=== PATIENT | female | born 1945 | race African-American/Black ===

== ENCOUNTER 2019-05-13 15:32 | Inpatient (IN) | payer OTHER ==
--- NOTE | 2019-05-13 15:49 | PDOC ---
Rapid Medical Evaluation Chief Complaint: Shortness of Breath Time Seen by Provider: 05/13/19 15:45 Medical Evaluation: Allergies Allergy/AdvReac Type Severity Reaction Status Date / Time No Known Allergies Allergy Verified 05/11/11 14:04 05/13/19 15:47 Pt c/o: copd exac, received by ems with 02 sat of 91 % and tachypneic Pt on brief exam: wheezing nikki with accessory muscle usage pt ordered for: iv, labs. Pt to proceed to the ED Discharge Disposition - Diagnosis Bronchitis, chronic, SOB (shortness of breath), LETTY (acute kidney injury) COPD (chronic obstructive pulmonary disease) Qualifiers: COPD type: chronic bronchitis Chronic bronchitis type: simple Qualified Code(s) : J41.0 - Simple chronic bronchitis - Discharge Dispostion Disposition: HOME Condition at time of disposition: Stable - Referrals - Patient Instructions - Post Discharge Activity
--- NOTE | 2019-05-13 17:04 | PDOC ---
Attending Attestation - Resident Resident Name: Antonio Berry - HPI HPI: 05/16/19 09:37 pt presents to the ED complaining of generalized malaise and severe wheezing and shortness of breath. Patient states that she now becomes short of breath with almost any activity. - Physicial Exam PE: 05/16/19 09:55 Agree with resident exam. PAtient is alert and in NAD, and is speaking in complete sentences, but is mildly tachypneic and has wheezing and decreased air entry. - Medical Decision Making 05/16/19 09:56 pt presents to the ED complaining of wheezing and shortness of breath consistent with prior COPD exacerbations. Patient is experiencing severe ROGEL despite treatment in the Ed, so will admit to medicine for further management.
[2019-05-13] MEDS ORDERED: methylPREDNISolone NA SUCC 125 MG/2 ML VIAL IVPUSH ONE (17:07)
--- NOTE | 2019-05-13 17:12 | PDOC ---
History of Present Illness - General Chief Complaint: Shortness of Breath Stated Complaint: COPD Time Seen by Provider: 05/13/19 15:45 History Source: Patient Exam Limitations: No Limitations - History of Present Illness Initial Comments: Rosalia Das is a 73 yo F w a pmh of COPD (Chronic bronchitis) NOT on home O2, HTN, and NIDDM who presents to the [facility] er with SOB and difficulty breathing for 3 days duration. The patient states doing physical activity is very tiring for her and she has been wheezing with even remote phsyical activity. She believes she had a cold a few days ago and after the cold subsided she started wheezing heavily and experiencing one of her typical COPD exacerbations. She feels exhausted right now. Denies current chest pain, headache, nausea, vomiting, diaphoresis, leg swelling , abdominal pain, back pain, dysuria, frequency or urgency PCP: Jean Claude Baltazar - Admits to [facility] PSH: None reported Allergies: NKA, NKDA Social Hx: Denies current smoking, drinking, or other substance usage. Lives with daughter is independent in her ADL. Past History - Past Medical History Allergies/Adverse Reactions: Allergies Allergy/AdvReac Type Severity Reaction Status Date / Time No Known Allergies Allergy Verified 05/11/11 14:04 Home Medications: Ambulatory Orders Folic Acid 1 mg PO DAILY 05/11/11 Insulin Glargine,Hum.rec.anlog [Lantus] 60 unit SQ AM 05/11/11 Insulin Lispro [Humalog] 10 unit SQ AC 05/11/11 Losartan Potassium [Cozaar] 100 mg PO AM 05/11/11 Aspirin [Ecotrin] 81 mg PO DAILY 02/23/15 Atorvastatin Ca [Lipitor -] 40 mg PO HS 02/23/15 Hydrochlorothiazide [Hctz -] 25 mg PO DAILY 02/23/15 Magnesium Citrate [Citroma -] 150 ml PO ONCE PRN #1 bottle 02/23/15 Nifedipine [Nifedical Xl] 60 mg PO DAILY 02/23/15 Clonidine HCl 0.1 mg PO BID 05/13/19 Doxazosin Mesylate 1.5 tab PO DAILY 05/13/19 Furosemide 20 mg PO BID 05/13/19 Hydralazine HCl 25 mg PO BID 05/13/19 Insulin Aspart [Novolog] 15 units IM TID 05/13/19 Insulin Degludec [Tresiba Flextouch U-200] 80 units IM DAILY 05/13/19 Labetalol HCl 100 mg PO BID 05/13/19 COPD: Yes Diabetes: Yes HTN: Yes Hypercholesterolemia: Yes Liver Disease: Yes (CKD STAGE IIIb) Other medical history: diabetic retinopathy - Immunization History Immunization Up to Date: No - Psycho Social/Smoking Cessation Hx Smoking Status: No Smoking History: Never smoked Have you smoked in the past 12 months: No Number of Cigarettes Smoked Daily: 0 Information on smoking cessation initiated: No Hx Alcohol Use: No Drug/Substance Use Hx: No Review of Systems - Review of Systems Able to Perform ROS?: Yes Comments:: CONSTITUTIONAL: Present: fatigue Absent: fever, no chills EYES: Absent: visual changes ENT: Absent: ear pain, no sore throat CARDIOVASCULAR: Absent: chest pain, no palpitations RESPIRATORY: Present: Cough, SOB GI: Absent: abdominal pain, no nausea, no vomiting, no constipation, no diarrhea GENITOURINARY: Absent: dysuria, no frequency, no hematuria MUSKULOSKELETAL: Absent: back pain, no arthralgia, no myalgia SKIN: Absent: rash NEURO: Absent: headache *Physical Exam - Vital Signs Last Vital Signs Temp Pulse Resp BP Pulse Ox 98.0 F 77 16 156/55 L 97 05/13/19 15:45 05/13/19 15:45 05/13/19 15:45 05/13/19 15:45 05/13/19 15:45 - Physical Exam GENERAL: Patient is working hard to breathe. Well-nourished. Mild apparent distress. HEENT: Normocephalic, atraumatic. PERRL, EOM intact. CARDIOVASCULAR: Normal S1, S2. Regular rate and rhythm. PULMONARY: There are diffuse expiratory wheezes on exam. No rales or rhonchi. ABDOMEN: Soft, non-distended, non-tender. EXTREMITIES: Normal ROM in all four extremities. No gross deformities. SKIN: Warm, dry. No rash NEUROLOGICAL: No focal neurological deficits. ED Treatment Course - LABORATORY CBC & Chemistry Diagram: 05/14/19 05:30 05/14/19 05:30 Medical Decision Making - Medical Decision Making Rosalia Das is a 73 yo F w a pmh of COPD (Chronic bronchitis) NOT on home O2, HTN, and NIDDM who presents to the [facility] er with SOB and difficulty breathing for 3 days duration. The patient states doing physical activity is very tiring for her and she has been wheezing with even remote phsyical activity. She believes she had a cold a few days ago and after the cold subsided she started wheezing heavily and experiencing one of her typical COPD exacerbations. She feels exhausted right now. Vital Signs Temp Pulse Resp BP Pulse Ox 98.0 F 90 25 H 165/53 L 97 05/13/19 15:45 05/13/19 19:10 05/13/19 19:10 05/13/19 19:10 05/13/19 19:10 DDx IBNLT: COPD exacerbation, respiratory distress, ACS, heart failure, electrolyte/metabolic disturbance, anemia, PNA, URI Plan: Labs, CXR, EKG, breathing treatments, Likely admission for SOB Labs: Patient has an LETTY and is anemia EKG: NS rate 88, no ST elevations or depressions, not concerning for STEMI CXR: No infiltrate or acute pathology Re-assessment: Patient feels better after receiving steroids and duonebs - She is still very short of breath with any physical activity. Disposition: Med/Surg for COPD exacerbation Discharge - Discharge Information Problems reviewed: Yes Clinical Impression/Diagnosis: SOB (shortness of breath), LETTY (acute kidney injury) COPD (chronic obstructive pulmonary disease) Qualifiers: COPD type: chronic bronchitis Chronic bronchitis type: simple Qualified Code(s) : J41.0 - Simple chronic bronchitis Bronchitis, chronic Qualifiers: Chronic bronchitis type: unspecified Qualified Code(s): J42 - Unspecified chronic bronchitis Condition: Stable - Admission Yes - Follow up/Referral - Patient Discharge Instructions - Post Discharge Activity
[2019-05-13] MEDS ORDERED: ALBUTEROL SO4 0.083% IH SOL 2.5 MG/3 ML VIAL.NEB. NEB ONE (17:23)
[2019-05-13] MEDS ORDERED: methylPREDNISolone NA SUCC 125 MG/2 ML VIAL ONE (17:23)
[2019-05-13] MEDS: ALBUTEROL SO4 2.5/IPRATROPIUM 0.5 INH SOL 3 ML VIAL.NEB. NEB SCH ×4 (17:28→18:15)
[2019-05-13 17:59] LABS: BASO % 0.8 % (0-2.0); EOS % 0.4 % (0-4.5); HEMATOCRIT 32.1 % (32.4-45.2); HEMOGLOBIN 10.4 GM/dL (10.7-15.3); LYMPH % 14.6 % (8-40); MCH 25.4 pg (25.7-33.7); MCHC 32.2 g/dl (32.0-36.0); MEAN CELL VOLUME 78.8 fl (80-96); MEAN PLT VOLUME 9.1 fl (7.5-11.1); MONO % 3.9 % (3.8-10.2); NEUT % 80.3 % (42.8-82.8); PLATELET COUNT 241 K/MM3 (134-434); RBC 4.08 M/mm3 (3.60-5.2); RDW 15.5 % (11.6-15.6); WHITE BLOOD COUNT 10.3 K/mm3 (4.0-10.0)
[2019-05-13 18:29] LABS: ALBUMIN 3.4 g/dl (3.4-5.0); BILIRUBIN,TOTAL 0.3 mg/dL (0.2-1); BLOOD UREA NITROGEN 44.4 mg/dL (7-18); CALCIUM 8.8 mg/dL (8.5-10.1); CREATININE 2.1 mg/dL (0.55-1.3); POTASSIUM 4.2 mmol/L (3.5-5.1); TOT PROT 6.7 g/dl (6.4-8.2)
--- NOTE | 2019-05-13 20:11 | HP ---
CHIEF COMPLAINT: SOB, wheezing, chest tightness, and a worsening dry cough for the past 1 month PCP: Shara Low HISTORY OF PRESENT ILLNESS: This is a 73 year old woman with PMH of COPD, HTN, DM, JEANNIE, and HLD. She presented to the ER after she was referred by her tax lawyer (Dr. Baltazar) with complaints of SOB, wheezing, chest tightness, and a worsening dry cough for the past 1 month. She has had the dry cough for the past several years, but it has gotten worse over the past year. She also endorses new onset lower extremity swelling, first noticed 3 months ago. She denies any orthopnea or paroxysmal nocturnal dyspnea. She has used 2 pillows to sleep for the past several years and does not feel like she needs more. She is able to ambulate without assistance, and walks 4 blocks at baseline. She is still able to walk 4 blocks, but states that she becomes SOB while doing so. Her last echo was at [facility] a few years ago. She also endorses occasional palpitations with the chest tightness. She denies any fevers, chills, nausea, vomiting, diarrhea, dysuria, urgency, or hematuria. Her symptoms have been gradually worsening, and she has been admitted twice at [facility] over the past few months. The first time, she was admitted Feb 11 - Feb 17 , and the second time May 03-. She states that during the course of her admission, she received nebs, steroids, and antibiotics. She was D/Richard on ZPak for 2 days after her last admission, but her symptoms have not improved. She was also started on CPAP for her JEANNIE on Apr 27 this year. She follows Dr. Fuentes for her CKD, diagnosed 2-3 years ago. She last saw him 2 weeks ago, and has an appointment with him on May 28. She states that her CKD developed as a result of her DM. She follows a metropolitan editor as well as an a p mechanic for her DM, which is well controlled on insulin. She denies any recent illnesses, sick contacts, or travel. She received her flu shot in January, and Pneumonia vaccine a few years ago. Her last colonoscopy was 2-3 years ago with no abnormalities found. ER course was notable for: (1) CXR: weak inspiration with prominent mediastinum, no signs of infiltrates or failure5 (2) WBC 10.3 (3) BUN/Cr 44.4/2.1 (4) Duonebs 4x, Solu Medrol 125mg given Recent Travel: denies PAST MEDICAL HISTORY: As listed in HPI PAST SURGICAL HISTORY: Hernia surgery 1976 Hysterectomy 1978 Social History: Smoking: denies Alcohol: denies Drugs: denies Allergies No Known Allergies Allergy (Verified 05/11/11 14:04) HOME MEDICATIONS: Home Medications Medication Instructions Recorded Folic Acid 1 mg PO DAILY 05/11/11 Insulin Glargine,Hum.rec.anlog 60 unit SQ AM 05/11/11 [Lantus] Insulin Lispro [Humalog] 10 unit SQ AC 05/11/11 Losartan Potassium [Cozaar] 100 mg PO AM 05/11/11 Aspirin [Ecotrin] 81 mg PO DAILY 02/23/15 Atorvastatin Ca [Lipitor -] 40 mg PO HS 02/23/15 Hydrochlorothiazide [Hctz -] 25 mg PO DAILY 02/23/15 Magnesium Citrate [Citroma -] 150 ml PO ONCE PRN #1 bottle 02/23/15 Nifedipine [Nifedical Xl] 60 mg PO DAILY 02/23/15 REVIEW OF SYSTEMS CONSTITUTIONAL: Absent: fever, chills, diaphoresis, generalized weakness, malaise, loss of appetite, weight change HEENT: Absent: rhinorrhea, nasal congestion, throat pain, throat swelling, difficulty swallowing, mouth swelling, ear pain, eye pain, visual changes CARDIOVASCULAR: palpitations, peripheral edema Absent: chest pain, syncope, palpitations, irregular heart rate, lightheadedness , peripheral edema RESPIRATORY: cough, shortness of breath, dyspnea with exertion, wheezing Absent: cough, shortness of breath, dyspnea with exertion, orthopnea, wheezing, stridor, hemoptysis GASTROINTESTINAL: Absent: abdominal pain, abdominal distension, nausea, vomiting, diarrhea, constipation, melena, hematochezia GENITOURINARY: Absent: dysuria, frequency, urgency, hesitancy, hematuria, flank pain, genital pain MUSCULOSKELETAL: Absent: myalgia, arthralgia, joint swelling, back pain, neck pain SKIN: Absent: rash, itching, pallor HEMATOLOGIC/IMMUNOLOGIC: Absent: easy bleeding, easy bruising, lymphadenopathy, frequent infections ENDOCRINE: Absent: unexplained weight gain, unexplained weight loss, heat intolerance, cold intolerance NEUROLOGIC: Absent: headache, focal weakness or paresthesias, dizziness, unsteady gait, seizure, mental status changes, bladder or bowel incontinence PSYCHIATRIC: Absent: anxiety, depression, suicidal or homicidal ideation, hallucinations. PHYSICAL EXAMINATION Vital Signs - 24 hr 05/13/19 05/13/19 15:45 19:10 Temperature 98.0 F Pulse Rate 77 Pulse Rate [ 90 Right Brachial] Respiratory 16 25 H Rate Blood Pressure 156/55 L Blood Pressure 165/53 L [Right Arm] O2 Sat by Pulse 97 97 Oximetry (%) GENERAL: Awake, alert, and fully oriented, in no acute distress. HEAD: Normal with no signs of trauma. EYES: Pupils equal, round and reactive to light, extraocular movements intact, sclera anicteric, conjunctiva clear. No lid lag. EARS, NOSE, THROAT: Ears normal, nares patent, oropharynx clear without exudates. Moist mucous membranes. NECK: Normal range of motion, supple without lymphadenopathy, JVD, or masses. LUNGS: Breath sounds equal, mild wheezing in apices B/L HEART: Regular rate and rhythm, systolic murmur 3/6 on RSB ABDOMEN: Soft, nontender, not distended, normoactive bowel sounds, no guarding, no rebound, no masses. No hepatomegaly or splenomegaly. Digital rectal exam performed with RN Siwe present as italian teacher: No masses or fissures on inspection , normal anal tone, vault empty, no blood noticed on finger, FOBT sent MUSCULOSKELETAL: Normal range of motion at all joints. No bony deformities or tenderness. No CVA tenderness. UPPER EXTREMITIES: 2+ pulses, warm, well-perfused. Coarse tremor upon extension of hands noticed LOWER EXTREMITIES: Mild ankle swelling B/L NEUROLOGICAL: Motor 5/5, sensations intact PSYCHIATRIC: Cooperative. Good eye contact. Appropriate mood and affect. SKIN: Warm, dry, normal turgor, no rashes or lesions noted, normal capillary refill. Laboratory Results - last 24 hr 05/13/19 05/13/19 05/13/19 17:17 17:30 17:30 WBC 10.3 H RBC 4.08 Hgb 10.4 L Hct 32.1 L MCV 78.8 L MCH 25.4 L MCHC 32.2 RDW 15.5 Plt Count 241 MPV 9.1 Absolute Neuts (auto) 8.3 H Neutrophils % 80.3 Lymphocytes % 14.6 Monocytes % 3.9 Eosinophils % 0.4 Basophils % 0.8 Nucleated RBC % 0 Sodium 140 Potassium 4.2 Chloride 106 Carbon Dioxide 24 Anion Gap 10 BUN 44.4 H Creatinine 2.1 H Est GFR (CKD-EPI)AfAm 26.03 Est GFR (CKD-EPI)NonAf 22.46 Random Glucose 207 H Calcium 8.8 Total Bilirubin 0.3 AST 17 ALT 21 Alkaline Phosphatase 75 Creatine Kinase 220 H Creatine Kinase Index 0.5 CK-MB (CK-2) 1.2 Troponin I 0.03 Total Protein 6.7 Albumin 3.4 ASSESSMENT/PLAN: 73 year old woman with PMH of COPD, HTN, DM, JEANNIE, and HLD. She presented to the ER after she was referred by her tax lawyer (Dr. Baltazar) with complaints of SOB, wheezing, chest tightness, and a worsening dry cough for the past 1 month. Admitted for management of suspected COPD exacerbation. #COPD exacerbation - Wheezing, decreased breath sounds, Hx of COPD suggests COPD exacerbation vs asthma - CXR: weak inspiration with prominent mediastinum, no signs of infiltrates or failure - Pt's PEF is approximately 90% of expected (measured LZM=931, calculated estimated NZT=150) - Duonebs 4x, Solu Medrol 125mg given in ER - Duonebs Q4H and Prednisone 40mg OD with 2L O2 started - Previously completed Azithro course last week at [facility], will not start on Abx. Avoid Qtc prolonging drugs (Qtc 484) - Pulmonary consult placed - VBG to r/o hyperpcapnia - Flu swab sent #CHF r/o - New onset lower extremity edema with SOB suggestive of possible CHF - Last Echo was several years ago, was normal according to the patient - BNP ordered - Echo ordered - Lasix 40mg given, started on 40mg BID - Consult placed with Dr. Patterson #Anemia - Microcystic, last colonoscopy 3 years ago - Fe studies, TSH, RBC smear ordered - FOBT sent #CKD vs LETTY on CKD - BUN/Cr - UA ordered - Renal US ordered - Consult placed with Dr. Lopez #Hx of HTN - Continue home meds Clonidine, Labetalol, will hold Nifedipine for now due to potential for peripheral edema and worsenig of CHF - BP went up to 173/59 here, gave home dose of Clonidine and Nifedipine #Leukocytosis - Possibly reactive to steroid use. Infection less likely due to absence of sputum, no hx of fevers or chills, and lack of radiological findings - Will continue to monitor #Hx of DM - BGM and ISS ACHS started - Home Tresiba continued #FEN - Na controlled and DM diet #DVT - Heparin SQ started Visit type - Emergency Visit Emergency Visit: Yes ED Registration Date: 05/13/19 Care time: The patient presented to the Emergency Department on the above date and was hospitalized for further evaluation of their emergent condition. - New Patient This patient is new to me today: Yes Date on this admission: 05/16/19 - Critical Care Critical Care patient: No ATTENDING PHYSICIAN STATEMENT I saw and evaluated the patient. I reviewed the resident's note and discussed the case with the resident. I agree with the resident's findings and plan as documented. SUBJECTIVE: OBJECTIVE: ASSESSMENT AND PLAN:
[2019-05-13] MEDS ORDERED: MAGNESIUM CITRATE 300 ML BOTTLE PO ONE (20:24)
--- NOTE | 2019-05-13 20:29 | PN ---
Teaching Attending Note Name of Resident: Darryl Longo ATTENDING PHYSICIAN STATEMENT I saw and evaluated the patient. I reviewed the resident's note and discussed the case with the resident. I agree with the resident's findings and plan as documented. SUBJECTIVE: 73 yo woman with COPD (Chronic bronchitis) NOT on home O2, HTN, and NIDDM Presents with shortness of breath and difficulty breathing for about 3 days. Patient reports fatigue with physical activity, reports wheezing, reports possible cold contracted over the past couple days.No overt chest pain. Positive orthopnea, dyspnea with laying flat, dyspnea with walking long distances.Denied overt chest pain. Ported to have received 125 mg Solu-Medrol in the emergency room and 4 rounds of nebulizers. OBJECTIVE: Last Vital Signs Temp Pulse Resp BP Pulse Ox 98.0 F 90 25 H 165/53 L 97 05/13/19 15:45 05/13/19 19:10 05/13/19 19:10 05/13/19 19:10 05/13/19 19:10 GENERAL: Well developed, well nourished. Awake and alert. No acute distress. HEENT: Normocephalic, atraumatic. PERRLA, EOMI. No conjunctival pallor. Sclera are non- icteric. Moist mucous membranes. Oropharynx is clear. NECK: Supple. Full ROM. No JVD. Carotid pulses 2+ and symmetric, without bruits. No thyromegaly. No lymphadenopathy. CARDIOVASCULAR: Regular rate and rhythm. No murmurs, rubs, or gallops. Distal pulses are 2+ and symmetric. PULMONARY: No evidence of respiratory distress. Very scant expiratory wheezing appreciated , bilateral breath sounds, equal ABDOMINAL: Soft. Non-tender. Non-distended. No rebound or guarding. No organomegaly. Normoactive bowel sounds. MUSCULOSKELETAL Normal range of motion at all joints. No bony deformities or tenderness. No CVA tenderness. EXTREMITIES: No cyanosis. No clubbing. No edema. No calf tenderness. SKIN: Warm and dry. Normal capillary refill. No rashes. No jaundice. PSYCHIATRIC: Cooperative. Good eye contact. Appropriate mood and affect. Abnormal Lab Results 05/13/19 05/13/19 05/13/19 17:17 17:30 17:30 WBC 10.3 H Hgb 10.4 L Hct 32.1 L MCV 78.8 L MCH 25.4 L Absolute Neuts (auto) 8.3 H BUN 44.4 H Creatinine 2.1 H Random Glucose 207 H Creatine Kinase 220 H Imaging studies reviewed ASSESSMENT AND PLAN: 63-year-old woman with COPD exacerbation Duo nebs every 4 hours Prednisone 40 mg p.o. daily Zithromax 5-day course supplement oxygen as needed Pulmonary evaluation VBG to rule out CO2 retention Send flu swab Avoid tobacco smoking #Possible CHF exacerbation Furosemide 40 mg IV twice daily I's and O's Daily weights Free water and salt restriction Cardiology consult Beta-willian, GONZALES inhibitor #Microcytic anemia Iron studies, ferritin, TSH, red blood smear Stool for fecal occult blood Would consider colonoscopy as an outpatient #CKD with possible LETTY Renal sonogram Avoid nephrotoxins Send UA Renal consult #Hypertensionuncontrolled Continue with home dose clonidine, should not abruptly DC this medication as it can cause rebound hypertension Continue with home dose hydralazine Continue labetalol Would hold nifedipine as calcium channel blockers can worsen potential CHF Salt restriction diet #Uncontrolled hyperglycemia NovoLog sliding scale Basal glargine A1c Diabetic diet #DVT prophylaxisheparin subcutaneously
[2019-05-13] MEDS ORDERED: NIFEdipine E.R 60 MG TABLET PO SCH (20:30)
[2019-05-13] MEDS ORDERED: NIFEdipine E.R. 30 MG TABLET ONE (22:31)
[2019-05-13] MEDS ORDERED: MAGNESIUM CITRATE 300 ML BOTTLE ONE (22:31)
[2019-05-13] MEDS ORDERED: AZITHROMYCIN IVPB 500 MG/250 ML BAG IVPB ONE (22:51)
[2019-05-13] MEDS ORDERED: FUROSEMIDE 40 MG/4 ML INJECTABLE VIAL IVPUSH ONE (22:55)
[2019-05-13] MEDS ORDERED: FUROSEMIDE 40 MG/4 ML INJECTABLE VIAL ONE (23:32)
[2019-05-14] MEDS ORDERED: hydrALAZINE HCL 25 MG TABLET (FP) ONE (00:43)
[2019-05-14] MEDS ORDERED: cloNIDine HCL 0.1 MG TABLET ONE (00:43)
[2019-05-14] MEDS ORDERED: LABETALOL HCL 100 MG TABLET (FP) ONE (00:43)
[2019-05-14] MEDS ORDERED: ALBUTEROL SO4 2.5/IPRATROPIUM 0.5 INH SOL 3 ML VIAL.NEB. NEB ONE ×3 (00:43→04:23)
[2019-05-14] MEDS ORDERED: ATORVASTATIN CA 40 MG TABLET (FP) ONE (00:43)
[2019-05-14] MEDS ORDERED: HEPARIN NA (PORCINE) 5,000 UNITS/ML 1ML VIAL ONE (00:44)
[2019-05-14] MEDS ORDERED: AZITHROMYCIN IVPB 500 MG/250 ML BAG IVPB ONE (00:44)
[2019-05-14 00:53] LABS: EPI CELLS 1.1 /HPF (0-5/HPF); HYALINE CASTS 6 /lpf (0-8); URINE APPEARANCE CLEAR; URINE BACTERIA 4.6 /hpf (NEGATIVE); URINE BILIRUBIN NEGATIVE (NEGATIVE); URINE COLOR YELLOW; URINE GLUCOSE (UA) NEGATIVE (NEGATIVE); URINE KETONE NEGATIVE (NEGATIVE); URINE LEUK ESTERASE NEGATIVE (NEGATIVE); URINE NITRITE NEGATIVE (NEGATIVE); URINE PROTEIN 2+ (NEGATIVE); URINE RBC 1 /hpf (0-4); URINE UROBILINOGEN 0.2 mg/dL (0.2-1.0); URINE WBC 1 /hpf (0-5)
[2019-05-14] MEDS: cloNIDine HCL 0.1 MG TABLET PO SCH ×3 (00:56→21:35)
[2019-05-14] MEDS: HEPARIN NA (PORCINE) 5,000 UNITS/ML 1ML VIAL SQ SCH ×4 (00:56→21:36)
[2019-05-14] MEDS: hydrALAZINE HCL 25 MG TABLET (FP) PO SCH ×2 (00:56→11:08)
[2019-05-14] MEDS: ATORVASTATIN CA 20 MG TABLET (FP) PO SCH ×2 (00:56→21:35)
[2019-05-14] MEDS: LABETALOL HCL 100 MG TABLET (FP) PO SCH ×3 (00:56→21:35)
[2019-05-14] MEDS: INSULIN SLIDING SCALE (NOVOLOG) 1 VIAL SQ SCH ×4 (01:24→21:33)
[2019-05-14] MEDS ORDERED: methylPREDNISolone NA SUCC 40 MG/1 ML VIAL IVPUSH SCH (02:00)
[2019-05-14] MEDS: ALBUTEROL SO4 2.5/IPRATROPIUM 0.5 INH SOL 3 ML VIAL.NEB. NEB SCH ×6 (02:06→21:34)
[2019-05-14] MEDS ORDERED: methylPREDNISolone NA SUCC 40 MG/1 ML VIAL ONE (02:47)
[2019-05-14 05:06] LABS: VENOUS PC02 41.6 mmHg (38-52); VENOUS PH 7.39 (7.31-7.41); VENOUS PO2 62.1 mmHg (28-48)
[2019-05-14] MEDS ORDERED: FUROSEMIDE 20 MG TABLET (FP) PO SCH (06:00)
[2019-05-14] MEDS ORDERED: FUROSEMIDE 40 MG/4 ML INJECTABLE VIAL IVPUSH SCH ×2 (06:00→10:00)
[2019-05-14 06:31] LABS: BASO % 0.1 % (0-2.0); HEMATOCRIT 30.2 % (32.4-45.2); LYMPH % 7.3 % (8-40); MCH 25.6 pg (25.7-33.7); MCHC 33.1 g/dl (32.0-36.0); MEAN CELL VOLUME 77.4 fl (80-96); MEAN PLT VOLUME 8.4 fl (7.5-11.1); MONO % 1.8 % (3.8-10.2); NEUT % 90.8 % (42.8-82.8); PLATELET COUNT 243 K/MM3 (134-434); RDW 15.4 % (11.6-15.6); WHITE BLOOD COUNT 9.2 K/mm3 (4.0-10.0)
[2019-05-14 06:49] LABS: N-TERMINAL BNP 1724.8 pg/ml (5-450)
[2019-05-14 06:54] LABS: ALBUMIN 3.4 g/dl (3.4-5.0); BILIRUBIN,TOTAL 0.6 mg/dL (0.2-1); BLOOD UREA NITROGEN 48.6 mg/dL (7-18); CALCIUM 9.4 mg/dL (8.5-10.1); CREATININE 2.5 mg/dL (0.55-1.3); MAGNESIUM 2.8 mg/dL (1.8-2.4); TOT PROT 6.9 g/dl (6.4-8.2)
[2019-05-14] MEDS ORDERED: FUROSEMIDE 40 MG/4 ML INJECTABLE VIAL ONE (07:39)
[2019-05-14] MEDS ORDERED: INSULIN (LEVEMIR) 100 UNITS/ML UNITS SQ ONE (08:06)
[2019-05-14] MEDS ORDERED: INSULIN DEGLUDEC IM SCH (10:00)
[2019-05-14] MEDS ORDERED: PATIENT'S OWN MEDICATION (NON-FORMULARY) (Nifedipine [Nifedical Xl] 60 MG) PO SCH (10:00)
[2019-05-14] MEDS ORDERED: DOXYCYCLINE INJECTION 100 MG in DEXTROSE 5%-WATER 100 ML IVPB SCH (10:00)
[2019-05-14] MEDS ORDERED: AZITHROMYCIN IVPB 500 MG/250 ML BAG IVPB SCH (10:00)
[2019-05-14] MEDS ORDERED: predniSONE 20 MG TABLET (UD) PO SCH ×2 (10:00)
[2019-05-14] MEDS ORDERED: INSULIN SLIDING SCALE (NOVOLOG) 1 VIAL SQ ONE (11:05)
[2019-05-14] MEDS: FOLIC ACID 1 MG TABLET (FP) PO SCH (11:07)
[2019-05-14] MEDS: LOSARTAN POTASSIUM 50 MG TABLET (FP) PO SCH (11:07)
--- NOTE | 2019-05-14 11:58 | EKG ---
Test Reason : Blood Pressure : / mmHG Vent. Rate : 088 BPM Atrial Rate : 088 BPM P-R Int : 172 ms QRS Dur : 082 ms QT Int : 400 ms P-R-T Axes : 040 -10 017 degrees QTc Int : 484 ms NORMAL SINUS RHYTHM NORMAL ECG Confirmed by MD GUILLERMO, PASTORA ([id number]) on 05/14/2019 11:58:08 AM Referred By: Confirmed By:PASTORA LI MD
--- NOTE | 2019-05-14 13:08 | PN ---
Teaching Attending Note Name of Resident: Benjamin Saldaña ATTENDING PHYSICIAN STATEMENT I saw and evaluated the patient. I reviewed the resident's note and discussed the case with the resident. I agree with the resident's findings and plan as documented. SUBJECTIVE: No fever or chills. She feels better , breathing has improved. No N/V. she feels her LE edema is better than before. she was started on lasix in March due to LE edema. she does not have a diagnosis of CHF. she feels thirsty right now. has no n productive cough. OBJECTIVE: NAD, awake, alert, cooperative. Dry MM. Erythematous throat, no exudates. no N/V CV: RRR, RUSB with radiation to carotids. L neck vein distention Lungs: no wheezing. no crackles. Ext: varicose vein on ankles. trace edema on legs. no erythema. Abd: soft, NT, ND, NL BS. ASSESSMENT AND PLAN: 73 y/o lady with h/o COPD, CKD, HTN, DM, and other medical problems who presented with SOB and cough. 1- SOB: due to acute COPD exacerbation. She does not look volume overloaded ( no crackles, no cxray findings, LE edema could be due to varicose veins.. - dc lasix - cont prednisone - cont Nebs - no evidence of PNA. long QTc . received azithro at [place]. will use doxy for 2 more days for antiinflammatory effect. - echo pending 2- DM: will confirm Tresiba dose . - start levemir - SSI 3- HTN : cont labetalol, clonidine, HZN, and Nifedipine and Cardura 4- CKD: not sure of Cr base line. not sure if LETTY. - hold lasix - renal US with no hydro - will contact [facility] base line cr 5- DVT PX : heaprin sq
[2019-05-14] MEDS: DOXAZOSIN MESYLATE 2 MG TABLET PO SCH (13:12)
--- NOTE | 2019-05-14 13:12 | PN ---
Physical Exam: SUBJECTIVE: Patient seen and examined at bedside. She was admitted overnight. She offers no complaints this AM. She states she is not having difficulty breathing. OBJECTIVE: Vital Signs Temp Pulse Resp BP Pulse Ox 98.4 F 69 18 137/56 L 99 05/14/19 14:57 05/14/19 14:57 05/14/19 14:57 05/14/19 14:57 05/14/19 10:00 GENERAL: AOx3, in no acute distress, sitting in tri-pod position HEAD: NCAT EYES: CYNTHIA, EOMI, conjunctiva clear. ENT: Ears normal, nares patent, oropharynx clear without exudates. Moist mucous membranes. NECK: Normal range of motion, supple without lymphadenopathy, JVD, or masses. LUNGS: CTAB. No wheezes, and no crackles. No accessory muscle use. HEART: RRR s1 s2, 3/6 systolid murmur at RUSB with radiation to carotids. LEFT neck vein distention. ABDOMEN: Soft, BS present in all 4 quadrants, non-distended, no JVD, MUSCULOSKELETAL: No bony deformities or tenderness. No CVA tenderness. UPPER EXTREMITIES: 2+ pulses, warm, well-perfused. No cyanosis. No clubbing. No peripheral edema. LOWER EXTREMITIES: 2+ pulses, warm, well-perfused. No calf tenderness. Trace peripheral edema. NEUROLOGICAL: No focal deficits. Cranial nerves II-XII intact. Normal speech. Gait not appreciated. PSYCHIATRIC: Cooperative. Good eye contact. Appropriate mood and affect. SKIN: Warm, dry, normal turgor, no rashes or lesions noted, normal capillary refill. Laboratory Results - last 24 hr 05/13/19 05/13/19 05/13/19 17:17 17:30 17:30 WBC 10.3 H RBC 4.08 Hgb 10.4 L Hct 32.1 L MCV 78.8 L MCH 25.4 L MCHC 32.2 RDW 15.5 Plt Count 241 MPV 9.1 Absolute Neuts (auto) 8.3 H Neutrophils % 80.3 Lymphocytes % 14.6 Monocytes % 3.9 Eosinophils % 0.4 Basophils % 0.8 Nucleated RBC % 0 PTT (Actin FS) VBG pH POC VBG pCO2 POC VBG pO2 VBG HCO3 VBG O2 Sat (Kyleigh) VBG Base Excess Sodium 140 Potassium 4.2 Chloride 106 Carbon Dioxide 24 Anion Gap 10 BUN 44.4 H Creatinine 2.1 H Est GFR (CKD-EPI)AfAm 26.03 Est GFR (CKD-EPI)NonAf 22.46 POC Glucometer Random Glucose 207 H Calcium 8.8 Magnesium Iron TIBC Iron Saturation Unsaturated IBC Total Bilirubin 0.3 AST 17 ALT 21 Alkaline Phosphatase 75 Creatine Kinase 220 H Creatine Kinase Index 0.5 CK-MB (CK-2) 1.2 Troponin I 0.03 B-Natriuretic Peptide Total Protein 6.7 Albumin 3.4 TSH Urine Color Urine Appearance Urine pH Ur Specific [place] Urine Protein Urine Glucose (UA) Urine Ketones Urine Blood Urine Nitrite Urine Bilirubin Urine Urobilinogen Ur Leukocyte Esterase Urine WBC (Auto) Urine RBC (Auto) Urine Casts (Auto) U Epithel Cells (Auto) Urine Bacteria (Auto) Stool Occult Blood Influenza A (Rapid) Influenza B (Rapid) 05/14/19 05/14/19 05/14/19 00:00 00:00 01:00 WBC RBC Hgb Hct MCV MCH MCHC RDW Plt Count MPV Absolute Neuts (auto) Neutrophils % Lymphocytes % Monocytes % Eosinophils % Basophils % Nucleated RBC % PTT (Actin FS) VBG pH POC VBG pCO2 POC VBG pO2 VBG HCO3 VBG O2 Sat (Kyleigh) VBG Base Excess Sodium Potassium Chloride Carbon Dioxide Anion Gap BUN Creatinine Est GFR (CKD-EPI)AfAm Est GFR (CKD-EPI)NonAf POC Glucometer 373 Random Glucose Calcium Magnesium Iron TIBC Iron Saturation Unsaturated IBC Total Bilirubin AST ALT Alkaline Phosphatase Creatine Kinase Creatine Kinase Index CK-MB (CK-2) Troponin I B-Natriuretic Peptide Total Protein Albumin TSH Urine Color Yellow Urine Appearance Clear Urine pH 5.0 Ur Specific [place] 1.013 Urine Protein 2+ H Urine Glucose (UA) Negative Urine Ketones Negative Urine Blood Negative Urine Nitrite Negative Urine Bilirubin Negative Urine Urobilinogen 0.2 Ur Leukocyte Esterase Negative Urine WBC (Auto) 1 Urine RBC (Auto) 1 Urine Casts (Auto) 6 U Epithel Cells (Auto) 1.1 Urine Bacteria (Auto) 4.6 Stool Occult Blood Negative Influenza A (Rapid) Influenza B (Rapid) 05/14/19 05/14/19 05/14/19 02:55 04:30 05:30 WBC 9.2 RBC 3.90 Hgb 10.0 L Hct 30.2 L MCV 77.4 L MCH 25.6 L MCHC 33.1 RDW 15.4 Plt Count 243 MPV 8.4 Absolute Neuts (auto) 8.4 H Neutrophils % 90.8 H Lymphocytes % 7.3 L D Monocytes % 1.8 L Eosinophils % 0.0 D Basophils % 0.1 Nucleated RBC % 0 PTT (Actin FS) VBG pH 7.39 POC VBG pCO2 41.6 POC VBG pO2 62.1 H VBG HCO3 24.5 VBG O2 Sat (Kyleigh) 90.4 H VBG Base Excess 0 Sodium Potassium Chloride Carbon Dioxide Anion Gap BUN Creatinine Est GFR (CKD-EPI)AfAm Est GFR (CKD-EPI)NonAf POC Glucometer Random Glucose Calcium Magnesium Iron TIBC Iron Saturation Unsaturated IBC Total Bilirubin AST ALT Alkaline Phosphatase Creatine Kinase Creatine Kinase Index CK-MB (CK-2) Troponin I B-Natriuretic Peptide Total Protein Albumin TSH Urine Color Urine Appearance Urine pH Ur Specific [place] Urine Protein Urine Glucose (UA) Urine Ketones Urine Blood Urine Nitrite Urine Bilirubin Urine Urobilinogen Ur Leukocyte Esterase Urine WBC (Auto) Urine RBC (Auto) Urine Casts (Auto) U Epithel Cells (Auto) Urine Bacteria (Auto) Stool Occult Blood Influenza A (Rapid) Negative Influenza B (Rapid) Negative 05/14/19 05/14/19 05/14/19 05:30 05:30 05:30 WBC RBC Hgb Hct MCV MCH MCHC RDW Plt Count MPV Absolute Neuts (auto) Neutrophils % Lymphocytes % Monocytes % Eosinophils % Basophils % Nucleated RBC % PTT (Actin FS) 29.1 VBG pH POC VBG pCO2 POC VBG pO2 VBG HCO3 VBG O2 Sat (Kyleigh) VBG Base Excess Sodium 140 Potassium 4.0 Chloride 105 Carbon Dioxide 23 Anion Gap 13 BUN 48.6 H Creatinine 2.5 H Est GFR (CKD-EPI)AfAm 21.08 Est GFR (CKD-EPI)NonAf 18.19 POC Glucometer Random Glucose 316 H Calcium 9.4 Magnesium 2.8 H Iron 22 L TIBC 277 Iron Saturation 7 L Unsaturated IBC 255 Total Bilirubin 0.6 AST 14 L ALT 21 Alkaline Phosphatase 73 Creatine Kinase Creatine Kinase Index CK-MB (CK-2) Troponin I B-Natriuretic Peptide 1724.8 H Total Protein 6.9 Albumin 3.4 TSH 0.76 Urine Color Urine Appearance Urine pH Ur Specific [place] Urine Protein Urine Glucose (UA) Urine Ketones Urine Blood Urine Nitrite Urine Bilirubin Urine Urobilinogen Ur Leukocyte Esterase Urine WBC (Auto) Urine RBC (Auto) Urine Casts (Auto) U Epithel Cells (Auto) Urine Bacteria (Auto) Stool Occult Blood Influenza A (Rapid) Influenza B (Rapid) 05/14/19 11:23 WBC RBC Hgb Hct MCV MCH MCHC RDW Plt Count MPV Absolute Neuts (auto) Neutrophils % Lymphocytes % Monocytes % Eosinophils % Basophils % Nucleated RBC % PTT (Actin FS) VBG pH POC VBG pCO2 POC VBG pO2 VBG HCO3 VBG O2 Sat (Kyleigh) VBG Base Excess Sodium Potassium Chloride Carbon Dioxide Anion Gap BUN Creatinine Est GFR (CKD-EPI)AfAm Est GFR (CKD-EPI)NonAf POC Glucometer 286 Random Glucose Calcium Magnesium Iron TIBC Iron Saturation Unsaturated IBC Total Bilirubin AST ALT Alkaline Phosphatase Creatine Kinase Creatine Kinase Index CK-MB (CK-2) Troponin I B-Natriuretic Peptide Total Protein Albumin TSH Urine Color Urine Appearance Urine pH Ur Specific [place] Urine Protein Urine Glucose (UA) Urine Ketones Urine Blood Urine Nitrite Urine Bilirubin Urine Urobilinogen Ur Leukocyte Esterase Urine WBC (Auto) Urine RBC (Auto) Urine Casts (Auto) U Epithel Cells (Auto) Urine Bacteria (Auto) Stool Occult Blood Influenza A (Rapid) Influenza B (Rapid) Active Medications Albuterol Sulfate (Ventolin 0.083% Nebulizer Soln -) 1 amp NEB Q4H PRN PRN Reason: SHORT OF BREATH/WHEEZING Albuterol/Ipratropium (Duoneb -) 1 amp NEB RQID [facility] Atorvastatin Calcium (Lipitor -) 40 mg PO HS [facility] Last Admin: 05/14/19 00:56 Dose: 40 mg Clonidine (Catapres -) 0.1 mg PO BID [facility] Last Admin: 05/14/19 11:07 Dose: 0.1 mg Doxazosin Mesylate (Cardura -) 6 mg PO DAILY [facility] Last Admin: 05/14/19 13:12 Dose: 6 mg Folic Acid (Folic Acid -) 1 mg PO DAILY [facility] Last Admin: 05/14/19 11:07 Dose: 1 mg Heparin Sodium (Porcine) (Heparin -) 5,000 unit SQ TID [facility] Last Admin: 05/14/19 14:12 Dose: 5,000 unit Hydralazine HCl (Apresoline -) 25 mg PO BID [facility] Last Admin: 05/14/19 11:08 Dose: 25 mg Sodium Chloride (Normal Saline -) 1,000 mls @ 75 mls/hr IV ASDIR [facility] Insulin Aspart (Novolog Vial Sliding Scale -) 1 vial SQ [facility]; Protocol Last Admin: 05/14/19 17:01 Dose: Not Given Insulin Detemir (Levemir Vial) 20 units SQ AM [facility] Labetalol HCl (Normodyne -) 100 mg PO BID [facility] Last Admin: 05/14/19 11:07 Dose: 100 mg Losartan Potassium (Cozaar -) 50 mg PO DAILY [facility] Last Admin: 05/14/19 11:07 Dose: 50 mg Methylprednisolone Sodium Succinate (Solu-Medrol -) 40 mg IVPUSH Q8H-IV [facility] Nifedipine (Procardia Xl -) 60 mg PO DAILY [facility] ASSESSMENT/PLAN: 73 y/o female PMH HTN, insulin treated DM, CKD III, COPD, c/o with SOB and cough and admitted for acute respiratory failure 2/2 acute COPD exacerbation. # Acute respiratory failure 2/2 acute COPD exacerbation - Symptoms improved s/p duonebs and prednisone - Pt denies h/o CHF - No clinical evidence of fluid overload - Echo pending - Solumedrol 40 mg IV q8h, duonebs sched, albuterol PRN for sob - CPAP at night 11cm H20 # CKD III - Pt reports being seen by Dr. Mary Kate Fuentes - Most recent Cr 1.83 (04/19/19) and 1.91 (04/05/19) - Hold lasix - If cr is higher hold losartan (given nephro note of range 1.6 to 2.4) - Renal US: no hydronephrosis # DM - Hold home regimen: Tresiba 22 units HS - Levemir 20 u in the AM - ISS ACHS # HTN - Cont. curent home regimen: labetalol 100 mg po BID, clonidine 0.1 mg PO BID, and nifedipine 60 mg po qd and doxazosin 6 mg po qd - Cardio consulted: STOP hydralazine 25 mg po BID # F/E/N - NS at 75 cc/hour. DC if pt clinically overloaded. - Cont. to monitor - Low sodium diet # DVT prophylaxis - Heparin SQ # Disposition - Telemetry Kyle Manuel MD Visit type - Emergency Visit Emergency Visit: No - New Patient This patient is new to me today: Yes Date on this admission: 05/14/19 - Critical Care Critical Care patient: No ATTENDING PHYSICIAN STATEMENT I saw and evaluated the patient. I reviewed the resident's note and discussed the case with the resident. I agree with the resident's findings and plan as documented. SUBJECTIVE: OBJECTIVE: ASSESSMENT AND PLAN:
--- NOTE | 2019-05-14 14:59 | CON.PULM ---
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 Reports a nonproductive cough and wheezing. No fevers, chills or sweats. She has been hospitalized twice recently for similar symptoms. Also reports some leg swelling without orthopnea or PND. She reports compliance with her inhalers. She is a never smoker. - History Source History Provided By: Patient, Medical Record Limitations to Obtaining History: No Limitations - Past Medical History Cardio/Vascular: Yes: HTN, Hyperlipdemia Pulmonary: Yes: COPD, Sleep Apnea ...: No Endocrine: Yes: Diabetes Mellitus - Alcohol/Substance Use Hx Alcohol Use: No - Smoking History Smoking history: Never smoked Have you smoked in the past 12 months: No Aproximately how many cigarettes per day: 0 Home Medications - Allergies Allergies/Adverse Reactions: Allergies Allergy/AdvReac Type Severity Reaction Status Date / Time No Known Allergies Allergy Verified 05/11/11 14:04 - Home Medications Home Medications: Ambulatory Orders Folic Acid 1 mg PO DAILY 05/11/11 Insulin Glargine,Hum.rec.anlog [Lantus] 60 unit SQ AM 05/11/11 Insulin Lispro [Humalog] 10 unit SQ AC 05/11/11 Losartan Potassium [Cozaar] 100 mg PO AM 05/11/11 Aspirin [Ecotrin] 81 mg PO DAILY 02/23/15 Atorvastatin Ca [Lipitor -] 40 mg PO HS 02/23/15 Hydrochlorothiazide [Hctz -] 25 mg PO DAILY 02/23/15 Magnesium Citrate [Citroma -] 150 ml PO ONCE PRN #1 bottle 02/23/15 Nifedipine [Nifedical Xl] 60 mg PO DAILY 02/23/15 Clonidine HCl 0.1 mg PO BID 05/13/19 Doxazosin Mesylate 1.5 tab PO DAILY 05/13/19 Furosemide 20 mg PO BID 05/13/19 Hydralazine HCl 25 mg PO BID 05/13/19 Insulin Aspart [Novolog] 15 units IM TID 05/13/19 Insulin Degludec [Tresiba Flextouch U-200] 80 units IM DAILY 05/13/19 Labetalol HCl 100 mg PO BID 05/13/19 Review of Systems - Review of Systems Constitutional: reports: Weakness. denies: Chills, Fever Eyes: denies: Recent Change in Vision HENT: reports: Nasal Congestion, Throat Pain Neck: reports: Stiffness, Tenderness Cardiovascular: reports: Shortness of Breath. denies: Chest Pain Respiratory: reports: Cough, Wheezing Gastrointestinal: reports: Abdominal Pain. denies: Nausea, Vomiting Genitourinary: denies: Dysuria, Hematuria Neurological: denies: Dizziness, Headache Endocrine: denies: Unexplained Weight Loss Physical Exam Vital Sings: Vital Signs Temperature 98.4 F 05/14/19 14:57 Pulse Rate 69 05/14/19 14:57 Respiratory Rate 18 05/14/19 14:57 Blood Pressure 137/56 L 05/14/19 14:57 O2 Sat by Pulse Oximetry (%) 99 05/14/19 10:00 Constitutional: Yes: Calm Eyes: Yes: Conjunctiva Clear, EOM Intact HENT: Yes: Atraumatic, Normocephalic Neck: Yes: Supple, Trachea Midline Cardiovascular: Yes: Regular Rate and Rhythm Respiratory: Yes: Wheezes ...Clubbing: No Gastrointestinal: Yes: Normal Bowel Sounds, Soft, Tenderness Edema: Yes Neurological: Yes: Alert, Oriented Labs: CBC, BMP 05/14/19 05:30 05/14/19 05:30 Imaging - Results Chest X-ray: Report Reviewed, Image Reviewed (no infiltrates) Problem List - Problems (1) COPD with acute exacerbation Code(s): J44.1 - CHRONIC OBSTRUCTIVE PULMONARY DISEASE W (ACUTE) EXACERBATION Assessment/Plan Acute COPD Exacerbation Acute on Chronic Renal Failure LV Diastolic Dysfunction Pulmonary HTN HTN DM Hyperlipidemia JEANNIE Anemia - IV medrol - inhaled bronchodilators standing and PRN - BP control - monitor urine output, creatinine - CPAP at night 11cm H20 - O2 to keep SpO2 >90% - DVT prophylaxis Thank you for this consult Del Cruz MD
--- NOTE | 2019-05-14 15:07 | ECHO ---
Name: CHEN QUINTERO Exam:Adult Echocardiogram Study Date: 05/14/2019 01:11 PM Age: 73 yrs Reason For Study: r/o CHF Height: 66 in Weight: 160 lb BSA: 1.8 m2 MMode/2D Measurements & Calculations IVSd: 1.3 cm Ao root diam: 2.5 cm LVIDd: 3.9 cm LA dimension: 3.1 cm LVIDs: 2.5 cm LVPWd: 1.1 cm EDV(Teich): 64.6 ml LVOT diam: 2.0 cm ESV(Teich): 21.8 ml LAV (MOD-bp): 87.0 ml TAPSE: 2.7 cm RV S Lele: 15.0 cm/sec Doppler Measurements & Calculations MV E max lele: 79.5 cm/sec Ao V2 max: 194.1 cm/sec MV A max lele: 96.5 cm/sec Ao max P.1 mmHg MV E/A: 0.82 Ao V2 mean: 131.0 cm/sec MV dec time: 0.33 sec Ao mean P.8 mmHg Ao V2 VTI: 43.4 cm LUCY(I,D): 2.3 cm2 LUCY(V,D): 2.1 cm2 LV V1 max P.1 mmHg SV(LVOT): 99.2 ml LV V1 mean P.8 mmHg LV V1 max: 132.9 cm/sec LV V1 mean: 88.2 cm/sec LV V1 VTI: 31.7 cm TR max lele: 319.4 cm/sec PA V2 max: 148.0 cm/sec TR max P.9 mmHg PA max P.8 mmHg Med Peak E' Lele: 4.0 cm/sec Pulm Sys Lele: 69.0 cm/sec Med E/e': 19.8 Pulm Arthur Lele: 48.1 cm/sec Lat Peak E' Lele: 8.4 cm/sec Pulm S/D: 1.4 Lat E/e': 9.5 PI Vmax: 153.4 cm/sec Procedure A complete two-dimensional transthoracic echocardiogram was performed (2D, M-mode, Doppler and color flow Doppler). The patient was in normal sinus rhythm during the exam. Left Ventricle The left ventricle is normal in size. There is mild concentric left ventricular hypertrophy. Left anaid tricular systolic function is normal. Ejection Fraction = 65%. Grade I diastolic dysfunction, (abnormal relaxa tion pattern). Right Ventricle The right ventricle is normal in size and function. Atria Normal left and right atrial size and function. Mitral Valve The mitral valve is grossly normal. There is trace mitral regurgitation. Tricuspid Valve The tricuspid valve is not well visualized, but is grossly normal. There is mild tricuspid regurgitat ion. There is moderate pulmonary hypertension. Aortic Valve The aortic valve is trileaflet. There is mild aortic sclerosis.;. No hemodynamically significant valv ular aortic stenosis. Pulmonic Valve The pulmonic valve is not well seen, but is grossly normal. Trace pulmonic valvular regurgitation. Great Vessels The aortic root is normal size. Pericardium/Pleura There is no pericardial effusion. Interpretation Summary There is mild concentric left ventricular hypertrophy. Left ventricular systolic function is normal. Grade I diastolic dysfunction, (abnormal relaxation pattern). The right ventricle is normal in size and function. There is trace mitral regurgitation. There is mild tricuspid regurgitation. There is moderate pulmonary hypertension. No hemodynamically significant valvular aortic stenosis. MD Joshua Wiggins 05/14/2019 03:07 PM
--- NOTE | 2019-05-14 16:23 | PN ---
Progress Note (short form) - Note Progress Note: Chief Complaint: Events noted, notes reviewed, shortness of breath/dyspnea with cough nonproductive of sputum, intermittent wheeze, denies any chest pain History of Present Illness: Seen and examined on telemetry. Full consult dictated Medications: Current Medications Albuterol/Ipratropium (Duoneb -) 1 amp NEB RQ4H [facility] Last Admin: 05/14/19 15:28 Dose: 1 amp Atorvastatin Calcium (Lipitor -) 40 mg PO HS [facility] Last Admin: 05/14/19 00:56 Dose: 40 mg Clonidine (Catapres -) 0.1 mg PO BID [facility] Last Admin: 05/14/19 11:07 Dose: 0.1 mg Doxazosin Mesylate (Cardura -) 6 mg PO DAILY [facility] Last Admin: 05/14/19 13:12 Dose: 6 mg Folic Acid (Folic Acid -) 1 mg PO DAILY [facility] Last Admin: 05/14/19 11:07 Dose: 1 mg Heparin Sodium (Porcine) (Heparin -) 5,000 unit SQ TID [facility] Last Admin: 05/14/19 14:12 Dose: 5,000 unit Hydralazine HCl (Apresoline -) 25 mg PO BID [facility] Last Admin: 05/14/19 11:08 Dose: 25 mg Insulin Aspart (Novolog Vial Sliding Scale -) 1 vial SQ ACHS [facility]; Protocol Last Admin: 05/14/19 11:25 Dose: 6 units Insulin Detemir (Levemir Vial) 20 units SQ AM [facility] Labetalol HCl (Normodyne -) 100 mg PO BID [facility] Last Admin: 05/14/19 11:07 Dose: 100 mg Losartan Potassium (Cozaar -) 50 mg PO DAILY [facility] Last Admin: 05/14/19 11:07 Dose: 50 mg Nifedipine (Procardia Xl -) 60 mg PO DAILY [facility] Prednisone (Deltasone -) 40 mg PO DAILY [facility] Last Admin: 05/14/19 11:07 Dose: 40 mg Review of Systems - Review of Systems Constitutional: denies: Chills, Fever Cardiovascular: As noted above Respiratory: reports: Cough nonproductive of Sputum Gastrointestinal: denies: Nausea, Vomiting, Diarrhea, Constipation or Abdominal Pain Neurological: denies: Headaches Vital Signs: Last Vital Signs Temp Pulse Resp BP Pulse Ox 98.4 F 69 18 137/56 L 99 05/14/19 14:57 01/28/20 14:57 05/14/19 14:57 05/14/19 14:57 05/14/19 10:00 Intake & Output 05/11/19 05/12/19 05/13/19 05/14/19 23:59 23:59 23:59 23:59 Intake Total 300 Balance 300 Weight 160 lb 162 lb 9.6 oz Neck: Supple Negative JVD No Bruit Respiratory: Scattered rhonchi bilaterally Cardiovascular: S1 S2 Regular Rate Rhythm Gastrointestinal: Soft Benign Normal Bowel Sounds Ext: Trace Edema Labs: Troponin, BNP 05/13/19 05/14/19 17:17 05:30 Troponin I 0.03 B-Natriuretic Peptide 1724.8 H CBC, BMP 05/14/19 05:30 05/14/19 05:30 Hepatic Panel Total Bilirubin 0.6 mg/dL (0.2-1) 05/14/19 05:30 AST 14 U/L (15-37) L 05/14/19 05:30 ALT 21 U/L (13-61) 05/14/19 05:30 Alkaline Phosphatase 73 U/L (45-117) 05/14/19 05:30 Albumin 3.4 g/dl (3.4-5.0) 05/14/19 05:30 Assessment/Plan ASSESSMENT: 1. Persistent dyspnea, associated wheeze/cough nonproductive of sputum highly suggestive of reactive airway disease exacerbation/chronic bronchitis 2. Diastolic left ventricular dysfunction with clinical class 0 [place] [employer] classification left ventricular failure (elevated BNP most likely related to chronic diastolic left ventricular dysfunction and underlying chronic kidney disease) 3. 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 HTN 5. DM 6. Hypercholesterolemia 7. Chronic kidney disease 8. Anemia PLAN: 1. Continue Labetalol and titrate dosage 2. Continue Cozaar and titrate dosage 3. Continue Procardia XL 4. Continue Clonidine, dose might need to be down titrated 5. Continue Cardura 6. Discontinue Hydralazine 7. Continue Lipitor Samia Young M.D.
--- NOTE | 2019-05-14 17:24 | CONSULT ---
Consult Consult Specialty:: Nephrology Reason for Consultation:: CKD - History of Present Illness Chief Complaint: shortness of breath History of Present Illness: Pt is a 73 year old female with pmhx of copd, htn, dm, andrew, ckd, and hld who presents to the ER with shortness of breath. 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 She has CKD and follows with Dr Gomez. She denies lower ext edema. She does complain of wheezing at times. She denies nsaid use. She denies dysuria or hematuria. She says she was recently admitted to [place] for CHF. - History Source History Provided By: Patient - Past Medical History Cardio/Vascular: Yes: CHF, HTN Pulmonary: Yes: COPD Renal/: Yes: Renal Inusuff ...: No - Alcohol/Substance Use Hx Alcohol Use: No - Smoking History Smoking history: Never smoked Have you smoked in the past 12 months: No Aproximately how many cigarettes per day: 0 Home Medications - Allergies Allergies/Adverse Reactions: Allergies Allergy/AdvReac Type Severity Reaction Status Date / Time No Known Allergies Allergy Verified 05/11/11 14:04 - Home Medications Home Medications: Ambulatory Orders Folic Acid 1 mg PO DAILY 05/11/11 Insulin Glargine,Hum.rec.anlog [Lantus] 60 unit SQ AM 05/11/11 Insulin Lispro [Humalog] 10 unit SQ AC 05/11/11 Losartan Potassium [Cozaar] 100 mg PO AM 05/11/11 Aspirin [Ecotrin] 81 mg PO DAILY 02/23/15 Atorvastatin Ca [Lipitor -] 40 mg PO HS 02/23/15 Hydrochlorothiazide [Hctz -] 25 mg PO DAILY 02/23/15 Magnesium Citrate [Citroma -] 150 ml PO ONCE PRN #1 bottle 02/23/15 Nifedipine [Nifedical Xl] 60 mg PO DAILY 02/23/15 Clonidine HCl 0.1 mg PO BID 05/13/19 Doxazosin Mesylate 1.5 tab PO DAILY 05/13/19 Furosemide 20 mg PO BID 05/13/19 Hydralazine HCl 25 mg PO BID 05/13/19 Insulin Aspart [Novolog] 15 units IM TID 05/13/19 Insulin Degludec [Tresiba Flextouch U-200] 80 units IM DAILY 05/13/19 Labetalol HCl 100 mg PO BID 05/13/19 Family Medical History Family History: Denies Review of Systems - Review of Systems Constitutional: reports: No Symptoms Eyes: reports: No Symptoms HENT: reports: No Symptoms Neck: reports: No Symptoms Cardiovascular: reports: No Symptoms. denies: Chest Pain, Edema Respiratory: reports: Cough, SOB, SOB on Exertion Genitourinary: reports: No Symptoms Musculoskeletal: reports: No Symptoms Integumentary: reports: No Symptoms Neurological: reports: No Symptoms Endocrine: reports: No Symptoms Hematology/Lymphatic: reports: No Symptoms Psychiatric: reports: No Symptoms Physical Exam Vital Signs: Vital Signs Temperature 98.4 F 05/14/19 14:57 Pulse Rate 69 05/14/19 14:57 Respiratory Rate 18 05/14/19 14:57 Blood Pressure 137/56 L 05/14/19 14:57 O2 Sat by Pulse Oximetry (%) 99 05/14/19 10:00 Constitutional: Yes: Calm Eyes: Yes: Conjunctiva Clear HENT: Yes: Atraumatic Cardiovascular: Yes: S1, S2 Respiratory: Yes: On Nasal O2, Wheezes Gastrointestinal: Yes: Soft Renal/: Yes: WNL Musculoskeletal: Yes: WNL Edema: No Neurological: Yes: Oriented Psychiatric: Yes: Oriented Labs: CBC, BMP 05/14/19 05:30 05/14/19 05:30 Laboratory Tests 02/23/15 05/11/15 06/08/15 13:30 12:10 13:55 WBC Hgb Creatinine 1.6 H 1.6 H 1.7 H Urine Protein 05/13/19 05/13/19 05/14/19 17:30 17:30 00:00 WBC 10.3 H Hgb 10.4 L Creatinine 2.1 H Urine Protein 2+ H 05/14/19 05/14/19 05:30 05:30 WBC 9.2 Hgb 10.0 L Creatinine 2.5 H Urine Protein Imaging - Results Chest X-ray: Report Reviewed Assessment/Plan Current Medications Generic Name Dose Route Start Last Admin Trade Name Freq PRN Reason Stop Dose Admin Albuterol/Ipratropium 1 amp 05/14/19 00:00 05/14/19 15:28 Duoneb - NEB 1 amp RQ4H GARO Administration Atorvastatin Calcium 40 mg 05/13/19 22:00 05/14/19 00:56 Lipitor - PO 40 mg HS GARO Administration Clonidine 0.1 mg 05/13/19 22:00 05/14/19 11:07 Catapres - PO 0.1 mg BID G[facility]O Administration Doxazosin Mesylate 6 mg 05/14/19 10:00 05/14/19 13:12 Cardura - PO 6 mg DAILY G[facility]O Administration Folic Acid 1 mg 05/14/19 10:00 05/14/19 11:07 Folic Acid - PO 1 mg DAILY G[facility]O Administration Heparin Sodium (Porcine) 5,000 unit 05/13/19 22:00 05/14/19 14:12 Heparin - SQ 5,000 unit TID G[facility] Administration Hydralazine HCl 25 mg 05/13/19 22:00 05/14/19 11:08 Apresoline - PO 25 mg BID G[facility]O Administration Sodium Chloride 1,000 mls @ 75 mls/hr 05/14/19 17:15 Normal Saline - IV ASDIR [facility] Insulin Aspart 1 vial 05/13/19 22:00 05/14/19 17:01 Novolog Vial Sliding Scale - SQ Not Given ACHS [facility] Protocol Insulin Detemir 20 units 05/15/19 07:00 Levemir Vial SQ AM G[facility]O Labetalol HCl 100 mg 05/13/19 22:00 05/14/19 11:07 Normodyne - PO 100 mg BID G[facility]O Administration Losartan Potassium 50 mg 05/14/19 10:00 05/14/19 11:07 Cozaar - PO 50 mg DAILY [facility] Administration Nifedipine 60 mg 05/15/19 10:00 Procardia Xl - PO DAILY [facility] Prednisone 40 mg 05/14/19 10:00 05/14/19 11:07 Deltasone - PO 40 mg DAILY G[facility]O Administration Impression 1. CKD 2. HTN 3. copd 4. chf 5. 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
--- NOTE | 2019-05-14 18:03 | CONS ---
DATE OF CONSULTATION: 05/14/2019 CONSULTED REQUESTED BY: Hospitalist service. CHIEF COMPLAINT: Dyspnea, cardiovascular evaluation. HISTORY: A 73-year-old female of [place] descent of ancestry with known history of probable coronary artery disease, angina pectoris, diastolic left ventricular dysfunction with clinical class 0 Rich Heart Association classification left ventricular failure, hypertensive cardiovascular disease, diabetes mellitus, hypercholesterolemia, chronic lung disease, questionable reactive airway disease, chronic kidney disease, and anemia. 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 Patient has been reporting progressive dyspnea over the last 3-4 weeks initially noted with [id number] physical exertion and subsequently occasionally noted at rest. Patient reported cough nonproductive of sputum and occasional wheeze. Patient denied any orthopnea or paroxysmal or nocturnal dyspnea. Patient reported occasional, intermittent, bilateral lower extremity edema that worsens in the latter part of the day. Patient denied any chest discomfort. Patient denied any palpitations, dizziness, lightheadedness, or syncope. Patient reported progressive fatigue and tiredness. PAST MEDICAL HISTORY: Probable coronary artery disease, angina pectoris, diastolic left ventricular dysfunction, hypertensive cardiovascular disease, diabetes mellitus, hypercholesterolemia, chronic lung disease/reactive airway disease, chronic kidney disease, and chronic anemia. SOCIAL HISTORY: Denied tobacco abuse. FAMILY HISTORY: Positive coronary artery disease. ALLERGIES: None reported. MEDICAL THERAPY: Currently includes albuterol nebulizer every 4 hours, Lipitor 40 mg once a day, clonidine 0.1 mg twice a day, Cardura 6 mg once a day, folic acid 1 mg once a day, subcutaneous heparin 5000 units 3 times a day, hydralazine 25 mg twice a day, insulin as prescribed, labetalol 100 mg twice a day, Cozaar 50 mg once a day, Procardia XL 60 mg once a day, prednisone 40 mg once a day. REVIEW OF SYSTEMS: Head and Neck: Denies headache, photophobia, blurring of vision. Respiratory: Reports cough not productive of sputum. Gastrointestinal: Denied nausea, vomiting, diarrhea, abdominal discomfort. Musculoskeletal: History of degenerative joint disease. PHYSICAL EXAMINATION: Vital Signs: Blood pressure os 137/56 mmHg, pulse rate is 69 beats per minute. Head and Neck: Pupils equal, reactive to light and accommodation. Extraocular muscles are intact. Anicteric sclerae. Negative JVD. No bruits appreciated. Chest: Clear to auscultation and percussion. Cardiovascular: S1, S2. Regular. Grade 1/6 systolic ejection murmur. No clicks or gallops. Abdomen: Soft, benign. Normoactive bowel sounds. Extremities: Trace edema, 1+ distal pulses. No calf tenderness. Troponin I levels were noted, 0.03. BNP 1724.8. CBC revealed white cell count 9.2, hemoglobin 10, platelet count 243. Basic metabolic profile reveals sodium 140, potassium 4.0, BUN 48.6, creatinine 2.5, glucose 316. ASSESSMENT: 1. Persistent/progressive dyspnea, associated wheeze, cough not productive of sputum highly suggestive of reactive airway disease exacerbation, chronic bronchitis. 2. Diastolic left ventricular dysfunction with clinical class 0 Rich Heart Association classification left ventricular failure/elevated brain natriuretic peptide most likely related to chronic diastolic left ventricular dysfunction and underlying chronic kidney disease. 3. Probable coronary artery disease, angina pectoris. 4. Hypertension. 5. Diabetes mellitus. 6. Hypercholesterolemia. 7. Chronic kidney disease. 8. Anemia. RECOMMENDATION: 1. Continuation of labetalol therapy and titration of dosage. 2. Continuation of Cozaar therapy and titration of dosage. 3. Continuation of Procardia XL therapy. 4. Continuation of clonidine therapy. Dose might need to be down titrated. 5. Continuation of Cardura therapy. 6. Discontinuation of hydralazine therapy. 7. Continuation of Lipitor therapy. Thank you for kind referral. ZOILA STANTON M.D. [id number]
[2019-05-14] MEDS ORDERED: ALBUTEROL SO4 0.083% IH SOL 2.5 MG/3 ML VIAL.NEB. NEB PRN (18:25)
[2019-05-14] MEDS: methylPREDNISolone NA SUCC 40 MG/1 ML VIAL IVPUSH SCH (18:53)
[2019-05-14] MEDS: SODIUM CHLORIDE 1,000 ML IV SCH (19:53)
[2019-05-14] MEDS: DOCUSATE SODIUM 100 MG CAPSULE (FP) PO SCH (23:28)
[2019-05-15] MEDS: methylPREDNISolone NA SUCC 40 MG/1 ML VIAL IVPUSH SCH ×3 (02:58→17:12)
[2019-05-15 07:02] LABS: HEMATOCRIT 28.2 % (32.4-45.2); HEMOGLOBIN 9.1 GM/dL (10.7-15.3); MCH 25.2 pg (25.7-33.7); MCHC 32.2 g/dl (32.0-36.0); MEAN CELL VOLUME 78.1 fl (80-96); MEAN PLT VOLUME 8.4 fl (7.5-11.1); PLATELET COUNT 206 K/MM3 (134-434); RBC 3.61 M/mm3 (3.60-5.2); RDW 15.7 % (11.6-15.6); WHITE BLOOD COUNT 17.4 K/mm3 (4.0-10.0)
[2019-05-15] MEDS: INSULIN SLIDING SCALE (NOVOLOG) 1 VIAL SQ SCH ×5 (07:04→22:40)
[2019-05-15] MEDS: HEPARIN NA (PORCINE) 5,000 UNITS/ML 1ML VIAL SQ SCH ×3 (07:04→22:44)
[2019-05-15] MEDS: INSULIN (LEVEMIR) 100 UNITS/ML UNITS SQ SCH (07:05)
[2019-05-15 07:32] LABS: ALBUMIN 3.1 g/dl (3.4-5.0); BILIRUBIN,TOTAL 0.2 mg/dL (0.2-1); BLOOD UREA NITROGEN 63.4 mg/dL (7-18); CREATININE 2.2 mg/dL (0.55-1.3); POTASSIUM 5.2 mmol/L (3.5-5.1); TOT PROT 6.1 g/dl (6.4-8.2)
[2019-05-15] MEDS: ALBUTEROL SO4 2.5/IPRATROPIUM 0.5 INH SOL 3 ML VIAL.NEB. NEB SCH ×4 (07:43→20:15)
[2019-05-15] MEDS ORDERED: guaiFENesin/D-M SUGAR-FREE/ACLHOL-FREE 118 ML BOTTLE PO PRN (09:22)
--- NOTE | 2019-05-15 09:22 | PN ---
Teaching Attending Note Name of Resident: Kyle Manuel ATTENDING PHYSICIAN STATEMENT I saw and evaluated the patient. I reviewed the resident's note and discussed the case with the resident. I agree with the resident's findings and plan as documented. SUBJECTIVE: Patient has no new complain. no shortness of breath. OBJECTIVE: Vital Signs Temperature 97.9 F 05/15/19 05:59 Pulse Rate 66 05/15/19 05:59 Respiratory Rate 20 05/15/19 05:59 Blood Pressure 155/66 05/15/19 05:59 O2 Sat by Pulse Oximetry (%) 98 05/14/19 20:09 GENERAL: The patient is awake, alert, and fully oriented, in no acute distress. HEAD: Normal with no signs of trauma. EYES: PERRL, extraocular movements intact, sclera anicteric, conjunctiva clear. ENT: Ears normal, oropharynx clear without exudates, moist mucous membranes. NECK: Trachea midline, full range of motion, supple. LUNGS: Breath sounds equal, clear to auscultation bilaterally, no wheezes, no crackles, no accessory muscle use. HEART: Regular rate and rhythm, S1, S2 without murmur, rub or gallop. ABDOMEN: Soft, nontender, nondistended, normoactive bowel sounds, no guarding, no rebound, no hepatosplenomegaly, no masses. EXTREMITIES: 2+ pulses, warm, well-perfused, no edema. NEUROLOGICAL: Cranial nerves II through XII grossly intact. Normal speech, gait not observed. PSYCH: Normal mood, normal affect. SKIN: Warm, dry, normal turgor, no rashes or lesions noted CBCD WBC 17.4 K/mm3 (4.0-10.0) H 05/15/19 06:25 RBC 3.61 M/mm3 (3.60-5.2) 05/15/19 06:25 Hgb 9.1 GM/dL (10.7-15.3) L 05/15/19 06:25 Hct 28.2 % (32.4-45.2) L 05/15/19 06:25 MCV 78.1 fl (80-96) L 05/15/19 06:25 MCHC 32.2 g/dl (32.0-36.0) 05/15/19 06:25 RDW 15.7 % (11.6-15.6) H 05/15/19 06:25 Plt Count 206 K/MM3 (134-434) 05/15/19 06:25 MPV 8.4 fl (7.5-11.1) 05/15/19 06:25 CMP Sodium 140 mmol/L (136-145) 05/15/19 06:25 Potassium 5.2 mmol/L (3.5-5.1) H 05/15/19 06:25 Chloride 110 mmol/L (98-107) H 05/15/19 06:25 Carbon Dioxide 27 mmol/L (21-32) 05/15/19 06:25 Anion Gap 4 MMOL/L (8-16) L 05/15/19 06:25 BUN 63.4 mg/dL (7-18) H 05/15/19 06:25 Creatinine 2.2 mg/dL (0.55-1.3) H 05/15/19 06:25 Random Glucose 244 mg/dL (74-106) H 05/15/19 06:25 Calcium 9.0 mg/dL (8.5-10.1) 05/15/19 06:25 Total Bilirubin 0.2 mg/dL (0.2-1) 05/15/19 06:25 AST 17 U/L (15-37) 05/15/19 06:25 ALT 22 U/L (13-61) 05/15/19 06:25 Alkaline Phosphatase 67 U/L (45-117) 05/15/19 06:25 Total Protein 6.1 g/dl (6.4-8.2) L 05/15/19 06:25 Albumin 3.1 g/dl (3.4-5.0) L 05/15/19 06:25 CARDIAC ENZYMES Creatine Kinase 220 U/L (26-192) H 05/13/19 17:17 Troponin I 0.03 ng/ml (0.00-0.05) 05/13/19 17:17 Current Medications Generic Name Dose Route Start Last Admin Trade Name Freq PRN Reason Stop Dose Admin Albuterol Sulfate 1 amp 05/14/19 18:25 Ventolin 0.083% Nebulizer Soln - NEB Q4H PRN SHORT OF BREATH/WHEEZING Albuterol/Ipratropium 1 amp 05/14/19 20:00 05/15/19 07:43 Duoneb - NEB 1 amp RQID GARO Administration Atorvastatin Calcium 40 mg 05/13/19 22:00 05/14/19 21:35 Lipitor - PO 40 mg HS GARO Administration Clonidine 0.1 mg 05/13/19 22:00 05/14/19 21:35 Catapres - PO 0.1 mg BID GARO Administration Docusate Sodium 100 mg 05/14/19 23:00 05/14/19 23:28 Colace - PO 100 mg BID GARO Administration Doxazosin Mesylate 6 mg 05/14/19 10:00 05/14/19 13:12 Cardura - PO 6 mg DAILY GARO Administration Folic Acid 1 mg 05/14/19 10:00 05/14/19 11:07 Folic Acid - PO 1 mg DAILY GARO Administration Heparin Sodium (Porcine) 5,000 unit 05/13/19 22:00 05/15/19 07:04 Heparin - SQ 5,000 unit TID GARO Administration Sodium Chloride 1,000 mls @ 75 mls/hr 05/14/19 17:15 05/14/19 19:53 Normal Saline - IV 75 mls/hr ASDIR [facility] Administration Insulin Aspart 1 vial 05/13/19 22:00 05/15/19 07:04 Novolog Vial Sliding Scale - SQ 4 units ACHS [facility] Administration Protocol Insulin Detemir 20 units 05/15/19 07:00 05/15/19 07:05 Levemir Vial SQ 20 unit AM G[facility]O Administration Labetalol HCl 100 mg 05/13/19 22:00 05/14/19 21:35 Normodyne - PO 100 mg BID GARO Administration Losartan Potassium 50 mg 05/14/19 10:00 05/14/19 11:07 Cozaar - PO 50 mg DAILY [facility] Administration Methylprednisolone Sodium Succinate 40 mg 05/14/19 18:30 05/15/19 02:58 Solu-Medrol - IVPUSH 40 mg Q8H-IV [facility] Administration Nifedipine 60 mg 05/15/19 10:00 Procardia Xl - PO DAILY [facility] Home Medications Medication Instructions Recorded Folic Acid 1 mg PO DAILY 05/11/11 Insulin Glargine,Hum.rec.anlog 60 unit SQ AM 05/11/11 [Lantus] Insulin Lispro [Humalog] 10 unit SQ AC 05/11/11 Losartan Potassium [Cozaar] 100 mg PO AM 05/11/11 Aspirin [Ecotrin] 81 mg PO DAILY 02/23/15 Atorvastatin Ca [Lipitor -] 40 mg PO HS 02/23/15 Hydrochlorothiazide [Hctz -] 25 mg PO DAILY 02/23/15 Magnesium Citrate [Citroma -] 150 ml PO ONCE PRN #1 bottle 02/23/15 Nifedipine [Nifedical Xl] 60 mg PO DAILY 02/23/15 Clonidine HCl 0.1 mg PO BID 05/13/19 Doxazosin Mesylate 1.5 tab PO DAILY 05/13/19 Furosemide 20 mg PO BID 05/13/19 Hydralazine HCl 25 mg PO BID 05/13/19 Insulin Aspart [Novolog] 15 units IM TID 05/13/19 Insulin Degludec [Tresiba 80 units IM DAILY 05/13/19 Flextouch U-200] Labetalol HCl 100 mg PO BID 05/13/19 ASSESSMENT AND PLAN: Patient is a 73yof with PMHx of COPD, CKD, HTN, DM, who presented with SOB and cough and was admitted for an exacerbation of COPD. # acute SOB: due to acute COPD exacerbation. # Acute COPD exacerbation on solu medrol IV q8, pulm on the case, continue nebs. on Doxycyline # DM: started levemir and SSI , patient is on Tresiba at home. #HTN : cont labetalol, clonidine, HZN, and Nifedipine and Cardura #CKD: not sure of Cr base line. not sure if LETTY, continue to hold lasix , losartan dose is reduced to 50mg now from 100mg renal US with no hydro; Moderate atrophic kidneys with no evidence of hydronephrosis or acute pathology, will check with Primary with the baseline cr DVT PX : heaprin sq
[2019-05-15] MEDS: LABETALOL HCL 100 MG TABLET (FP) PO SCH ×2 (09:41→22:44)
[2019-05-15] MEDS: cloNIDine HCL 0.1 MG TABLET PO SCH (09:41)
[2019-05-15] MEDS: DOCUSATE SODIUM 100 MG CAPSULE (FP) PO SCH ×2 (09:41→22:44)
[2019-05-15] MEDS: NIFEdipine E.R 60 MG TABLET PO SCH (09:42)
[2019-05-15] MEDS: FOLIC ACID 1 MG TABLET (FP) PO SCH (09:42)
[2019-05-15] MEDS: LOSARTAN POTASSIUM 50 MG TABLET (FP) PO SCH (09:43)
[2019-05-15] MEDS: SODIUM CHLORIDE 1,000 ML IV SCH ×2 (09:44→22:40)
[2019-05-15] MEDS: BENZOCAINE/MENTH/CETYLPYRD CL 1 EACH LOZENGE MM PRN (09:47)
--- NOTE | 2019-05-15 10:02 | PN ---
Progress Note, Physician History of Present Illness: Shortness of breath/dyspnea with cough nonproductive of sputum, intermittent wheeze slowly improving, denies any chest pain - Current Medication List Current Medications: Active Medications Albuterol Sulfate (Ventolin 0.083% Nebulizer Soln -) 1 amp NEB Q4H PRN PRN Reason: SHORT OF BREATH/WHEEZING Albuterol/Ipratropium (Duoneb -) 1 amp NEB RQID [facility] Last Admin: 05/15/19 07:43 Dose: 1 amp Atorvastatin Calcium (Lipitor -) 40 mg PO HS [facility] Last Admin: 05/14/19 21:35 Dose: 40 mg Benzocaine/Menthol (Cepacol Lozenge -) 1 each MM PRN PRN PRN Reason: SORE THROAT Last Admin: 05/15/19 09:47 Dose: 1 each Clonidine (Catapres -) 0.1 mg PO BID [facility] Last Admin: 05/15/19 09:41 Dose: 0.1 mg Docusate Sodium (Colace -) 100 mg PO BID [facility] Last Admin: 05/15/19 09:41 Dose: 100 mg Doxazosin Mesylate (Cardura -) 6 mg PO DAILY [facility] Last Admin: 05/14/19 13:12 Dose: 6 mg Folic Acid (Folic Acid -) 1 mg PO DAILY [facility] Last Admin: 05/15/19 09:42 Dose: 1 mg Guaifenesin (Diabetic Tussin Dm -) 5 ml PO Q6H PRN PRN Reason: COUGH Heparin Sodium (Porcine) (Heparin -) 5,000 unit SQ TID [facility] Last Admin: 05/15/19 07:04 Dose: 5,000 unit Sodium Chloride (Normal Saline -) 1,000 mls @ 75 mls/hr IV ASDIR [facility] Last Admin: 05/15/19 09:44 Dose: 75 mls/hr Insulin Aspart (Novolog Vial Sliding Scale -) 1 vial SQ ACHS [facility]; Protocol Last Admin: 05/15/19 07:04 Dose: 4 units Insulin Detemir (Levemir Vial) 20 units SQ AM [facility] Last Admin: 05/15/19 07:05 Dose: 20 unit Labetalol HCl (Normodyne -) 100 mg PO BID [facility] Last Admin: 05/15/19 09:41 Dose: 100 mg Losartan Potassium (Cozaar -) 50 mg PO DAILY [facility] Last Admin: 05/15/19 09:43 Dose: 50 mg Methylprednisolone Sodium Succinate (Solu-Medrol -) 40 mg IVPUSH Q8H-IV [facility] Last Admin: 05/15/19 09:52 Dose: 40 mg Nifedipine (Procardia Xl -) 60 mg PO DAILY [facility] Last Admin: 05/15/19 09:42 Dose: 60 mg - Objective Vital Signs: Vital Signs Temperature 98.1 F 05/15/19 09:52 Pulse Rate 72 05/15/19 09:52 Respiratory Rate 05/15/19 09:52 Blood Pressure 126/62 05/15/19 09:52 O2 Sat by Pulse Oximetry (%) 98 05/14/19 20:09 Constitutional: Yes: No Distress, Calm Neck: Yes: Supple Cardiovascular: Yes: Regular Rate and Rhythm Respiratory: Yes: Regular, Cough, Diminished, On Nasal O2, SOB, Wheezes Gastrointestinal: Yes: Normal Bowel Sounds, Soft Edema: No Labs: CBC, BMP 05/15/19 06:25 05/15/19 06:25 - ....Imaging EKG: Report Reviewed (Tele: NSR) Problem List - Problems (1) Hypertensive heart disease Code(s): I11.9 - HYPERTENSIVE HEART DISEASE WITHOUT HEART FAILURE Qualifiers: Heart failure presence: without heart failure Qualified Code(s): I11.9 - Hypertensive heart disease without heart failure (2) COPD with acute exacerbation Code(s): J44.1 - CHRONIC OBSTRUCTIVE PULMONARY DISEASE W (ACUTE) EXACERBATION (3) Hyperlipidemia Code(s): E78.5 - HYPERLIPIDEMIA, UNSPECIFIED Qualifiers: Hyperlipidemia type: pure hypercholesterolemia Qualified Code(s): E78.00 - Pure hypercholesterolemia, unspecified; E78.0 - Pure hypercholesterolemia (4) Hyperkalemia Code(s): E87.5 - HYPERKALEMIA (5) JEANNIE (obstructive sleep apnea) Code(s): G47.33 - OBSTRUCTIVE SLEEP APNEA (ADULT) (PEDIATRIC) Assessment/Plan 1. Persistent dyspnea, associated wheeze/cough nonproductive of sputum referable to Acute COPD Exacerbation 2. LV Diastolic Dysfunction, Pulmonary HTN 3. 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 HTN 5. DM 6. Hypercholesterolemia 7. Acute on Chronic kidney disease improving 8. Anemia 9. OSAS on cpap 10. Hyperkalemia PLAN: 1. IV steroids, BD, cpap nightly @@ 11 cm H20, O2 as needed 2. Continue Labetalol 100 bid titrate dosage 3. Continue Cozaar 50 qd and titrate dosage with monitor K and Cr 4. Continue Procardia XL 60 qd 5. Wean Clonidine 0.1 qd to eventual off 6. Continue Cardura 6 qd 7. Discontinued Hydralazine 8. Continue Lipitor 40 qd
[2019-05-15] MEDS ORDERED: FUROSEMIDE 40 MG TABLET (FP) PO ONE (12:06)
[2019-05-15] MEDS ORDERED: SODIUM ZIRCONIUM CYCLOSILICATE (LOKELMA) 5 GM PACKET PO ONE (12:06)
--- NOTE | 2019-05-15 12:06 | PN ---
Progress Note, Physician History of Present Illness: Pt seen and examined at bedside. She is awake and alert. She complains of wheezing. - Current Medication List Current Medications: Active Medications Albuterol Sulfate (Ventolin 0.083% Nebulizer Soln -) 1 amp NEB Q4H PRN PRN Reason: SHORT OF BREATH/WHEEZING Albuterol/Ipratropium (Duoneb -) 1 amp NEB RQID [facility] Last Admin: 05/15/19 12:00 Dose: 1 amp Atorvastatin Calcium (Lipitor -) 40 mg PO HS [facility] Last Admin: 05/14/19 21:35 Dose: 40 mg Benzocaine/Menthol (Cepacol Lozenge -) 1 each MM PRN PRN PRN Reason: SORE THROAT Last Admin: 05/15/19 09:47 Dose: 1 each Clonidine (Catapres -) 0.1 mg PO DAILY [facility] Docusate Sodium (Colace -) 100 mg PO BID [facility] Last Admin: 05/15/19 09:41 Dose: 100 mg Doxazosin Mesylate (Cardura -) 6 mg PO DAILY [facility] Last Admin: 05/14/19 13:12 Dose: 6 mg Folic Acid (Folic Acid -) 1 mg PO DAILY [facility] Last Admin: 05/15/19 09:42 Dose: 1 mg Guaifenesin (Diabetic Tussin Dm -) 5 ml PO Q6H PRN PRN Reason: COUGH Heparin Sodium (Porcine) (Heparin -) 5,000 unit SQ TID [facility] Last Admin: 05/15/19 07:04 Dose: 5,000 unit Sodium Chloride (Normal Saline -) 1,000 mls @ 75 mls/hr IV ASDIR [facility] Last Admin: 05/15/19 09:44 Dose: 75 mls/hr Insulin Aspart (Novolog Vial Sliding Scale -) 1 vial SQ ACHS [facility]; Protocol Last Admin: 05/15/19 07:04 Dose: 4 units Insulin Detemir (Levemir Vial) 20 units SQ AM [facility] Last Admin: 05/15/19 07:05 Dose: 20 unit Labetalol HCl (Normodyne -) 100 mg PO BID [facility] Last Admin: 05/15/19 09:41 Dose: 100 mg Losartan Potassium (Cozaar -) 50 mg PO DAILY [facility] Last Admin: 05/15/19 09:43 Dose: 50 mg Methylprednisolone Sodium Succinate (Solu-Medrol -) 40 mg IVPUSH Q8H-IV [facility] Last Admin: 05/15/19 09:52 Dose: 40 mg Nifedipine (Procardia Xl -) 60 mg PO DAILY [facility] Last Admin: 05/15/19 09:42 Dose: 60 mg - Objective Vital Signs: Vital Signs Temperature 98.1 F 05/15/19 09:52 Pulse Rate 72 05/15/19 09:52 Respiratory Rate 20 05/15/19 09:52 Blood Pressure 126/62 05/15/19 09:52 O2 Sat by Pulse Oximetry (%) 98 05/14/19 20:09 Constitutional: Yes: Calm Eyes: Yes: Conjunctiva Clear HENT: Yes: Atraumatic Neck: Yes: Supple Cardiovascular: Yes: S1, S2 Respiratory: Yes: Wheezes Gastrointestinal: Yes: Soft Genitourinary: Yes: WNL Musculoskeletal: Yes: WNL Edema: Yes Edema: LLE: 1+, RLE: 1+ Neurological: Yes: Oriented Psychiatric: Yes: Oriented Labs: CBC, BMP 05/15/19 06:25 05/15/19 06:25 Assessment/Plan Current Medications Generic Name Dose Route Start Last Admin Trade Name Freq PRN Reason Stop Dose Admin Albuterol Sulfate 1 amp 05/14/19 18:25 Ventolin 0.083% Nebulizer Soln - NEB Q4H PRN SHORT OF BREATH/WHEEZING Albuterol/Ipratropium 1 amp 05/14/19 20:00 05/15/19 12:00 Duoneb - NEB 1 amp RQID [facility] Administration Atorvastatin Calcium 40 mg 05/13/19 22:00 05/14/19 21:35 Lipitor - PO 40 mg HS [facility] Administration Benzocaine/Menthol 1 each 05/15/19 09:22 05/15/19 09:47 Cepacol Lozenge - MM 1 each PRN PRN Administration SORE THROAT Clonidine 0.1 mg 05/16/19 10:00 Catapres - PO DAILY [facility] Docusate Sodium 100 mg 05/14/19 23:00 05/15/19 09:41 Colace - PO 100 mg BID [facility] Administration Doxazosin Mesylate 6 mg 05/14/19 10:00 05/14/19 13:12 Cardura - PO 6 mg DAILY [facility] Administration Folic Acid 1 mg 05/14/19 10:00 05/15/19 09:42 Folic Acid - PO 1 mg DAILY [facility] Administration Guaifenesin 5 ml 05/15/19 09:22 Diabetic Tussin Dm - PO Q6H PRN COUGH Heparin Sodium (Porcine) 5,000 unit 05/13/19 22:00 05/15/19 07:04 Heparin - SQ 5,000 unit TID [facility] Administration Sodium Chloride 1,000 mls @ 75 mls/hr 05/14/19 17:15 05/15/19 09:44 Normal Saline - IV 75 mls/hr ASDIR [facility] Administration Insulin Aspart 1 vial 05/13/19 22:00 05/15/19 07:04 Novolog Vial Sliding Scale - SQ 4 units ACHS [facility] Administration Protocol Insulin Detemir 20 units 05/15/19 07:00 05/15/19 07:05 Levemir Vial SQ 20 unit AM [facility] Administration Labetalol HCl 100 mg 05/13/19 22:00 05/15/19 09:41 Normodyne - PO 100 mg BID [facility] Administration Losartan Potassium 50 mg 05/14/19 10:00 05/15/19 09:43 Cozaar - PO 50 mg DAILY [facility] Administration Methylprednisolone Sodium Succinate 40 mg 05/14/19 18:30 05/15/19 09:52 Solu-Medrol - IVPUSH 40 mg Q8H-IV [facility] Administration Nifedipine 60 mg 05/15/19 10:00 05/15/19 09:42 Procardia Xl - PO 60 mg DAILY [facility] Administration Impression 1. CKD 2. HTN 3. copd 4. chf 5. DM 6. hyperkalemia Plan - renal function stabilizing - will give a dose of lokelma - will give po lasix - repeat labs in am - monitor renal function - hold losartan tomorrow until potassium is reviewed - low potassium diet
[2019-05-15] MEDS: DOXAZOSIN MESYLATE 2 MG TABLET PO SCH (12:22)
--- NOTE | 2019-05-15 14:34 | PN ---
Progress Note (short form) - Note Progress Note: PULMONARY States breathing slightly improved. Still with chest tightness and congestion. Vital Signs Period Temp Pulse Resp BP Sys/Arthur Pulse Ox Last 24 Hr 97.9 F-98.4 F 66-72 18-20 123-155/48-66 98-100 Gen: NAD at rest Heart: RRR Lung: decreased air movement Abd: soft, nontender Ext: no edema CBC, BMP 05/15/19 06:25 05/15/19 06:25 Active Medications Albuterol Sulfate (Ventolin 0.083% Nebulizer Soln -) 1 amp NEB Q4H PRN PRN Reason: SHORT OF BREATH/WHEEZING Albuterol/Ipratropium (Duoneb -) 1 amp NEB RQID [facility] Last Admin: 05/15/19 12:00 Dose: 1 amp Atorvastatin Calcium (Lipitor -) 40 mg PO HS [facility] Last Admin: 05/14/19 21:35 Dose: 40 mg Benzocaine/Menthol (Cepacol Lozenge -) 1 each MM PRN PRN PRN Reason: SORE THROAT Last Admin: 05/15/19 09:47 Dose: 1 each Clonidine (Catapres -) 0.1 mg PO DAILY [facility] Docusate Sodium (Colace -) 100 mg PO BID [facility] Last Admin: 05/15/19 09:41 Dose: 100 mg Doxazosin Mesylate (Cardura -) 6 mg PO DAILY [facility] Last Admin: 05/15/19 12:22 Dose: 6 mg Folic Acid (Folic Acid -) 1 mg PO DAILY [facility] Last Admin: 05/15/19 09:42 Dose: 1 mg Guaifenesin (Diabetic Tussin Dm -) 5 ml PO Q6H PRN PRN Reason: COUGH Heparin Sodium (Porcine) (Heparin -) 5,000 unit SQ TID [facility] Last Admin: 05/15/19 13:33 Dose: 5,000 unit Sodium Chloride (Normal Saline -) 1,000 mls @ 75 mls/hr IV ASDIR [facility] Last Admin: 05/15/19 09:44 Dose: 75 mls/hr Insulin Aspart (Novolog Vial Sliding Scale -) 1 vial SQ ACHS [facility]; Protocol Last Admin: 05/15/19 12:27 Dose: 8 units Insulin Detemir (Levemir Vial) 20 units SQ AM [facility] Last Admin: 05/15/19 07:05 Dose: 20 unit Labetalol HCl (Normodyne -) 100 mg PO BID [facility] Last Admin: 05/15/19 09:41 Dose: 100 mg Losartan Potassium (Cozaar -) 50 mg PO DAILY [facility] Last Admin: 05/15/19 09:43 Dose: 50 mg Methylprednisolone Sodium Succinate (Solu-Medrol -) 40 mg IVPUSH Q8H-IV [facility] Last Admin: 05/15/19 09:52 Dose: 40 mg Nifedipine (Procardia Xl -) 60 mg PO DAILY [facility] Last Admin: 05/15/19 09:42 Dose: 60 mg A/P Acute COPD Exacerbation Acute on Chronic Renal Failure LV Diastolic Dysfunction Pulmonary HTN HTN DM Hyperlipidemia JEANNIE Anemia - continue medrol at current dose - inhaled bronchodilators standing and PRN - BP control - monitor urine output, creatinine - CPAP at night 11cm H20 - O2 to keep SpO2 >90% - DVT prophylaxis Problem List - Problems (1) COPD with acute exacerbation Code(s): J44.1 - CHRONIC OBSTRUCTIVE PULMONARY DISEASE W (ACUTE) EXACERBATION
--- NOTE | 2019-05-15 15:39 | PN ---
Physical Exam: SUBJECTIVE: Patient seen and examined at bedside. No acute events overnight. This AM her cough persists. She improved on duonebs. OBJECTIVE: Vital Signs Temp Pulse Resp BP Pulse Ox 98.1 F 68 20 153/56 L 100 05/15/19 14:30 05/15/19 14:30 05/15/19 14:30 05/15/19 14:30 05/15/19 09:00 GENERAL: AOx3, in no acute distress HEAD: NCAT EYES: CYNTHIA, EOMI, conjunctiva clear. ENT: Ears normal, nares patent, oropharynx clear without exudates. Moist mucous membranes. NECK: Normal range of motion, supple without lymphadenopathy, JVD, or masses. LUNGS: CTAB. End expiratory wheezes. No accessory muscle use. HEART: RRR s1 s2, 3/6 systolic murmur at RUSB with radiation to carotids. LEFT neck vein distention. ABDOMEN: Soft, BS present in all 4 quadrants, non-distended, no JVD, MUSCULOSKELETAL: No bony deformities or tenderness. No CVA tenderness. UPPER EXTREMITIES: 2+ pulses, warm, well-perfused. No cyanosis. No clubbing. No peripheral edema. LOWER EXTREMITIES: 2+ pulses, warm, well-perfused. No calf tenderness. Trace peripheral edema. NEUROLOGICAL: No focal deficits. Cranial nerves II-XII intact. Normal speech. Gait not appreciated. PSYCHIATRIC: Cooperative. Good eye contact. Appropriate mood and affect. SKIN: Warm, dry, normal turgor, no rashes or lesions noted, normal capillary refill. Laboratory Results - last 24 hr 05/14/19 05/14/19 05/15/19 16:58 21:19 06:25 WBC 17.4 H RBC 3.61 Hgb 9.1 L Hct 28.2 L MCV 78.1 L MCH 25.2 L MCHC 32.2 RDW 15.7 H Plt Count 206 MPV 8.4 Sodium Potassium Chloride Carbon Dioxide Anion Gap BUN Creatinine Est GFR (CKD-EPI)AfAm Est GFR (CKD-EPI)NonAf POC Glucometer 141 372 Random Glucose Calcium Total Bilirubin AST ALT Alkaline Phosphatase Total Protein Albumin 05/15/19 05/15/19 05/15/19 06:25 06:41 12:25 WBC RBC Hgb Hct MCV MCH MCHC RDW Plt Count MPV Sodium 140 Potassium 5.2 H Chloride 110 H Carbon Dioxide 27 Anion Gap 4 L BUN 63.4 H Creatinine 2.2 H Est GFR (CKD-EPI)AfAm 24.60 Est GFR (CKD-EPI)NonAf 21.23 POC Glucometer 241 324 Random Glucose 244 H Calcium 9.0 Total Bilirubin 0.2 AST 17 ALT 22 Alkaline Phosphatase 67 Total Protein 6.1 L Albumin 3.1 L Active Medications Albuterol Sulfate (Ventolin 0.083% Nebulizer Soln -) 1 amp NEB Q4H PRN PRN Reason: SHORT OF BREATH/WHEEZING Albuterol/Ipratropium (Duoneb -) 1 amp NEB RQID [facility] Last Admin: 05/15/19 12:00 Dose: 1 amp Atorvastatin Calcium (Lipitor -) 40 mg PO HS [facility] Last Admin: 05/14/19 21:35 Dose: 40 mg Benzocaine/Menthol (Cepacol Lozenge -) 1 each MM PRN PRN PRN Reason: SORE THROAT Last Admin: 05/15/19 09:47 Dose: 1 each Clonidine (Catapres -) 0.1 mg PO DAILY [facility] Docusate Sodium (Colace -) 100 mg PO BID [facility] Last Admin: 05/15/19 09:41 Dose: 100 mg Doxazosin Mesylate (Cardura -) 6 mg PO DAILY [facility] Last Admin: 05/15/19 12:22 Dose: 6 mg Folic Acid (Folic Acid -) 1 mg PO DAILY [facility] Last Admin: 05/15/19 09:42 Dose: 1 mg Guaifenesin (Diabetic Tussin Dm -) 5 ml PO Q6H PRN PRN Reason: COUGH Heparin Sodium (Porcine) (Heparin -) 5,000 unit SQ TID [facility] Last Admin: 05/15/19 13:33 Dose: 5,000 unit Sodium Chloride (Normal Saline -) 1,000 mls @ 75 mls/hr IV ASDIR [facility] Last Admin: 05/15/19 09:44 Dose: 75 mls/hr Insulin Aspart (Novolog Vial Sliding Scale -) 1 vial SQ ACHS [facility]; Protocol Last Admin: 05/15/19 12:27 Dose: 8 units Insulin Detemir (Levemir Vial) 20 units SQ AM [facility] Last Admin: 05/15/19 07:05 Dose: 20 unit Labetalol HCl (Normodyne -) 100 mg PO BID [facility] Last Admin: 05/15/19 09:41 Dose: 100 mg Losartan Potassium (Cozaar -) 50 mg PO DAILY [facility] Last Admin: 05/15/19 09:43 Dose: 50 mg Methylprednisolone Sodium Succinate (Solu-Medrol -) 40 mg IVPUSH Q8H-IV [facility] Last Admin: 05/15/19 09:52 Dose: 40 mg Nifedipine (Procardia Xl -) 60 mg PO DAILY [facility] Last Admin: 05/15/19 09:42 Dose: 60 mg ASSESSMENT/PLAN: 73 y/o female PMH HTN, insulin treated DM, CKD III, COPD, c/o with SOB and cough and admitted for acute respiratory failure 2/2 acute COPD exacerbation. # Acute respiratory failure 2/2 acute COPD exacerbation - Continue current management of solumedrol 40 iv q8h, duonebs sched, albuterol prn - Echo: EF 65%, mild aortic sclerosis, mild TR - CPAP at night 11cm H20 # CKD III - s/p lokelma 10 gm po once (for hyperkalemia) and lasix 40 once per nephro - HOLD losartan - Low K diet - Renal US: no hydronephrosis # DM - Hold home regimen: Tresiba 22 units HS - Levemir 20 u in the AM - ISS ACHS # HTN - Home regimen: labetalol 100 mg po BID, clonidine 0.1 mg PO BID, and nifedipine 60 mg po qd and doxazosin 6 mg po qd - Clonidine 0.1 mg PO qd, Doxazosin 6 mg PO qd, labetalol 100 mg PO BID, Losartan 50 mg PO qd, nifedipine 60 mg PO qd - Cardio consulted: STOP hydralazine 25 mg po BID - Nephro consulted: HOLD losartan 2/2 k # F/E/N - NS at 75 cc/hour. DC if pt clinically overloaded. - Cont. to monitor - Low sodium diet # DVT prophylaxis - Heparin SQ # Disposition - Telemetry Kyle Manuel MD Visit type - Emergency Visit Emergency Visit: No - New Patient This patient is new to me today: No - Critical Care Critical Care patient: No ATTENDING PHYSICIAN STATEMENT I saw and evaluated the patient. I reviewed the resident's note and discussed the case with the resident. I agree with the resident's findings and plan as documented. SUBJECTIVE: OBJECTIVE: ASSESSMENT AND PLAN:
[2019-05-15] MEDS ORDERED: POLYETHYLENE GLYCOL 3350 119 GM BTL PO ONE (19:50)
[2019-05-15] MEDS: ATORVASTATIN CA 20 MG TABLET (FP) PO SCH (22:44)
[2019-05-15] MEDS: SENNOSIDES 8.6MG TABLET (FP) PO SCH (22:44)
[2019-05-16] MEDS: methylPREDNISolone NA SUCC 40 MG/1 ML VIAL IVPUSH SCH ×3 (02:58→17:24)
[2019-05-16] MEDS: HEPARIN NA (PORCINE) 5,000 UNITS/ML 1ML VIAL SQ SCH ×3 (06:51→21:52)
[2019-05-16] MEDS: INSULIN (LEVEMIR) 100 UNITS/ML UNITS SQ SCH (06:52)
[2019-05-16] MEDS: INSULIN SLIDING SCALE (NOVOLOG) 1 VIAL SQ SCH ×5 (06:52→21:52)
[2019-05-16 07:15] LABS: HEMATOCRIT 29.6 % (32.4-45.2); HEMOGLOBIN 9.6 GM/dL (10.7-15.3); MCH 25.4 pg (25.7-33.7); MCHC 32.5 g/dl (32.0-36.0); MEAN CELL VOLUME 77.9 fl (80-96); MEAN PLT VOLUME 8.7 fl (7.5-11.1); PLATELET COUNT 225 K/MM3 (134-434); RDW 15.7 % (11.6-15.6); WHITE BLOOD COUNT 16.6 K/mm3 (4.0-10.0)
[2019-05-16 07:47] LABS: ALBUMIN 3.3 g/dl (3.4-5.0); BILIRUBIN,TOTAL 0.2 mg/dL (0.2-1); BLOOD UREA NITROGEN 66.4 mg/dL (7-18); CALCIUM 8.8 mg/dL (8.5-10.1); CREATININE 2.3 mg/dL (0.55-1.3); POTASSIUM 4.4 mmol/L (3.5-5.1); TOT PROT 6.4 g/dl (6.4-8.2)
--- NOTE | 2019-05-16 08:39 | PN ---
Teaching Attending Note Name of Resident: Kyle Manuel ATTENDING PHYSICIAN STATEMENT I saw and evaluated the patient. I reviewed the resident's note and discussed the case with the resident. I agree with the resident's findings and plan as documented. SUBJECTIVE: Patient is lying in bed on the phone, still not feeling well. still continues to have short of breath , shortness of breath on exertion Vital Signs Temperature 98.0 F 05/16/19 06:00 Pulse Rate 76 05/16/19 06:00 Respiratory Rate 18 05/16/19 06:00 Blood Pressure 152/63 05/16/19 06:00 O2 Sat by Pulse Oximetry (%) 97 05/15/19 21:00 GENERAL: The patient is awake, alert, and fully oriented, in no acute distress. HEAD: Normal with no signs of trauma. EYES: PERRL, extraocular movements intact, sclera anicteric, conjunctiva clear. ENT: Ears normal, oropharynx clear without exudates, moist mucous membranes. NECK: Trachea midline, full range of motion, supple. LUNGS: decreased BS BL , Decreased air entery bl, + wheezes, no crackles, with mild accessory muscle use. HEART: Regular rate and rhythm, S1, S2 without murmur, rub or gallop. ABDOMEN: Soft, NT,ND, normoactive bowel sounds, no guarding, no rebound, no hepatosplenomegaly, no masses. EXTREMITIES: 2+ pulses, warm, well-perfused, no edema. NEUROLOGICAL: Cranial nerves II through XII grossly intact. Normal speech, gait not observed. PSYCH: Normal mood, normal affect. SKIN: Warm, dry, normal turgor, no rashes or lesions noted CBCD WBC 16.6 K/mm3 (4.0-10.0) H 05/16/19 06:18 RBC 3.80 M/mm3 (3.60-5.2) 05/16/19 06:18 Hgb 9.6 GM/dL (10.7-15.3) L 05/16/19 06:18 Hct 29.6 % (32.4-45.2) L 05/16/19 06:18 MCV 77.9 fl (80-96) L 05/16/19 06:18 MCHC 32.5 g/dl (32.0-36.0) 05/16/19 06:18 RDW 15.7 % (11.6-15.6) H 05/16/19 06:18 Plt Count 225 K/MM3 (134-434) 05/16/19 06:18 MPV 8.7 fl (7.5-11.1) 05/16/19 06:18 CMP Sodium 142 mmol/L (136-145) 05/16/19 06:18 Potassium 4.4 mmol/L (3.5-5.1) 05/16/19 06:18 Chloride 110 mmol/L (98-107) H 05/16/19 06:18 Carbon Dioxide 25 mmol/L (21-32) 05/16/19 06:18 Anion Gap 7 MMOL/L (8-16) L 05/16/19 06:18 BUN 66.4 mg/dL (7-18) H 05/16/19 06:18 Creatinine 2.3 mg/dL (0.55-1.3) H 05/16/19 06:18 Random Glucose 168 mg/dL (74-106) H 05/16/19 06:18 Calcium 8.8 mg/dL (8.5-10.1) 05/16/19 06:18 Total Bilirubin 0.2 mg/dL (0.2-1) 05/16/19 06:18 AST 19 U/L (15-37) 05/16/19 06:18 ALT 26 U/L (13-61) 05/16/19 06:18 Alkaline Phosphatase 69 U/L (45-117) 05/16/19 06:18 Total Protein 6.4 g/dl (6.4-8.2) 05/16/19 06:18 Albumin 3.3 g/dl (3.4-5.0) L 05/16/19 06:18 CARDIAC ENZYMES Creatine Kinase 220 U/L (26-192) H 05/13/19 17:17 Troponin I 0.03 ng/ml (0.00-0.05) 05/13/19 17:17 Current Medications Generic Name Dose Route Start Last Admin Trade Name Freq PRN Reason Stop Dose Admin Albuterol Sulfate 1 amp 05/14/19 18:25 Ventolin 0.083% Nebulizer Soln - NEB Q4H PRN SHORT OF BREATH/WHEEZING Albuterol/Ipratropium 1 amp 05/14/19 20:00 05/15/19 20:15 Duoneb - NEB Not Given RQID [facility] Atorvastatin Calcium 40 mg 05/13/19 22:00 05/15/19 22:44 Lipitor - PO 40 mg HS [facility] Administration Benzocaine/Menthol 1 each 05/15/19 09:22 05/15/19 09:47 Cepacol Lozenge - MM 1 each PRN PRN Administration SORE THROAT Clonidine 0.1 mg 05/16/19 10:00 Catapres - PO DAILY [facility] Docusate Sodium 100 mg 05/14/19 23:00 05/15/19 22:44 Colace - PO 100 mg BID [facility] Administration Doxazosin Mesylate 6 mg 05/14/19 10:00 05/15/19 12:22 Cardura - PO 6 mg DAILY [facility] Administration Folic Acid 1 mg 05/14/19 10:00 05/15/19 09:42 Folic Acid - PO 1 mg DAILY [facility] Administration Guaifenesin 5 ml 05/15/19 09:22 Diabetic Tussin Dm - PO Q6H PRN COUGH Heparin Sodium (Porcine) 5,000 unit 05/13/19 22:00 05/16/19 06:51 Heparin - SQ 5,000 unit TID [facility] Administration Sodium Chloride 1,000 mls @ 75 mls/hr 05/14/19 17:15 05/15/19 22:40 Normal Saline - IV 75 mls/hr ASDIR [facility] Administration Insulin Aspart 1 vial 05/13/19 22:00 05/16/19 06:54 Novolog Vial Sliding Scale - SQ 2 units ACHS [facility] Administration Protocol Insulin Detemir 20 units 05/15/19 07:00 05/16/19 06:52 Levemir Vial SQ 20 unit AM [facility] Administration Labetalol HCl 100 mg 05/13/19 22:00 05/15/19 22:44 Normodyne - PO 100 mg BID [facility] Administration Losartan Potassium 50 mg 05/14/19 10:00 05/15/19 09:43 Cozaar - PO 50 mg DAILY [facility] Administration Methylprednisolone Sodium Succinate 40 mg 05/14/19 18:30 05/16/19 02:58 Solu-Medrol - IVPUSH 40 mg Q8H-IV [facility] Administration Nifedipine 60 mg 05/15/19 10:00 05/15/19 09:42 Procardia Xl - PO 60 mg DAILY [facility] Administration Senna 1 tab 05/15/19 22:00 05/15/19 22:44 Senna - PO 1 tab HS [facility] Administration Home Medications Medication Instructions Recorded Folic Acid 1 mg PO DAILY 05/11/11 Insulin Glargine,Hum.rec.anlog 60 unit SQ AM 05/11/11 [Lantus] Insulin Lispro [Humalog] 10 unit SQ AC 05/11/11 Losartan Potassium [Cozaar] 100 mg PO AM 05/11/11 Aspirin [Ecotrin] 81 mg PO DAILY 02/23/15 Atorvastatin Ca [Lipitor -] 40 mg PO HS 02/23/15 Hydrochlorothiazide [Hctz -] 25 mg PO DAILY 02/23/15 Magnesium Citrate [Citroma -] 150 ml PO ONCE PRN #1 bottle 02/23/15 Nifedipine [Nifedical Xl] 60 mg PO DAILY 02/23/15 Clonidine HCl 0.1 mg PO BID 05/13/19 Doxazosin Mesylate 1.5 tab PO DAILY 05/13/19 Furosemide 20 mg PO BID 05/13/19 Hydralazine HCl 25 mg PO BID 05/13/19 Insulin Aspart [Novolog] 15 units IM TID 05/13/19 Insulin Degludec [Tresiba 80 units IM DAILY 05/13/19 Flextouch U-200] Labetalol HCl 100 mg PO BID 05/13/19 ASSESSMENT AND PLAN: Patient is a 73yof with PMHx of COPD, CKD, HTN, DM, who presented with SOB and cough and was admitted for an exacerbation of COPD. # acute SOB: due to acute COPD exacerbation on steroid IV, will increase the dose if no improvement. # Acute COPD exacerbation on solu medrol IV q8, pulm on the case, continue nebs. s/p Doxycyline # T2DM: started levemir and SSI , patient is on Tresiba at home. #HTN Uncontrolled : cont labetalol, clonidine, HZN, and Nifedipine and Cardura #CKD: unsure of the baseline . not sure if LETTY, continue to hold lasix , losartan dose is reduced to 50mg now from 100mg , will continue to monitor renal US with no hydro; Moderate atrophic kidneys with no evidence of hydronephrosis or acute pathology, will check with Primary care ,her baseline cr DVT PX : heaprin sq
[2019-05-16] MEDS: ALBUTEROL SO4 2.5/IPRATROPIUM 0.5 INH SOL 3 ML VIAL.NEB. NEB SCH ×4 (08:45→21:45)
[2019-05-16] MEDS ORDERED: PT OWN MED DRAWER 7, Y5N ONE (09:07)
[2019-05-16] MEDS: LABETALOL HCL 100 MG TABLET (FP) PO SCH (09:16)
[2019-05-16] MEDS: DOXAZOSIN MESYLATE 2 MG TABLET PO SCH (09:16)
[2019-05-16] MEDS: DOCUSATE SODIUM 100 MG CAPSULE (FP) PO SCH ×2 (09:16→21:52)
[2019-05-16] MEDS: FOLIC ACID 1 MG TABLET (FP) PO SCH (09:16)
[2019-05-16] MEDS: NIFEdipine E.R 60 MG TABLET PO SCH (09:17)
[2019-05-16] MEDS ORDERED: cloNIDine HCL 0.1 MG TABLET PO SCH (10:00)
--- NOTE | 2019-05-16 10:04 | PN ---
Progress Note, Physician History of Present Illness: Shortness of breath/dyspnea with cough nonproductive of sputum, intermittent wheeze slowly improving, denies any chest pain - Current Medication List Current Medications: Active Medications Albuterol Sulfate (Ventolin 0.083% Nebulizer Soln -) 1 amp NEB Q4H PRN PRN Reason: SHORT OF BREATH/WHEEZING Albuterol/Ipratropium (Duoneb -) 1 amp NEB RQID [facility] Last Admin: 05/15/19 20:15 Dose: Not Given Atorvastatin Calcium (Lipitor -) 40 mg PO HS [facility] Last Admin: 05/15/19 22:44 Dose: 40 mg Benzocaine/Menthol (Cepacol Lozenge -) 1 each MM PRN PRN PRN Reason: SORE THROAT Last Admin: 05/15/19 09:47 Dose: 1 each Clonidine (Catapres -) 0.1 mg PO DAILY [facility] Last Admin: 05/16/19 09:17 Dose: 0.1 mg Docusate Sodium (Colace -) 100 mg PO BID [facility] Last Admin: 05/16/19 09:16 Dose: 100 mg Doxazosin Mesylate (Cardura -) 6 mg PO DAILY [facility] Last Admin: 05/16/19 09:16 Dose: 6 mg Folic Acid (Folic Acid -) 1 mg PO DAILY [facility] Last Admin: 05/16/19 09:16 Dose: 1 mg Guaifenesin (Diabetic Tussin Dm -) 5 ml PO Q6H PRN PRN Reason: COUGH Heparin Sodium (Porcine) (Heparin -) 5,000 unit SQ TID [facility] Last Admin: 05/16/19 06:51 Dose: 5,000 unit Sodium Chloride (Normal Saline -) 1,000 mls @ 75 mls/hr IV ASDIR [facility] Last Admin: 05/15/19 22:40 Dose: 75 mls/hr Insulin Aspart (Novolog Vial Sliding Scale -) 1 vial SQ ACHS [facility]; Protocol Last Admin: 05/16/19 06:54 Dose: 2 units Insulin Detemir (Levemir Vial) 20 units SQ AM [facility] Last Admin: 05/16/19 06:52 Dose: 20 unit Labetalol HCl (Normodyne -) 100 mg PO BID [facility] Last Admin: 05/16/19 09:16 Dose: 100 mg Losartan Potassium (Cozaar -) 50 mg PO DAILY [facility] Last Admin: 05/15/19 09:43 Dose: 50 mg Methylprednisolone Sodium Succinate (Solu-Medrol -) 40 mg IVPUSH Q8H-IV [facility] Last Admin: 05/16/19 09:18 Dose: 40 mg Nifedipine (Procardia Xl -) 60 mg PO DAILY [facility] Last Admin: 05/16/19 09:17 Dose: 60 mg Senna (Senna -) 1 tab PO HS [facility] Last Admin: 05/15/19 22:44 Dose: 1 tab - Objective Vital Signs: Vital Signs Temperature 98.2 F 05/16/19 09:15 Pulse Rate 67 05/16/19 09:15 Respiratory Rate 18 05/16/19 09:15 Blood Pressure 166/64 05/16/19 09:15 O2 Sat by Pulse Oximetry (%) 97 05/15/19 21:00 Constitutional: Yes: No Distress, Calm Neck: Yes: Supple Cardiovascular: Yes: Regular Rate and Rhythm Respiratory: Yes: Regular, Diminished, On Nasal O2 Gastrointestinal: Yes: Normal Bowel Sounds, Soft Edema: Yes Edema: LLE: Trace, RLE: Trace Labs: CBC, BMP 05/16/19 06:18 05/16/19 06:18 - ....Imaging EKG: Report Reviewed (Tele: NSR) Problem List - Problems (1) Hypertensive heart disease Code(s): I11.9 - HYPERTENSIVE HEART DISEASE WITHOUT HEART FAILURE Qualifiers: Heart failure presence: without heart failure Qualified Code(s): I11.9 - Hypertensive heart disease without heart failure (2) COPD with acute exacerbation Code(s): J44.1 - CHRONIC OBSTRUCTIVE PULMONARY DISEASE W (ACUTE) EXACERBATION (3) Hyperlipidemia Code(s): E78.5 - HYPERLIPIDEMIA, UNSPECIFIED Qualifiers: Hyperlipidemia type: pure hypercholesterolemia Qualified Code(s): E78.00 - Pure hypercholesterolemia, unspecified; E78.0 - Pure hypercholesterolemia (4) Hyperkalemia Code(s): E87.5 - HYPERKALEMIA (5) JEANNIE (obstructive sleep apnea) Code(s): G47.33 - OBSTRUCTIVE SLEEP APNEA (ADULT) (PEDIATRIC) Assessment/Plan 1. Persistent dyspnea, associated wheeze/cough nonproductive of sputum referable to Acute COPD Exacerbation 2. LV Diastolic Dysfunction, Pulmonary HTN 3. 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 HTN 5. DM 6. Hypercholesterolemia 7. Acute on Chronic kidney disease improving 8. Anemia 9. OSAS on cpap 10. Hyperkalemia improving with lokelma and Lasix PLAN: 1. IV steroids, BD, cpap nightly @@ 11 cm H20, O2 as needed 2. Increase Labetalol 200 bid titrate dosage 3. Resumed Cozaar 50 qd and titrate dosage as hyperkalemia resolves 4. Continue Procardia XL 60 qd 5. Wean Clonidine 0.1 qd to off 6. Continue Cardura 6 qd 7. Discontinued Hydralazine 8. Continue Lipitor 40 qd l
--- NOTE | 2019-05-16 13:58 | PN ---
Progress Note, Physician History of Present Illness: Pt seen and examined at bedside. She feels that her wheezing is improving. - Current Medication List Current Medications: Active Medications Albuterol Sulfate (Ventolin 0.083% Nebulizer Soln -) 1 amp NEB Q4H PRN PRN Reason: SHORT OF BREATH/WHEEZING Albuterol/Ipratropium (Duoneb -) 1 amp NEB RQID [facility] Last Admin: 05/16/19 12:00 Dose: Not Given Atorvastatin Calcium (Lipitor -) 40 mg PO HS [facility] Last Admin: 05/15/19 22:44 Dose: 40 mg Benzocaine/Menthol (Cepacol Lozenge -) 1 each MM PRN PRN PRN Reason: SORE THROAT Last Admin: 05/15/19 09:47 Dose: 1 each Docusate Sodium (Colace -) 100 mg PO BID [facility] Last Admin: 05/16/19 09:16 Dose: 100 mg Doxazosin Mesylate (Cardura -) 6 mg PO DAILY [facility] Last Admin: 05/16/19 09:16 Dose: 6 mg Folic Acid (Folic Acid -) 1 mg PO DAILY [facility] Last Admin: 05/16/19 09:16 Dose: 1 mg Guaifenesin (Diabetic Tussin Dm -) 5 ml PO Q6H PRN PRN Reason: COUGH Heparin Sodium (Porcine) (Heparin -) 5,000 unit SQ TID [facility] Last Admin: 05/16/19 13:16 Dose: 5,000 unit Sodium Chloride (Normal Saline -) 1,000 mls @ 75 mls/hr IV ASDIR [facility] Last Admin: 05/15/19 22:40 Dose: 75 mls/hr Insulin Aspart (Novolog Vial Sliding Scale -) 1 vial SQ ACHS [facility]; Protocol Last Admin: 05/16/19 12:31 Dose: 4 units Insulin Detemir (Levemir Vial) 20 units SQ AM [facility] Last Admin: 05/16/19 06:52 Dose: 20 unit Labetalol HCl (Normodyne -) 200 mg PO BID [facility] Losartan Potassium (Cozaar -) 50 mg PO DAILY [facility] Last Admin: 05/15/19 09:43 Dose: 50 mg Methylprednisolone Sodium Succinate (Solu-Medrol -) 40 mg IVPUSH Q8H-IV [facility] Last Admin: 05/16/19 09:18 Dose: 40 mg Nifedipine (Procardia Xl -) 60 mg PO DAILY [facility] Last Admin: 05/16/19 09:17 Dose: 60 mg Senna (Senna -) 1 tab PO HS [facility] Last Admin: 05/15/19 22:44 Dose: 1 tab - Objective Vital Signs: Vital Signs Temperature 98.2 F 05/16/19 09:15 Pulse Rate 67 05/16/19 09:15 Respiratory Rate 18 05/16/19 09:15 Blood Pressure 166/64 05/16/19 09:15 O2 Sat by Pulse Oximetry (%) 97 05/15/19 21:00 Constitutional: Yes: Calm Eyes: Yes: Conjunctiva Clear HENT: Yes: Atraumatic Neck: Yes: Supple Cardiovascular: Yes: S1, S2 Respiratory: Yes: On Nasal O2, Wheezes Gastrointestinal: Yes: Normal Bowel Sounds, Soft Genitourinary: Yes: WNL Musculoskeletal: Yes: WNL Edema: Yes Edema: LLE: Trace, RLE: Trace Neurological: Yes: Oriented Psychiatric: Yes: Oriented Labs: CBC, BMP 05/16/19 06:18 05/16/19 06:18 Assessment/Plan Current Medications Generic Name Dose Route Start Last Admin Trade Name Freq PRN Reason Stop Dose Admin Albuterol Sulfate 1 amp 05/14/19 18:25 Ventolin 0.083% Nebulizer Soln - NEB Q4H PRN SHORT OF BREATH/WHEEZING Albuterol/Ipratropium 1 amp 05/14/19 20:00 05/16/19 12:00 Duoneb - NEB Not Given RQID [facility] Atorvastatin Calcium 40 mg 05/13/19 22:00 05/15/19 22:44 Lipitor - PO 40 mg HS [facility] Administration Benzocaine/Menthol 1 each 05/15/19 09:22 05/15/19 09:47 Cepacol Lozenge - MM 1 each PRN PRN Administration SORE THROAT Docusate Sodium 100 mg 05/14/19 23:00 05/16/19 09:16 Colace - PO 100 mg BID [facility] Administration Doxazosin Mesylate 6 mg 05/14/19 10:00 05/16/19 09:16 Cardura - PO 6 mg DAILY [facility] Administration Folic Acid 1 mg 05/14/19 10:00 05/16/19 09:16 Folic Acid - PO 1 mg DAILY [facility] Administration Guaifenesin 5 ml 05/15/19 09:22 Diabetic Tussin Dm - PO Q6H PRN COUGH Heparin Sodium (Porcine) 5,000 unit 05/13/19 22:00 05/16/19 13:16 Heparin - SQ 5,000 unit TID [facility] Administration Sodium Chloride 1,000 mls @ 75 mls/hr 05/14/19 17:15 05/15/19 22:40 Normal Saline - IV 75 mls/hr ASDIR [facility] Administration Insulin Aspart 1 vial 05/13/19 22:00 05/16/19 12:31 Novolog Vial Sliding Scale - SQ 4 units ACHS [facility] Administration Protocol Insulin Detemir 20 units 05/15/19 07:00 05/16/19 06:52 Levemir Vial SQ 20 unit AM [facility] Administration Labetalol HCl 200 mg 05/16/19 11:22 Normodyne - PO BID [facility] Losartan Potassium 50 mg 05/14/19 10:00 05/15/19 09:43 Cozaar - PO 50 mg DAILY [facility] Administration Methylprednisolone Sodium Succinate 40 mg 05/14/19 18:30 05/16/19 09:18 Solu-Medrol - IVPUSH 40 mg Q8H-IV [facility] Administration Nifedipine 60 mg 05/15/19 10:00 05/16/19 09:17 Procardia Xl - PO 60 mg DAILY [facility] Administration Senna 1 tab 05/15/19 22:00 05/15/19 22:44 Senna - PO 1 tab HS [facility] Administration Impression 1. CKD 2. HTN 3. copd 4. chf 5. DM 6. 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
--- NOTE | 2019-05-16 17:22 | PN ---
Physical Exam: SUBJECTIVE: Patient seen and examined at beside. There were no acute events overnight. She offers no complaints this AM. OBJECTIVE: Vital Signs Temp Pulse Resp BP Pulse Ox 98.4 F 70 20 142/57 L 98 05/16/19 18:00 05/16/19 18:00 05/16/19 18:00 05/16/19 18:05/16/19 21:00 GENERAL: AOx3, in no acute distress HEAD: NCAT EYES: CYNTHIA, EOMI, conjunctiva clear. ENT: Ears normal, nares patent, oropharynx clear without exudates. Moist mucous membranes. NECK: Normal range of motion, supple without lymphadenopathy, JVD, or masses. LUNGS: CTAB. End expiratory wheezes. No accessory muscle use. HEART: RRR s1 s2, 3/6 systolic murmur at RUSB with radiation to carotids. LEFT neck vein distention. ABDOMEN: Soft, BS present in all 4 quadrants, non-distended, no JVD, MUSCULOSKELETAL: No bony deformities or tenderness. No CVA tenderness. UPPER EXTREMITIES: 2+ pulses, warm, well-perfused. No cyanosis. No clubbing. No peripheral edema. LOWER EXTREMITIES: 2+ pulses, warm, well-perfused. No calf tenderness. Trace peripheral edema. NEUROLOGICAL: No focal deficits. Cranial nerves II-XII intact. Normal speech. Gait not appreciated. PSYCHIATRIC: Cooperative. Good eye contact. Appropriate mood and affect. SKIN: Warm, dry, normal turgor, no rashes or lesions noted, normal capillary refill. Laboratory Results - last 24 hr 05/15/19 05/15/19 05/16/19 17:10 22:33 06:18 WBC RBC Hgb Hct MCV MCH MCHC RDW Plt Count MPV Sodium 142 Potassium 4.4 Chloride 110 H Carbon Dioxide 25 Anion Gap 7 L BUN 66.4 H Creatinine 2.3 H Est GFR (CKD-EPI)AfAm 23.31 Est GFR (CKD-EPI)NonAf 20.12 POC Glucometer 333 199 Random Glucose 168 H Calcium 8.8 Total Bilirubin 0.2 AST 19 ALT 26 Alkaline Phosphatase 69 Total Protein 6.4 Albumin 3.3 L 05/16/19 05/16/19 05/16/19 06:18 06:47 12:29 WBC 16.6 H RBC 3.80 Hgb 9.6 L Hct 29.6 L MCV 77.9 L MCH 25.4 L MCHC 32.5 RDW 15.7 H Plt Count 225 MPV 8.7 Sodium Potassium Chloride Carbon Dioxide Anion Gap BUN Creatinine Est GFR (CKD-EPI)AfAm Est GFR (CKD-EPI)NonAf POC Glucometer 164 213 Random Glucose Calcium Total Bilirubin AST ALT Alkaline Phosphatase Total Protein Albumin Active Medications Albuterol Sulfate (Ventolin 0.083% Nebulizer Soln -) 1 amp NEB Q4H PRN PRN Reason: SHORT OF BREATH/WHEEZING Albuterol/Ipratropium (Duoneb -) 1 amp NEB RQID [facility] Last Admin: 05/16/19 21:45 Dose: 1 amp Atorvastatin Calcium (Lipitor -) 40 mg PO HS [facility] Last Admin: 05/16/19 21:51 Dose: 40 mg Benzocaine/Menthol (Cepacol Lozenge -) 1 each MM PRN PRN PRN Reason: SORE THROAT Last Admin: 05/15/19 09:47 Dose: 1 each Docusate Sodium (Colace -) 100 mg PO BID [facility] Last Admin: 05/16/19 21:52 Dose: 100 mg Doxazosin Mesylate (Cardura -) 6 mg PO DAILY [facility] Last Admin: 05/16/19 09:16 Dose: 6 mg Folic Acid (Folic Acid -) 1 mg PO DAILY [facility] Last Admin: 05/16/19 09:16 Dose: 1 mg Guaifenesin (Diabetic Tussin Dm -) 5 ml PO Q6H PRN PRN Reason: COUGH Heparin Sodium (Porcine) (Heparin -) 5,000 unit SQ TID [facility] Last Admin: 05/16/19 21:52 Dose: 5,000 unit Insulin Aspart (Novolog Vial Sliding Scale -) 1 vial SQ ACHS [facility]; Protocol Last Admin: 05/16/19 21:52 Dose: 2 units Insulin Detemir (Levemir Vial) 20 units SQ AM [facility] Last Admin: 05/16/19 06:52 Dose: 20 unit Labetalol HCl (Normodyne -) 200 mg PO BID [facility] Last Admin: 05/16/19 21:52 Dose: 200 mg Losartan Potassium (Cozaar -) 50 mg PO DAILY [facility] Last Admin: 05/15/19 09:43 Dose: 50 mg Methylprednisolone Sodium Succinate (Solu-Medrol -) 40 mg IVPUSH Q8H-IV [facility] Last Admin: 05/16/19 17:24 Dose: 40 mg Nifedipine (Procardia Xl -) 60 mg PO DAILY [facility] Last Admin: 05/16/19 09:17 Dose: 60 mg Senna (Senna -) 1 tab PO HS [facility] Last Admin: 05/16/19 21:52 Dose: 1 tab ASSESSMENT/PLAN: 73 y/o female PMH HTN, insulin treated DM, CKD III, COPD, c/o with SOB and cough and admitted for acute respiratory failure 2/2 acute COPD exacerbation. # Acute respiratory failure 2/2 acute COPD exacerbation - Continue current management of solumedrol 40 iv q8h, duonebs sched, albuterol prn - Echo: EF 65%, mild aortic sclerosis, mild TR - CPAP at night 11cm H20 # CKD III - s/p lokelma 10 gm po once (for hyperkalemia) and lasix 40 once per nephro - HOLD losartan - Low K diet - Renal US: no hydronephrosis - Baseline Cr 1.8 from primary nephro # DM - Hold home regimen: Tresiba 22 units HS - Levemir 20 u in the AM - ISS ACHS # HTN - Home regimen: labetalol 100 mg po BID, clonidine 0.1 mg PO BID, and nifedipine 60 mg po qd and doxazosin 6 mg po qd - Clonidine 0.1 mg PO qd, Doxazosin 6 mg PO qd, labetalol NOW 200 mg PO BID, Losartan 50 mg PO qd, nifedipine 60 mg PO qd - Cardio consulted: labetalol increased - Nephro consulted: dc ivf # F/E/N - NS at 75 cc/hour. DC if pt clinically overloaded. - Cont. to monitor - Low sodium diet # DVT prophylaxis - Heparin SQ # Disposition - Telemetry Kyle Manuel MD Visit type - Emergency Visit Emergency Visit: No - New Patient This patient is new to me today: No - Critical Care Critical Care patient: No ATTENDING PHYSICIAN STATEMENT I saw and evaluated the patient. I reviewed the resident's note and discussed the case with the resident. I agree with the resident's findings and plan as documented. SUBJECTIVE: OBJECTIVE: ASSESSMENT AND PLAN:
[2019-05-16] MEDS: ATORVASTATIN CA 20 MG TABLET (FP) PO SCH (21:51)
[2019-05-16] MEDS: LABETALOL HCL 200 MG TABLET (FP) PO SCH (21:52)
[2019-05-16] MEDS: SENNOSIDES 8.6MG TABLET (FP) PO SCH (21:52)
[2019-05-17] MEDS: methylPREDNISolone NA SUCC 40 MG/1 ML VIAL IVPUSH SCH ×3 (01:14→17:18)
[2019-05-17] MEDS ORDERED: NIFEdipine E.R 60 MG TABLET PO ONE (02:23)
[2019-05-17] MEDS ORDERED: ALBUTEROL SO4 0.083% IH SOL 2.5 MG/3 ML VIAL.NEB. NEB PRN (02:33)
[2019-05-17] MEDS: HEPARIN NA (PORCINE) 5,000 UNITS/ML 1ML VIAL SQ SCH ×3 (06:31→22:41)
[2019-05-17] MEDS: INSULIN (LEVEMIR) 100 UNITS/ML UNITS SQ SCH (06:31)
[2019-05-17] MEDS: INSULIN SLIDING SCALE (NOVOLOG) 1 VIAL SQ SCH ×4 (06:31→22:41)
[2019-05-17 07:01] LABS: HEMATOCRIT 31.1 % (32.4-45.2); HEMOGLOBIN 10.1 GM/dL (10.7-15.3); MCH 25.4 pg (25.7-33.7); MCHC 32.5 g/dl (32.0-36.0); MEAN CELL VOLUME 78.1 fl (80-96); MEAN PLT VOLUME 9.4 fl (7.5-11.1); PLATELET COUNT 224 K/MM3 (134-434); RBC 3.99 M/mm3 (3.60-5.2); RDW 15.7 % (11.6-15.6)
[2019-05-17 07:54] LABS: ALBUMIN 3.5 g/dl (3.4-5.0); BILIRUBIN,TOTAL 0.3 mg/dL (0.2-1); BLOOD UREA NITROGEN 69.8 mg/dL (7-18); CALCIUM 9.7 mg/dL (8.5-10.1); CREATININE 2.2 mg/dL (0.55-1.3); POTASSIUM 4.6 mmol/L (3.5-5.1)
[2019-05-17] MEDS: ALBUTEROL SO4 2.5/IPRATROPIUM 0.5 INH SOL 3 ML VIAL.NEB. NEB SCH ×4 (08:00→20:05)
[2019-05-17] MEDS: DOXAZOSIN MESYLATE 2 MG TABLET PO SCH (09:25)
[2019-05-17] MEDS: LABETALOL HCL 200 MG TABLET (FP) PO SCH ×2 (09:25→22:41)
[2019-05-17] MEDS: FOLIC ACID 1 MG TABLET (FP) PO SCH (09:25)
[2019-05-17] MEDS: NIFEdipine E.R 60 MG TABLET PO SCH (09:25)
[2019-05-17] MEDS: DOCUSATE SODIUM 100 MG CAPSULE (FP) PO SCH ×2 (09:25→22:41)
--- NOTE | 2019-05-17 09:36 | PN ---
Teaching Attending Note Name of Resident: Kyle Manuel ATTENDING PHYSICIAN STATEMENT I saw and evaluated the patient. I reviewed the resident's note and discussed the case with the resident. I agree with the resident's findings and plan as documented. SUBJECTIVE: patient continues to feel shortness of breath. dyspnea on exertion. no fever or chills. Vital Signs Temperature 98.0 F 05/17/19 08:45 Pulse Rate 62 05/17/19 08:45 Respiratory Rate 16 05/17/19 08:45 Blood Pressure 189/73 H 05/17/19 08:45 O2 Sat by Pulse Oximetry (%) 98 05/16/19 21:00 GENERAL: The patient is awake, in no acute distress. HEAD: Normal with no signs of trauma. EYES: PERRL, extraocular movements intact, sclera anicteric, conjunctiva clear. ENT: Ears normal, oropharynx clear without exudates, moist mucous membranes. NECK: Trachea midline, full range of motion, supple. LUNGS: decreased BS bl ,positive for wheeze, no crackles, no accessory muscle use. HEART: Regular rate and rhythm, S1, S2 without murmur, rub or gallop. ABDOMEN: Soft, Nt, ND, normoactive bowel sounds, no guarding, no rebound, no hepatosplenomegaly, no masses. EXTREMITIES: 2+ pulses, warm, well-perfused, no edema. NEUROLOGICAL: Cranial nerves II through XII grossly intact. Normal speech, gait not observed. PSYCH: Normal mood, normal affect. SKIN: Warm, dry, normal turgor, no rashes or lesions noted CBCD WBC 13.0 K/mm3 (4.0-10.0) H 05/17/19 05:30 RBC 3.99 M/mm3 (3.60-5.2) 05/17/19 05:30 Hgb 10.1 GM/dL (10.7-15.3) L 05/17/19 05:30 Hct 31.1 % (32.4-45.2) L 05/17/19 05:30 MCV 78.1 fl (80-96) L 05/17/19 05:30 MCHC 32.5 g/dl (32.0-36.0) 05/17/19 05:30 RDW 15.7 % (11.6-15.6) H 05/17/19 05:30 Plt Count 224 K/MM3 (134-434) 05/17/19 05:30 MPV 9.4 fl (7.5-11.1) 05/17/19 05:30 CMP Sodium 142 mmol/L (136-145) 05/17/19 05:30 Potassium 4.6 mmol/L (3.5-5.1) 05/17/19 05:30 Chloride 110 mmol/L (98-107) H 05/17/19 05:30 Carbon Dioxide 23 mmol/L (21-32) 05/17/19 05:30 Anion Gap 9 MMOL/L (8-16) 05/17/19 05:30 BUN 69.8 mg/dL (7-18) H 05/17/19 05:30 Creatinine 2.2 mg/dL (0.55-1.3) H 05/17/19 05:30 Random Glucose 229 mg/dL (74-106) H 05/17/19 05:30 Calcium 9.7 mg/dL (8.5-10.1) 05/17/19 05:30 Total Bilirubin 0.3 mg/dL (0.2-1) 05/17/19 05:30 AST 13 U/L (15-37) L 05/17/19 05:30 ALT 29 U/L (13-61) 05/17/19 05:30 Alkaline Phosphatase 76 U/L (45-117) 05/17/19 05:30 Total Protein 7.0 g/dl (6.4-8.2) 05/17/19 05:30 Albumin 3.5 g/dl (3.4-5.0) 05/17/19 05:30 CARDIAC ENZYMES Creatine Kinase 220 U/L (26-192) H 05/13/19 17:17 Troponin I 0.03 ng/ml (0.00-0.05) 05/13/19 17:17 Current Medications Generic Name Dose Route Start Last Admin Trade Name Freq PRN Reason Stop Dose Admin Albuterol Sulfate 1 amp 05/17/19 02:33 Ventolin 0.083% Nebulizer Soln - NEB RQ4H PRN SHORT OF BREATH/WHEEZING Albuterol/Ipratropium 1 amp 05/14/19 20:00 05/17/19 08:00 Duoneb - NEB 1 amp RQID [facility] Administration Atorvastatin Calcium 40 mg 05/13/19 22:00 05/16/19 21:51 Lipitor - PO 40 mg HS [facility] Administration Benzocaine/Menthol 1 each 05/15/19 09:22 05/15/19 09:47 Cepacol Lozenge - MM 1 each PRN PRN Administration SORE THROAT Docusate Sodium 100 mg 05/14/19 23:00 05/17/19 09:25 Colace - PO 100 mg BID [facility] Administration Doxazosin Mesylate 6 mg 05/14/19 10:00 05/17/19 09:25 Cardura - PO 6 mg DAILY [facility] Administration Folic Acid 1 mg 05/14/19 10:00 05/17/19 09:25 Folic Acid - PO 1 mg DAILY [facility] Administration Guaifenesin 5 ml 05/15/19 09:22 Diabetic Tussin Dm - PO Q6H PRN COUGH Heparin Sodium (Porcine) 5,000 unit 05/13/19 22:00 05/17/19 06:31 Heparin - SQ 5,000 unit TID [facility] Administration Insulin Aspart 1 vial 05/13/19 22:00 05/17/19 06:31 Novolog Vial Sliding Scale - SQ 4 units ACHS [facility] Administration Protocol Insulin Detemir 20 units 05/15/19 07:00 05/17/19 06:31 Levemir Vial SQ 20 unit AM [facility] Administration Labetalol HCl 200 mg 05/16/19 11:22 05/17/19 09:25 Normodyne - PO 200 mg BID [facility] Administration Losartan Potassium 50 mg 05/14/19 10:00 05/15/19 09:43 Cozaar - PO 50 mg DAILY [facility] Administration Methylprednisolone Sodium Succinate 40 mg 05/14/19 18:30 05/17/19 09:25 Solu-Medrol - IVPUSH 40 mg Q8H-IV [facility] Administration Nifedipine 60 mg 05/15/19 10:00 05/17/19 09:25 Procardia Xl - PO 60 mg DAILY [facility] Administration Senna 1 tab 05/15/19 22:00 05/16/19 21:52 Senna - PO 1 tab HS [facility] Administration Home Medications Medication Instructions Recorded Baclofen 10 mg PO BID 07/06/17 Lactulose [Cephulac -] 22 ml PO BID 07/06/17 Levothyroxine Sodium [Levo-T] 88 mcg PO AM 07/06/17 Magnesium Hydroxide [Milk of 30 ml PO HS 07/06/17 Magnesia] Sennosides [Senna] 8.6 mg PO BID 07/06/17 Divalproex [Depakote -] 750 mg PO BID 10/19/17 Lamotrigine [Lamictal -] 25 mg PO BID 10/19/17 Levocarnitine 330 mg PO BID 10/19/17 Loratadine 10 mg PO Q2D 10/19/17 [place]-3 Fatty Acids/Fish Oil [Fish 1 each PO DAILY 10/19/17 Oil 1,000 mg Capsule] levETIRAcetam [Keppra -] 500 mg PO BID 10/20/17 Amlodipine Besylate [Norvasc -] 5 mg PO DAILY #30 tablet 10/24/17 Multivitamin/Iron/Folic Acid 1 each PO HS 11/30/17 [Centrum Adults Tablet] Calcium Carbonate/Vitamin D3 1 each PO BID 05/13/19 [Oyster Shell 500-Vit D3 200 Tb] Lamotrigine [LaMICtal -] 100 mg PO BID 05/13/19 Levetiracetam 1,000 mg PO BID 05/13/19 Metformin HCl [Glucophage] 500 mg PO BID 05/13/19 l-Norgest/E.estradiol-E.estrad 1 each PO 2000 05/13/19 [Camrese Lo Tablet] Microbiology 05/13/19 20:04 Urine - Urine - Catheterized Urine Culture - Final Contaminated: Please Repeat 05/13/19 18:30 Blood - Peripheral Venous Blood Culture - Preliminary NO GROWTH OBTAINED AFTER 24 HOURS, INCUBATION TO CONTINUE FOR 4 DAYS. 05/13/19 18:30 Blood - Peripheral Venous Blood Culture - Preliminary NO GROWTH OBTAINED AFTER 24 HOURS, INCUBATION TO CONTINUE FOR 4 DAYS. ASSESSMENT AND PLAN: Patient is a 73yof with PMHx of COPD, CKD, HTN, DM, who presented with SOB and cough and was admitted for an exacerbation of COPD. # acute SOB: due to acute COPD exacerbation on steroid IV, will increase the dose if no improvement. # Acute COPD exacerbation on solu medrol IV q8, pulm on the case, continue nebs. s/p Doxycyline # T2DM: started levemir and SSI , patient is on Tresiba at home. #HTN Uncontrolled : will increase labetalol, clonidine, and Nifedipine increased and Cardura increased as well , will keep monitoring. #CKD: unsure of the baseline . not sure if LETYT, continue to hold lasix , losartan dose is reduced to 50mg now from 100mg , will continue to monitor # Moderate atrophic kidneys: on renal US with no hydro; Moderate atrophic kidneys with no evidence of hydronephrosis or acute pathology. DVT PX : heaprin sq
--- NOTE | 2019-05-17 09:59 | PN ---
Progress Note, Physician History of Present Illness: Shortness of breath/dyspnea with cough nonproductive of sputum, intermittent wheeze slowly improving, denies any chest pain - Current Medication List Current Medications: Active Medications Albuterol Sulfate (Ventolin 0.083% Nebulizer Soln -) 1 amp NEB RQ4H PRN PRN Reason: SHORT OF BREATH/WHEEZING Albuterol/Ipratropium (Duoneb -) 1 amp NEB RQID [facility] Last Admin: 05/17/19 08:00 Dose: 1 amp Atorvastatin Calcium (Lipitor -) 40 mg PO HS [facility] Last Admin: 05/16/19 21:51 Dose: 40 mg Benzocaine/Menthol (Cepacol Lozenge -) 1 each MM PRN PRN PRN Reason: SORE THROAT Last Admin: 05/15/19 09:47 Dose: 1 each Docusate Sodium (Colace -) 100 mg PO BID [facility] Last Admin: 05/17/19 09:25 Dose: 100 mg Doxazosin Mesylate (Cardura -) 6 mg PO DAILY [facility] Last Admin: 05/17/19 09:25 Dose: 6 mg Folic Acid (Folic Acid -) 1 mg PO DAILY [facility] Last Admin: 05/17/19 09:25 Dose: 1 mg Guaifenesin (Diabetic Tussin Dm -) 5 ml PO Q6H PRN PRN Reason: COUGH Heparin Sodium (Porcine) (Heparin -) 5,000 unit SQ TID [facility] Last Admin: 05/17/19 06:31 Dose: 5,000 unit Insulin Aspart (Novolog Vial Sliding Scale -) 1 vial SQ ACHS [facility]; Protocol Last Admin: 05/17/19 06:31 Dose: 4 units Insulin Detemir (Levemir Vial) 20 units SQ AM [facility] Last Admin: 05/17/19 06:31 Dose: 20 unit Labetalol HCl (Normodyne -) 200 mg PO BID [facility] Last Admin: 05/17/19 09:25 Dose: 200 mg Losartan Potassium (Cozaar -) 50 mg PO DAILY [facility] Last Admin: 05/15/19 09:43 Dose: 50 mg Methylprednisolone Sodium Succinate (Solu-Medrol -) 40 mg IVPUSH Q8H-IV [facility] Last Admin: 05/17/19 09:25 Dose: 40 mg Nifedipine (Procardia Xl -) 60 mg PO DAILY [facility] Last Admin: 05/17/19 09:25 Dose: 60 mg Senna (Senna -) 1 tab PO HS [facility] Last Admin: 05/16/19 21:52 Dose: 1 tab - Objective Vital Signs: Vital Signs Temperature 98.0 F 05/17/19 08:45 Pulse Rate 62 05/17/19 08:45 Respiratory Rate 16 05/17/19 08:45 Blood Pressure 189/73 H 05/17/19 08:45 O2 Sat by Pulse Oximetry (%) 98 05/16/19 21:00 Constitutional: Yes: No Distress, Calm Neck: Yes: Supple Cardiovascular: Yes: Regular Rate and Rhythm Respiratory: Yes: Regular, Diminished, On Nasal O2 Gastrointestinal: Yes: Normal Bowel Sounds, Soft, Abdomen, Obese Edema: No Labs: CBC, BMP 05/17/19 05:30 05/17/19 05:30 - ....Imaging EKG: Report Reviewed (Tele: NSR) Problem List - Problems (1) Hypertensive heart disease Code(s): I11.9 - HYPERTENSIVE HEART DISEASE WITHOUT HEART FAILURE Qualifiers: Heart failure presence: without heart failure Qualified Code(s): I11.9 - Hypertensive heart disease without heart failure (2) COPD with acute exacerbation Code(s): J44.1 - CHRONIC OBSTRUCTIVE PULMONARY DISEASE W (ACUTE) EXACERBATION (3) Hyperlipidemia Code(s): E78.5 - HYPERLIPIDEMIA, UNSPECIFIED Qualifiers: Hyperlipidemia type: pure hypercholesterolemia Qualified Code(s): E78.00 - Pure hypercholesterolemia, unspecified; E78.0 - Pure hypercholesterolemia (4) Hyperkalemia Code(s): E87.5 - HYPERKALEMIA (5) JEANNIE (obstructive sleep apnea) Code(s): G47.33 - OBSTRUCTIVE SLEEP APNEA (ADULT) (PEDIATRIC) Assessment/Plan 1. Persistent dyspnea, associated wheeze/cough nonproductive of sputum referable to Acute COPD Exacerbation 2. LV Diastolic Dysfunction, Pulmonary HTN 3. 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 HTN 5. DM 6. Hypercholesterolemia 7. Acute on Chronic kidney disease improving 8. Anemia 9. OSAS on cpap 10. Hyperkalemia improving with lokelma and Lasix PLAN: 1. Oral steroid taper, BD, cpap nightly @@ 11 cm H20, O2 as needed 2. Increase Labetalol 200 bid titrate dosage 3. Resumed Cozaar 50 qd and titrate dosage as hyperkalemia resolves 4. Continue Procardia XL 60 qd 5. Wean Clonidine 0.1 qd to off 6. Continue Cardura 6 qd 7. Discontinued Hydralazine 8. Continue Lipitor 40 qd
[2019-05-17] MEDS ORDERED: methylPREDNISolone NA SUCC 40 MG/1 ML VIAL IVPUSH SCH (10:04)
--- NOTE | 2019-05-17 12:41 | PN ---
Progress Note (short form) - Note Progress Note: Feels a little better, but still with SOB and ROGEL. Cough is better. Says that is she is discharged today she will at home. Intake & Output 05/14/19 05/15/19 05/16/19 05/17/19 23:59 23:59 23:59 23:59 Intake Total 1410 1875 Balance 1410 1875 Weight 162 lb 9.6 oz Last Vital Signs Temp Pulse Resp BP Pulse Ox 98.0 F 62 16 189/73 H 98 05/17/19 08:45 05/17/19 08:45 05/17/19 08:45 05/17/19 08:45 05/17/19 10:00 Active Medications Albuterol Sulfate (Ventolin 0.083% Nebulizer Soln -) 1 amp NEB RQ4H PRN PRN Reason: SHORT OF BREATH/WHEEZING Albuterol/Ipratropium (Duoneb -) 1 amp NEB RQID [facility] Last Admin: 05/17/19 11:28 Dose: 1 amp Atorvastatin Calcium (Lipitor -) 40 mg PO HS [facility] Last Admin: 05/16/19 21:51 Dose: 40 mg Benzocaine/Menthol (Cepacol Lozenge -) 1 each MM PRN PRN PRN Reason: SORE THROAT Last Admin: 05/15/19 09:47 Dose: 1 each Docusate Sodium (Colace -) 100 mg PO BID [facility] Last Admin: 05/17/19 09:25 Dose: 100 mg Doxazosin Mesylate (Cardura -) 6 mg PO DAILY [facility] Last Admin: 05/17/19 09:25 Dose: 6 mg Folic Acid (Folic Acid -) 1 mg PO DAILY [facility] Last Admin: 05/17/19 09:25 Dose: 1 mg Heparin Sodium (Porcine) (Heparin -) 5,000 unit SQ TID [facility] Last Admin: 05/17/19 06:31 Dose: 5,000 unit Insulin Aspart (Novolog Vial Sliding Scale -) 1 vial SQ ACHS [facility]; Protocol Last Admin: 05/17/19 12:35 Dose: 6 units Insulin Detemir (Levemir Vial) 20 units SQ AM [facility] Last Admin: 05/17/19 06:31 Dose: 20 unit Labetalol HCl (Normodyne -) 200 mg PO BID [facility] Last Admin: 05/17/19 09:25 Dose: 200 mg Losartan Potassium (Cozaar -) 50 mg PO DAILY [facility] Last Admin: 05/15/19 09:43 Dose: 50 mg Methylprednisolone Sodium Succinate (Solu-Medrol -) 40 mg IVPUSH Q8H-IV [facility] Nifedipine (Procardia Xl -) 60 mg PO DAILY [facility] Last Admin: 05/17/19 09:25 Dose: 60 mg Senna (Senna -) 1 tab PO HS [facility] Last Admin: 05/16/19 21:52 Dose: 1 tab Gen: NAD at rest Heart: RRR Lung: few scattered rhonchi, diminished at the bases Abd: soft, nontender Ext: no edema Laboratory Results - last 24 hr 05/16/19 05/16/19 05/17/19 17:23 21:47 05:30 WBC 13.0 H RBC 3.99 Hgb 10.1 L Hct 31.1 L MCV 78.1 L MCH 25.4 L MCHC 32.5 RDW 15.7 H Plt Count 224 MPV 9.4 Sodium Potassium Chloride Carbon Dioxide Anion Gap BUN Creatinine Est GFR (CKD-EPI)AfAm Est GFR (CKD-EPI)NonAf POC Glucometer 248 200 Random Glucose Calcium Total Bilirubin AST ALT Alkaline Phosphatase Total Protein Albumin 05/17/19 05/17/19 05/17/19 05:30 05:53 12:29 WBC RBC Hgb Hct MCV MCH MCHC RDW Plt Count MPV Sodium 142 Potassium 4.6 Chloride 110 H Carbon Dioxide 23 Anion Gap 9 BUN 69.8 H Creatinine 2.2 H Est GFR (CKD-EPI)AfAm 24.60 Est GFR (CKD-EPI)NonAf 21.23 POC Glucometer 213 252 Random Glucose 229 H Calcium 9.7 Total Bilirubin 0.3 AST 13 L ALT 29 Alkaline Phosphatase 76 Total Protein 7.0 Albumin 3.5 Problem List - Problems (1) COPD with acute exacerbation Code(s): J44.1 - CHRONIC OBSTRUCTIVE PULMONARY DISEASE W (ACUTE) EXACERBATION A/P Acute COPD Exacerbation Acute on Chronic Renal Failure LV Diastolic Dysfunction Pulmonary HTN HTN DM Hyperlipidemia JEANNIE Anemia - Medrol: Can likely change to Prednisone in the next 24 hours - inhaled bronchodilators standing and PRN - BP control - monitor urine output, creatinine - CPAP at night 11cm H20 - O2 to keep SpO2 >90% - DVT prophylaxis Dr Bess
--- NOTE | 2019-05-17 13:49 | PN ---
Physical Exam: SUBJECTIVE: Patient seen and examined at bedside. Overnight her cough persisted , which prevented her from sleeping soundly. This AM she says her breathing is generally improved but she is not ready to go home yet. OBJECTIVE: Vital Signs Temp Pulse Resp BP Pulse Ox 98.3 F 67 18 138/54 L 98 05/17/19 13:50 05/17/19 13:50 05/17/19 13:50 05/17/19 13:50 05/17/19 10:00 GENERAL: AOx3, in no acute distress HEAD: NCAT EYES: CYNTHIA, EOMI, conjunctiva clear. ENT: Ears normal, nares patent, oropharynx clear without exudates. Moist mucous membranes. NECK: Normal range of motion, supple without lymphadenopathy, JVD, or masses. LUNGS: CTAB. Mild end expiratory wheezes. No accessory muscle use. HEART: RRR s1 s2, 3/6 systolic murmur at RUSB with radiation to carotids. LEFT neck vein distention. ABDOMEN: Soft, BS present in all 4 quadrants, non-distended, no JVD, MUSCULOSKELETAL: No bony deformities or tenderness. No CVA tenderness. UPPER EXTREMITIES: 2+ pulses, warm, well-perfused. No cyanosis. No clubbing. No peripheral edema. LOWER EXTREMITIES: 2+ pulses, warm, well-perfused. No calf tenderness. 1+ non- pitting peripheral edema BL. NEUROLOGICAL: No focal deficits. Cranial nerves II-XII intact. Normal speech. Gait not appreciated. PSYCHIATRIC: Cooperative. Good eye contact. Appropriate mood and affect. SKIN: Warm, dry, normal turgor, no rashes or lesions noted, normal capillary refill. Laboratory Results - last 24 hr 05/16/19 05/16/19 05/17/19 17:23 21:47 05:30 WBC 13.0 H RBC 3.99 Hgb 10.1 L Hct 31.1 L MCV 78.1 L MCH 25.4 L MCHC 32.5 RDW 15.7 H Plt Count 224 MPV 9.4 Sodium Potassium Chloride Carbon Dioxide Anion Gap BUN Creatinine Est GFR (CKD-EPI)AfAm Est GFR (CKD-EPI)NonAf POC Glucometer 248 200 Random Glucose Calcium Total Bilirubin AST ALT Alkaline Phosphatase Total Protein Albumin 05/17/19 05/17/19 05/17/19 05:30 05:53 12:29 WBC RBC Hgb Hct MCV MCH MCHC RDW Plt Count MPV Sodium 142 Potassium 4.6 Chloride 110 H Carbon Dioxide 23 Anion Gap 9 BUN 69.8 H Creatinine 2.2 H Est GFR (CKD-EPI)AfAm 24.60 Est GFR (CKD-EPI)NonAf 21.23 POC Glucometer 213 252 Random Glucose 229 H Calcium 9.7 Total Bilirubin 0.3 AST 13 L ALT 29 Alkaline Phosphatase 76 Total Protein 7.0 Albumin 3.5 Active Medications Albuterol Sulfate (Ventolin 0.083% Nebulizer Soln -) 1 amp NEB RQ4H PRN PRN Reason: SHORT OF BREATH/WHEEZING Albuterol/Ipratropium (Duoneb -) 1 amp NEB RQID [facility] Last Admin: 05/17/19 15:50 Dose: 1 amp Atorvastatin Calcium (Lipitor -) 40 mg PO HS [facility] Last Admin: 05/16/19 21:51 Dose: 40 mg Benzocaine/Menthol (Cepacol Lozenge -) 1 each MM PRN PRN PRN Reason: SORE THROAT Last Admin: 05/15/19 09:47 Dose: 1 each Docusate Sodium (Colace -) 100 mg PO BID [facility] Last Admin: 05/17/19 09:25 Dose: 100 mg Doxazosin Mesylate (Cardura -) 6 mg PO DAILY [facility] Last Admin: 05/17/19 09:25 Dose: 6 mg Folic Acid (Folic Acid -) 1 mg PO DAILY [facility] Last Admin: 05/17/19 09:25 Dose: 1 mg Furosemide (Lasix -) 40 mg PO DAILY [facility] Heparin Sodium (Porcine) (Heparin -) 5,000 unit SQ TID [facility] Last Admin: 05/17/19 14:56 Dose: 5,000 unit Insulin Aspart (Novolog Vial Sliding Scale -) 1 vial SQ ACHS [facility]; Protocol Last Admin: 05/17/19 12:35 Dose: 6 units Insulin Detemir (Levemir Vial) 20 units SQ AM [facility] Last Admin: 05/17/19 06:31 Dose: 20 unit Labetalol HCl (Normodyne -) 200 mg PO BID [facility] Last Admin: 05/17/19 09:25 Dose: 200 mg Losartan Potassium (Cozaar -) 50 mg PO DAILY [facility] Last Admin: 05/15/19 09:43 Dose: 50 mg Methylprednisolone Sodium Succinate (Solu-Medrol -) 40 mg IVPUSH Q8H-IV [facility] Nifedipine (Procardia Xl -) 60 mg PO DAILY [facility] Last Admin: 05/17/19 09:25 Dose: 60 mg Senna (Senna -) 1 tab PO HS [facility] Last Admin: 05/16/19 21:52 Dose: 1 tab ASSESSMENT/PLAN: 73 y/o female PMH HTN, insulin treated DM, CKD III, COPD, c/o with SOB and cough and admitted for acute respiratory failure 2/2 acute COPD exacerbation. # Acute respiratory failure 2/2 acute COPD exacerbation - Continue current management of solumedrol 40 iv q8h, duonebs sched, albuterol prn - Switch steroids to prednisone tomorrow - CPAP HS 11cm H20 # CKD III - s/p lokelma 10 gm po once (for hyperkalemia) and lasix 40 once per nephro - Restart lasix po 40 mg qd - HOLD losartan # DM - Hold home regimen: Tresiba 22 units HS - Levemir 20 u in the AM - ISS ACHS # HTN - New regimen: Clonidine 0.1 mg PO qd (and plan to dc), Doxazosin 6 mg PO qd, labetalol NOW 200 mg PO BID, Losartan 50 mg PO qd, nifedipine 60 mg PO qd - Cardio consulted: labetalol increased - Nephro consulted: dc ivf # F/E/N - PO - Cont. to monitor - Low sodium diet # DVT prophylaxis - Heparin SQ # Disposition - Telemetry Kyle Manuel MD Visit type - Emergency Visit Emergency Visit: No - New Patient This patient is new to me today: No - Critical Care Critical Care patient: No ATTENDING PHYSICIAN STATEMENT I saw and evaluated the patient. I reviewed the resident's note and discussed the case with the resident. I agree with the resident's findings and plan as documented. SUBJECTIVE: OBJECTIVE: ASSESSMENT AND PLAN:
--- NOTE | 2019-05-17 14:59 | EKG ---
Test Reason : Blood Pressure : / mmHG Vent. Rate : 066 BPM Atrial Rate : 066 BPM P-R Int : 144 ms QRS Dur : 084 ms QT Int : 408 ms P-R-T Axes : 043 005 003 degrees QTc Int : 427 ms NORMAL SINUS RHYTHM NORMAL ECG WHEN COMPARED WITH ECG OF 13-MAY-2019 23:30, QT HAS SHORTENED Confirmed by NANCY MONET MD ([id number]) on 05/17/2019 2:59:05 PM Referred By: JOSE MARTIN BAKER DR Confirmed By:NANCY MONET MD
--- NOTE | 2019-05-17 15:47 | PN ---
Progress Note, Physician History of Present Illness: Pt seen and examined at bedside. She is awake and alert. She feels that her breathing is starting to improve. - Current Medication List Current Medications: Active Medications Albuterol Sulfate (Ventolin 0.083% Nebulizer Soln -) 1 amp NEB RQ4H PRN PRN Reason: SHORT OF BREATH/WHEEZING Albuterol/Ipratropium (Duoneb -) 1 amp NEB RQID [facility] Last Admin: 05/17/19 11:28 Dose: 1 amp Atorvastatin Calcium (Lipitor -) 40 mg PO HS [facility] Last Admin: 05/16/19 21:51 Dose: 40 mg Benzocaine/Menthol (Cepacol Lozenge -) 1 each MM PRN PRN PRN Reason: SORE THROAT Last Admin: 05/15/19 09:47 Dose: 1 each Docusate Sodium (Colace -) 100 mg PO BID [facility] Last Admin: 05/17/19 09:25 Dose: 100 mg Doxazosin Mesylate (Cardura -) 6 mg PO DAILY [facility] Last Admin: 05/17/19 09:25 Dose: 6 mg Folic Acid (Folic Acid -) 1 mg PO DAILY [facility] Last Admin: 05/17/19 09:25 Dose: 1 mg Heparin Sodium (Porcine) (Heparin -) 5,000 unit SQ TID [facility] Last Admin: 05/17/19 14:56 Dose: 5,000 unit Insulin Aspart (Novolog Vial Sliding Scale -) 1 vial SQ ACHS [facility]; Protocol Last Admin: 05/17/19 12:35 Dose: 6 units Insulin Detemir (Levemir Vial) 20 units SQ AM [facility] Last Admin: 05/17/19 06:31 Dose: 20 unit Labetalol HCl (Normodyne -) 200 mg PO BID [facility] Last Admin: 05/17/19 09:25 Dose: 200 mg Losartan Potassium (Cozaar -) 50 mg PO DAILY [facility] Last Admin: 05/15/19 09:43 Dose: 50 mg Methylprednisolone Sodium Succinate (Solu-Medrol -) 40 mg IVPUSH Q8H-IV [facility] Nifedipine (Procardia Xl -) 60 mg PO DAILY [facility] Last Admin: 05/17/19 09:25 Dose: 60 mg Senna (Senna -) 1 tab PO HS [facility] Last Admin: 05/16/19 21:52 Dose: 1 tab - Objective Vital Signs: Vital Signs Temperature 98.3 F 05/17/19 13:50 Pulse Rate 67 05/17/19 13:50 Respiratory Rate 18 05/17/19 13:50 Blood Pressure 138/54 L 05/17/19 13:50 O2 Sat by Pulse Oximetry (%) 98 05/17/19 10:00 Constitutional: Yes: Calm Eyes: Yes: Conjunctiva Clear HENT: Yes: Atraumatic Neck: Yes: Supple Cardiovascular: Yes: S1, S2 Respiratory: Yes: Wheezes Gastrointestinal: Yes: Soft Genitourinary: Yes: WNL Musculoskeletal: Yes: WNL Edema: Yes Edema: LLE: Trace, RLE: Trace Neurological: Yes: Oriented Psychiatric: Yes: Oriented Labs: CBC, BMP 05/17/19 05:30 05/17/19 05:30 Assessment/Plan Current Medications Generic Name Dose Route Start Last Admin Trade Name Freq PRN Reason Stop Dose Admin Albuterol Sulfate 1 amp 05/17/19 02:33 Ventolin 0.083% Nebulizer Soln - [facility] RQ4H PRN SHORT OF BREATH/WHEEZING Albuterol/Ipratropium 1 amp 05/14/19 20:00 05/17/19 11:28 Duoneb - NEB 1 amp RQID [facility] Administration Atorvastatin Calcium 40 mg 05/13/19 22:00 05/16/19 21:51 Lipitor - PO 40 mg HS [facility] Administration Benzocaine/Menthol 1 each 05/15/19 09:22 05/15/19 09:47 Cepacol Lozenge - MM 1 each PRN PRN Administration SORE THROAT Docusate Sodium 100 mg 05/14/19 23:00 05/17/19 09:25 Colace - PO 100 mg BID [facility] Administration Doxazosin Mesylate 6 mg 05/14/19 10:00 05/17/19 09:25 Cardura - PO 6 mg DAILY [facility] Administration Folic Acid 1 mg 05/14/19 10:00 05/17/19 09:25 Folic Acid - PO 1 mg DAILY [facility] Administration Heparin Sodium (Porcine) 5,000 unit 05/13/19 22:00 05/17/19 14:56 Heparin - SQ 5,000 unit TID [facility] Administration Insulin Aspart 1 vial 05/13/19 22:00 05/17/19 12:35 Novolog Vial Sliding Scale - SQ 6 units ACHS [facility] Administration Protocol Insulin Detemir 20 units 05/15/19 07:00 05/17/19 06:31 Levemir Vial SQ 20 unit AM [facility] Administration Labetalol HCl 200 mg 05/16/19 11:22 05/17/19 09:25 Normodyne - PO 200 mg BID [facility] Administration Losartan Potassium 50 mg 05/14/19 10:00 05/15/19 09:43 Cozaar - PO 50 mg DAILY [facility] Administration Methylprednisolone Sodium Succinate 40 mg 05/17/19 18:00 Solu-Medrol - IVPUSH Q8H-IV [facility] Nifedipine 60 mg 05/15/19 10:00 05/17/19 09:25 Procardia Xl - PO 60 mg DAILY [facility] Administration Senna 1 tab 05/15/19 22:00 05/16/19 21:52 Senna - PO 1 tab HS [facility] Administration Impression 1. CKD 2. HTN 3. copd 4. chf 5. DM 6. 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
[2019-05-17] MEDS: ATORVASTATIN CA 20 MG TABLET (FP) PO SCH (22:41)
[2019-05-17] MEDS: SENNOSIDES 8.6MG TABLET (FP) PO SCH (22:41)
[2019-05-18] MEDS: methylPREDNISolone NA SUCC 40 MG/1 ML VIAL IVPUSH SCH ×4 (01:00→21:47)
[2019-05-18] MEDS ORDERED: NIFEdipine E.R. 30 MG TABLET PO ONE ×2 (02:05→10:00)
[2019-05-18] MEDS: HEPARIN NA (PORCINE) 5,000 UNITS/ML 1ML VIAL SQ SCH ×3 (06:18→21:50)
[2019-05-18] MEDS: INSULIN (LEVEMIR) 100 UNITS/ML UNITS SQ SCH (06:18)
[2019-05-18] MEDS: INSULIN SLIDING SCALE (NOVOLOG) 1 VIAL SQ SCH ×4 (06:18→21:51)
[2019-05-18] MEDS: ALBUTEROL SO4 2.5/IPRATROPIUM 0.5 INH SOL 3 ML VIAL.NEB. NEB SCH ×4 (07:40→20:57)
[2019-05-18 07:51] LABS: HEMOGLOBIN 9.6 GM/dL (10.7-15.3); MCH 25.2 pg (25.7-33.7); MEAN CELL VOLUME 78.6 fl (80-96); MEAN PLT VOLUME 9.3 fl (7.5-11.1); PLATELET COUNT 199 K/MM3 (134-434); RBC 3.81 M/mm3 (3.60-5.2); RDW 15.9 % (11.6-15.6); WHITE BLOOD COUNT 11.7 K/mm3 (4.0-10.0)
[2019-05-18 08:11] LABS: ALBUMIN 2.9 g/dl (3.4-5.0); BILIRUBIN,TOTAL 0.3 mg/dL (0.2-1); BLOOD UREA NITROGEN 57.3 mg/dL (7-18); CALCIUM 9.2 mg/dL (8.5-10.1); POTASSIUM 4.8 mmol/L (3.5-5.1)
[2019-05-18] MEDS ORDERED: PT OWN MED DRAWER 7, Y5N ONE (09:28)
[2019-05-18] MEDS: LABETALOL HCL 200 MG TABLET (FP) PO SCH ×2 (09:34→21:49)
[2019-05-18] MEDS: LOSARTAN POTASSIUM 50 MG TABLET (FP) PO SCH (09:34)
[2019-05-18] MEDS: DOXAZOSIN MESYLATE 2 MG TABLET PO SCH (09:35)
[2019-05-18] MEDS: DOCUSATE SODIUM 100 MG CAPSULE (FP) PO SCH ×2 (09:35→21:49)
[2019-05-18] MEDS: FOLIC ACID 1 MG TABLET (FP) PO SCH (09:35)
[2019-05-18] MEDS: FUROSEMIDE 20 MG TABLET (FP) PO SCH (09:35)
[2019-05-18] MEDS: NIFEdipine E.R 60 MG TABLET PO SCH (09:35)
--- NOTE | 2019-05-18 09:35 | PN ---
Progress Note, Physician - Current Medication List Current Medications: Active Medications Albuterol Sulfate (Ventolin 0.083% Nebulizer Soln -) 1 amp NEB RQ4H PRN PRN Reason: SHORT OF BREATH/WHEEZING Albuterol/Ipratropium (Duoneb -) [address] [facility] Last Admin: 05/18/19 07:40 Dose: 1 amp Atorvastatin Calcium (Lipitor -) [address] [facility] Last Admin: 05/17/19 22:41 Dose: 40 mg Benzocaine/Menthol (Cepacol Lozenge -) 1 each MM PRN PRN PRN Reason: SORE THROAT Last Admin: 05/15/19 09:47 Dose: 1 each Docusate Sodium (Colace -) [address] [facility] Last Admin: 05/17/19 22:41 Dose: 100 mg Doxazosin Mesylate (Cardura -) [address] [facility] Last Admin: 05/17/19 09:25 Dose: 6 mg Folic Acid (Folic Acid -) [address] [facility] Last Admin: 05/17/19 09:25 Dose: 1 mg Furosemide (Lasix -) [address] [facility] Heparin Sodium (Porcine) (Heparin -) 5,[address] [facility] Last Admin: 05/18/19 06:18 Dose: 5,000 unit Insulin Aspart (Novolog Vial Sliding Scale -) [address] [facility]; Protocol Last Admin: 05/18/19 06:18 Dose: 4 units Insulin Detemir (Levemir Vial) [address] [facility] Last Admin: 05/18/19 06:18 Dose: 20 unit Labetalol HCl (Normodyne -) [address] [facility] Last Admin: 05/17/19 22:41 Dose: 200 mg Losartan Potassium (Cozaar -) [address] [facility] Last Admin: 05/15/19 09:43 Dose: 50 mg Methylprednisolone Sodium Succinate (Solu-Medrol -) 40 mg IVPUSH Q8H-IV [facility] Last Admin: 05/18/19 01:00 Dose: 40 mg Nifedipine (Procardia Xl -) [address] [facility] Last Admin: 05/17/19 09:25 Dose: 60 mg Senna (Senna -) [address] [facility] Last Admin: 05/17/19 22:41 Dose: 1 tab - Objective Vital Signs: Vital Signs Temperature 98.1 F 02/01/20 06:00 Pulse Rate 68 05/18/19 06:00 Respiratory Rate 18 05/18/19 06:00 Blood Pressure 160/72 05/18/19 06:00 O2 Sat by Pulse Oximetry (%) 100 05/18/19 08:17 Eyes: Yes: WNL, Conjunctiva Clear, EOM Intact HENT: Yes: WNL, Atraumatic, Normocephalic Neck: Yes: WNL, Supple, Trachea Midline Cardiovascular: Yes: WNL, Regular Rate and Rhythm Respiratory: Yes: WNL, Regular, CTA Bilaterally Gastrointestinal: Yes: WNL, Normal Bowel Sounds Genitourinary: Yes: WNL Musculoskeletal: Yes: WNL Extremities: Yes: WNL Edema: No Integumentary: Yes: WNL Neurological: Yes: WNL, Alert, Oriented ...Motor Strength: WNL Psychiatric: Yes: WNL Labs: CBC, BMP 05/18/19 06:25 05/18/19 06:25 Assessment/Plan - Problems (1) Hypertensive heart disease Code(s): I11.9 - HYPERTENSIVE HEART DISEASE WITHOUT HEART FAILURE Qualifiers: Heart failure presence: without heart failure Qualified Code(s): I11.9 - Hypertensive heart disease without heart failure (2) COPD with acute exacerbation Code(s): J44.1 - CHRONIC OBSTRUCTIVE PULMONARY DISEASE W (ACUTE) EXACERBATION (3) Hyperlipidemia Code(s): E78.5 - HYPERLIPIDEMIA, UNSPECIFIED Qualifiers: Hyperlipidemia type: pure hypercholesterolemia Qualified Code(s): E78.00 - Pure hypercholesterolemia, unspecified; E78.0 - Pure hypercholesterolemia (4) Hyperkalemia Code(s): E87.5 - HYPERKALEMIA (5) JEANNIE (obstructive sleep apnea) Code(s): G47.33 - OBSTRUCTIVE SLEEP APNEA (ADULT) (PEDIATRIC) Assessment/Plan 1. Persistent dyspnea, associated wheeze/cough nonproductive of sputum referable to Acute COPD Exacerbation 2. LV Diastolic Dysfunction, Pulmonary HTN 3. 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 HTN poorly controlled 5. DM 6. Hypercholesterolemia 7. Acute on Chronic kidney disease improving 8. Anemia 9. OSAS on cpap 10. Hyperkalemia improving with lokelma and Lasix PLAN: 1. Oral steroid taper, BD, cpap nightly @@ 11 cm H20, O2 as needed 2. Increase Labetalol 200 bid titrate dosage 3. Resumed Cozaar 50 qd and titrate dosage as hyperkalemia resolves 4. Increase Procardia XL to 90 qd 5. Wean Clonidine 0.1 qd to off 6. Continue Cardura 6 qd 7. Discontinued Hydralazine 8. Continue Lipitor [address] Patterson
[2019-05-18] MEDS: BENZOCAINE/MENTH/CETYLPYRD CL 1 EACH LOZENGE MM PRN ×2 (09:36→21:54)
[2019-05-18] MEDS: NIFEdipine E.R. 90 MG TABLET PO SCH (09:57)
[2019-05-18] MEDS ORDERED: FUROSEMIDE 20 MG TABLET (FP) PO SCH (10:00)
--- NOTE | 2019-05-18 15:03 | PN ---
Progress Note (short form) - Note Progress Note: PULMONARY Still with shortness of breath, chest tightness and congestion. Vital Signs Period Temp Pulse Resp BP Sys/Arthur Pulse Ox Last 24 Hr 97.6 F-98.6 F 60-75 17-18 151-191/59-94 97-100 Gen: NAD at rest Heart: RRR Lung: decreased air movement Abd: soft, nontender Ext: no edema CBC, BMP 05/18/19 06:25 05/18/19 06:25 Active Medications Albuterol Sulfate (Ventolin 0.083% Nebulizer Soln -) 1 amp NEB RQ4H PRN PRN Reason: SHORT OF BREATH/WHEEZING Albuterol/Ipratropium (Duoneb -) 1 amp NEB RQID [facility] Last Admin: 05/18/19 11:40 Dose: 1 amp Atorvastatin Calcium (Lipitor -) 40 mg PO HS [facility] Last Admin: 05/17/19 22:41 Dose: 40 mg Benzocaine/Menthol (Cepacol Lozenge -) 1 each MM PRN PRN PRN Reason: SORE THROAT Last Admin: 05/18/19 09:36 Dose: 1 each Docusate Sodium (Colace -) 100 mg PO BID [facility] Last Admin: 05/18/19 09:35 Dose: 100 mg Doxazosin Mesylate (Cardura -) 6 mg PO DAILY [facility] Last Admin: 05/18/19 09:35 Dose: 6 mg Folic Acid (Folic Acid -) 1 mg PO DAILY [facility] Last Admin: 05/18/19 09:35 Dose: 1 mg Furosemide (Lasix -) 40 mg PO DAILY [facility] Last Admin: 05/18/19 09:35 Dose: 40 mg Heparin Sodium (Porcine) (Heparin -) 5,000 unit SQ TID [facility] Last Admin: 05/18/19 06:18 Dose: 5,000 unit Insulin Aspart (Novolog Vial Sliding Scale -) 1 vial SQ ACHS [facility]; Protocol Last Admin: 05/18/19 11:54 Dose: 6 units Insulin Detemir (Levemir Vial) 20 units SQ AM [facility] Last Admin: 05/18/19 06:18 Dose: 20 unit Labetalol HCl (Normodyne -) 200 mg PO BID [facility] Last Admin: 05/18/19 09:34 Dose: 200 mg Losartan Potassium (Cozaar -) 50 mg PO DAILY [facility] Last Admin: 05/18/19 09:34 Dose: 50 mg Methylprednisolone Sodium Succinate (Solu-Medrol -) 40 mg IVPUSH Q8H-IV [facility] Last Admin: 05/18/19 09:36 Dose: 40 mg Nifedipine (Procardia Xl -) 90 mg PO DAILY [facility] Last Admin: 05/18/19 09:57 Dose: Not Given Senna (Senna -) 1 tab PO HS [facility] Last Admin: 05/17/19 22:41 Dose: 1 tab A/P Acute COPD Exacerbation Acute on Chronic Renal Failure LV Diastolic Dysfunction Pulmonary HTN HTN DM Hyperlipidemia JEANNIE Anemia - increase medrol to q6h and reassess in AM - inhaled bronchodilators standing and PRN - BP control - monitor urine output, creatinine - CPAP at night 11cm H20 - O2 to keep SpO2 >90% - DVT prophylaxis Problem List - Problems (1) COPD with acute exacerbation Code(s): J44.1 - CHRONIC OBSTRUCTIVE PULMONARY DISEASE W (ACUTE) EXACERBATION
[2019-05-18] MEDS: SENNOSIDES 8.6MG TABLET (FP) PO SCH (21:49)
[2019-05-18] MEDS: ATORVASTATIN CA 20 MG TABLET (FP) PO SCH (21:50)
--- NOTE | 2019-05-18 21:55 | PN ---
Progress Note (short form) - Note Progress Note: Patient continues to have shortness of breath davide on exertion. Vital Signs Temperature 98.2 F 05/18/19 18:32 Pulse Rate 66 05/18/19 18:32 Respiratory Rate 18 05/18/19 18:32 Blood Pressure 177/68 H 05/18/19 18:32 O2 Sat by Pulse Oximetry (%) 100 05/18/19 16:49 GENERAL: The patient is awake, in no acute distress. HEAD: Normal with no signs of trauma. EYES: PERRL, extraocular movements intact, sclera anicteric, conjunctiva clear. ENT: Ears normal, oropharynx clear without exudates, moist mucous membranes. NECK: Trachea midline, full range of motion, supple. LUNGS: decreased BS BL, wheezing bilaterally, no wheezes, no crackles, no accessory muscle use. HEART: Regular rate and rhythm, S1, S2 without murmur, rub or gallop. ABDOMEN: Soft, Nt,ND, normoactive bowel sounds, no guarding, no rebound, no hepatosplenomegaly, no masses. EXTREMITIES: 2+ pulses, warm, well-perfused, no edema. NEUROLOGICAL: Cranial nerves II through XII grossly intact. Normal speech, gait not observed. PSYCH: Normal mood, normal affect. SKIN: Warm, dry, normal turgor, no rashes or lesions noted CBCD WBC 11.7 K/mm3 (4.0-10.0) H 05/18/19 06:25 RBC 3.81 M/mm3 (3.60-5.2) 05/18/19 06:25 Hgb 9.6 GM/dL (10.7-15.3) L 05/18/19 06:25 Hct 30.0 % (32.4-45.2) L 05/18/19 06:25 MCV 78.6 fl (80-96) L 05/18/19 06:25 MCHC 32.0 g/dl (32.0-36.0) 05/18/19 06:25 RDW 15.9 % (11.6-15.6) H 05/18/19 06:25 Plt Count 199 K/MM3 (134-434) 05/18/19 06:25 MPV 9.3 fl (7.5-11.1) 05/18/19 06:25 CMP Sodium 144 mmol/L (136-145) 05/18/19 06:25 Potassium 4.8 mmol/L (3.5-5.1) 05/18/19 06:25 Chloride 113 mmol/L (98-107) H 05/18/19 06:25 Carbon Dioxide 26 mmol/L (21-32) 05/18/19 06:25 Anion Gap 6 MMOL/L (8-16) L 05/18/19 06:25 BUN 57.3 mg/dL (7-18) H 05/18/19 06:25 Creatinine 2.0 mg/dL (0.55-1.3) H 05/18/19 06:25 Random Glucose 200 mg/dL (74-106) H 05/18/19 06:25 Calcium 9.2 mg/dL (8.5-10.1) 05/18/19 06:25 Total Bilirubin 0.3 mg/dL (0.2-1) 05/18/19 06:25 AST 10 U/L (15-37) L 05/18/19 06:25 ALT 26 U/L (13-61) 05/18/19 06:25 Alkaline Phosphatase 67 U/L (45-117) 05/18/19 06:25 Total Protein 6.0 g/dl (6.4-8.2) L 05/18/19 06:25 Albumin 2.9 g/dl (3.4-5.0) L 05/18/19 06:25 CARDIAC ENZYMES Creatine Kinase 220 U/L (26-192) H 05/13/19 17:17 Troponin I 0.03 ng/ml (0.00-0.05) 05/13/19 17:17 Current Medications Generic Name Dose Route Start Last Admin Trade Name Freq PRN Reason Stop Dose Admin Albuterol Sulfate 1 amp 05/17/19 02:33 Ventolin 0.083% Nebulizer Soln - NEB RQ4H PRN SHORT OF BREATH/WHEEZING Albuterol/Ipratropium 1 amp 05/14/19 20:00 05/18/19 20:57 Duoneb - NEB 1 amp RQID [facility] Administration Atorvastatin Calcium 40 mg 05/13/19 22:00 05/18/19 21:50 Lipitor - PO 40 mg HS G[facility] Administration Benzocaine/Menthol 1 each 05/15/19 09:22 05/18/19 21:54 Cepacol Lozenge - MM 1 each PRN PRN Administration SORE THROAT Docusate Sodium 100 mg 05/14/19 23:00 05/18/19 21:49 Colace - PO 100 mg BID G[facility] Administration Doxazosin Mesylate 6 mg 05/14/19 10:00 05/18/19 09:35 Cardura - PO 6 mg DAILY [facility] Administration Folic Acid 1 mg 05/14/19 10:00 05/18/19 09:35 Folic Acid - PO 1 mg DAILY [facility] Administration Furosemide 40 mg 05/18/19 10:00 05/18/19 09:35 Lasix - PO 40 mg DAILY [facility] Administration Heparin Sodium (Porcine) 5,000 unit 05/13/19 22:00 05/18/19 21:50 Heparin - SQ 5,000 unit TID [facility] Administration Insulin Aspart 1 vial 05/13/19 22:00 05/18/19 21:51 Novolog Vial Sliding Scale - SQ 8 units ACHS G[facility] Administration Protocol Insulin Detemir 20 units 05/15/19 07:00 05/18/19 06:18 Levemir Vial SQ 20 unit AM [facility] Administration Labetalol HCl 200 mg 05/16/19 11:22 05/18/19 21:49 Normodyne - PO 200 mg BID G[facility] Administration Losartan Potassium 50 mg 05/14/19 10:00 05/18/19 09:34 Cozaar - PO 50 mg DAILY [facility] Administration Methylprednisolone Sodium Succinate 60 mg 05/18/19 16:00 05/18/19 21:47 Solu-Medrol - IVPUSH 60 mg Q6H-IV [facility] Administration Nifedipine 90 mg 05/18/19 10:00 05/18/19 09:57 Procardia Xl - PO Not Given DAILY G[facility] Senna 1 tab 05/15/19 22:00 05/18/19 21:49 Senna - PO 1 tab HS [facility] Administration Home Medications Medication Instructions Recorded Baclofen 10 mg PO BID 07/06/17 Lactulose [Cephulac -] 22 ml PO BID 07/06/17 Levothyroxine Sodium [Levo-T] 88 mcg PO AM 07/06/17 Magnesium Hydroxide [Milk of 30 ml PO HS 07/06/17 Magnesia] Sennosides [Senna] 8.6 mg PO BID 07/06/17 Divalproex [Depakote -] 750 mg PO BID 10/19/17 Lamotrigine [Lamictal -] 25 mg PO BID 10/19/17 Levocarnitine 330 mg PO BID 10/19/17 Loratadine 10 mg PO Q2D 10/19/17 [place]-3 Fatty Acids/Fish Oil [Fish 1 each PO DAILY 10/19/17 Oil 1,000 mg Capsule] levETIRAcetam [Keppra -] 500 mg PO BID 10/20/17 Amlodipine Besylate [Norvasc -] 5 mg PO DAILY #30 tablet 10/24/17 Multivitamin/Iron/Folic Acid 1 each PO HS 11/30/17 [Centrum Adults Tablet] Calcium Carbonate/Vitamin D3 1 each PO BID 05/13/19 [Oyster Shell 500-Vit D3 200 Tb] Lamotrigine [LaMICtal -] 100 mg PO BID 05/13/19 Levetiracetam 1,000 mg PO BID 05/13/19 Metformin HCl [Glucophage] 500 mg PO BID 05/13/19 l-Norgest/E.estradiol-E.estrad 1 each PO 2000 05/13/19 [Camrese Lo Tablet] Microbiology 05/13/19 20:04 Urine - Urine - Catheterized Urine Culture - Final Contaminated: Please Repeat 05/13/19 18:30 Blood - Peripheral Venous Blood Culture - Preliminary NO GROWTH OBTAINED AFTER 24 HOURS, INCUBATION TO CONTINUE FOR 4 DAYS. 05/13/19 18:30 Blood - Peripheral Venous Blood Culture - Preliminary NO GROWTH OBTAINED AFTER 24 HOURS, INCUBATION TO CONTINUE FOR 4 DAYS. ASSESSMENT AND PLAN: Patient is a 73yof with PMHx of COPD, CKD, HTN, DM, who presented with SOB and cough and was admitted for an exacerbation of COPD. # acute SOB improving slowly: due to acute COPD exacerbation on steroid IV continue, increased the dose , discussed with Pulm.Dr Cruz. # Acute COPD exacerbation on solu medrol 60mg IV q8, pulm on the case, continue nebs. s/p Doxycyline # T2DM: started levemir and SSI , patient is on Tresiba at home. #HTN Uncontrolled : will increased labetalol dose 600mg BID , continue clonidine , and Nifedipine increased and Cardura increased as well , will keep monitoring. #CKD: unsure of the baseline , LETTY, continue to hold lasix , losartan dose is reduced to 50mg now from 100mg , will continue to monitor # Moderate atrophic kidneys: on renal US with no hydro; Moderate atrophic kidneys with no evidence of hydronephrosis or acute pathology. DVT PX : heaprin sq Visit type - Emergency Visit Emergency Visit: Yes ED Registration Date: 05/13/19 Care time: The patient presented to the Emergency Department on the above date and was hospitalized for further evaluation of their emergent condition. - New Patient This patient is new to me today: No - Critical Care Critical Care patient: No - Discharge Referral Referred to [facility] Med [facility].C[facility] No
[2019-05-19] MEDS: methylPREDNISolone NA SUCC 40 MG/1 ML VIAL IVPUSH SCH ×4 (02:17→21:36)
[2019-05-19] MEDS: HEPARIN NA (PORCINE) 5,000 UNITS/ML 1ML VIAL SQ SCH ×3 (06:32→21:36)
[2019-05-19] MEDS: INSULIN (LEVEMIR) 100 UNITS/ML UNITS SQ SCH (06:32)
[2019-05-19] MEDS: INSULIN SLIDING SCALE (NOVOLOG) 1 VIAL SQ SCH ×4 (06:35→21:35)
[2019-05-19] MEDS: FUROSEMIDE 20 MG TABLET (FP) PO SCH ×2 (06:37→10:51)
[2019-05-19] MEDS: LOSARTAN POTASSIUM 50 MG TABLET (FP) PO SCH ×2 (06:37→10:51)
[2019-05-19] MEDS: LABETALOL HCL 200 MG TABLET (FP) PO SCH ×4 (06:38→21:35)
[2019-05-19] MEDS: NIFEdipine E.R. 90 MG TABLET PO SCH ×2 (06:38→10:53)
[2019-05-19] MEDS: ALBUTEROL SO4 2.5/IPRATROPIUM 0.5 INH SOL 3 ML VIAL.NEB. NEB SCH ×4 (07:09→20:58)
--- NOTE | 2019-05-19 09:42 | PN ---
Progress Note, Physician - Current Medication List Current Medications: Active Medications Albuterol Sulfate (Ventolin 0.083% Nebulizer Soln -) 1 amp NEB RQ4H PRN PRN Reason: SHORT OF BREATH/WHEEZING Albuterol/Ipratropium (Duoneb -) 1 amp NEB RQID [facility] Last Admin: 05/19/19 07:09 Dose: 1 amp Atorvastatin Calcium (Lipitor -) 40 mg PO HS [facility] Last Admin: 05/18/19 21:50 Dose: 40 mg Benzocaine/Menthol (Cepacol Lozenge -) 1 each MM PRN PRN PRN Reason: SORE THROAT Last Admin: 05/18/19 21:54 Dose: 1 each Docusate Sodium (Colace -) 100 mg PO BID [facility] Last Admin: 05/18/19 21:49 Dose: 100 mg Doxazosin Mesylate (Cardura -) 6 mg PO DAILY [facility] Last Admin: 05/18/19 09:35 Dose: 6 mg Folic Acid (Folic Acid -) 1 mg PO DAILY [facility] Last Admin: 05/18/19 09:35 Dose: 1 mg Furosemide (Lasix -) 40 mg PO DAILY [facility] Last Admin: 05/19/19 06:37 Dose: 40 mg Heparin Sodium (Porcine) (Heparin -) 5,000 unit SQ TID [facility] Last Admin: 05/19/19 06:32 Dose: 5,000 unit Insulin Aspart (Novolog Vial Sliding Scale -) 1 vial SQ [facility]; Protocol Last Admin: 05/19/19 06:35 Dose: 6 units Insulin Detemir (Levemir Vial) 20 units SQ AM [facility] Last Admin: 05/19/19 06:32 Dose: 20 unit Labetalol HCl (Normodyne -) 200 mg PO BID [facility] Last Admin: 05/19/19 06:38 Dose: 200 mg Losartan Potassium (Cozaar -) 50 mg PO DAILY [facility] Last Admin: 05/19/19 06:37 Dose: 50 mg Methylprednisolone Sodium Succinate (Solu-Medrol -) 60 mg IVPUSH Q6H-IV [facility] Last Admin: 05/19/19 02:17 Dose: 60 mg Nifedipine (Procardia Xl -) 90 mg PO DAILY [facility] Last Admin: 05/19/19 06:38 Dose: 90 mg Senna (Senna -) 1 tab PO [facility] Last Admin: 05/18/19 21:49 Dose: 1 tab - Objective Vital Signs: Vital Signs Temperature 98.4 F 05/19/19 06:11 Pulse Rate 73 05/19/19 06:11 Respiratory Rate 20 05/19/19 06:11 Blood Pressure 201/78 H 05/19/19 06:11 O2 Sat by Pulse Oximetry (%) 99 05/19/19 08:40 Eyes: Yes: WNL, Conjunctiva Clear, EOM Intact HENT: Yes: WNL, Atraumatic, Normocephalic Neck: Yes: WNL, Supple, Trachea Midline Cardiovascular: Yes: WNL, Regular Rate and Rhythm Respiratory: Yes: WNL, Regular, CTA Bilaterally Gastrointestinal: Yes: WNL, Normal Bowel Sounds Genitourinary: Yes: WNL Musculoskeletal: Yes: WNL Extremities: Yes: WNL Edema: No Integumentary: Yes: WNL Neurological: Yes: WNL, Alert, Oriented ...Motor Strength: WNL Psychiatric: Yes: WNL Labs: CBC, BMP 05/18/19 06:25 05/18/19 06:25 Assessment/Plan - Problems (1) Hypertensive heart disease Code(s): I11.9 - HYPERTENSIVE HEART DISEASE WITHOUT HEART FAILURE Qualifiers: Heart failure presence: without heart failure Qualified Code(s): I11.9 - Hypertensive heart disease without heart failure (2) COPD with acute exacerbation Code(s): J44.1 - CHRONIC OBSTRUCTIVE PULMONARY DISEASE W (ACUTE) EXACERBATION (3) Hyperlipidemia Code(s): E78.5 - HYPERLIPIDEMIA, UNSPECIFIED Qualifiers: Hyperlipidemia type: pure hypercholesterolemia Qualified Code(s): E78.00 - Pure hypercholesterolemia, unspecified; E78.0 - Pure hypercholesterolemia (4) Hyperkalemia Code(s): E87.5 - HYPERKALEMIA (5) JEANNIE (obstructive sleep apnea) Code(s): G47.33 - OBSTRUCTIVE SLEEP APNEA (ADULT) (PEDIATRIC) Assessment/Plan 1. Persistent dyspnea, associated wheeze/cough nonproductive of sputum referable to Acute COPD Exacerbation 2. LV Diastolic Dysfunction, Pulmonary HTN 3. 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 HTN poorly controlled 5. DM 6. Hypercholesterolemia 7. Acute on Chronic kidney disease improving 8. Anemia 9. OSAS on cpap 10. Hyperkalemia improving with lokelma and Lasix PLAN: 1. Oral steroid taper, BD, cpap nightly @@ 11 cm H20, O2 as needed 2. Increase Labetalol 200 bid titrate dosage 3. Resumed Cozaar 50 qd and titrate dosage as hyperkalemia resolves 4. Increase Procardia XL to 90 qd 5. Wean Clonidine 0.1 qd to off 6. Continue Cardura 6 qd 7. Discontinued Hydralazine 8. Continue Lipitor [address] Patterson
[2019-05-19] MEDS: FOLIC ACID 1 MG TABLET (FP) PO SCH (10:42)
[2019-05-19] MEDS: DOCUSATE SODIUM 100 MG CAPSULE (FP) PO SCH ×2 (10:42→21:35)
[2019-05-19] MEDS: DOXAZOSIN MESYLATE 2 MG TABLET PO SCH (10:42)
[2019-05-19] MEDS ORDERED: guaiFENesin/CODEINE 10 ML UNIT-DOSE CUPS PO PRN (12:34)
--- NOTE | 2019-05-19 13:37 | PN ---
Progress Note (short form) - Note Progress Note: PULMONARY Still with shortness of breath, chest tightness and congestion. Vital Signs Period Temp Pulse Resp BP Sys/Arthur Pulse Ox Last 24 Hr 97.6 F-98.7 F 64-79 18-20 151-201/59-90 98-100 Gen: NAD at rest Heart: RRR Lung: decreased air movement Abd: soft, nontender Ext: no edema CBC, BMP 05/18/19 06:25 05/18/19 06:25 Active Medications Albuterol Sulfate (Ventolin 0.083% Nebulizer Soln -) 1 amp NEB RQ4H PRN PRN Reason: SHORT OF BREATH/WHEEZING Albuterol/Ipratropium (Duoneb -) 1 amp NEB RQID [facility] Last Admin: 05/19/19 11:30 Dose: 1 amp Atorvastatin Calcium (Lipitor -) 40 mg PO HS [facility] Last Admin: 05/18/19 21:50 Dose: 40 mg Benzocaine/Menthol (Cepacol Lozenge -) 1 each MM PRN PRN PRN Reason: SORE THROAT Last Admin: 05/18/19 21:54 Dose: 1 each Docusate Sodium (Colace -) 100 mg PO BID [facility] Last Admin: 05/19/19 10:42 Dose: 100 mg Doxazosin Mesylate (Cardura -) 6 mg PO DAILY [facility] Last Admin: 05/19/19 10:42 Dose: 6 mg Folic Acid (Folic Acid -) 1 mg PO DAILY [facility] Last Admin: 05/19/19 10:42 Dose: 1 mg Furosemide (Lasix -) 40 mg PO DAILY [facility] Last Admin: 05/19/19 10:51 Dose: Not Given Guaifenesin/Codeine Phosphate (Robitussin Ac -) 10 ml PO Q8H PRN PRN Reason: COUGH Heparin Sodium (Porcine) (Heparin -) 5,000 unit SQ TID [facility] Last Admin: 05/19/19 06:32 Dose: 5,000 unit Insulin Aspart (Novolog Vial Sliding Scale -) 1 vial SQ ACHS [facility]; Protocol Last Admin: 05/19/19 12:02 Dose: 8 units Insulin Detemir (Levemir Vial) 25 units SQ AM [facility] Labetalol HCl (Normodyne -) 200 mg PO BID [facility] Last Admin: 05/19/19 10:58 Dose: 200 mg Losartan Potassium (Cozaar -) 50 mg PO DAILY [facility] Last Admin: 05/19/19 10:51 Dose: Not Given Methylprednisolone Sodium Succinate (Solu-Medrol -) 60 mg IVPUSH Q6H-IV [facility] Last Admin: 05/19/19 10:42 Dose: 60 mg Nifedipine (Procardia Xl -) 90 mg PO DAILY [facility] Last Admin: 05/19/19 10:53 Dose: Not Given Senna (Senna -) 1 tab PO HS [facility] Last Admin: 05/18/19 21:49 Dose: 1 tab A/P Acute COPD Exacerbation Acute on Chronic Renal Failure LV Diastolic Dysfunction Pulmonary HTN HTN DM Hyperlipidemia JEANNIE Anemia - continue medrol at current dose - inhaled bronchodilators standing and PRN - BP control - monitor urine output, creatinine - CPAP at night 11cm H20 - O2 to keep SpO2 >90% - DVT prophylaxis Problem List - Problems (1) COPD with acute exacerbation Code(s): J44.1 - CHRONIC OBSTRUCTIVE PULMONARY DISEASE W (ACUTE) EXACERBATION
[2019-05-19] MEDS ORDERED: FUROSEMIDE 40 MG/4 ML INJECTABLE VIAL IVPUSH ONE (13:41)
[2019-05-19] MEDS ORDERED: NIFEdipine E.R. 30 MG TABLET PO ONE (14:00)
--- NOTE | 2019-05-19 14:48 | PN ---
Physical Exam: SUBJECTIVE: Patient seen and examined at bedside. Overnight pt's bp elevated, repeat 201/78. Son at bedside this AM. Pt says family were visiting this AM and upset her very much. Alternatively, pt's BP has been elevated while tailoring regimen but she denies symptoms including BELL, runny nose, vision changes. She c/ o thirst and discussion/education of effect of lasix had. Overall she feels well and would like to return home. OBJECTIVE: Vital Signs Temp Pulse Resp BP Pulse Ox 98.9 F 67 18 185/91 H 98 05/19/19 14:21 05/19/19 14:21 05/19/19 14:21 05/19/19 14:21 05/19/19 11:47 GENERAL: AOx3, in no acute distress HEAD: NCAT EYES: CYNTHIA, EOMI, conjunctiva clear. ENT: Ears normal, nares patent, oropharynx clear without exudates. Moist mucous membranes. NECK: Normal range of motion, supple without lymphadenopathy, JVD, or masses. LUNGS: CTAB. Tracheal wheezes. No accessory muscle use. HEART: RRR s1 s2, 3/6 systolic murmur at RUSB with radiation to carotids. LEFT neck vein distention. ABDOMEN: Soft, BS present in all 4 quadrants, non-distended, no JVD, MUSCULOSKELETAL: No bony deformities or tenderness. No CVA tenderness. UPPER EXTREMITIES: 2+ pulses, warm, well-perfused. No cyanosis. No clubbing. No peripheral edema. LOWER EXTREMITIES: 2+ pulses, warm, well-perfused. No calf tenderness. 1+ non- pitting peripheral edema BL. NEUROLOGICAL: No focal deficits. Cranial nerves II-XII intact. Normal speech. Gait not appreciated. PSYCHIATRIC: Cooperative. Good eye contact. Appropriate mood and affect. SKIN: Warm, dry, normal turgor, no rashes or lesions noted, normal capillary refill. Laboratory Results - last 24 hr 05/18/19 05/18/19 05/19/19 17:02 21:27 06:03 POC Glucometer 319 328 257 05/19/19 12:02 POC Glucometer 304 Active Medications Albuterol Sulfate (Ventolin 0.083% Nebulizer Soln -) 1 amp NEB RQ4H PRN PRN Reason: SHORT OF BREATH/WHEEZING Albuterol/Ipratropium (Duoneb -) 1 amp NEB RQID [facility] Last Admin: 05/19/19 15:55 Dose: 1 amp Atorvastatin Calcium (Lipitor -) 40 mg PO HS [facility] Last Admin: 05/18/19 21:50 Dose: 40 mg Benzocaine/Menthol (Cepacol Lozenge -) 1 each MM PRN PRN PRN Reason: SORE THROAT Last Admin: 05/18/19 21:54 Dose: 1 each Docusate Sodium (Colace -) 100 mg PO BID [facility] Last Admin: 05/19/19 10:42 Dose: 100 mg Doxazosin Mesylate (Cardura -) 6 mg PO DAILY [facility] Last Admin: 05/19/19 10:42 Dose: 6 mg Folic Acid (Folic Acid -) 1 mg PO DAILY [facility] Last Admin: 05/19/19 10:42 Dose: 1 mg Furosemide (Lasix -) 40 mg PO DAILY [facility] Last Admin: 05/19/19 10:51 Dose: Not Given Guaifenesin/Codeine Phosphate (Robitussin Ac -) 10 ml PO Q8H PRN PRN Reason: COUGH Heparin Sodium (Porcine) (Heparin -) 5,000 unit SQ TID [facility] Last Admin: 05/19/19 14:53 Dose: 5,000 unit Insulin Aspart (Novolog Vial Sliding Scale -) 1 vial SQ [facility]; Protocol Last Admin: 05/19/19 16:36 Dose: 2 units Insulin Detemir (Levemir Vial) 25 units SQ AM [facility] Labetalol HCl (Normodyne -) 200 mg PO TID [facility] Last Admin: 05/19/19 17:30 Dose: 200 mg Losartan Potassium (Cozaar -) 50 mg PO DAILY [facility] Last Admin: 05/19/19 10:51 Dose: Not Given Methylprednisolone Sodium Succinate (Solu-Medrol -) 60 mg IVPUSH Q6H-IV [facility] Last Admin: 05/19/19 16:36 Dose: 60 mg Nifedipine (Procardia Xl -) 90 mg PO DAILY [facility] Last Admin: 05/19/19 10:53 Dose: Not Given Senna (Senna -) 1 tab PO HS [facility] Last Admin: 05/18/19 21:49 Dose: 1 tab ASSESSMENT/PLAN: 73 y/o female PMH HTN, insulin treated DM, CKD III, COPD, c/o with SOB and cough and admitted for acute respiratory failure 2/2 acute COPD exacerbation. # Acute respiratory failure 2/2 acute COPD exacerbation - Solumedrol increased to 60 iv q8h (from 40), duonebs sched, albuterol prn - CPAP HS 11cm H20 # CKD III - Lasix po 40 mg qd - K 4.8 on 18 May 2019 # DM - Hold home regimen: Tresiba 22 units HS - Levemir 20 u in the AM - ISS ACHS # HTN - Guafensin stopped 2/2 poss contribution to elevated BP - New regimen: Doxazosin 6 mg PO qd, labetalol 200 mg PO NOW TID, Losartan 50 mg PO qd, nifedipine NOW 90 mg PO qd # F/E/N - PO - Cont. to monitor - Low sodium diet # DVT prophylaxis - Heparin SQ # Disposition - Telemetry Kyle Manuel MD Visit type - Emergency Visit Emergency Visit: No - New Patient This patient is new to me today: No - Critical Care Critical Care patient: No ATTENDING PHYSICIAN STATEMENT I saw and evaluated the patient. I reviewed the resident's note and discussed the case with the resident. I agree with the resident's findings and plan as documented. SUBJECTIVE: OBJECTIVE: ASSESSMENT AND PLAN:
--- NOTE | 2019-05-19 17:45 | PN ---
Teaching Attending Note Name of Resident: Kyle Manuel ATTENDING PHYSICIAN STATEMENT I saw and evaluated the patient. I reviewed the resident's note and discussed the case with the resident. I agree with the resident's findings and plan as documented. SUBJECTIVE: Patient is feeling better with no acute distress, dyspnea on exertion. Vital Signs Temperature 98.9 F 05/19/19 14:21 Pulse Rate 67 05/19/19 14:21 Respiratory Rate 18 05/19/19 14:21 Blood Pressure 185/91 H 05/19/19 14:21 O2 Sat by Pulse Oximetry (%) 98 05/19/19 11:47 GENERAL: The patient is awake, in no acute distress. HEAD: Normal with no signs of trauma. EYES: PERRL, extraocular movements intact, sclera anicteric, conjunctiva clear. ENT: Ears normal, oropharynx clear without exudates, moist mucous membranes. NECK: Trachea midline, full range of motion, supple. LUNGS: decreased air entery bl, but improving, + wheezes, no crackles, no accessory muscle use. HEART: Regular rate and rhythm, S1, S2 without murmur, rub or gallop. ABDOMEN: Soft, Nt,ND, normoactive bowel sounds, no guarding, no rebound, no hepatosplenomegaly, no masses. EXTREMITIES: 2+ pulses, warm, well-perfused, no edema. NEUROLOGICAL: Cranial nerves II through XII grossly intact. Normal speech, gait not observed. PSYCH: Normal mood, normal affect. SKIN: Warm, dry, normal turgor, no rashes or lesions noted CBCD WBC 11.7 K/mm3 (4.0-10.0) H 05/18/19 06:25 RBC 3.81 M/mm3 (3.60-5.2) 05/18/19 06:25 Hgb 9.6 GM/dL (10.7-15.3) L 05/18/19 06:25 Hct 30.0 % (32.4-45.2) L 05/18/19 06:25 MCV 78.6 fl (80-96) L 05/18/19 06:25 MCHC 32.0 g/dl (32.0-36.0) 05/18/19 06:25 RDW 15.9 % (11.6-15.6) H 05/18/19 06:25 Plt Count 199 K/MM3 (134-434) 05/18/19 06:25 MPV 9.3 fl (7.5-11.1) 05/18/19 06:25 CMP Sodium 144 mmol/L (136-145) 05/18/19 06:25 Potassium 4.8 mmol/L (3.5-5.1) 05/18/19 06:25 Chloride 113 mmol/L (98-107) H 05/18/19 06:25 Carbon Dioxide 26 mmol/L (21-32) 05/18/19 06:25 Anion Gap 6 MMOL/L (8-16) L 05/18/19 06:25 BUN 57.3 mg/dL (7-18) H 05/18/19 06:25 Creatinine 2.0 mg/dL (0.55-1.3) H 05/18/19 06:25 Random Glucose 200 mg/dL (74-106) H 05/18/19 06:25 Calcium 9.2 mg/dL (8.5-10.1) 05/18/19 06:25 Total Bilirubin 0.3 mg/dL (0.2-1) 05/18/19 06:25 AST 10 U/L (15-37) L 05/18/19 06:25 ALT 26 U/L (13-61) 05/18/19 06:25 Alkaline Phosphatase 67 U/L (45-117) 05/18/19 06:25 Total Protein 6.0 g/dl (6.4-8.2) L 05/18/19 06:25 Albumin 2.9 g/dl (3.4-5.0) L 05/18/19 06:25 CARDIAC ENZYMES Creatine Kinase 220 U/L (26-192) H 05/13/19 17:17 Troponin I 0.03 ng/ml (0.00-0.05) 05/13/19 17:17 Current Medications Generic Name Dose Route Start Last Admin Trade Name Freq PRN Reason Stop Dose Admin Albuterol Sulfate 1 amp 05/17/19 02:33 Ventolin 0.083% Nebulizer Soln - NEB RQ4H PRN SHORT OF BREATH/WHEEZING Albuterol/Ipratropium 1 amp 05/14/19 20:00 05/19/19 15:55 Duoneb - NEB 1 amp RQID GARO Administration Atorvastatin Calcium 40 mg 05/13/19 22:00 05/18/19 21:50 Lipitor - PO 40 mg HS GARO Administration Benzocaine/Menthol 1 each 05/15/19 09:22 05/18/19 21:54 Cepacol Lozenge - MM 1 each PRN PRN Administration SORE THROAT Docusate Sodium 100 mg 05/14/19 23:00 05/19/19 10:42 Colace - PO 100 mg BID GARO Administration Doxazosin Mesylate 6 mg 05/14/19 10:00 05/19/19 10:42 Cardura - PO 6 mg DAILY G[facility]O Administration Folic Acid 1 mg 05/14/19 10:00 05/19/19 10:42 Folic Acid - PO 1 mg DAILY G[facility] Administration Furosemide 40 mg 05/18/19 10:00 05/19/19 10:51 Lasix - PO Not Given DAILY G[facility]O Guaifenesin/Codeine Phosphate 10 ml 05/19/19 12:34 Robitussin Ac - PO Q8H PRN COUGH Heparin Sodium (Porcine) 5,000 unit 05/13/19 22:00 05/19/19 14:53 Heparin - SQ 5,000 unit TID GARO Administration Insulin Aspart 1 vial 05/13/19 22:00 05/19/19 16:36 Novolog Vial Sliding Scale - SQ 2 units ACHS [facility] Administration Protocol Insulin Detemir 25 units 05/19/19 12:06 Levemir Vial SQ AM G[facility] Labetalol HCl 200 mg 05/19/19 18:00 05/19/19 17:30 Normodyne - PO 200 mg TID G[facility]O Administration Losartan Potassium 50 mg 05/14/19 10:00 05/19/19 10:51 Cozaar - PO Not Given DAILY [facility] Methylprednisolone Sodium Succinate 60 mg 05/18/19 16:00 05/19/19 16:36 Solu-Medrol - IVPUSH 60 mg Q6H-IV G[facility]O Administration Nifedipine 90 mg 05/18/19 10:00 05/19/19 10:53 Procardia Xl - PO Not Given DAILY G[facility] Senna 1 tab 05/15/19 22:00 05/18/19 21:49 Senna - PO 1 tab HS GARO Administration Home Medications Medication Instructions Recorded Baclofen 10 mg PO BID 07/06/17 Lactulose [Cephulac -] 22 ml PO BID 07/06/17 Levothyroxine Sodium [Levo-T] 88 mcg PO AM 07/06/17 Magnesium Hydroxide [Milk of 30 ml PO HS 07/06/17 Magnesia] Sennosides [Senna] 8.6 mg PO BID 07/06/17 Divalproex [Depakote -] 750 mg PO BID 10/19/17 Lamotrigine [Lamictal -] 25 mg PO BID 10/19/17 Levocarnitine 330 mg PO BID 10/19/17 Loratadine 10 mg PO Q2D 10/19/17 [place]-3 Fatty Acids/Fish Oil [Fish 1 each PO DAILY 10/19/17 Oil 1,000 mg Capsule] levETIRAcetam [Keppra -] 500 mg PO BID 10/20/17 Amlodipine Besylate [Norvasc -] 5 mg PO DAILY #30 tablet 10/24/17 Multivitamin/Iron/Folic Acid 1 each PO HS 11/30/17 [Centrum Adults Tablet] Calcium Carbonate/Vitamin D3 1 each PO BID 05/13/19 [Oyster Shell 500-Vit D3 200 Tb] Lamotrigine [LaMICtal -] 100 mg PO BID 05/13/19 Levetiracetam 1,000 mg PO BID 05/13/19 Metformin HCl [Glucophage] 500 mg PO BID 05/13/19 l-Norgest/E.estradiol-E.estrad 1 each PO 2000 05/13/19 [Camrese Lo Tablet] Microbiology 05/13/19 20:04 Urine - Urine - Catheterized Urine Culture - Final Contaminated: Please Repeat 05/13/19 18:30 Blood - Peripheral Venous Blood Culture - Preliminary NO GROWTH OBTAINED AFTER 24 HOURS, INCUBATION TO CONTINUE FOR 4 DAYS. 05/13/19 18:30 Blood - Peripheral Venous Blood Culture - Preliminary NO GROWTH OBTAINED AFTER 24 HOURS, INCUBATION TO CONTINUE FOR 4 DAYS. ASSESSMENT AND PLAN: Patient is a 73yof with PMHx of COPD, CKD, HTN, DM, who presented with SOB and cough and was admitted for an exacerbation of COPD. # acute SOB improving slowly: due to acute COPD exacerbation continue IV steroid , continue current dose. # Acute COPD exacerbation on solu medrol 60mg IV q8 continue, pulm on the case, continue nebs. s/p Doxycyline #T2DM: started levemir and SSI , patient is on Tresiba at home. #HTN Uncontrolled : will increased labetalol dose 600mg BID , continue clonidine , and Nifedipine increased and Cardura increased as well , will keep monitoring. #CKD: unsure of the baseline , LETTY, continue to hold lasix , losartan dose is reduced to 50mg now from 100mg , will continue to monitor # Moderate atrophic kidneys: on renal US with no hydro; Moderate atrophic kidneys with no evidence of hydronephrosis or acute pathology. DVT PX : heaprin sq will repeat CXR given a dose of lasix Iv today
[2019-05-19] MEDS ORDERED: PT OWN MED DRAWER 7, Y5N ONE (18:14)
[2019-05-19] MEDS: ATORVASTATIN CA 20 MG TABLET (FP) PO SCH (21:35)
[2019-05-19] MEDS: SENNOSIDES 8.6MG TABLET (FP) PO SCH (21:35)
[2019-05-20] MEDS: methylPREDNISolone NA SUCC 40 MG/1 ML VIAL IVPUSH SCH ×2 (02:54→08:52)
[2019-05-20] MEDS: LABETALOL HCL 200 MG TABLET (FP) PO SCH ×3 (06:23→21:16)
[2019-05-20] MEDS: HEPARIN NA (PORCINE) 5,000 UNITS/ML 1ML VIAL SQ SCH ×3 (06:23→21:16)
[2019-05-20] MEDS: INSULIN (LEVEMIR) 100 UNITS/ML UNITS SQ SCH (06:24)
[2019-05-20] MEDS: INSULIN SLIDING SCALE (NOVOLOG) 1 VIAL SQ SCH ×4 (06:24→21:16)
[2019-05-20 07:25] LABS: HEMOGLOBIN 9.9 GM/dL (10.7-15.3); MCHC 31.9 g/dl (32.0-36.0); MEAN CELL VOLUME 78.3 fl (80-96); PLATELET COUNT 194 K/MM3 (134-434); RBC 3.95 M/mm3 (3.60-5.2); RDW 15.9 % (11.6-15.6); WHITE BLOOD COUNT 12.9 K/mm3 (4.0-10.0)
[2019-05-20 08:03] LABS: ALBUMIN 2.9 g/dl (3.4-5.0); BILIRUBIN,TOTAL 0.3 mg/dL (0.2-1); BLOOD UREA NITROGEN 56.1 mg/dL (7-18); CREATININE 1.9 mg/dL (0.55-1.3); POTASSIUM 4.4 mmol/L (3.5-5.1); TOT PROT 5.9 g/dl (6.4-8.2)
[2019-05-20] MEDS: ALBUTEROL SO4 2.5/IPRATROPIUM 0.5 INH SOL 3 ML VIAL.NEB. NEB SCH ×4 (08:23→20:21)
[2019-05-20] MEDS: FUROSEMIDE 20 MG TABLET (FP) PO SCH (09:06)
[2019-05-20] MEDS: FOLIC ACID 1 MG TABLET (FP) PO SCH (09:07)
[2019-05-20] MEDS: PANTOPRAZOLE 40 MG TABLET PO SCH (09:07)
[2019-05-20] MEDS: DOCUSATE SODIUM 100 MG CAPSULE (FP) PO SCH ×2 (09:08→21:16)
[2019-05-20] MEDS: DOXAZOSIN MESYLATE 2 MG TABLET PO SCH (09:08)
[2019-05-20] MEDS: NIFEdipine E.R 60 MG TABLET PO SCH (09:08)
[2019-05-20] MEDS: LOSARTAN POTASSIUM 50 MG TABLET (FP) PO SCH (09:08)
--- NOTE | 2019-05-20 11:50 | PN ---
Progress Note (short form) - Note Progress Note: Feels a little better, but still with some ROGEL. Cough is better. Intake & Output 05/17/19 05/18/19 05/19/19 05/20/19 23:59 23:59 23:59 23:59 Intake Total 900 900 Balance 900 900 Last Vital Signs Temp Pulse Resp BP Pulse Ox 98.0 F 68 18 176/88 H 97 05/20/19 08:53 05/20/19 08:53 05/20/19 08:53 05/20/19 08:53 05/19/19 20:58 Active Medications Albuterol Sulfate (Ventolin 0.083% Nebulizer Soln -) 1 amp NEB RQ4H PRN PRN Reason: SHORT OF BREATH/WHEEZING Albuterol/Ipratropium (Duoneb -) 1 amp NEB RQID [facility] Last Admin: 05/20/19 08:23 Dose: 1 amp Atorvastatin Calcium (Lipitor -) 40 mg PO HS [facility] Last Admin: 05/19/19 21:35 Dose: 40 mg Benzocaine/Menthol (Cepacol Lozenge -) 1 each MM PRN PRN PRN Reason: SORE THROAT Last Admin: 05/18/19 21:54 Dose: 1 each Docusate Sodium (Colace -) 100 mg PO BID [facility] Last Admin: 05/20/19 09:08 Dose: 100 mg Doxazosin Mesylate (Cardura -) 6 mg PO DAILY [facility] Last Admin: 05/20/19 09:08 Dose: 6 mg Folic Acid (Folic Acid -) 1 mg PO DAILY [facility] Last Admin: 05/20/19 09:07 Dose: 1 mg Furosemide (Lasix -) 40 mg PO DAILY [facility] Last Admin: 05/20/19 09:06 Dose: 40 mg Heparin Sodium (Porcine) (Heparin -) 5,000 unit SQ TID [facility] Last Admin: 05/20/19 06:23 Dose: 5,000 unit Insulin Aspart (Novolog Vial Sliding Scale -) 1 vial SQ ACHS [facility]; Protocol Last Admin: 05/20/19 06:24 Dose: 6 units Insulin Detemir (Levemir Vial) 25 units SQ AM [facility] Last Admin: 05/20/19 06:24 Dose: 25 unit Labetalol HCl (Normodyne -) 200 mg PO TID [facility] Last Admin: 05/20/19 06:23 Dose: 200 mg Losartan Potassium (Cozaar -) 50 mg PO DAILY [facility] Last Admin: 05/20/19 09:08 Dose: 50 mg Nifedipine (Procardia Xl -) 120 mg PO DAILY [facility] Last Admin: 05/20/19 09:08 Dose: 120 mg Pantoprazole Sodium (Protonix -) 40 mg PO DAILY [facility] Last Admin: 05/20/19 09:07 Dose: 40 mg Prednisone (Deltasone -) 40 mg PO DAILY [facility] Senna (Senna -) 1 tab PO HS [facility] Last Admin: 05/19/19 21:35 Dose: 1 tab Gen: NAD at rest Heart: RRR Lung: few scattered rhonchi, diminished at the bases, no wheezing Abd: soft, nontender Ext: no edema Laboratory Results - last 24 hr 05/19/19 05/19/19 05/19/19 12:02 16:35 21:26 WBC RBC Hgb Hct MCV MCH MCHC RDW Plt Count MPV Sodium Potassium Chloride Carbon Dioxide Anion Gap BUN Creatinine Est GFR (CKD-EPI)AfAm Est GFR (CKD-EPI)NonAf POC Glucometer 304 168 242 Random Glucose Calcium Total Bilirubin AST ALT Alkaline Phosphatase Total Protein Albumin 05/20/19 05/20/19 05/20/19 05:30 06:00 06:00 WBC 12.9 H RBC 3.95 Hgb 9.9 L Hct 31.0 L MCV 78.3 L MCH 25.0 L MCHC 31.9 L RDW 15.9 H Plt Count 194 MPV 9.0 Sodium 145 Potassium 4.4 Chloride 112 H Carbon Dioxide 27 Anion Gap 6 L BUN 56.1 H Creatinine 1.9 H Est GFR (CKD-EPI)AfAm 29.37 Est GFR (CKD-EPI)NonAf 25.34 POC Glucometer 258 Random Glucose 300 H Calcium 9.0 Total Bilirubin 0.3 AST 9 L ALT 30 Alkaline Phosphatase 67 Total Protein 5.9 L Albumin 2.9 L Problem List - Problems (1) COPD with acute exacerbation Code(s): J44.1 - CHRONIC OBSTRUCTIVE PULMONARY DISEASE W (ACUTE) EXACERBATION A/P Acute COPD Exacerbation Acute on Chronic Renal Failure LV Diastolic Dysfunction Pulmonary HTN HTN DM Hyperlipidemia JEANNIE Anemia - Change to Prednisone - inhaled bronchodilators standing and PRN - BP control - CPAP at night 11cm H20 - O2 to keep SpO2 >90% - DVT prophylaxis - DC planning Dr Bess
--- NOTE | 2019-05-20 11:54 | PN ---
Physical Exam: SUBJECTIVE: Patient seen and examined at bedside this morning. Overnight there were no acute events. This am she says she feels her breathing has improved. Her voice was cracking and she reports her family is upsetting her; she declined to talk about it further and states she is focusing on her health. OBJECTIVE: Vital Signs Temp Pulse Resp BP Pulse Ox 98.0 F 62 18 161/58 L 96 05/20/19 14:00 05/20/19 14:00 05/20/19 14:00 05/20/19 14:00 05/20/19 10:00 GENERAL: AOx3, in no acute distress HEAD: NCAT EYES: CYNTHIA, EOMI, conjunctiva clear. ENT: Ears normal, nares patent, oropharynx clear without exudates. Moist mucous membranes. NECK: Normal range of motion, supple without lymphadenopathy, JVD, or masses. LUNGS: CTAB but diminished at the bases, few scattered rhonchi, and no wheezing today. No accessory muscle use. HEART: RRR s1 s2, 3/6 systolic murmur at RUSB with radiation to carotids. LEFT neck vein distention. ABDOMEN: Soft, BS present in all 4 quadrants, non-distended, no JVD, MUSCULOSKELETAL: No bony deformities or tenderness. No CVA tenderness. UPPER EXTREMITIES: 2+ pulses, warm, well-perfused. No cyanosis. No clubbing. No peripheral edema. LOWER EXTREMITIES: 2+ pulses, warm, well-perfused. No calf tenderness. 1+ non- pitting peripheral edema BL. NEUROLOGICAL: No focal deficits. Cranial nerves II-XII intact. Normal speech. Gait not appreciated. PSYCHIATRIC: Cooperative. Good eye contact. Appropriate mood and affect. SKIN: Warm, dry, normal turgor, no rashes or lesions noted, normal capillary refill. Laboratory Results - last 24 hr 05/19/19 05/19/19 05/19/19 12:02 16:35 21:26 WBC RBC Hgb Hct MCV MCH MCHC RDW Plt Count MPV Sodium Potassium Chloride Carbon Dioxide Anion Gap BUN Creatinine Est GFR (CKD-EPI)AfAm Est GFR (CKD-EPI)NonAf POC Glucometer 304 168 242 Random Glucose Calcium Total Bilirubin AST ALT Alkaline Phosphatase Total Protein Albumin 05/20/19 05/20/19 05/20/19 05:30 06:00 06:00 WBC 12.9 H RBC 3.95 Hgb 9.9 L Hct 31.0 L MCV 78.3 L MCH 25.0 L MCHC 31.9 L RDW 15.9 H Plt Count 194 MPV 9.0 Sodium 145 Potassium 4.4 Chloride 112 H Carbon Dioxide 27 Anion Gap 6 L BUN 56.1 H Creatinine 1.9 H Est GFR (CKD-EPI)AfAm 29.37 Est GFR (CKD-EPI)NonAf 25.34 POC Glucometer 258 Random Glucose 300 H Calcium 9.0 Total Bilirubin 0.3 AST 9 L ALT 30 Alkaline Phosphatase 67 Total Protein 5.9 L Albumin 2.9 L 05/20/19 11:50 WBC RBC Hgb Hct MCV MCH MCHC RDW Plt Count MPV Sodium Potassium Chloride Carbon Dioxide Anion Gap BUN Creatinine Est GFR (CKD-EPI)AfAm Est GFR (CKD-EPI)NonAf POC Glucometer 367 Random Glucose Calcium Total Bilirubin AST ALT Alkaline Phosphatase Total Protein Albumin Active Medications Albuterol Sulfate (Ventolin 0.083% Nebulizer Soln -) 1 amp NEB RQ4H PRN PRN Reason: SHORT OF BREATH/WHEEZING Albuterol/Ipratropium (Duoneb -) 1 amp NEB RQID [facility] Last Admin: 05/20/19 12:02 Dose: 1 amp Atorvastatin Calcium (Lipitor -) 40 mg PO HS [facility] Last Admin: 05/19/19 21:35 Dose: 40 mg Benzocaine/Menthol (Cepacol Lozenge -) 1 each MM PRN PRN PRN Reason: SORE THROAT Last Admin: 05/18/19 21:54 Dose: 1 each Docusate Sodium (Colace -) 100 mg PO BID [facility] Last Admin: 05/20/19 09:08 Dose: 100 mg Doxazosin Mesylate (Cardura -) 6 mg PO DAILY [facility] Last Admin: 05/20/19 09:08 Dose: 6 mg Folic Acid (Folic Acid -) 1 mg PO DAILY [facility] Last Admin: 05/20/19 09:07 Dose: 1 mg Furosemide (Lasix -) 40 mg PO DAILY [facility] Last Admin: 05/20/19 09:06 Dose: 40 mg Heparin Sodium (Porcine) (Heparin -) 5,000 unit SQ TID [facility] Last Admin: 05/20/19 14:24 Dose: 5,000 unit Insulin Aspart (Novolog Vial Sliding Scale -) 1 vial SQ ACHS [facility]; Protocol Last Admin: 05/20/19 11:54 Dose: 10 units Insulin Detemir (Levemir Vial) 25 units SQ AM [facility] Last Admin: 05/20/19 06:24 Dose: 25 unit Labetalol HCl (Normodyne -) 200 mg PO TID [facility] Last Admin: 05/20/19 14:25 Dose: 200 mg Losartan Potassium (Cozaar -) 50 mg PO DAILY [facility] Last Admin: 05/20/19 09:08 Dose: 50 mg Nifedipine (Procardia Xl -) 120 mg PO DAILY [facility] Last Admin: 05/20/19 09:08 Dose: 120 mg Pantoprazole Sodium (Protonix -) 40 mg PO DAILY [facility] Last Admin: 05/20/19 09:07 Dose: 40 mg Prednisone (Deltasone -) 40 mg PO DAILY [facility] Last Admin: 05/20/19 13:05 Dose: 40 mg Senna (Senna -) 1 tab PO HS [facility] Last Admin: 05/19/19 21:35 Dose: 1 tab ASSESSMENT/PLAN: 73 y/o female PMH HTN, insulin treated DM, CKD III, COPD, c/o with SOB and cough and admitted for acute respiratory failure 2/2 acute COPD exacerbation. # Acute respiratory failure 2/2 acute COPD exacerbation - Prednisone 40 mg po qd now - CPAP HS 11cm H20 # CKD III - Lasix po 40 mg qd - K 4.8 on 18 May 2019 # DM - Hold home regimen: Tresiba 22 units HS - Levemir 20 u in the AM - ISS [facility] # HTN - Guafensin stopped 2/2 poss contribution to elevated BP - New regimen: Doxazosin 6 mg PO qd, labetalol 200 mg PO NOW TID, Losartan 50 mg PO qd, nifedipine NOW 120 mg PO qd # F/E/N - PO - Cont. to monitor - Low sodium diet # DVT prophylaxis - Heparin SQ # Disposition - Telemetry - Plan for dc Kyle Manuel MD Visit type - Emergency Visit Emergency Visit: No - New Patient This patient is new to me today: No - Critical Care Critical Care patient: No ATTENDING PHYSICIAN STATEMENT I saw and evaluated the patient. I reviewed the resident's note and discussed the case with the resident. I agree with the resident's findings and plan as documented. SUBJECTIVE: OBJECTIVE: ASSESSMENT AND PLAN:
[2019-05-20] MEDS: predniSONE 20 MG TABLET (UD) PO SCH (13:05)
--- NOTE | 2019-05-20 14:50 | PN ---
Progress Note, Physician Chief Complaint: Events noted Not in distress History of Present Illness: Patient was seen and examined. Awake and alert. Chart was reviewed Denies chest pain or palpitations Less SOB Still hypertensive - Current Medication List Current Medications: Active Medications Albuterol Sulfate (Ventolin 0.083% Nebulizer Soln -) 1 amp NEB RQ4H PRN PRN Reason: SHORT OF BREATH/WHEEZING Albuterol/Ipratropium (Duoneb -) 1 amp NEB RQID [facility] Last Admin: 05/20/19 12:02 Dose: 1 amp Atorvastatin Calcium (Lipitor -) 40 mg PO HS [facility] Last Admin: 05/19/19 21:35 Dose: 40 mg Benzocaine/Menthol (Cepacol Lozenge -) 1 each MM PRN PRN PRN Reason: SORE THROAT Last Admin: 05/18/19 21:54 Dose: 1 each Docusate Sodium (Colace -) 100 mg PO BID [facility] Last Admin: 05/20/19 09:08 Dose: 100 mg Doxazosin Mesylate (Cardura -) 6 mg PO DAILY [facility] Last Admin: 05/20/19 09:08 Dose: 6 mg Folic Acid (Folic Acid -) 1 mg PO DAILY [facility] Last Admin: 05/20/19 09:07 Dose: 1 mg Furosemide (Lasix -) 40 mg PO DAILY [facility] Last Admin: 05/20/19 09:06 Dose: 40 mg Heparin Sodium (Porcine) (Heparin -) 5,000 unit SQ TID [facility] Last Admin: 05/20/19 14:24 Dose: 5,000 unit Insulin Aspart (Novolog Vial Sliding Scale -) 1 vial SQ ACHS [facility]; Protocol Last Admin: 05/20/19 11:54 Dose: 10 units Insulin Detemir (Levemir Vial) 25 units SQ AM [facility] Last Admin: 05/20/19 06:24 Dose: 25 unit Labetalol HCl (Normodyne -) 200 mg PO TID [facility] Last Admin: 05/20/19 14:25 Dose: 200 mg Losartan Potassium (Cozaar -) 50 mg PO DAILY [facility] Last Admin: 05/20/19 09:08 Dose: 50 mg Nifedipine (Procardia Xl -) 120 mg PO DAILY [facility] Last Admin: 05/20/19 09:08 Dose: 120 mg Pantoprazole Sodium (Protonix -) 40 mg PO DAILY [facility] Last Admin: 05/20/19 09:07 Dose: 40 mg Prednisone (Deltasone -) 40 mg PO DAILY [facility] Last Admin: 05/20/19 13:05 Dose: 40 mg Senna (Senna -) 1 tab PO HS [facility] Last Admin: 05/19/19 21:35 Dose: 1 tab - Objective Vital Signs: Vital Signs Temperature 98.0 F 05/20/19 08:53 Pulse Rate 68 05/20/19 08:53 Respiratory Rate 18 05/20/19 08:53 Blood Pressure 176/88 H 05/20/19 08:53 O2 Sat by Pulse Oximetry (%) 96 05/20/19 10:00 Eyes: Yes: PERRL HENT: Yes: Atraumatic, Tonsillar Exudate Cardiovascular: Yes: Regular Rate and Rhythm, S1, S2 Respiratory: Yes: Diminished Gastrointestinal: Yes: Normal Bowel Sounds, Soft. No: Tenderness Edema: No Additional Findings/Remarks: - Review of Systems Constitutional: denies: Chills, Fever Cardiovascular: (+) Shortness of Breath. denies: Chest Pain, Palpitations Respiratory: (+) Cough, SOB, SOB on Exertion. denies: Hemoptysis, Orthopnea, PND Gastrointestinal: denies: Abdominal Pain, Constipation, Diarrhea, Melena, Nausea , Rectal Bleeding, Vomiting Musculoskeletal: denies: Back Pain, Joint Pain Neurological: denies: Dizziness, Headache, Seizure, Syncope Labs: CBC, BMP 05/20/19 06:00 05/20/19 06:00 Problem List - Problems (1) CKD (chronic kidney disease) stage 3, GFR 30-59 ml/min Code(s): N18.3 - CHRONIC KIDNEY DISEASE, STAGE 3 (MODERATE) (2) COPD (chronic obstructive pulmonary disease) Code(s): J44.9 - CHRONIC OBSTRUCTIVE PULMONARY DISEASE, UNSPECIFIED Qualifiers: COPD type: chronic bronchitis Chronic bronchitis type: simple Qualified Code(s): J41.0 - Simple chronic bronchitis (3) COPD with acute exacerbation Code(s): J44.1 - CHRONIC OBSTRUCTIVE PULMONARY DISEASE W (ACUTE) EXACERBATION (4) Hyperlipidemia Code(s): E78.5 - HYPERLIPIDEMIA, UNSPECIFIED Qualifiers: Hyperlipidemia type: pure hypercholesterolemia Qualified Code(s): E78.00 - Pure hypercholesterolemia, unspecified; E78.0 - Pure hypercholesterolemia (5) Hypertensive heart disease Code(s): I11.9 - HYPERTENSIVE HEART DISEASE WITHOUT HEART FAILURE Qualifiers: Heart failure presence: without heart failure Qualified Code(s): I11.9 - Hypertensive heart disease without heart failure (6) JEANNIE (obstructive sleep apnea) Code(s): G47.33 - OBSTRUCTIVE SLEEP APNEA (ADULT) (PEDIATRIC) Assessment/Plan 1. Persistent dyspnea, associated wheeze/cough nonproductive of sputum referable to Acute COPD Exacerbation 2. LV Diastolic Dysfunction and Pulmonary HTN 3. Probable CAD, angina pectoris 4. HTN 5. DM 6. Hypercholesterolemia 7. Acute on Chronic kidney disease 8. Anemia 9. OSAS on CPAP 10. Hyperkalemia PLAN: 1. Oral steroid taper, bronchodilator, CPAP nightly and O2 as needed 2. Continue Labetalol 200 mg TID titrate dosage 3. Continue Cozaar 50 mg QD and titrate dose accordingly 4. Continue Procardia XL 120 mg QD 5. Continue Cardura 6 mg QD 6. Continue Lipitor 40 mg QHS Further plans are to follow Gerard Barreto MD
--- NOTE | 2019-05-20 16:34 | PN ---
Teaching Attending Note Name of Resident: Kyle Manuel ATTENDING PHYSICIAN STATEMENT I saw and evaluated the patient. I reviewed the resident's note and discussed the case with the resident. I agree with the resident's findings and plan as documented. SUBJECTIVE: Patient is feeling better with no acute distress. OBJECTIVE: Vital Signs Temperature 98.0 F 05/20/19 14:00 Pulse Rate 62 05/20/19 14:00 Respiratory Rate 18 05/20/19 14:00 Blood Pressure 161/58 L 05/20/19 14:00 O2 Sat by Pulse Oximetry (%) 96 05/20/19 10:00 GENERAL: The patient is awake, in no acute distress. HEAD: Normal with no signs of trauma. EYES: PERRL, extraocular movements intact, sclera anicteric, conjunctiva clear. ENT: Ears normal, oropharynx clear without exudates, moist mucous membranes. NECK: Trachea midline, full range of motion, supple. LUNGS: decreased air entery bl, but improving, + wheezes, no crackles, no accessory muscle use. HEART: Regular rate and rhythm, S1, S2 without murmur, rub or gallop. ABDOMEN: Soft, Nt,ND, normoactive bowel sounds, no guarding, no rebound, no hepatosplenomegaly, no masses. EXTREMITIES: 2+ pulses, warm, well-perfused, no edema. NEUROLOGICAL: Cranial nerves II through XII grossly intact. Normal speech, gait not observed. PSYCH: Normal mood, normal affect. SKIN: Warm, dry, normal turgor, no rashes or lesions noted CBCD WBC 12.9 K/mm3 (4.0-10.0) H 05/20/19 06:00 RBC 3.95 M/mm3 (3.60-5.2) 05/20/19 06:00 Hgb 9.9 GM/dL (10.7-15.3) L 05/20/19 06:00 Hct 31.0 % (32.4-45.2) L 05/20/19 06:00 MCV 78.3 fl (80-96) L 05/20/19 06:00 MCHC 31.9 g/dl (32.0-36.0) L 05/20/19 06:00 RDW 15.9 % (11.6-15.6) H 05/20/19 06:00 Plt Count 194 K/MM3 (134-434) 05/20/19 06:00 MPV 9.0 fl (7.5-11.1) 05/20/19 06:00 CMP Sodium 145 mmol/L (136-145) 05/20/19 06:00 Potassium 4.4 mmol/L (3.5-5.1) 05/20/19 06:00 Chloride 112 mmol/L (98-107) H 05/20/19 06:00 Carbon Dioxide 27 mmol/L (21-32) 05/20/19 06:00 Anion Gap 6 MMOL/L (8-16) L 05/20/19 06:00 BUN 56.1 mg/dL (7-18) H 05/20/19 06:00 Creatinine 1.9 mg/dL (0.55-1.3) H 05/20/19 06:00 Random Glucose 300 mg/dL (74-106) H 05/20/19 06:00 Calcium 9.0 mg/dL (8.5-10.1) 05/20/19 06:00 Total Bilirubin 0.3 mg/dL (0.2-1) 05/20/19 06:00 AST 9 U/L (15-37) L 05/20/19 06:00 ALT 30 U/L (13-61) 05/20/19 06:00 Alkaline Phosphatase 67 U/L (45-117) 05/20/19 06:00 Total Protein 5.9 g/dl (6.4-8.2) L 05/20/19 06:00 Albumin 2.9 g/dl (3.4-5.0) L 05/20/19 06:00 CARDIAC ENZYMES Creatine Kinase 220 U/L (26-192) H 05/13/19 17:17 Troponin I 0.03 ng/ml (0.00-0.05) 05/13/19 17:17 Home Medications Medication Instructions Recorded Baclofen 10 mg PO BID 07/06/17 Lactulose [Cephulac -] 22 ml PO BID 07/06/17 Levothyroxine Sodium [Levo-T] 88 mcg PO AM 07/06/17 Magnesium Hydroxide [Milk of 30 ml PO HS 07/06/17 Magnesia] Sennosides [Senna] 8.6 mg PO BID 07/06/17 Divalproex [Depakote -] 750 mg PO BID 10/19/17 Lamotrigine [Lamictal -] 25 mg PO BID 10/19/17 Levocarnitine 330 mg PO BID 10/19/17 Loratadine 10 mg PO Q2D 10/19/17 [place]-3 Fatty Acids/Fish Oil [Fish 1 each PO DAILY 10/19/17 Oil 1,000 mg Capsule] levETIRAcetam [Keppra -] 500 mg PO BID 10/20/17 Amlodipine Besylate [Norvasc -] 5 mg PO DAILY #30 tablet 10/24/17 Multivitamin/Iron/Folic Acid 1 each PO HS 11/30/17 [Centrum Adults Tablet] Calcium Carbonate/Vitamin D3 1 each PO BID 05/13/19 [Oyster Shell 500-Vit D3 200 Tb] Lamotrigine [LaMICtal -] 100 mg PO BID 05/13/19 Levetiracetam 1,000 mg PO BID 05/13/19 Metformin HCl [Glucophage] 500 mg PO BID 05/13/19 l-Norgest/E.estradiol-E.estrad 1 each PO 199905/13/19 [Camrese Lo Tablet] Current Medications Generic Name Dose Route Start Last Admin Trade Name Freq PRN Reason Stop Dose Admin Albuterol Sulfate 1 amp 05/17/19 02:33 Ventolin 0.083% Nebulizer Soln - NEB RQ4H PRN SHORT OF BREATH/WHEEZING Albuterol/Ipratropium 1 amp 05/14/19 20:00 05/20/19 16:09 Duoneb - NEB 1 amp RQID GARO Administration Atorvastatin Calcium 40 mg 05/13/19 22:00 05/19/19 21:35 Lipitor - PO 40 mg HS GARO Administration Benzocaine/Menthol 1 each 05/15/19 09:22 05/18/19 21:54 Cepacol Lozenge - MM 1 each PRN PRN Administration SORE THROAT Docusate Sodium 100 mg 05/14/19 23:00 05/20/19 09:08 Colace - PO 100 mg BID GARO Administration Doxazosin Mesylate 6 mg 05/14/19 10:00 05/20/19 09:08 Cardura - PO 6 mg DAILY GARO Administration Folic Acid 1 mg 05/14/19 10:00 05/20/19 09:07 Folic Acid - PO 1 mg DAILY GARO Administration Furosemide 40 mg 05/18/19 10:00 05/20/19 09:06 Lasix - PO 40 mg DAILY GARO Administration Heparin Sodium (Porcine) 5,000 unit 05/13/19 22:00 05/20/19 14:24 Heparin - SQ 5,000 unit TID GARO Administration Insulin Aspart 1 vial 05/13/19 22:00 05/20/19 11:54 Novolog Vial Sliding Scale - SQ 10 units ACHS GARO Administration Protocol Insulin Detemir 25 units 05/19/19 12:06 05/20/19 06:24 Levemir Vial SQ 25 unit AM GARO Administration Labetalol HCl 200 mg 05/19/19 18:00 05/20/19 14:25 Normodyne - PO 200 mg TID GARO Administration Losartan Potassium 50 mg 05/14/19 10:00 05/20/19 09:08 Cozaar - PO 50 mg DAILY GARO Administration Nifedipine 120 mg 05/20/19 10:00 05/20/19 09:08 Procardia Xl - PO 120 mg DAILY GARO Administration Pantoprazole Sodium 40 mg 05/20/19 10:00 05/20/19 09:07 Protonix - PO 40 mg DAILY GARO Administration Prednisone 40 mg 05/20/19 12:00 05/20/19 13:05 Deltasone - PO 40 mg DAILY GARO Administration Senna 1 tab 05/15/19 22:00 05/19/19 21:35 Senna - PO 1 tab HS GARO Administration Microbiology 05/13/19 20:04 Urine - Urine - Catheterized Urine Culture - Final Contaminated: Please Repeat 05/13/19 18:30 Blood - Peripheral Venous Blood Culture - Preliminary NO GROWTH OBTAINED AFTER 24 HOURS, INCUBATION TO CONTINUE FOR 4 DAYS. 05/13/19 18:30 Blood - Peripheral Venous Blood Culture - Preliminary NO GROWTH OBTAINED AFTER 24 HOURS, INCUBATION TO CONTINUE FOR 4 DAYS. ASSESSMENT AND PLAN: Patient is a 73yof with PMHx of COPD, CKD, HTN, DM, who presented with SOB and cough and was admitted for an exacerbation of COPD. # acute SOB improving slowly: due to acute COPD exacerbation s/p IV steroid 60mg q6h, on prednisone oral changed today . # Acute COPD exacerbation s/p solu medrol 60mg IV switched to oral prednisone today continue nebs. s/p Doxycyline #T2DM: started levemir and SSI , patient is on Tresiba at home. #HTN Uncontrolled : will increased labetalol dose 600mg BID , continue clonidine , and Nifedipine increased and Cardura increased as well , will keep monitoring. #CKD: unsure of the baseline , LETTY, continue to hold lasix , losartan dose is reduced to 50mg now from 100mg , will continue to monitor # Moderate atrophic kidneys: on renal US with no hydro; Moderate atrophic kidneys with no evidence of hydronephrosis or acute pathology. DVT PX : heaprin sq will repeat CXR
--- NOTE | 2019-05-20 18:26 | PN ---
Progress Note, Physician History of Present Illness: Pt seen and examined at bedside. She is awake and alert. She feels that her wheezing is improved. - Current Medication List Current Medications: Active Medications Albuterol Sulfate (Ventolin 0.083% Nebulizer Soln -) 1 amp NEB RQ4H PRN PRN Reason: SHORT OF BREATH/WHEEZING Albuterol/Ipratropium (Duoneb -) 1 amp NEB RQID [facility] Last Admin: 05/20/19 16:09 Dose: 1 amp Atorvastatin Calcium (Lipitor -) 40 mg PO HS [facility] Last Admin: 05/19/19 21:35 Dose: 40 mg Benzocaine/Menthol (Cepacol Lozenge -) 1 each MM PRN PRN PRN Reason: SORE THROAT Last Admin: 05/18/19 21:54 Dose: 1 each Docusate Sodium (Colace -) 100 mg PO BID [facility] Last Admin: 05/20/19 09:08 Dose: 100 mg Doxazosin Mesylate (Cardura -) 6 mg PO DAILY [facility] Last Admin: 05/20/19 09:08 Dose: 6 mg Folic Acid (Folic Acid -) 1 mg PO DAILY [facility] Last Admin: 05/20/19 09:07 Dose: 1 mg Furosemide (Lasix -) 40 mg PO DAILY [facility] Last Admin: 05/20/19 09:06 Dose: 40 mg Heparin Sodium (Porcine) (Heparin -) 5,000 unit SQ TID [facility] Last Admin: 05/20/19 14:24 Dose: 5,000 unit Insulin Aspart (Novolog Vial Sliding Scale -) 1 vial SQ ACHS [facility]; Protocol Last Admin: 05/20/19 17:18 Dose: 12 units Insulin Detemir (Levemir Vial) 25 units SQ AM [facility] Last Admin: 05/20/19 06:24 Dose: 25 unit Labetalol HCl (Normodyne -) 200 mg PO TID [facility] Last Admin: 05/20/19 14:25 Dose: 200 mg Losartan Potassium (Cozaar -) 50 mg PO DAILY [facility] Last Admin: 05/20/19 09:08 Dose: 50 mg Nifedipine (Procardia Xl -) 120 mg PO DAILY [facility] Last Admin: 05/20/19 09:08 Dose: 120 mg Pantoprazole Sodium (Protonix -) 40 mg PO DAILY [facility] Last Admin: 05/20/19 09:07 Dose: 40 mg Prednisone (Deltasone -) 40 mg PO DAILY [facility] Last Admin: 05/20/19 13:05 Dose: 40 mg Senna (Senna -) 1 tab PO HS [facility] Last Admin: 05/19/19 21:35 Dose: 1 tab - Objective Vital Signs: Vital Signs Temperature 98.0 F 05/20/19 14:00 Pulse Rate 62 05/20/19 14:00 Respiratory Rate 18 05/20/19 14:00 Blood Pressure 161/58 L 05/20/19 14:00 O2 Sat by Pulse Oximetry (%) 96 05/20/19 10:00 Constitutional: Yes: Calm Eyes: Yes: Conjunctiva Clear HENT: Yes: Atraumatic Cardiovascular: Yes: S1, S2 Respiratory: Yes: Wheezes Gastrointestinal: Yes: Soft Genitourinary: Yes: WNL Musculoskeletal: Yes: WNL Edema: Yes Edema: LLE: Trace, RLE: Trace Neurological: Yes: Oriented Psychiatric: Yes: Oriented Labs: CBC, BMP 05/20/19 06:00 05/20/19 06:00 Assessment/Plan Current Medications Generic Name Dose Route Start Last Admin Trade Name Freq PRN Reason Stop Dose Admin Albuterol Sulfate 1 amp 05/17/19 02:33 Ventolin 0.083% Nebulizer Soln - NEB RQ4H PRN SHORT OF BREATH/WHEEZING Albuterol/Ipratropium 1 amp 05/14/19 20:00 05/20/19 16:09 Duoneb - NEB 1 amp RQID GARO Administration Atorvastatin Calcium 40 mg 05/13/19 22:00 05/19/19 21:35 Lipitor - PO 40 mg HS GARO Administration Benzocaine/Menthol 1 each 05/15/19 09:22 05/18/19 21:54 Cepacol Lozenge - MM 1 each PRN PRN Administration SORE THROAT Docusate Sodium 100 mg 05/14/19 23:00 05/20/19 09:08 Colace - PO 100 mg BID GARO Administration Doxazosin Mesylate 6 mg 05/14/19 10:00 05/20/19 09:08 Cardura - PO 6 mg DAILY GARO Administration Folic Acid 1 mg 05/14/19 10:00 05/20/19 09:07 Folic Acid - PO 1 mg DAILY G[facility]O Administration Furosemide 40 mg 05/18/19 10:00 05/20/19 09:06 Lasix - PO 40 mg DAILY [facility]O Administration Heparin Sodium (Porcine) 5,000 unit 05/13/19 22:00 05/20/19 14:24 Heparin - SQ 5,000 unit TID GARO Administration Insulin Aspart 1 vial 05/13/19 22:00 05/20/19 17:18 Novolog Vial Sliding Scale - SQ 12 units ACHS GARO Administration Protocol Insulin Detemir 25 units 05/19/19 12:06 05/20/19 06:24 Levemir Vial SQ 25 unit AM [facility]O Administration Labetalol HCl 200 mg 05/19/19 18:00 05/20/19 14:25 Normodyne - PO 200 mg TID G[facility]O Administration Losartan Potassium 50 mg 05/14/19 10:00 05/20/19 09:08 Cozaar - PO 50 mg DAILY [facility]O Administration Nifedipine 120 mg 05/20/19 10:00 05/20/19 09:08 Procardia Xl - PO 120 mg DAILY G[facility]O Administration Pantoprazole Sodium 40 mg 05/20/19 10:00 05/20/19 09:07 Protonix - PO 40 mg DAILY [facility]O Administration Prednisone 40 mg 05/20/19 12:00 05/20/19 13:05 Deltasone - PO 40 mg DAILY [facility]O Administration Senna 1 tab 05/15/19 22:00 05/19/19 21:35 Senna - PO 1 tab HS GARO Administration Impression 1. CKD 2. HTN 3. copd 4. chf 5. DM 6. hyperkalemia Plan - renal function is improving - cont lasix at 40 mg - repeat labs in am - pt will follow with Dr Gomez as outpt - discussed with family - taper steroids as tolerated
[2019-05-20] MEDS: ATORVASTATIN CA 20 MG TABLET (FP) PO SCH (21:15)
[2019-05-20] MEDS: SENNOSIDES 8.6MG TABLET (FP) PO SCH (21:16)
[2019-05-21] MEDS ORDERED: NIFEdipine E.R 60 MG TABLET PO ONE (01:55)
[2019-05-21] MEDS: LABETALOL HCL 200 MG TABLET (FP) PO SCH ×3 (06:40→22:17)
[2019-05-21] MEDS: INSULIN (LEVEMIR) 100 UNITS/ML UNITS SQ SCH (06:40)
[2019-05-21] MEDS: INSULIN SLIDING SCALE (NOVOLOG) 1 VIAL SQ SCH ×4 (06:40→22:17)
[2019-05-21] MEDS: HEPARIN NA (PORCINE) 5,000 UNITS/ML 1ML VIAL SQ SCH ×3 (06:41→22:16)
[2019-05-21 06:45] LABS: HEMATOCRIT 29.5 % (32.4-45.2); HEMOGLOBIN 9.6 GM/dL (10.7-15.3); MCH 25.5 pg (25.7-33.7); MCHC 32.5 g/dl (32.0-36.0); MEAN CELL VOLUME 78.4 fl (80-96); MEAN PLT VOLUME 9.8 fl (7.5-11.1); PLATELET COUNT 186 K/MM3 (134-434); RBC 3.76 M/mm3 (3.60-5.2); RDW 15.7 % (11.6-15.6)
[2019-05-21 07:11] LABS: ALBUMIN 2.7 g/dl (3.4-5.0); BILIRUBIN,TOTAL 0.4 mg/dL (0.2-1); BLOOD UREA NITROGEN 62.6 mg/dL (7-18); CALCIUM 8.9 mg/dL (8.5-10.1); CREATININE 2.3 mg/dL (0.55-1.3); POTASSIUM 4.4 mmol/L (3.5-5.1); TOT PROT 5.6 g/dl (6.4-8.2)
[2019-05-21] MEDS: ALBUTEROL SO4 2.5/IPRATROPIUM 0.5 INH SOL 3 ML VIAL.NEB. NEB SCH ×4 (07:50→20:07)
[2019-05-21] MEDS ORDERED: PT OWN MED DRAWER 7, Y5N ONE (08:58)
[2019-05-21] MEDS: FOLIC ACID 1 MG TABLET (FP) PO SCH (09:08)
[2019-05-21] MEDS: predniSONE 20 MG TABLET (UD) PO SCH (09:08)
[2019-05-21] MEDS: FUROSEMIDE 20 MG TABLET (FP) PO SCH (09:08)
[2019-05-21] MEDS: DOCUSATE SODIUM 100 MG CAPSULE (FP) PO SCH ×2 (09:08→22:17)
[2019-05-21] MEDS: LOSARTAN POTASSIUM 50 MG TABLET (FP) PO SCH (09:08)
[2019-05-21] MEDS: NIFEdipine E.R 60 MG TABLET PO SCH (09:09)
[2019-05-21] MEDS: PANTOPRAZOLE 40 MG TABLET PO SCH (09:10)
[2019-05-21] MEDS: DOXAZOSIN MESYLATE 2 MG TABLET PO SCH (10:41)
--- NOTE | 2019-05-21 11:20 | PN ---
Progress Note, Physician Chief Complaint: Events noted Intermittent dyspnea History of Present Illness: Patient was seen and examined. Awake and alert. Chart was reviewed Denies chest pain or palpitations Less SOB BP better this AM - Current Medication List Current Medications: Active Medications Albuterol Sulfate (Ventolin 0.083% Nebulizer Soln -) 1 amp NEB RQ4H PRN PRN Reason: SHORT OF BREATH/WHEEZING Albuterol/Ipratropium (Duoneb -) 1 amp NEB RQID [facility] Last Admin: 05/21/19 07:50 Dose: 1 amp Atorvastatin Calcium (Lipitor -) 40 mg PO HS [facility] Last Admin: 05/20/19 21:15 Dose: 40 mg Benzocaine/Menthol (Cepacol Lozenge -) 1 each MM PRN PRN PRN Reason: SORE THROAT Last Admin: 05/18/19 21:54 Dose: 1 each Docusate Sodium (Colace -) 100 mg PO BID [facility] Last Admin: 05/21/19 09:08 Dose: 100 mg Doxazosin Mesylate (Cardura -) 6 mg PO DAILY [facility] Last Admin: 05/21/19 10:41 Dose: 6 mg Folic Acid (Folic Acid -) 1 mg PO DAILY [facility] Last Admin: 05/21/19 09:08 Dose: 1 mg Furosemide (Lasix -) 40 mg PO DAILY [facility] Last Admin: 05/21/19 09:08 Dose: 40 mg Heparin Sodium (Porcine) (Heparin -) 5,000 unit SQ TID [facility] Last Admin: 05/21/19 06:41 Dose: 5,000 unit Insulin Aspart (Novolog Vial Sliding Scale -) 1 vial SQ [facility]; Protocol Last Admin: 05/21/19 10:48 Dose: 6 units Insulin Detemir (Levemir Vial) 25 units SQ AM [facility] Last Admin: 05/21/19 06:40 Dose: 25 unit Labetalol HCl (Normodyne -) 200 mg PO TID [facility] Last Admin: 05/21/19 06:40 Dose: 200 mg Losartan Potassium (Cozaar -) 50 mg PO DAILY [facility] Last Admin: 05/21/19 09:08 Dose: 50 mg Nifedipine (Procardia Xl -) 120 mg PO DAILY [facility] Last Admin: 05/21/19 09:09 Dose: Not Given Pantoprazole Sodium (Protonix -) 40 mg PO DAILY [facility] Last Admin: 05/21/19 09:10 Dose: 40 mg Prednisone (Deltasone -) 40 mg PO DAILY [facility] Last Admin: 05/21/19 09:08 Dose: 40 mg Senna (Senna -) 1 tab PO HS [facility] Last Admin: 05/20/19 21:16 Dose: 1 tab - Objective Vital Signs: Vital Signs Temperature 98.5 F 05/21/19 08:10 Pulse Rate 60 05/21/19 08:10 Respiratory Rate 18 05/21/19 08:10 Blood Pressure 140/54 L 05/21/19 08:10 O2 Sat by Pulse Oximetry (%) 93 L 05/21/19 07:50 Eyes: Yes: PERRL HENT: Yes: Atraumatic Neck: Yes: Supple Cardiovascular: Yes: Regular Rate and Rhythm, S1, S2 Respiratory: Yes: Diminished Gastrointestinal: Yes: Normal Bowel Sounds, Soft. No: Tenderness Edema: No Additional Findings/Remarks: - Review of Systems Constitutional: denies: Chills, Fever Cardiovascular: (+) Shortness of Breath. denies: Chest Pain, Palpitations Respiratory: (+) Cough, SOB, SOB on Exertion. denies: Hemoptysis, Orthopnea, PND Gastrointestinal: denies: Abdominal Pain, Constipation, Diarrhea, Melena, Nausea , Rectal Bleeding, Vomiting Musculoskeletal: denies: Back Pain, Joint Pain Neurological: denies: Dizziness, Headache, Seizure, Syncope Labs: CBC, BMP 05/21/19 05:17 05/21/19 05:17 Problem List - Problems (1) CKD (chronic kidney disease) stage 3, GFR 30-59 ml/min Code(s): N18.3 - CHRONIC KIDNEY DISEASE, STAGE 3 (MODERATE) (2) COPD (chronic obstructive pulmonary disease) Code(s): J44.9 - CHRONIC OBSTRUCTIVE PULMONARY DISEASE, UNSPECIFIED Qualifiers: COPD type: chronic bronchitis Chronic bronchitis type: simple Qualified Code(s): J41.0 - Simple chronic bronchitis (3) COPD with acute exacerbation Code(s): J44.1 - CHRONIC OBSTRUCTIVE PULMONARY DISEASE W (ACUTE) EXACERBATION (4) Hyperlipidemia Code(s): E78.5 - HYPERLIPIDEMIA, UNSPECIFIED Qualifiers: Hyperlipidemia type: pure hypercholesterolemia Qualified Code(s): E78.00 - Pure hypercholesterolemia, unspecified; E78.0 - Pure hypercholesterolemia (5) Hypertensive heart disease Code(s): I11.9 - HYPERTENSIVE HEART DISEASE WITHOUT HEART FAILURE Qualifiers: Heart failure presence: without heart failure Qualified Code(s): I11.9 - Hypertensive heart disease without heart failure (6) JEANNIE (obstructive sleep apnea) Code(s): G47.33 - OBSTRUCTIVE SLEEP APNEA (ADULT) (PEDIATRIC) Assessment/Plan 1. Persistent dyspnea, associated wheeze/cough nonproductive of sputum referable to Acute COPD Exacerbation 2. LV Diastolic Dysfunction and Pulmonary HTN 3. Probable CAD, angina pectoris 4. HTN 5. DM 6. Hypercholesterolemia 7. Acute on Chronic kidney disease 8. Anemia 9. OSAS on CPAP 10. Hyperkalemia PLAN: 1. Oral steroid taper, bronchodilator, CPAP nightly and O2 as needed 2. Continue Labetalol 200 mg TID titrate dosage and Cozaar 50 mg QD titrate dose accordingly 3. Continue Procardia XL 120 mg QD 4. Continue Cardura 6 mg QD 5. Continue Lipitor 40 mg QHS Further plans are to follow Gerard Barreto MD
[2019-05-21] MEDS ORDERED: INSULIN SLIDING SCALE (NOVOLOG) 1 VIAL SQ ONE (11:51)
[2019-05-21 12:27] VITALS: BMI 26.1
--- NOTE | 2019-05-21 13:39 | PN ---
Progress Note (short form) - Note Progress Note: Feels overall better. Cough is better. No acute events overnight. Intake & Output 05/18/19 05/19/19 05/20/19 05/21/19 23:59 23:59 23:59 23:59 Intake Total 900 900 240 370 Balance 900 900 240 370 Weight 162 lb Last Vital Signs Temp Pulse Resp BP Pulse Ox 98.5 F 60 18 140/54 L 98 05/21/19 08:10 05/21/19 08:10 05/21/19 08:10 05/21/19 08:10 05/21/19 09:00 Active Medications Albuterol Sulfate (Ventolin 0.083% Nebulizer Soln -) 1 amp NEB RQ4H PRN PRN Reason: SHORT OF BREATH/WHEEZING Albuterol/Ipratropium (Duoneb -) 1 amp NEB RQID [facility] Last Admin: 05/21/19 11:40 Dose: 1 amp Atorvastatin Calcium (Lipitor -) 40 mg PO HS [facility] Last Admin: 05/20/19 21:15 Dose: 40 mg Benzocaine/Menthol (Cepacol Lozenge -) 1 each MM PRN PRN PRN Reason: SORE THROAT Last Admin: 05/18/19 21:54 Dose: 1 each Docusate Sodium (Colace -) 100 mg PO BID [facility] Last Admin: 05/21/19 09:08 Dose: 100 mg Doxazosin Mesylate (Cardura -) 6 mg PO DAILY [facility] Last Admin: 05/21/19 10:41 Dose: 6 mg Folic Acid (Folic Acid -) 1 mg PO DAILY [facility] Last Admin: 05/21/19 09:08 Dose: 1 mg Furosemide (Lasix -) 40 mg PO DAILY [facility] Last Admin: 05/21/19 09:08 Dose: 40 mg Heparin Sodium (Porcine) (Heparin -) 5,000 unit SQ TID [facility] Last Admin: 05/21/19 06:41 Dose: 5,000 unit Insulin Aspart (Novolog Vial Sliding Scale -) 1 vial SQ ACHS [facility]; Protocol Last Admin: 05/21/19 10:48 Dose: 6 units Insulin Detemir (Levemir Vial) 25 units SQ AM [facility] Last Admin: 05/21/19 06:40 Dose: 25 unit Labetalol HCl (Normodyne -) 200 mg PO TID [facility] Last Admin: 05/21/19 06:40 Dose: 200 mg Losartan Potassium (Cozaar -) 50 mg PO DAILY [facility] Last Admin: 05/21/19 09:08 Dose: 50 mg Nifedipine (Procardia Xl -) 120 mg PO DAILY [facility] Last Admin: 05/21/19 09:09 Dose: Not Given Pantoprazole Sodium (Protonix -) 40 mg PO DAILY [facility] Last Admin: 05/21/19 09:10 Dose: 40 mg Prednisone (Deltasone -) 40 mg PO DAILY [facility] Last Admin: 05/21/19 09:08 Dose: 40 mg Senna (Senna -) 1 tab PO HS [facility] Last Admin: 05/20/19 21:16 Dose: 1 tab Gen: NAD at rest Heart: RRR Lung: few scattered rhonchi, diminished at the bases, no wheezing Abd: soft, nontender Ext: no edema Laboratory Results - last 24 hr 05/20/19 05/20/19 05/21/19 17:11 21:14 05:17 WBC 14.0 H RBC 3.76 Hgb 9.6 L Hct 29.5 L MCV 78.4 L MCH 25.5 L MCHC 32.5 RDW 15.7 H Plt Count 186 MPV 9.8 Sodium Potassium Chloride Carbon Dioxide Anion Gap BUN Creatinine Est GFR (CKD-EPI)AfAm Est GFR (CKD-EPI)NonAf POC Glucometer 442 298 Random Glucose Calcium Total Bilirubin AST ALT Alkaline Phosphatase Total Protein Albumin 05/21/19 05/21/19 05/21/19 05:17 06:39 10:47 WBC RBC Hgb Hct MCV MCH MCHC RDW Plt Count MPV Sodium 144 Potassium 4.4 Chloride 111 H Carbon Dioxide 28 Anion Gap 6 L BUN 62.6 H Creatinine 2.3 H Est GFR (CKD-EPI)AfAm 23.31 Est GFR (CKD-EPI)NonAf 20.12 POC Glucometer 189 266 Random Glucose 208 H Calcium 8.9 Total Bilirubin 0.4 AST 7 L ALT 29 Alkaline Phosphatase 67 Total Protein 5.6 L Albumin 2.7 L Problem List (1) COPD with acute exacerbation Code(s): J44.1 - CHRONIC OBSTRUCTIVE PULMONARY DISEASE W (ACUTE) EXACERBATION A/P Acute COPD Exacerbation Acute on Chronic Renal Failure LV Diastolic Dysfunction Pulmonary HTN HTN DM Hyperlipidemia JEANNIE Anemia - Prednisone taper - inhaled bronchodilators standing and PRN - BP control - CPAP at night 11cm H20 - O2 to keep SpO2 >90% - DVT prophylaxis - DC planning Dr Bess
[2019-05-21] MEDS ORDERED: NIFEdipine E.R 60 MG TABLET PO SCH ×3 (14:40→22:00)
--- NOTE | 2019-05-21 15:01 | PN ---
Progress Note, Physician History of Present Illness: Pt seen and examined at bedside. She is awake and alert. She feels that her wheezing is improved. - Current Medication List Current Medications: Active Medications Albuterol Sulfate (Ventolin 0.083% Nebulizer Soln -) 1 amp NEB RQ4H PRN PRN Reason: SHORT OF BREATH/WHEEZING Albuterol/Ipratropium (Duoneb -) 1 amp NEB RQID [facility] Last Admin: 05/21/19 11:40 Dose: 1 amp Atorvastatin Calcium (Lipitor -) 40 mg PO HS [facility] Last Admin: 05/20/19 21:15 Dose: 40 mg Benzocaine/Menthol (Cepacol Lozenge -) 1 each MM PRN PRN PRN Reason: SORE THROAT Last Admin: 05/18/19 21:54 Dose: 1 each Docusate Sodium (Colace -) 100 mg PO BID [facility] Last Admin: 05/21/19 09:08 Dose: 100 mg Doxazosin Mesylate (Cardura -) 6 mg PO DAILY [facility] Last Admin: 05/21/19 10:41 Dose: 6 mg Folic Acid (Folic Acid -) 1 mg PO DAILY [facility] Last Admin: 05/21/19 09:08 Dose: 1 mg Furosemide (Lasix -) 40 mg PO DAILY [facility] Last Admin: 05/21/19 09:08 Dose: 40 mg Heparin Sodium (Porcine) (Heparin -) 5,000 unit SQ TID [facility] Last Admin: 05/21/19 14:41 Dose: 5,000 unit Hydralazine HCl (Apresoline -) 25 mg PO BID [facility] Insulin Aspart (Novolog Vial Sliding Scale -) 1 vial SQ ACHS [facility]; Protocol Last Admin: 05/21/19 10:48 Dose: 6 units Insulin Detemir (Levemir Vial) 25 units SQ AM [facility] Last Admin: 05/21/19 06:40 Dose: 25 unit Labetalol HCl (Normodyne -) 200 mg PO TID [facility] Last Admin: 05/21/19 14:42 Dose: 200 mg Losartan Potassium (Cozaar -) 50 mg PO DAILY [facility] Last Admin: 05/21/19 09:08 Dose: 50 mg Nifedipine (Procardia Xl -) 90 mg PO DAILY [facility] Pantoprazole Sodium (Protonix -) 40 mg PO DAILY [facility] Last Admin: 05/21/19 09:10 Dose: 40 mg Prednisone (Deltasone -) 40 mg PO DAILY [facility] Last Admin: 05/21/19 09:08 Dose: 40 mg Senna (Senna -) 1 tab PO HS [facility] Last Admin: 05/20/19 21:16 Dose: 1 tab - Objective Vital Signs: Vital Signs Temperature 98.3 F 05/21/19 14:00 Pulse Rate 56 L 05/21/19 14:00 Respiratory Rate 18 05/21/19 14:00 Blood Pressure 199/73 H 05/21/19 14:00 O2 Sat by Pulse Oximetry (%) 98 05/21/19 09:00 Constitutional: Yes: Calm Eyes: Yes: Conjunctiva Clear HENT: Yes: Atraumatic Neck: Yes: Supple Cardiovascular: Yes: S1, S2 Respiratory: Yes: CTA Bilaterally Gastrointestinal: Yes: Soft Genitourinary: Yes: WNL Musculoskeletal: Yes: WNL Edema: LLE: Trace, RLE: Trace Neurological: Yes: Oriented Psychiatric: Yes: Oriented Labs: CBC, BMP 05/21/19 05:17 05/21/19 05:17 Assessment/Plan Current Medications Generic Name Dose Route Start Last Admin Trade Name Freq PRN Reason Stop Dose Admin Albuterol Sulfate 1 amp 05/17/19 02:33 Ventolin 0.083% Nebulizer Soln - NEB RQ4H PRN SHORT OF BREATH/WHEEZING Albuterol/Ipratropium 1 amp 05/14/19 20:00 05/21/19 11:40 Duoneb - NEB 1 amp RQID [facility] Administration Atorvastatin Calcium 40 mg 05/13/19 22:00 05/20/19 21:15 Lipitor - PO 40 mg HS [facility] Administration Benzocaine/Menthol 1 each 05/15/19 09:22 05/18/19 21:54 Cepacol Lozenge - MM 1 each PRN PRN Administration SORE THROAT Docusate Sodium 100 mg 05/14/19 23:00 05/21/19 09:08 Colace - PO 100 mg BID [facility] Administration Doxazosin Mesylate 6 mg 05/14/19 10:00 05/21/19 10:41 Cardura - PO 6 mg DAILY [facility] Administration Folic Acid 1 mg 05/14/19 10:00 05/21/19 09:08 Folic Acid - PO 1 mg DAILY [facility] Administration Furosemide 40 mg 05/18/19 10:00 05/21/19 09:08 Lasix - PO 40 mg DAILY [facility] Administration Heparin Sodium (Porcine) 5,000 unit 05/13/19 22:00 05/21/19 14:41 Heparin - SQ 5,000 unit TID [facility] Administration Hydralazine HCl 25 mg 05/21/19 14:57 Apresoline - PO BID [facility] Insulin Aspart 1 vial 05/13/19 22:00 05/21/19 10:48 Novolog Vial Sliding Scale - SQ 6 units ACHS [facility] Administration Protocol Insulin Detemir 25 units 05/19/19 12:06 05/21/19 06:40 Levemir Vial SQ 25 unit AM [facility] Administration Labetalol HCl 200 mg 05/19/19 18:00 05/21/19 14:42 Normodyne - PO 200 mg TID [facility] Administration Losartan Potassium 50 mg 05/14/19 10:00 05/21/19 09:08 Cozaar - PO 50 mg DAILY [facility] Administration Nifedipine 90 mg 05/22/19 10:00 Procardia Xl - PO DAILY [facility] Pantoprazole Sodium 40 mg 05/20/19 10:00 05/21/19 09:10 Protonix - PO 40 mg DAILY [facility] Administration Prednisone 40 mg 05/20/19 12:00 05/21/19 09:08 Deltasone - PO 40 mg DAILY [facility] Administration Senna 1 tab 05/15/19 22:00 05/20/19 21:16 Senna - PO 1 tab HS [facility] Administration Impression 1. CKD 2. HTN 3. copd 4. chf 5. DM 6. 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
[2019-05-21] MEDS: hydrALAZINE HCL 25 MG TABLET (FP) PO SCH ×2 (16:00→22:17)
--- NOTE | 2019-05-21 16:27 | PN ---
Physical Exam: SUBJECTIVE: Patient seen and examined at bedside. Overnight she experienced systolic pressure of 199 and given 10 nifedepine 120mg at 2am. She was asymptomatic. This AM she offers no new complaints. OBJECTIVE: Vital Signs Temp Pulse Resp BP Pulse Ox 98.3 F 60 18 163/69 98 05/21/19 14:00 05/21/19 15:58 05/21/19 15:58 05/21/19 15:58 05/21/19 09:00 GENERAL: AOx3, in no acute distress HEAD: NCAT EYES: CYNTHIA, EOMI, conjunctiva clear. ENT: Ears normal, nares patent, oropharynx clear without exudates. Moist mucous membranes. NECK: Normal range of motion, supple without lymphadenopathy, JVD, or masses. LUNGS: CTAB but diminished at the bases, LEFT sided end expiratory wheezing today. No accessory muscle use. HEART: RRR s1 s2, 3/6 systolic murmur at RUSB with radiation to carotids. LEFT neck vein distention. ABDOMEN: Soft, BS present in all 4 quadrants, non-distended, no JVD, MUSCULOSKELETAL: No bony deformities or tenderness. No CVA tenderness. UPPER EXTREMITIES: 2+ pulses, warm, well-perfused. No cyanosis. No clubbing. No peripheral edema. LOWER EXTREMITIES: 2+ pulses, warm, well-perfused. No calf tenderness. 1+ non- pitting peripheral edema BL. NEUROLOGICAL: No focal deficits. Cranial nerves II-XII intact. Normal speech. Gait not appreciated. PSYCHIATRIC: Cooperative. Good eye contact. Appropriate mood and affect. SKIN: Warm, dry, normal turgor, no rashes or lesions noted, normal capillary refill. Laboratory Results - last 24 hr 05/20/19 05/20/19 05/21/19 17:11 21:14 05:17 WBC 14.0 H RBC 3.76 Hgb 9.6 L Hct 29.5 L MCV 78.4 L MCH 25.5 L MCHC 32.5 RDW 15.7 H Plt Count 186 MPV 9.8 Sodium Potassium Chloride Carbon Dioxide Anion Gap BUN Creatinine Est GFR (CKD-EPI)AfAm Est GFR (CKD-EPI)NonAf POC Glucometer 442 298 Random Glucose Calcium Total Bilirubin AST ALT Alkaline Phosphatase Total Protein Albumin 05/21/19 05/21/19 05/21/19 05:17 06:39 10:47 WBC RBC Hgb Hct MCV MCH MCHC RDW Plt Count MPV Sodium 144 Potassium 4.4 Chloride 111 H Carbon Dioxide 28 Anion Gap 6 L BUN 62.6 H Creatinine 2.3 H Est GFR (CKD-EPI)AfAm 23.31 Est GFR (CKD-EPI)NonAf 20.12 POC Glucometer 189 266 Random Glucose 208 H Calcium 8.9 Total Bilirubin 0.4 AST 7 L ALT 29 Alkaline Phosphatase 67 Total Protein 5.6 L Albumin 2.7 L Active Medications Albuterol Sulfate (Ventolin 0.083% Nebulizer Soln -) 1 amp NEB RQ4H PRN PRN Reason: SHORT OF BREATH/WHEEZING Albuterol/Ipratropium (Duoneb -) 1 amp NEB RQID [facility] Last Admin: 05/21/19 11:40 Dose: 1 amp Atorvastatin Calcium (Lipitor -) 40 mg PO HS [facility] Last Admin: 05/20/19 21:15 Dose: 40 mg Benzocaine/Menthol (Cepacol Lozenge -) 1 each MM PRN PRN PRN Reason: SORE THROAT Last Admin: 05/18/19 21:54 Dose: 1 each Docusate Sodium (Colace -) 100 mg PO BID [facility] Last Admin: 05/21/19 09:08 Dose: 100 mg Doxazosin Mesylate (Cardura -) 6 mg PO DAILY [facility] Last Admin: 05/21/19 10:41 Dose: 6 mg Folic Acid (Folic Acid -) 1 mg PO DAILY [facility] Last Admin: 05/21/19 09:08 Dose: 1 mg Furosemide (Lasix -) 40 mg PO DAILY [facility] Last Admin: 05/21/19 09:08 Dose: 40 mg Heparin Sodium (Porcine) (Heparin -) 5,000 unit SQ TID [facility] Last Admin: 05/21/19 14:41 Dose: 5,000 unit Hydralazine HCl (Apresoline -) 25 mg PO BID [facility] Last Admin: 05/21/19 16:00 Dose: 25 mg Insulin Aspart (Novolog Vial Sliding Scale -) 1 vial SQ [facility]; Protocol Last Admin: 05/21/19 16:34 Dose: 2 units Insulin Detemir (Levemir Vial) 25 units SQ AM [facility] Last Admin: 05/21/19 06:40 Dose: 25 unit Labetalol HCl (Normodyne -) 200 mg PO TID [facility] Last Admin: 05/21/19 14:42 Dose: 200 mg Losartan Potassium (Cozaar -) 50 mg PO DAILY [facility] Last Admin: 05/21/19 09:08 Dose: 50 mg Nifedipine (Procardia Xl -) 90 mg PO DAILY [facility] Pantoprazole Sodium (Protonix -) 40 mg PO DAILY [facility] Last Admin: 05/21/19 09:10 Dose: 40 mg Prednisone (Deltasone -) 40 mg PO DAILY [facility] Last Admin: 05/21/19 09:08 Dose: 40 mg Senna (Senna -) 1 tab PO [facility] Last Admin: 05/20/19 21:16 Dose: 1 tab ASSESSMENT/PLAN: 73 y/o female PMH HTN, insulin treated DM, CKD III, COPD, c/o with SOB and cough and admitted for acute respiratory failure 2/2 acute COPD exacerbation in the setting of chronic bronchitis (never smoker). Staying overnight with plan for dc in AM 2/2 recent episodes of elevated systolic blood pressures. BP regimen adjusted to add HZN is TID back and decrease Nifedepine to 90 mg po qd # Acute respiratory failure 2/2 acute COPD exacerbation - Prednisone 40 mg po qd now and plan for long taper on DC (see dc plan) - CPAP HS 11cm H20 # CKD III - Lasix po 40 mg qd # DM - Hold home regimen: Tresiba 22 units HS - Levemir 20 u in the AM - ISS ACHS # HTN - Regimen - New regimen: Hydralazine 25 mg TID added today, Doxazosin 6 mg PO qd, labetalol 200 mg PO TID, Losartan 50 mg PO qd, nifedipine NOW 90 mg PO qd # F/E/N - PO - Cont. to monitor - Low sodium diet # DVT prophylaxis - Heparin SQ # Disposition - Telemetry - Plan for dc Kyle Manuel MD Visit type - Emergency Visit Emergency Visit: No - New Patient This patient is new to me today: No - Critical Care Critical Care patient: No ATTENDING PHYSICIAN STATEMENT I saw and evaluated the patient. I reviewed the resident's note and discussed the case with the resident. I agree with the resident's findings and plan as documented. SUBJECTIVE: OBJECTIVE: ASSESSMENT AND PLAN:
--- NOTE | 2019-05-21 17:00 | PN ---
Teaching Attending Note Name of Resident: Kyle Manuel ATTENDING PHYSICIAN STATEMENT I saw and evaluated the patient. I reviewed the resident's note and discussed the case with the resident. I agree with the resident's findings and plan as documented. SUBJECTIVE: Patient is feeling better, breathing improved slightly. Vital Signs Temperature 98.3 F 05/21/19 14:00 Pulse Rate 60 05/21/19 15:58 Respiratory Rate 18 05/21/19 15:58 Blood Pressure 163/69 05/21/19 15:58 O2 Sat by Pulse Oximetry (%) 95 05/21/19 16:25 GENERAL: The patient is awake, in no acute distress. HEAD: Normal with no signs of trauma. EYES: PERRL, extraocular movements intact, sclera anicteric, conjunctiva clear. ENT: Ears normal, oropharynx clear without exudates, moist mucous membranes. NECK: Trachea midline, full range of motion, supple. LUNGS: decreased air entery bl, but improving, + wheezes, no crackles, no accessory muscle use. HEART: Regular rate and rhythm, S1, S2 without murmur, rub or gallop. ABDOMEN: Soft, Nt,ND, normoactive bowel sounds, no guarding, no rebound, no hepatosplenomegaly, no masses. EXTREMITIES: 2+ pulses, warm, well-perfused, no edema. NEUROLOGICAL: Cranial nerves II through XII grossly intact. Normal speech, gait not observed. PSYCH: Normal mood, normal affect. SKIN: Warm, dry, normal turgor, no rashes or lesions noted CBCD WBC 14.0 K/mm3 (4.0-10.0) H 05/21/19 05:17 RBC 3.76 M/mm3 (3.60-5.2) 05/21/19 05:17 Hgb 9.6 GM/dL (10.7-15.3) L 05/21/19 05:17 Hct 29.5 % (32.4-45.2) L 05/21/19 05:17 MCV 78.4 fl (80-96) L 05/21/19 05:17 MCHC 32.5 g/dl (32.0-36.0) 05/21/19 05:17 RDW 15.7 % (11.6-15.6) H 05/21/19 05:17 Plt Count 186 K/MM3 (134-434) 05/21/19 05:17 MPV 9.8 fl (7.5-11.1) 05/21/19 05:17 CMP Sodium 144 mmol/L (136-145) 05/21/19 05:17 Potassium 4.4 mmol/L (3.5-5.1) 05/21/19 05:17 Chloride 111 mmol/L (98-107) H 05/21/19 05:17 Carbon Dioxide 28 mmol/L (21-32) 05/21/19 05:17 Anion Gap 6 MMOL/L (8-16) L 05/21/19 05:17 BUN 62.6 mg/dL (7-18) H 05/21/19 05:17 Creatinine 2.3 mg/dL (0.55-1.3) H 05/21/19 05:17 Random Glucose 208 mg/dL (74-106) H 05/21/19 05:17 Calcium 8.9 mg/dL (8.5-10.1) 05/21/19 05:17 Total Bilirubin 0.4 mg/dL (0.2-1) 05/21/19 05:17 AST 7 U/L (15-37) L 05/21/19 05:17 ALT 29 U/L (13-61) 05/21/19 05:17 Alkaline Phosphatase 67 U/L (45-117) 05/21/19 05:17 Total Protein 5.6 g/dl (6.4-8.2) L 05/21/19 05:17 Albumin 2.7 g/dl (3.4-5.0) L 05/21/19 05:17 CARDIAC ENZYMES Creatine Kinase 220 U/L (26-192) H 05/13/19 17:17 Troponin I 0.03 ng/ml (0.00-0.05) 05/13/19 17:17 Current Medications Generic Name Dose Route Start Last Admin Trade Name Freq PRN Reason Stop Dose Admin Albuterol Sulfate 1 amp 05/17/19 02:33 Ventolin 0.083% Nebulizer Soln - NEB RQ4H PRN SHORT OF BREATH/WHEEZING Albuterol/Ipratropium 1 amp 05/14/19 20:00 05/21/19 16:25 Duoneb - NEB 1 amp RQID [facility] Administration Atorvastatin Calcium 40 mg 05/13/19 22:00 05/20/19 21:15 Lipitor - PO 40 mg HS [facility] Administration Benzocaine/Menthol 1 each 05/15/19 09:22 05/18/19 21:54 Cepacol Lozenge - MM 1 each PRN PRN Administration SORE THROAT Docusate Sodium 100 mg 05/14/19 23:00 05/21/19 09:08 Colace - PO 100 mg BID [facility] Administration Doxazosin Mesylate 6 mg 05/14/19 10:00 05/21/19 10:41 Cardura - PO 6 mg DAILY [facility] Administration Folic Acid 1 mg 05/14/19 10:00 05/21/19 09:08 Folic Acid - PO 1 mg DAILY [facility] Administration Furosemide 40 mg 05/18/19 10:00 05/21/19 09:08 Lasix - PO 40 mg DAILY [facility] Administration Heparin Sodium (Porcine) 5,000 unit 05/13/19 22:00 05/21/19 14:41 Heparin - SQ 5,000 unit TID [facility] Administration Hydralazine HCl 25 mg 05/21/19 15:15 05/21/19 16:00 Apresoline - PO 25 mg BID [facility] Administration Insulin Aspart 1 vial 05/13/19 22:00 05/21/19 16:34 Novolog Vial Sliding Scale - SQ 2 units ACHS [facility] Administration Protocol Insulin Detemir 25 units 05/19/19 12:06 05/21/19 06:40 Levemir Vial SQ 25 unit AM [facility] Administration Labetalol HCl 200 mg 05/19/19 18:00 05/21/19 14:42 Normodyne - PO 200 mg TID [facility] Administration Losartan Potassium 50 mg 05/14/19 10:00 05/21/19 09:08 Cozaar - PO 50 mg DAILY [facility] Administration Nifedipine 90 mg 05/22/19 10:00 Procardia Xl - PO DAILY [facility] Pantoprazole Sodium 40 mg 05/20/19 10:00 05/21/19 09:10 Protonix - PO 40 mg DAILY [facility] Administration Prednisone 40 mg 05/20/19 12:00 05/21/19 09:08 Deltasone - PO 40 mg DAILY [facility] Administration Senna 1 tab 05/15/19 22:00 05/20/19 21:16 Senna - PO 1 tab HS [facility] Administration Home Medications Medication Instructions Recorded Folic Acid 1 mg PO DAILY 05/11/11 Atorvastatin Ca [Lipitor] 40 mg PO HS 02/23/15 Magnesium Citrate [Citroma -] 150 ml PO ONCE PRN #1 bottle 02/23/15 Furosemide 20 mg PO BID 05/13/19 Insulin Aspart [Novolog] 15 units IM TID 05/13/19 Insulin Degludec [Tresiba 80 units IM DAILY 05/13/19 Flextouch U-200] Albuterol 2.5/Ipratropium 0.5 1 amp NEB BID PRN 30 Days #1 box 05/21/19 [Duoneb -] Albuterol Sulfate Inhaler - 1 puff IH BID PRN 30 Days #1 05/21/19 [Ventolin HFA Inhaler -] inhaler Doxazosin Mesylate [Cardura -] 6 mg PO DAILY 30 Days #90 tablet 05/21/19 Hydralazine HCl 25 mg PO BID 30 Days #60 tablet 05/21/19 Labetalol HCl [Normodyne -] 200 mg PO TID 30 Days #90 tablet 05/21/19 Losartan Potassium 50 mg PO DAILY 30 Days #30 tablet 05/21/19 Nebulizer and Compressor [Easy Air 1 each [facility] ASDIR PRN 30 Days #1 each 05/21/19 Compressor Nebulizer] Nifedipine [Procardia Xl] 90 mg PO DAILY #30 tab.er.24 05/21/19 Prednisone 5 mg PO ASDIR #12 tablet 05/21/19 Prednisone 10 mg PO ASDIR #64 tablet 05/21/19 Microbiology 05/13/19 20:04 Urine - Urine - Catheterized Urine Culture - Final Contaminated: Please Repeat 05/13/19 18:30 Blood - Peripheral Venous Blood Culture - Preliminary NO GROWTH OBTAINED AFTER 24 HOURS, INCUBATION TO CONTINUE FOR 4 DAYS. 05/13/19 18:30 Blood - Peripheral Venous Blood Culture - Preliminary NO GROWTH OBTAINED AFTER 24 HOURS, INCUBATION TO CONTINUE FOR 4 DAYS. ASSESSMENT AND PLAN: Patient is a 73yof with PMHx of COPD, CKD, HTN, DM, who presented with SOB and cough and was admitted for an exacerbation of COPD. # Hypertensive urgency: added Hydralazine 25mg po tid, discussed with Dr. gamez, continue labetolo/procardia/losartan/doxazocin # acute SOB improving : due to acute COPD exacerbation s/p IV steroid 60mg q6h , on prednisone oral changed with slow taper on discharge. # Acute COPD exacerbation s/p solu medrol 60mg IV switched to oral prednisone with slow taper now, continue nebs. s/p Doxycyline #T2DM: started levemir and SSI , patient is on Tresiba at home. #HTN Uncontrolled : will increased labetalol dose 600mg BID , continue clonidine , and Nifedipine increased and Cardura increased as well , will keep monitoring. #CKD: unsure of the baseline , LETTY, continue to hold lasix , losartan dose is reduced to 50mg now from 100mg , will continue to monitor # Moderate atrophic kidneys: on renal US with no hydro; Moderate atrophic kidneys with no evidence of hydronephrosis or acute pathology. DVT PX : heaprin sq will need nebulizer machine and neb treatments upon discharge
[2019-05-21] MEDS: SENNOSIDES 8.6MG TABLET (FP) PO SCH (22:17)
[2019-05-21] MEDS: ATORVASTATIN CA 20 MG TABLET (FP) PO SCH (22:17)
[2019-05-22] MEDS ORDERED: NIFEdipine E.R 60 MG TABLET PO ONE (01:39)
[2019-05-22] MEDS: INSULIN (LEVEMIR) 100 UNITS/ML UNITS SQ SCH (06:39)
[2019-05-22] MEDS: INSULIN SLIDING SCALE (NOVOLOG) 1 VIAL SQ SCH ×4 (06:39→21:10)
[2019-05-22] MEDS: LABETALOL HCL 200 MG TABLET (FP) PO SCH ×3 (06:40→21:09)
[2019-05-22] MEDS: HEPARIN NA (PORCINE) 5,000 UNITS/ML 1ML VIAL SQ SCH ×3 (06:40→21:09)
[2019-05-22] MEDS: ALBUTEROL SO4 2.5/IPRATROPIUM 0.5 INH SOL 3 ML VIAL.NEB. NEB SCH ×4 (08:00→20:30)
[2019-05-22] MEDS ORDERED: PT OWN MED DRAWER 7, Y5N ONE ×3 (09:11→19:31)
[2019-05-22] MEDS ORDERED: NIFEdipine E.R. 90 MG TABLET PO SCH (10:00)
[2019-05-22] MEDS: FUROSEMIDE 20 MG TABLET (FP) PO SCH (10:10)
[2019-05-22] MEDS: PANTOPRAZOLE 40 MG TABLET PO SCH (10:10)
[2019-05-22] MEDS: predniSONE 20 MG TABLET (UD) PO SCH (10:10)
[2019-05-22] MEDS: DOCUSATE SODIUM 100 MG CAPSULE (FP) PO SCH ×2 (10:10→21:09)
[2019-05-22] MEDS: FOLIC ACID 1 MG TABLET (FP) PO SCH (10:10)
[2019-05-22] MEDS: hydrALAZINE HCL 25 MG TABLET (FP) PO SCH ×3 (10:11→21:09)
[2019-05-22] MEDS: LOSARTAN POTASSIUM 50 MG TABLET (FP) PO SCH (10:11)
[2019-05-22] MEDS: DOXAZOSIN MESYLATE 2 MG TABLET PO SCH (10:21)
--- NOTE | 2019-05-22 12:30 | PN ---
Progress Note, Physician History of Present Illness: Pt seen and examined at bedside. SHe is awake and alert. She denies shortness of breath. - Current Medication List Current Medications: Active Medications Albuterol Sulfate (Ventolin 0.083% Nebulizer Soln -) 1 amp NEB RQ4H PRN PRN Reason: SHORT OF BREATH/WHEEZING Albuterol/Ipratropium (Duoneb -) 1 amp NEB RQID [facility] Last Admin: 05/22/19 08:00 Dose: 1 amp Atorvastatin Calcium (Lipitor -) 40 mg PO HS [facility] Last Admin: 05/21/19 22:17 Dose: 40 mg Benzocaine/Menthol (Cepacol Lozenge -) 1 each MM PRN PRN PRN Reason: SORE THROAT Last Admin: 05/18/19 21:54 Dose: 1 each Docusate Sodium (Colace -) 100 mg PO BID [facility] Last Admin: 05/22/19 10:10 Dose: 100 mg Doxazosin Mesylate (Cardura -) 6 mg PO DAILY [facility] Last Admin: 05/22/19 10:21 Dose: 6 mg Folic Acid (Folic Acid -) 1 mg PO DAILY [facility] Last Admin: 05/22/19 10:10 Dose: 1 mg Furosemide (Lasix -) 40 mg PO DAILY [facility] Last Admin: 05/22/19 10:10 Dose: 40 mg Heparin Sodium (Porcine) (Heparin -) 5,000 unit SQ TID [facility] Last Admin: 05/22/19 06:40 Dose: Not Given Hydralazine HCl (Apresoline -) 25 mg PO BID [facility] Last Admin: 05/22/19 10:11 Dose: 25 mg Insulin Aspart (Novolog Vial Sliding Scale -) 1 vial SQ ACHS [facility]; Protocol Last Admin: 05/22/19 12:15 Dose: 6 units Insulin Detemir (Levemir Vial) 25 units SQ AM [facility] Last Admin: 05/22/19 06:39 Dose: 25 unit Labetalol HCl (Normodyne -) 200 mg PO TID [facility] Last Admin: 05/22/19 06:40 Dose: 200 mg Losartan Potassium (Cozaar -) 50 mg PO DAILY [facility] Last Admin: 05/22/19 10:11 Dose: 50 mg Nifedipine (Procardia Xl -) 90 mg PO DAILY [facility] Pantoprazole Sodium (Protonix -) 40 mg PO DAILY [facility] Last Admin: 05/22/19 10:10 Dose: 40 mg Prednisone (Deltasone -) 40 mg PO DAILY [facility] Last Admin: 05/22/19 10:10 Dose: 40 mg Senna (Senna -) 1 tab PO HS [facility] Last Admin: 05/21/19 22:17 Dose: 1 tab - Objective Vital Signs: Vital Signs Temperature 97.9 F 05/22/19 02:00 Pulse Rate 57 L 05/22/19 06:00 Respiratory Rate 19 05/22/19 09:00 Blood Pressure 138/50 L 05/22/19 06:00 O2 Sat by Pulse Oximetry (%) 97 05/22/19 09:00 Constitutional: Yes: Calm Eyes: Yes: Conjunctiva Clear HENT: Yes: Atraumatic Neck: Yes: Supple Cardiovascular: Yes: S1, S2 Respiratory: Yes: CTA Bilaterally Gastrointestinal: Yes: Normal Bowel Sounds, Soft Genitourinary: Yes: WNL Musculoskeletal: Yes: WNL Edema: Yes Edema: LLE: Trace, RLE: Trace Neurological: Yes: Oriented Psychiatric: Yes: Oriented Labs: CBC, BMP 05/21/19 05:17 05/21/19 05:17 Assessment/Plan Current Medications Generic Name Dose Route Start Last Admin Trade Name Freq PRN Reason Stop Dose Admin Albuterol Sulfate 1 amp 05/17/19 02:33 Ventolin 0.083% Nebulizer Soln - NEB RQ4H PRN SHORT OF BREATH/WHEEZING Albuterol/Ipratropium 1 amp 05/14/19 20:00 05/22/19 08:00 Duoneb - NEB 1 amp RQID [facility] Administration Atorvastatin Calcium 40 mg 05/13/19 22:00 05/21/19 22:17 Lipitor - PO 40 mg HS [facility] Administration Benzocaine/Menthol 1 each 05/15/19 09:22 05/18/19 21:54 Cepacol Lozenge - MM 1 each PRN PRN Administration SORE THROAT Docusate Sodium 100 mg 05/14/19 23:00 05/22/19 10:10 Colace - PO 100 mg BID [facility] Administration Doxazosin Mesylate 6 mg 05/14/19 10:00 05/22/19 10:21 Cardura - PO 6 mg DAILY [facility] Administration Folic Acid 1 mg 05/14/19 10:00 05/22/19 10:10 Folic Acid - PO 1 mg DAILY [facility] Administration Furosemide 40 mg 05/18/19 10:00 05/22/19 10:10 Lasix - PO 40 mg DAILY [facility] Administration Heparin Sodium (Porcine) 5,000 unit 05/13/19 22:00 05/22/19 06:40 Heparin - SQ Not Given TID [facility] Hydralazine HCl 25 mg 05/21/19 15:15 05/22/19 10:11 Apresoline - PO 25 mg BID [facility] Administration Insulin Aspart 1 vial 05/13/19 22:00 05/22/19 12:15 Novolog Vial Sliding Scale - SQ 6 units ACHS [facility] Administration Protocol Insulin Detemir 25 units 05/19/19 12:06 05/22/19 06:39 Levemir Vial SQ 25 unit AM [facility] Administration Labetalol HCl 200 mg 05/19/19 18:00 05/22/19 06:40 Normodyne - PO 200 mg TID [facility] Administration Losartan Potassium 50 mg 05/14/19 10:00 05/22/19 10:11 Cozaar - PO 50 mg DAILY [facility] Administration Nifedipine 90 mg 05/22/19 10:00 Procardia Xl - PO DAILY [facility] Pantoprazole Sodium 40 mg 05/20/19 10:00 05/22/19 10:10 Protonix - PO 40 mg DAILY [facility] Administration Prednisone 40 mg 05/20/19 12:00 05/22/19 10:10 Deltasone - PO 40 mg DAILY [facility] Administration Senna 1 tab 05/15/19 22:00 05/21/19 22:17 Senna - PO 1 tab HS [facility] Administration Impression 1. CKD 2. HTN 3. copd 4. chf 5. DM 6. hyperkalemia Plan - bp improved with hydralazine - titrate as needed - renal function had stabilized however she does need outpt follow u, she will see Dr Gomez - taper steroids as tolerated, wheezing improved - cont lasix at 40 mg for now
--- NOTE | 2019-05-22 13:15 | PN ---
Progress Note, Physician History of Present Illness: Shortness of breath/dyspnea with cough nonproductive of sputum, intermittent wheeze resolved to baseline, denies any chest pain, BP control improved. - Current Medication List Current Medications: Active Medications Albuterol Sulfate (Ventolin 0.083% Nebulizer Soln -) 1 amp NEB RQ4H PRN PRN Reason: SHORT OF BREATH/WHEEZING Albuterol/Ipratropium (Duoneb -) 1 amp NEB RQID [facility] Last Admin: 05/22/19 08:00 Dose: 1 amp Atorvastatin Calcium (Lipitor -) 40 mg PO HS [facility] Last Admin: 05/21/19 22:17 Dose: 40 mg Benzocaine/Menthol (Cepacol Lozenge -) 1 each MM PRN PRN PRN Reason: SORE THROAT Last Admin: 05/18/19 21:54 Dose: 1 each Docusate Sodium (Colace -) 100 mg PO BID [facility] Last Admin: 05/22/19 10:10 Dose: 100 mg Doxazosin Mesylate (Cardura -) 6 mg PO DAILY [facility] Last Admin: 05/22/19 10:21 Dose: 6 mg Folic Acid (Folic Acid -) 1 mg PO DAILY [facility] Last Admin: 05/22/19 10:10 Dose: 1 mg Furosemide (Lasix -) 40 mg PO DAILY [facility] Last Admin: 05/22/19 10:10 Dose: 40 mg Heparin Sodium (Porcine) (Heparin -) 5,000 unit SQ TID [facility] Last Admin: 05/22/19 06:40 Dose: Not Given Hydralazine HCl (Apresoline -) 25 mg PO BID [facility] Last Admin: 05/22/19 10:11 Dose: 25 mg Insulin Aspart (Novolog Vial Sliding Scale -) 1 vial SQ ACHS [facility]; Protocol Last Admin: 05/22/19 12:15 Dose: 6 units Insulin Detemir (Levemir Vial) 25 units SQ AM [facility] Last Admin: 05/22/19 06:39 Dose: 25 unit Labetalol HCl (Normodyne -) 200 mg PO TID [facility] Last Admin: 05/22/19 06:40 Dose: 200 mg Losartan Potassium (Cozaar -) 50 mg PO DAILY [facility] Last Admin: 05/22/19 10:11 Dose: 50 mg Nifedipine (Procardia Xl -) 90 mg PO DAILY [facility] Pantoprazole Sodium (Protonix -) 40 mg PO DAILY [facility] Last Admin: 05/22/19 10:10 Dose: 40 mg Prednisone (Deltasone -) 40 mg PO DAILY [facility] Last Admin: 05/22/19 10:10 Dose: 40 mg Senna (Senna -) 1 tab PO [facility] Last Admin: 05/21/19 22:17 Dose: 1 tab - Objective Vital Signs: Vital Signs Temperature 97.9 F 05/22/19 02:00 Pulse Rate 57 L 05/22/19 06:00 Respiratory Rate 19 05/22/19 09:00 Blood Pressure 138/50 L 05/22/19 06:00 O2 Sat by Pulse Oximetry (%) 97 05/22/19 09:00 Constitutional: Yes: No Distress, Calm Neck: Yes: Supple Cardiovascular: Yes: Regular Rate and Rhythm Respiratory: Yes: Regular, CTA Bilaterally Gastrointestinal: Yes: Normal Bowel Sounds, Soft Edema: No Labs: CBC, BMP 05/21/19 05:17 05/21/19 05:17 - ....Imaging EKG: Report Reviewed (Tele: NSR) Problem List - Problems (1) Hypertensive heart disease Code(s): I11.9 - HYPERTENSIVE HEART DISEASE WITHOUT HEART FAILURE Qualifiers: Heart failure presence: without heart failure Qualified Code(s): I11.9 - Hypertensive heart disease without heart failure (2) COPD with acute exacerbation Code(s): J44.1 - CHRONIC OBSTRUCTIVE PULMONARY DISEASE W (ACUTE) EXACERBATION (3) Hyperlipidemia Code(s): E78.5 - HYPERLIPIDEMIA, UNSPECIFIED Qualifiers: Hyperlipidemia type: pure hypercholesterolemia Qualified Code(s): E78.00 - Pure hypercholesterolemia, unspecified; E78.0 - Pure hypercholesterolemia (4) JEANNIE (obstructive sleep apnea) Code(s): G47.33 - OBSTRUCTIVE SLEEP APNEA (ADULT) (PEDIATRIC) Assessment/Plan 1. Acute COPD Exacerbation resolving 2. LV Diastolic Dysfunction and Pulmonary HTN 3. Probable CAD, angina pectoris 4. HTN with improved BP control 5. DM 6. Hypercholesterolemia 7. Acute on Chronic kidney disease 8. Anemia 9. OSAS on CPAP 10. Hyperkalemia resolved PLAN: 1. Oral steroid taper, bronchodilator, CPAP nightly and O2 as needed 2. Continue Labetalol 200 mg TID titrate dosage, Lasiix 40 qd and Cozaar 50 mg QD titrate dose accordingly 3. Continue Procardia XL 90 mg QD and hydralazine 25 bid 4. Continue Cardura 6 mg QD 5. Continue Lipitor 40 mg QHS 6. D/c planning with f/u in office
--- NOTE | 2019-05-22 14:14 | PN ---
Physical Exam: SUBJECTIVE: Patient seen and examined at bedside. Overnight for the 2nd day in a row her systolic BP bereket to 199 at 02:00, which required delivery of her 10am dose early. This AM he offers no new complaints. We discussed her elevated BP and she denies all symptoms. She is eager to return home. OBJECTIVE: Vital Signs Temp Pulse Resp BP Pulse Ox 97.9 F 56 L 18 138/48 L 95 05/22/19 18:00 05/22/19 18:00 05/22/19 18:00 05/22/19 18:00 05/22/19 20:15 GENERAL: AOx3, in no acute distress HEAD: NCAT EYES: CYNTHIA, EOMI, conjunctiva clear. ENT: Ears normal, nares patent, oropharynx clear without exudates. Moist mucous membranes. NECK: Normal range of motion, supple without lymphadenopathy, JVD, or masses. LUNGS: CTAB but diminished at the bases, LEFT sided end expiratory wheezing. No accessory muscle use. HEART: RRR s1 s2, 3/6 systolic murmur at RUSB with radiation to carotids. LEFT neck vein distention. ABDOMEN: Soft, BS present in all 4 quadrants, non-distended, no JVD, MUSCULOSKELETAL: No bony deformities or tenderness. No CVA tenderness. UPPER EXTREMITIES: 2+ pulses, warm, well-perfused. No cyanosis. No clubbing. No peripheral edema. LOWER EXTREMITIES: 2+ pulses, warm, well-perfused. No calf tenderness. 1+ non- pitting peripheral edema BL. NEUROLOGICAL: No focal deficits. Cranial nerves II-XII intact. Normal speech. Gait not appreciated. PSYCHIATRIC: Cooperative. Good eye contact. Appropriate mood and affect. SKIN: Warm, dry, normal turgor, no rashes or lesions noted, normal capillary refill. Laboratory Results - last 24 hr 05/21/19 05/21/19 05/22/19 16:32 22:15 06:37 POC Glucometer 176 381 230 05/22/19 11:23 POC Glucometer 271 Active Medications Albuterol Sulfate (Ventolin 0.083% Nebulizer Soln -) 1 amp NEB RQ4H PRN PRN Reason: SHORT OF BREATH/WHEEZING Albuterol/Ipratropium (Duoneb -) 1 amp NEB RQID [facility] Last Admin: 05/22/19 20:30 Dose: 1 amp Atorvastatin Calcium (Lipitor -) 40 mg PO HS [facility] Last Admin: 05/22/19 21:09 Dose: 40 mg Benzocaine/Menthol (Cepacol Lozenge -) 1 each MM PRN PRN PRN Reason: SORE THROAT Last Admin: 05/18/19 21:54 Dose: 1 each Docusate Sodium (Colace -) 100 mg PO BID [facility] Last Admin: 05/22/19 21:09 Dose: 100 mg Doxazosin Mesylate (Cardura -) 6 mg PO DAILY [facility] Last Admin: 05/22/19 10:21 Dose: 6 mg Folic Acid (Folic Acid -) 1 mg PO DAILY [facility] Last Admin: 05/22/19 10:10 Dose: 1 mg Furosemide (Lasix -) 40 mg PO DAILY [facility] Last Admin: 05/22/19 10:10 Dose: 40 mg Heparin Sodium (Porcine) (Heparin -) 5,000 unit SQ TID [facility] Last Admin: 05/22/19 21:09 Dose: 5,000 unit Hydralazine HCl (Apresoline -) 25 mg PO TID [facility] Last Admin: 05/22/19 21:09 Dose: 25 mg Insulin Aspart (Novolog Vial Sliding Scale -) 1 vial SQ ACHS [facility]; Protocol Last Admin: 05/22/19 21:10 Dose: 4 units Insulin Detemir (Levemir Vial) 25 units SQ AM [facility] Last Admin: 05/22/19 06:39 Dose: 25 unit Labetalol HCl (Normodyne -) 200 mg PO TID [facility] Last Admin: 05/22/19 21:09 Dose: 200 mg Losartan Potassium (Cozaar -) 50 mg PO DAILY [facility] Last Admin: 05/22/19 10:11 Dose: 50 mg Nifedipine (Procardia Xl -) 60 mg PO BID [facility] Last Admin: 05/22/19 21:09 Dose: 60 mg Pantoprazole Sodium (Protonix -) 40 mg PO DAILY [facility] Last Admin: 05/22/19 10:10 Dose: 40 mg Prednisone (Deltasone -) 40 mg PO DAILY [facility] Last Admin: 05/22/19 10:10 Dose: 40 mg Senna (Senna -) 1 tab PO HS [facility] Last Admin: 05/22/19 21:09 Dose: 1 tab ASSESSMENT/PLAN: 73 y/o female PMH HTN, insulin treated DM, CKD III, COPD, c/o with SOB and cough and admitted for acute respiratory failure 2/2 acute COPD exacerbation in the setting of chronic bronchitis (never smoker). Staying overnight with plan for dc in AM 2/2 recent episodes of elevated systolic blood pressures. BP regimen adjusted to add HZN is TID back and increase Nifedepine to 60 mg po bid for round the clock coverage # HTN - New regimen: Hydralazine 25 mg TID, Nifedipine 60 mg PO BID, Doxazosin 6 mg PO qd, labetalol 200 mg PO TID, Losartan 50 mg PO qd, # Acute respiratory failure 2/2 acute COPD exacerbation - Prednisone 40 mg po qd now and plan for long taper on DC (see dc plan) - CPAP HS 11cm H20 # CKD III - Lasix po 40 mg qd # DM - Hold home regimen: Tresiba 22 units HS - Levemir 20 u in the AM - ISS ACHS # F/E/N - PO - Cont. to monitor - Low sodium diet # DVT prophylaxis - Heparin SQ # Disposition - Telemetry - Plan for dc once BP stable/consistent Kyle Manuel MD Visit type - Emergency Visit Emergency Visit: No - New Patient This patient is new to me today: No - Critical Care Critical Care patient: No ATTENDING PHYSICIAN STATEMENT I saw and evaluated the patient. I reviewed the resident's note and discussed the case with the resident. I agree with the resident's findings and plan as documented. SUBJECTIVE: OBJECTIVE: ASSESSMENT AND PLAN:
--- NOTE | 2019-05-22 14:19 | PN ---
Progress Note (short form) - Note Progress Note: PULMONARY Breathing slowly improving. Less cough and wheezing. Vital Signs Period Temp Pulse Resp BP Sys/Arthur Pulse Ox Last 24 Hr 97.7 F-98.5 F 57-69 16-20 137-230/50-80 95-99 Gen: NAD at rest Heart: RRR Lung: distant breath sounds Abd: soft, nontender Ext: no edema CBC, BMP 05/21/19 05:17 05/21/19 05:17 Active Medications Albuterol Sulfate (Ventolin 0.083% Nebulizer Soln -) 1 amp NEB RQ4H PRN PRN Reason: SHORT OF BREATH/WHEEZING Albuterol/Ipratropium (Duoneb -) 1 amp NEB RQID [facility] [place] Last Admin: 05/22/19 08:00 Dose: 1 amp Atorvastatin Calcium (Lipitor -) 40 mg PO HS [facility] Last Admin: 05/21/19 22:17 Dose: 40 mg Benzocaine/Menthol (Cepacol Lozenge -) 1 each MM PRN PRN PRN Reason: SORE THROAT Last Admin: 05/18/19 21:54 Dose: 1 each Docusate Sodium (Colace -) 100 mg PO BID [facility] Last Admin: 05/22/19 10:10 Dose: 100 mg Doxazosin Mesylate (Cardura -) 6 mg PO DAILY [facility] [place] Last Admin: 05/22/19 10:21 Dose: 6 mg Folic Acid (Folic Acid -) 1 mg PO DAILY [facility] [place] Last Admin: 05/22/19 10:10 Dose: 1 mg Furosemide (Lasix -) 40 mg PO DAILY [facility] [place] Last Admin: 05/22/19 10:10 Dose: 40 mg Heparin Sodium (Porcine) (Heparin -) 5,000 unit SQ TID [facility] Last Admin: 05/22/19 06:40 Dose: Not Given Hydralazine HCl (Apresoline -) 25 mg PO BID [facility] [place] Last Admin: 05/22/19 10:11 Dose: 25 mg Insulin Aspart (Novolog Vial Sliding Scale -) 1 vial SQ ACHS [facility] [place]; Protocol Last Admin: 05/22/19 12:15 Dose: 6 units Insulin Detemir (Levemir Vial) 25 units SQ AM [facility] [place] Last Admin: 05/22/19 06:39 Dose: 25 unit Labetalol HCl (Normodyne -) 200 mg PO TID [facility] [place] Last Admin: 05/22/19 06:40 Dose: 200 mg Losartan Potassium (Cozaar -) 50 mg PO DAILY [facility] [place] Last Admin: 05/22/19 10:11 Dose: 50 mg Nifedipine (Procardia Xl -) 90 mg PO DAILY [facility] [place] Pantoprazole Sodium (Protonix -) 40 mg PO DAILY [facility] [place] Last Admin: 05/22/19 10:10 Dose: 40 mg Prednisone (Deltasone -) 40 mg PO DAILY [facility] [place] Last Admin: 05/22/19 10:10 Dose: 40 mg Senna (Senna -) 1 tab PO HS [facility] [place] Last Admin: 05/21/19 22:17 Dose: 1 tab A/P Acute COPD Exacerbation Acute on Chronic Renal Failure LV Diastolic Dysfunction Pulmonary HTN HTN DM Hyperlipidemia JEANNIE Anemia - prednisone taper - inhaled bronchodilators standing and PRN - BP control - monitor urine output, creatinine - CPAP at night 11cm H20 - O2 to keep SpO2 >90% - DVT prophylaxis Problem List - Problems (1) COPD with acute exacerbation Code(s): J44.1 - CHRONIC OBSTRUCTIVE PULMONARY DISEASE W (ACUTE) EXACERBATION
[2019-05-22] MEDS ORDERED: NIFEdipine E.R. 30 MG TABLET PO ONE (15:00)
--- NOTE | 2019-05-22 20:14 | PN ---
Teaching Attending Note Name of Resident: Kyle Manuel ATTENDING PHYSICIAN STATEMENT I saw and evaluated the patient. I reviewed the resident's note and discussed the case with the resident. I agree with the resident's findings and plan as documented. SUBJECTIVE: feels better , no OSB . no palpitations , no BELL . BP was very high last night and was treated by night team OBJECTIVE: NAD, awake, alert, cooperative. CV: RRR, RUSB with radiation to carotids. Lungs: no wheezing. no crackles. Ext: no edema ASSESSMENT AND PLAN: 73 y/o lady with h/o COPD, CKD, HTN, DM, and other medical problems who presented with SOB and cough. 1- acute COPD exacerbation. cont prednisone and CPAP and Nebs 2- HTN urgency: BP is controlled solomon m abut increased at night - increase nifedipine to 60 BID - increase HXN to TID - cont doxazosin , losartan and Labetalol 3- DM: - cont levemir - SSI 4- CKD: stable cont to monitor 5- DVT PX : heaprin sq if BP is controlled ,. will dc tomorrow
[2019-05-22] MEDS: ATORVASTATIN CA 20 MG TABLET (FP) PO SCH (21:09)
[2019-05-22] MEDS: SENNOSIDES 8.6MG TABLET (FP) PO SCH (21:09)
[2019-05-22] MEDS: NIFEdipine E.R 60 MG TABLET PO SCH (21:09)
[2019-05-23] MEDS: INSULIN SLIDING SCALE (NOVOLOG) 1 VIAL SQ SCH ×3 (06:04→17:14)
[2019-05-23] MEDS: INSULIN (LEVEMIR) 100 UNITS/ML UNITS SQ SCH (06:23)
[2019-05-23] MEDS: LABETALOL HCL 200 MG TABLET (FP) PO SCH ×2 (06:23→13:21)
[2019-05-23] MEDS: hydrALAZINE HCL 25 MG TABLET (FP) PO SCH ×2 (06:23→13:21)
[2019-05-23] MEDS: HEPARIN NA (PORCINE) 5,000 UNITS/ML 1ML VIAL SQ SCH ×2 (06:23→13:20)
[2019-05-23 06:56] LABS: HEMATOCRIT 29.8 % (32.4-45.2); HEMOGLOBIN 9.7 GM/dL (10.7-15.3); MCH 25.5 pg (25.7-33.7); MCHC 32.7 g/dl (32.0-36.0); MEAN PLT VOLUME 8.8 fl (7.5-11.1); PLATELET COUNT 164 K/MM3 (134-434); RBC 3.82 M/mm3 (3.60-5.2); RDW 16.1 % (11.6-15.6); WHITE BLOOD COUNT 11.8 K/mm3 (4.0-10.0)
[2019-05-23] MEDS: ALBUTEROL SO4 2.5/IPRATROPIUM 0.5 INH SOL 3 ML VIAL.NEB. NEB SCH ×3 (07:30→16:10)
[2019-05-23 07:58] LABS: ALBUMIN 2.7 g/dl (3.4-5.0); BILIRUBIN,TOTAL 0.4 mg/dL (0.2-1); BLOOD UREA NITROGEN 50.6 mg/dL (7-18); CALCIUM 8.7 mg/dL (8.5-10.1); CREATININE 1.8 mg/dL (0.55-1.3); POTASSIUM 4.3 mmol/L (3.5-5.1); TOT PROT 5.3 g/dl (6.4-8.2)
[2019-05-23] MEDS ORDERED: PT OWN MED DRAWER 7, Y5N ONE (09:16)
[2019-05-23] MEDS: predniSONE 20 MG TABLET (UD) PO SCH (09:23)
[2019-05-23] MEDS: DOCUSATE SODIUM 100 MG CAPSULE (FP) PO SCH (09:24)
[2019-05-23] MEDS: FOLIC ACID 1 MG TABLET (FP) PO SCH (09:24)
[2019-05-23] MEDS: NIFEdipine E.R 60 MG TABLET PO SCH (09:24)
[2019-05-23] MEDS: LOSARTAN POTASSIUM 50 MG TABLET (FP) PO SCH (09:24)
[2019-05-23] MEDS: PANTOPRAZOLE 40 MG TABLET PO SCH (09:25)
[2019-05-23] MEDS: DOXAZOSIN MESYLATE 2 MG TABLET PO SCH (09:25)
[2019-05-23] MEDS ORDERED: NIFEdipine E.R 60 MG TABLET PO SCH (10:00)
--- NOTE | 2019-05-23 10:35 | PN ---
Progress Note (short form) - Note Progress Note: Feels overall better. Used NIPPV overnight. Cough is better. No acute events overnight. Intake & Output 05/20/19 05/21/19 05/22/19 05/23/19 23:59 23:59 23:59 23:59 Intake Total 240 1090 1540 Balance 240 1090 1540 Weight 162 lb Last Vital Signs Temp Pulse Resp BP Pulse Ox 98.9 F 57 L 18 159/59 L 95 05/23/19 09:46 05/23/19 09:46 05/23/19 09:46 05/23/19 09:46 05/22/19 20:15 Active Medications Albuterol Sulfate (Ventolin 0.083% Nebulizer Soln -) 1 amp NEB RQ4H PRN PRN Reason: SHORT OF BREATH/WHEEZING Albuterol/Ipratropium (Duoneb -) 1 amp NEB RQID [facility] Last Admin: 05/22/19 20:30 Dose: 1 amp Atorvastatin Calcium (Lipitor -) 40 mg PO HS [facility] Last Admin: 05/22/19 21:09 Dose: 40 mg Benzocaine/Menthol (Cepacol Lozenge -) 1 each MM PRN PRN PRN Reason: SORE THROAT Last Admin: 05/18/19 21:54 Dose: 1 each Docusate Sodium (Colace -) 100 mg PO BID [facility] Last Admin: 05/23/19 09:24 Dose: 100 mg Doxazosin Mesylate (Cardura -) 6 mg PO DAILY [facility] Last Admin: 05/23/19 09:25 Dose: 6 mg Folic Acid (Folic Acid -) 1 mg PO DAILY [facility] Last Admin: 05/23/19 09:24 Dose: 1 mg Furosemide (Lasix -) 40 mg PO DAILY [facility] Last Admin: 05/22/19 10:10 Dose: 40 mg Heparin Sodium (Porcine) (Heparin -) 5,000 unit SQ TID [facility] Last Admin: 05/23/19 06:23 Dose: 5,000 unit Hydralazine HCl (Apresoline -) 25 mg PO TID [facility] Last Admin: 05/23/19 06:23 Dose: 25 mg Insulin Aspart (Novolog Vial Sliding Scale -) 1 vial SQ ACHS [facility]; Protocol Last Admin: 05/23/19 06:04 Dose: Not Given Insulin Detemir (Levemir Vial) 25 units SQ AM [facility] Last Admin: 05/23/19 06:23 Dose: 25 unit Labetalol HCl (Normodyne -) 200 mg PO TID [facility] Last Admin: 05/23/19 06:23 Dose: 200 mg Losartan Potassium (Cozaar -) 50 mg PO DAILY [facility] Last Admin: 05/23/19 09:24 Dose: 50 mg Nifedipine (Procardia Xl -) 60 mg PO BID [facility] Last Admin: 05/23/19 09:24 Dose: 60 mg Pantoprazole Sodium (Protonix -) 40 mg PO DAILY [facility] Last Admin: 05/23/19 09:25 Dose: 40 mg Prednisone (Deltasone -) 40 mg PO DAILY [facility] Last Admin: 05/23/19 09:23 Dose: 40 mg Senna (Senna -) 1 tab PO HS [facility] Last Admin: 05/22/19 21:09 Dose: 1 tab Gen: NAD at rest Heart: RRR Lung: few scattered rhonchi, diminished at the bases, no wheezing Abd: soft, nontender Ext: no edema Laboratory Results - last 24 hr 05/22/19 05/22/19 05/22/19 11:23 16:28 20:12 WBC RBC Hgb Hct MCV MCH MCHC RDW Plt Count MPV Sodium Potassium Chloride Carbon Dioxide Anion Gap BUN Creatinine Est GFR (CKD-EPI)AfAm Est GFR (CKD-EPI)NonAf POC Glucometer 271 133 242 Random Glucose Calcium Total Bilirubin AST ALT Alkaline Phosphatase Total Protein Albumin 05/23/19 05/23/19 05/23/19 05:45 06:28 06:28 WBC 11.8 H RBC 3.82 Hgb 9.7 L Hct 29.8 L MCV 78.0 L MCH 25.5 L MCHC 32.7 RDW 16.1 H Plt Count 164 MPV 8.8 D Sodium 149 H Potassium 4.3 Chloride 115 H Carbon Dioxide 30 Anion Gap 4 L BUN 50.6 H Creatinine 1.8 H Est GFR (CKD-EPI)AfAm 31.36 Est GFR (CKD-EPI)NonAf 27.06 POC Glucometer 113 Random Glucose 97 Calcium 8.7 Total Bilirubin 0.4 AST 5 L ALT 25 Alkaline Phosphatase 60 Total Protein 5.3 L Albumin 2.7 L Problem List (1) COPD with acute exacerbation Code(s): J44.1 - CHRONIC OBSTRUCTIVE PULMONARY DISEASE W (ACUTE) EXACERBATION A/P Acute COPD Exacerbation Acute on Chronic Renal Failure LV Diastolic Dysfunction Pulmonary HTN HTN DM Hyperlipidemia JEANNIE Anemia - Prednisone taper - inhaled bronchodilators standing and PRN - BP control - CPAP at night 11cm H20 - O2 to keep SpO2 >90% - DVT prophylaxis - DC planning Dr Bess
--- NOTE | 2019-05-23 12:02 | PN ---
Progress Note, Physician History of Present Illness: Shortness of breath/dyspnea with cough nonproductive of sputum, intermittent wheeze resolved to baseline, denies any chest pain, BP control improved. - Current Medication List Current Medications: Active Medications Albuterol Sulfate (Ventolin 0.083% Nebulizer Soln -) 1 amp NEB RQ4H PRN PRN Reason: SHORT OF BREATH/WHEEZING Albuterol/Ipratropium (Duoneb -) 1 amp NEB RQID [facility] [place] Last Admin: 05/23/19 11:35 Dose: Not Given Atorvastatin Calcium (Lipitor -) 40 mg PO HS [facility] [place] Last Admin: 05/22/19 21:09 Dose: 40 mg Benzocaine/Menthol (Cepacol Lozenge -) 1 each MM PRN PRN PRN Reason: SORE THROAT Last Admin: 05/18/19 21:54 Dose: 1 each Docusate Sodium (Colace -) 100 mg PO BID [facility] [place] Last Admin: 05/23/19 09:24 Dose: 100 mg Doxazosin Mesylate (Cardura -) 6 mg PO DAILY [facility] [place] Last Admin: 05/23/19 09:25 Dose: 6 mg Folic Acid (Folic Acid -) 1 mg PO DAILY [facility] [place] Last Admin: 05/23/19 09:24 Dose: 1 mg Furosemide (Lasix -) 40 mg PO DAILY [facility] [place] Last Admin: 05/22/19 10:10 Dose: 40 mg Heparin Sodium (Porcine) (Heparin -) 5,000 unit SQ TID [facility] [place] Last Admin: 05/23/19 06:23 Dose: 5,000 unit Hydralazine HCl (Apresoline -) 25 mg PO TID [facility] [place] Last Admin: 05/23/19 06:23 Dose: 25 mg Insulin Aspart (Novolog Vial Sliding Scale -) [address] [facility] [place]; Protocol Last Admin: 05/23/19 11:57 Dose: 4 units Insulin Detemir (Levemir Vial) 25 units SQ AM [facility] [place] Last Admin: 05/23/19 06:23 Dose: 25 unit Labetalol HCl (Normodyne -) 200 mg PO TID [facility] [place] Last Admin: 05/23/19 06:23 Dose: 200 mg Losartan Potassium (Cozaar -) 50 mg PO DAILY [facility] [place] Last Admin: 05/23/19 09:24 Dose: 50 mg Nifedipine (Procardia Xl -) 60 mg PO BID [facility] [place] Last Admin: 05/23/19 09:24 Dose: 60 mg Pantoprazole Sodium (Protonix -) 40 mg PO DAILY [facility] [place] Last Admin: 05/23/19 09:25 Dose: 40 mg Prednisone (Deltasone -) 40 mg PO DAILY [facility] [place] Last Admin: 05/23/19 09:23 Dose: 40 mg Senna (Senna -) 1 tab PO HS [facility] [place] Last Admin: 05/22/19 21:09 Dose: 1 tab - Objective Vital Signs: Vital Signs Temperature 98.9 F 05/23/19 09:46 Pulse Rate 57 L 05/23/19 09:46 Respiratory Rate 18 05/23/19 09:46 Blood Pressure 159/59 L 05/23/19 09:46 O2 Sat by Pulse Oximetry (%) 96 05/23/19 09:00 Constitutional: Yes: No Distress, Calm Neck: Yes: Supple Cardiovascular: Yes: Regular Rate and Rhythm Respiratory: Yes: Regular, Diminished Gastrointestinal: Yes: Normal Bowel Sounds, Soft Edema: No Labs: CBC, BMP 05/23/19 06:28 05/23/19 06:28 - ....Imaging EKG: Report Reviewed (Tele: NSR) Problem List - Problems (1) Hypertensive heart disease Code(s): I11.9 - HYPERTENSIVE HEART DISEASE WITHOUT HEART FAILURE Qualifiers: Heart failure presence: without heart failure Qualified Code(s): I11.9 - Hypertensive heart disease without heart failure (2) COPD with acute exacerbation Code(s): J44.1 - CHRONIC OBSTRUCTIVE PULMONARY DISEASE W (ACUTE) EXACERBATION (3) Hyperlipidemia Code(s): E78.5 - HYPERLIPIDEMIA, UNSPECIFIED Qualifiers: Hyperlipidemia type: pure hypercholesterolemia Qualified Code(s): E78.00 - Pure hypercholesterolemia, unspecified; E78.0 - Pure hypercholesterolemia (4) JEANNIE (obstructive sleep apnea) Code(s): G47.33 - OBSTRUCTIVE SLEEP APNEA (ADULT) (PEDIATRIC) Assessment/Plan 1. Acute COPD Exacerbation resolving 2. LV Diastolic Dysfunction and Pulmonary HTN 3. Probable CAD, angina pectoris 4. HTN with improved BP control 5. DM 6. Hypercholesterolemia 7. Acute on Chronic kidney disease improving 8. Anemia 9. OSAS on CPAP 10. Hyperkalemia resolved PLAN: 1. Oral steroid taper, bronchodilator, CPAP 11 cm H20 nightly and O2 as needed to keep SpO2 >90% 2. Continue Labetalol 200 mg TID titrate dosage, Lasiix 40 qd and Cozaar 50 mg QD titrate dose accordingly 3. Continue Procardia XL 60 mg bid and hydralazine 25 tid 4. Continue Cardura 6 mg QD 5. Continue Lipitor 40 mg QHS 6. D/c planning with f/u in office
--- NOTE | 2019-05-23 12:55 | PN ---
Teaching Attending Note Name of Resident: Kyle Manuel ATTENDING PHYSICIAN STATEMENT I saw and evaluated the patient. I reviewed the resident's note and discussed the case with the resident. I agree with the resident's findings and plan as documented. SUBJECTIVE: no fever or chills. No CP , no SOB OBJECTIVE: NAD, awake, alert, cooperative. CV: RRR, RUSB with radiation to carotids. Lungs: no wheezing. no crackles. Ext: no edema ASSESSMENT AND PLAN: 73 y/o lady with h/o COPD, CKD, HTN, DM, and other medical problems who presented with SOB and cough. 1- Acute COPD exacerbation. improved. cont prednisone taper after dc. has CPAP at home f/u with Dr. Baltazar at id add symbicort at dc 2- HTN urgency:resolved. BP is better controlled -cont nifedipine at 60 BID - cont HZN TID - cont doxazosin , losartan and Labetalol 3- DM: - cont her home regimen at id 4- CKD: stable. f/u with her assistant technician Dr. Gomez. id home today .
--- NOTE | 2019-05-23 13:14 | DS ---
Physical Exam: SUBJECTIVE: Patient seen and examined at bedside. There were no acute events overnight. This AM he offers no new complaints. OBJECTIVE: Vital Signs Period Temp Pulse Resp BP Sys/Arthur Pulse Ox Last 24 Hr 97.6 F-98.9 F 55-68 16-18 137-170/48-67 93-98 PHYSICAL EXAM GENERAL: AOx3, in no acute distress HEAD: NCAT EYES: CYNTHIA, EOMI, conjunctiva clear. ENT: Ears normal, nares patent, oropharynx clear without exudates. Moist mucous membranes. NECK: Normal range of motion, supple without lymphadenopathy, JVD, or masses. LUNGS: CTAB but diminished at the bases, no wheezing. No accessory muscle use. HEART: RRR s1 s2, 3/6 systolic murmur at RUSB with radiation to carotids. LEFT neck vein distention. ABDOMEN: Soft, BS present in all 4 quadrants, non-distended, no JVD, MUSCULOSKELETAL: No bony deformities or tenderness. No CVA tenderness. UPPER EXTREMITIES: 2+ pulses, warm, well-perfused. No cyanosis. No clubbing. No peripheral edema. LOWER EXTREMITIES: 2+ pulses, warm, well-perfused. No calf tenderness. 1+ non- pitting peripheral edema BL. NEUROLOGICAL: No focal deficits. Cranial nerves II-XII intact. Normal speech. Gait not appreciated. PSYCHIATRIC: Cooperative. Good eye contact. Appropriate mood and affect. SKIN: Warm, dry, normal turgor, no rashes or lesions noted, normal capillary refill. LABS 05/22/19 05/22/19 05/23/19 16:28 20:12 05:45 WBC RBC Hgb Hct MCV MCH MCHC RDW Plt Count MPV Sodium Potassium Chloride Carbon Dioxide Anion Gap BUN Creatinine Est GFR (CKD-EPI)AfAm Est GFR (CKD-EPI)NonAf POC Glucometer 133 242 113 Random Glucose Calcium Total Bilirubin AST ALT Alkaline Phosphatase Total Protein Albumin 05/23/19 05/23/19 05/23/19 06:28 06:28 11:55 WBC 11.8 H RBC 3.82 Hgb 9.7 L Hct 29.8 L MCV 78.0 L MCH 25.5 L MCHC 32.7 RDW 16.1 H Plt Count 164 MPV 8.8 D Sodium 149 H Potassium 4.3 Chloride 115 H Carbon Dioxide 30 Anion Gap 4 L BUN 50.6 H Creatinine 1.8 H Est GFR (CKD-EPI)AfAm 31.36 Est GFR (CKD-EPI)NonAf 27.06 POC Glucometer 237 Random Glucose 97 Calcium 8.7 Total Bilirubin 0.4 AST 5 L ALT 25 Alkaline Phosphatase 60 Total Protein 5.3 L Albumin 2.7 L HOSPITAL COURSE: Date of Admission:05/13/19 73 y/o female PMH HTN, insulin treated DM, CKD III, COPD, c/o with SOB and cough and admitted for acute respiratory failure 2/2 acute COPD exacerbation in the setting of chronic bronchitis (never smoker). She is known to Dr. Baltazar's service. She responded well and was dc home on steroid taper, symbicort, and CPAP HS. Her stay was notable for poorly controlled BP and her new regimen in cludes Hydralazine 25 mg TID, Nifedipine 60 mg PO BID, Doxazosin 6 mg PO qd, labetalol 200 mg PO TID, Losartan 50 mg PO qd. CKD III treated with lasix po 40 mg qd ad and she was aadvised to f/u w Dr. Mary Kate Fuentes. DM home Tresiba 22 units HS held and here she received levemir 20 u in the AM with ISS ACHS. She was dc home. Date of Discharge: 05/23/19 Kyle Manuel MD Minutes to complete discharge: 40 Discharge Summary Problems reviewed: Yes Reason For Visit: ACUTE KIDNEY INJURY, SOB,CRONIC OBSTRUCTIVE PULMON Current Active Problems CKD (chronic kidney disease) stage 3, GFR 30-59 ml/min (Chronic) COPD (chronic obstructive pulmonary disease) (Chronic) Hyperlipidemia (Chronic) Hypertensive heart disease (Chronic) JEANNIE (obstructive sleep apnea) (Chronic) Condition: Stable - Instructions Diet, Activity, Other Instructions: YOUR VISIT You came to the hospital because you were feeling short of breath. You were admitted to the hospital for care of acute worsening of COPD and chronic bronchitis. While here you were seen by pulmonology, cardiology, and nephrology. You are now stable and may return home. MEDICATIONS Please continue to take your medications as prescribed. New medication - Symbicort 1 puff by mouth twice a day (once in the morning, and once at night) Medication changes: - Hydralazine 25 mg by mouth three times a day - Labetolol 200 mg by mouth three times a day - Nifedepine 60 mg by mouth twice a day (once in the morning, and once at night) - Doxazosin 6 mg by mouth everydayin AM - Losartan 50 mg by mouth everyday in AM - Your Lasix was changed to 40mg daily. STOP TAKING: - Clonidine Since you were receiving steroid medications in the hospital, you will need to continue this at home with a tapered dose as follows: May 24, 2019 prednisone 30 mg by mouth May 25, 2019 prednisone 30 mg by mouth May 26, 2019 prednisone 30 mg by mouth May 27, 2019 prednisone 20 mg by mouth May 28, 2019 prednisone 20 mg by mouth May 29, 2019 prednisone 20 mg by mouth May 30, 2019 prednisone 10 mg by mouth May 31, 2019 prednisone 10 mg by mouth June 01, 2019 prednisone 10 mg by mouth June 02, 2019 STOP taking prednisone ADDITIONAL CARE Please make an appointment to see a primary care provider 1 week from today. If you prefer, you can be seen at the [facility] clinic located at [address] [place] [address]. Please call to make an appointment. If you would like to continue seeing Dr. Kyle Manuel, please ask for a Monday morning appointment. Please make an appointment to see a access tech in 1 week. A referral has to Dr. Patterson has been provided. Please make an appointment to see a traveler changer in 1 week. A referral has to Dr. Baldwin has been provided. Please make an appointment to see a heat sealing machine operator in 2 weeks. A referral has to Dr. Fuentes has been provided. ADDITIONAL INFORMATION Please call [phone] or come directly to the emergency department if you experience unusual headache, vision change, shortness of breath, chest pain, numbness, tingling, loss of alertness/awareness, loss of function, unusual bleeding or any alarming symptoms. continue to use your CPAP macine every night Referrals: Jean Claude Fuentes MD [Staff Physician] - 2 Weeks Jean Claude Baltazar MD [Primary Care Provider] - 1 Week Phillip Patterson MD [Staff Physician] - 1 Week Disposition: HOME - Home Medications Comprehensive Discharge Medication List: Ambulatory Orders Folic Acid 1 mg PO DAILY 05/11/11 Atorvastatin Ca [Lipitor] 40 mg PO HS 02/23/15 Insulin Aspart [Novolog] See Protocol SQ AC 05/13/19 Insulin Degludec [Tresiba Flextouch U-200] 22 units SQ DAILY 05/13/19 Albuterol 2.5/Ipratropium 0.5 [Duoneb -] 1 amp NEB BID PRN 30 Days #1 box 05/21/19 Albuterol Sulfate Inhaler - [Ventolin HFA Inhaler -] 1 puff IH BID PRN 30 Days #1 inhaler 05/21/19 Doxazosin Mesylate [Cardura -] 6 mg PO DAILY 30 Days #90 tablet 05/21/19 Labetalol HCl [Normodyne -] 200 mg PO TID 30 Days #90 tablet 05/21/19 Losartan Potassium 50 mg PO DAILY 30 Days #30 tablet 05/21/19 Nebulizer and Compressor [Easy Air Compressor Nebulizer] 1 each MC ASDIR PRN 30 Days #1 each 05/21/19 Budesonide/Formeterol Fumarate [SYMBICORT 80/4.5mcg -] 1 inh PO BID 05/23/19 Furosemide [Lasix] 40 mg PO DAILY 30 Days #30 tablet 05/23/19 Hydralazine HCl 25 mg PO TID 30 Days #90 tablet 05/23/19 Nifedipine ER [Procardia XL -] 60 mg PO Q12H 30 Days #60 tab.er.24 05/23/19 predniSONE [Deltasone -] 10 mg PO ASDIR #18 tab 05/23/19 This patient is new to me today: No Emergency Visit: No Critical Care patient: No - Discharge Referral Referred to [facility] No ATTENDING PHYSICIAN STATEMENT I saw and evaluated the patient. I reviewed the resident's note and discussed the case with the resident. I agree with the resident's findings and plan as documented. SUBJECTIVE: OBJECTIVE: ASSESSMENT AND PLAN:
--- NOTE | 2019-05-23 15:00 | PN ---
Progress Note, Physician History of Present Illness: Pt seen and examined at bedside. She is awake and alert. She denies shortness of breath. - Current Medication List Current Medications: Active Medications Albuterol Sulfate (Ventolin 0.083% Nebulizer Soln -) 1 amp NEB RQ4H PRN PRN Reason: SHORT OF BREATH/WHEEZING Albuterol/Ipratropium (Duoneb -) 1 amp NEB RQID [facility] Last Admin: 05/23/19 11:35 Dose: Not Given Atorvastatin Calcium (Lipitor -) 40 mg PO HS [facility] Last Admin: 05/22/19 21:09 Dose: 40 mg Benzocaine/Menthol (Cepacol Lozenge -) 1 each MM PRN PRN PRN Reason: SORE THROAT Last Admin: 05/18/19 21:54 Dose: 1 each Docusate Sodium (Colace -) 100 mg PO BID [facility] Last Admin: 05/23/19 09:24 Dose: 100 mg Doxazosin Mesylate (Cardura -) 6 mg PO DAILY [facility] Last Admin: 05/23/19 09:25 Dose: 6 mg Folic Acid (Folic Acid -) 1 mg PO DAILY [facility] Last Admin: 05/23/19 09:24 Dose: 1 mg Furosemide (Lasix -) 40 mg PO DAILY [facility] Last Admin: 05/22/19 10:10 Dose: 40 mg Heparin Sodium (Porcine) (Heparin -) 5,000 unit SQ TID [facility] Last Admin: 05/23/19 13:20 Dose: 5,000 unit Hydralazine HCl (Apresoline -) 25 mg PO TID [facility] Last Admin: 05/23/19 13:21 Dose: 25 mg Insulin Aspart (Novolog Vial Sliding Scale -) 1 vial SQ ACHS [facility]; Protocol Last Admin: 05/23/19 11:57 Dose: 4 units Insulin Detemir (Levemir Vial) 25 units SQ AM [facility] Last Admin: 05/23/19 06:23 Dose: 25 unit Labetalol HCl (Normodyne -) 200 mg PO TID [facility] Last Admin: 05/23/19 13:21 Dose: 200 mg Losartan Potassium (Cozaar -) 50 mg PO DAILY [facility] Last Admin: 05/23/19 09:24 Dose: 50 mg Nifedipine (Procardia Xl -) 60 mg PO BID [facility] Last Admin: 05/23/19 09:24 Dose: 60 mg Pantoprazole Sodium (Protonix -) 40 mg PO DAILY [facility] Last Admin: 05/23/19 09:25 Dose: 40 mg Prednisone (Deltasone -) 40 mg PO DAILY [facility] Last Admin: 05/23/19 09:23 Dose: 40 mg Senna (Senna -) 1 tab PO [facility] Last Admin: 05/22/19 21:09 Dose: 1 tab - Objective Vital Signs: Vital Signs Temperature 98.8 F 05/23/19 14:03 Pulse Rate 55 L 05/23/19 14:03 Respiratory Rate 16 05/23/19 14:03 Blood Pressure 128/51 L 05/23/19 14:03 O2 Sat by Pulse Oximetry (%) 96 05/23/19 09:00 Constitutional: Yes: Calm Eyes: Yes: Conjunctiva Clear HENT: Yes: Atraumatic Cardiovascular: Yes: S1, S2 Respiratory: Yes: CTA Bilaterally Gastrointestinal: Yes: Soft Genitourinary: Yes: WNL Musculoskeletal: Yes: WNL Edema: No Neurological: Yes: Oriented Psychiatric: Yes: Oriented Labs: CBC, BMP 05/23/19 06:28 05/23/19 06:28 Assessment/Plan Current Medications Generic Name Dose Route Start Last Admin Trade Name Freq PRN Reason Stop Dose Admin Albuterol Sulfate 1 amp 05/17/19 02:33 Ventolin 0.083% Nebulizer Soln - NEB RQ4H PRN SHORT OF BREATH/WHEEZING Albuterol/Ipratropium 1 amp 05/14/19 20:00 05/23/19 11:35 Duoneb - NEB Not Given RQID [facility] Atorvastatin Calcium 40 mg 05/13/19 22:00 05/22/19 21:09 Lipitor - PO 40 mg HS [facility] Administration Benzocaine/Menthol 1 each 05/15/19 09:22 05/18/19 21:54 Cepacol Lozenge - MM 1 each PRN PRN Administration SORE THROAT Docusate Sodium 100 mg 05/14/19 23:00 05/23/19 09:24 Colace - PO 100 mg BID [facility] Administration Doxazosin Mesylate 6 mg 05/14/19 10:00 05/23/19 09:25 Cardura - PO 6 mg DAILY [facility] Administration Folic Acid 1 mg 05/14/19 10:00 05/23/19 09:24 Folic Acid - PO 1 mg DAILY [facility] Administration Furosemide 40 mg 05/18/19 10:00 05/22/19 10:10 Lasix - PO 40 mg DAILY [facility] Administration Heparin Sodium (Porcine) 5,000 unit 05/13/19 22:00 05/23/19 13:20 Heparin - SQ 5,000 unit TID [facility] Administration Hydralazine HCl 25 mg 05/22/19 14:30 05/23/19 13:21 Apresoline - PO 25 mg TID [facility] Administration Insulin Aspart 1 vial 05/13/19 22:00 05/23/19 11:57 Novolog Vial Sliding Scale - SQ 4 units ACHS [facility] Administration Protocol Insulin Detemir 25 units 05/19/19 12:06 05/23/19 06:23 Levemir Vial SQ 25 unit AM [facility] Administration Labetalol HCl 200 mg 05/19/19 18:00 05/23/19 13:21 Normodyne - PO 200 mg TID [facility] Administration Losartan Potassium 50 mg 05/14/19 10:00 05/23/19 09:24 Cozaar - PO 50 mg DAILY [facility] Administration Nifedipine 60 mg 05/22/19 22:00 05/23/19 09:24 Procardia Xl - PO 60 mg BID [facility] Administration Pantoprazole Sodium 40 mg 05/20/19 10:00 05/23/19 09:25 Protonix - PO 40 mg DAILY [facility] Administration Prednisone 40 mg 05/20/19 12:00 05/23/19 09:23 Deltasone - PO 40 mg DAILY [facility] Administration Senna 1 tab 05/15/19 22:00 05/22/19 21:09 Senna - PO 1 tab HS [facility] Administration Impression 1. CKD 2. HTN 3. copd 4. chf 5. DM 6. hyperkalemia Plan - hold lasix today - sodium rising - bp is improved - steroid taper as tolerated - will need outpt follow up with Dr Gomez
[2019-05-23 18:08] VITALS: BP 139/51; PULSE 54; TEMP 98.3
== END 2019-05-23 18:26 | disposition home or self-care (01) | DRG 190 ==
LOC: JER 15:32 → JERBED 19:15 → J4S 05-14 08:30
PROVIDERS: ADMIT Internal Medicine; ATTEND Internal Medicine
PROC: 5A09357 Assistance with Respiratory Ventilation, Less than 24 Consecutive Hours, Continuous Positive Airway Pressure (ICD-10-PCS; principal; 2019-05-13)
DX: J44.1 Chronic obstructive pulmonary disease with (acute) exacerbation (principal); J96.01 Acute respiratory failure with hypoxia; I13.0 Hypertensive heart and chronic kidney disease with heart failure and stage 1 through stage 4 chronic kidney disease, or unspecified chronic kidney disease; I50.32 Chronic diastolic (congestive) heart failure; N17.9 Acute kidney failure, unspecified; E11.319 Type 2 diabetes mellitus with unspecified diabetic retinopathy without macular edema; N18.3 Chronic kidney disease, stage 3 (moderate); E78.5 Hyperlipidemia, unspecified; I16.0 Hypertensive urgency; D64.9 Anemia, unspecified; E11.22 Type 2 diabetes mellitus with diabetic chronic kidney disease; E11.65 Type 2 diabetes mellitus with hyperglycemia
CPT/HCPCS: 36415; 71045-TC-FY; 76775-TC; 80053; 81003; 82272; 82550; 82553; 82803; 82962; 83540; 83550; 83735; 83880; 84443; 84484; 85025; 85027; 85730; 87804; 93005; 93010; 93306-TC; 94640; 94660; 94761; 97116-GP; 97161-GP; 99285-25; J0735; J1644; J7030

== ENCOUNTER 2019-05-31 15:02 | Inpatient (IN) | payer OTHER ==
[2019-05-31] MEDS ORDERED: DEXAMETHASONE SOD PHOSPHATE 10 MG/1 ML VIAL IVPUSH ONE (15:32)
--- NOTE | 2019-05-31 15:33 | PDOC ---
History of Present Illness - General Chief Complaint: Respiratory Stated Complaint: SHORTNESS OF BREATH WHEEZE Time Seen by Provider: 05/31/19 15:06 History Source: Patient Exam Limitations: No Limitations - History of Present Illness Initial Comments: 73 yo F history HTN, DM, CHF, COPD presents from Dr. Fuentes's office with severe SOB. She has had multiple admissions in the last 6 months, both in this system and at [facility]. She was found to have significant wheezing with poor air movement in Dr. Fuentes's office with drops in her O2Sat to 90% with ambulation. +Hacking cough, +ROGEL. She followed up with Dr. Baltazar earlier this week, has been on prednisone 10 mg daily. Past History - Past Medical History Allergies/Adverse Reactions: Allergies Allergy/AdvReac Type Severity Reaction Status Date / Time No Known Allergies Allergy Verified 05/31/19 15:04 Home Medications: Ambulatory Orders Doxazosin Mesylate 6 mg PO DAILY 05/31/19 Hydralazine HCl 25 mg PO TID 05/31/19 Insulin Aspart [Novolog] 5 unit SQ ASDIR 05/31/19 Insulin Degludec [Tresiba Flextouch U-200] 22 units SQ AM 05/31/19 Ipratropium/Albuterol Sulfate [Iprat-Albut 0.5-3(2.5) mg/3 ml] 3 ml IH BID 05/31 Losartan Potassium 50 mg PO DAILY 05/31/19 Nebivolol [Bystolic -] 5 mg PO DAILY 05/31/19 Nifedipine ER [Procardia Xl -] 60 mg PO BID 05/31/19 Prednisone 10 mg PO DAILY 05/31/19 Torsemide 20 mg PO DAILY 05/31/19 Umeclidinium [place] [Incruse Ellipta] 62.5 mcg IH DAILY 05/31/19 Cancer: No CVA: No COPD: Yes (BRONCHITIS) Diabetes: Yes HTN: Yes Hypercholesterolemia: Yes Liver Disease: Yes (CKD STAGE IIIb) Other medical history: HERNIA,ARTHRITIS - Surgical History Abdominal Surgery: (hernai repair) - Immunization History Immunization Up to Date: No - Psycho Social/Smoking Cessation Hx Smoking Status: No Smoking History: Never smoked Have you smoked in the past 12 months: No Number of Cigarettes Smoked Daily: 0 Information on smoking cessation initiated: No Hx Alcohol Use: No Drug/Substance Use Hx: No Substance Use Type: None Hx Substance Use Treatment: No Review of Systems - Review of Systems Able to Perform ROS?: Yes Comments:: GENERAL/CONSTITUTIONAL: No fever or chills. No weakness. HEAD, EYES, EARS, NOSE AND THROAT: No change in vision. No ear pain or discharge. No sore throat. CARDIOVASCULAR: No chest pain. +Shortness of breath. RESPIRATORY: +Cough and wheezing. No hemoptysis. GASTROINTESTINAL: No nausea, vomiting, diarrhea or constipation. GENITOURINARY: No dysuria, frequency, or change in urination. MUSCULOSKELETAL: No joint or muscle swelling or pain. No neck or back pain. SKIN: No rash. NEUROLOGIC: No headache, vertigo, loss of consciousness, or change in strength/ sensation. ENDOCRINE: No increased thirst. No abnormal weight change. HEMATOLOGIC/LYMPHATIC: No anemia, easy bleeding, or history of blood clots. ALLERGIC/IMMUNOLOGIC: No hives or skin allergy. *Physical Exam - Vital Signs Last Vital Signs Temp Pulse Resp BP Pulse Ox 97.9 F 62 20 151/49 L 98 05/31/19 15:04 05/31/19 15:04 05/31/19 15:04 05/31/19 15:04 05/31/19 15:04 - Physical Exam GENERAL: Awake, alert, and fully oriented, in no acute distress HEAD: No signs of trauma EYES: PERRLA, EOMI, sclera anicteric, conjunctiva clear ENT: Auricles normal inspection, hearing grossly normal, nares patent, oropharynx clear without exudates. Moist mucosa NECK: Normal ROM, supple, no lymphadenopathy, JVD, or masses LUNGS: +Qudible wheezes (without stethoscope). Poor air entry with faint exp wheezes B/L to auscultation. Intermittent hacking cough HEART: Regular rate and rhythm, normal S1 and S2, no murmurs, rubs or gallops ABDOMEN: Soft, nontender, normoactive bowel sounds. No guarding, no rebound. No masses EXTREMITIES: Normal range of motion, no edema. No clubbing or cyanosis. No cords, erythema, or tenderness NEUROLOGICAL: Cranial nerves II through XII grossly intact. Normal speech, normal gait. Motor and sensation intact SKIN: Warm, dry, normal turgor, no rashes or lesions noted. ED Treatment Course - LABORATORY CBC & Chemistry Diagram: 05/31/19 15:35 05/31/19 17:27 Medical Decision Making - Medical Decision Making 05/31/19 18:32 Late entry. Patient with COPD exacerbation, acute bronchitis, persistent from prior hospital admission. I have given rocephin, as she was previously given azithro. Avoiding levaquin in light of CKD with LETTY. She was also given nebs and steroids, still with poor air movement, but able to speak full sentences. Case d/w Dr. Lopez. I have given sodium bicarb, albuterol, insulin, D50, and calcium gluconate. Will give lokelma as per his recommendation. Also recommended AM magnesium level to f/u, will endorse to hospitalist. 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 Discharge - Discharge Information Problems reviewed: Yes Clinical Impression/Diagnosis: Hyperkalemia, CKD (chronic kidney disease) stage 3, GFR 30-59 ml/min COPD (chronic obstructive pulmonary disease) Qualifiers: COPD type: unspecified COPD Qualified Code(s): J44.9 - Chronic obstructive pulmonary disease, unspecified Condition: Stable - Admission Yes - Follow up/Referral Referrals: Jean Claude Fuentes MD [Primary Care Provider] - - Patient Discharge Instructions - Post Discharge Activity
[2019-05-31] MEDS ORDERED: ALBUTEROL SO4 2.5/IPRATROPIUM 0.5 INH SOL 3 ML VIAL.NEB. NEB ONE (15:53)
[2019-05-31] MEDS ORDERED: DEXAMETHASONE SOD PHOSPHATE 10 MG/1 ML VIAL ONE (15:53)
[2019-05-31] MEDS: ALBUTEROL SO4 2.5/IPRATROPIUM 0.5 INH SOL 3 ML VIAL.NEB. NEB SCH ×4 (15:58→16:59)
[2019-05-31 16:27] LABS: ALBUMIN 3.3 g/dl (3.4-5.0); BILIRUBIN,TOTAL 0.4 mg/dl (0.2-1); CALCIUM 8.6 mg/dl (8.5-10); CREATININE 2.1 mg/dl (0.55-1.3); POTASSIUM 5.9 mmol/L (3.5-5.1); TOT PROT 5.7 g/dl (6.4-8.2)
[2019-05-31 16:43] LABS: HEMOGLOBIN 10.4 GM/dl (10.7-15.3); MEAN PLT VOLUME 9.8 fl (7.5-11.1)
[2019-05-31 16:50] LABS: HEMATOCRIT 31.7 % (32.4-45.2); MCHC 32.7 g/dl (32.0-36.0); MEAN CELL VOLUME 79.6 fl (80-96); PLATELET COUNT 135 K/MM3 (134-434); RBC 3.98 M/mm3 (3.60-5.2); WHITE BLOOD COUNT 9.8 K/mm3 (4.0-10.8)
[2019-05-31] MEDS ORDERED: CEFTRIAXONE 1 GM in DEXTROSE 5%-WATER - 50 ML IVPB ONE (17:39)
[2019-05-31] MEDS ORDERED: AZITHROMYCIN IVPB 500 MG in DEXTROSE 5%-WATER - 250 ML IVPB ONE (17:40)
[2019-05-31] MEDS ORDERED: AZITHROMYCIN 500 MG VIAL IVPB ONE (17:57)
[2019-05-31] MEDS ORDERED: cefTRIAXone SODIUM 1 GM VIAL ONE (17:57)
[2019-05-31] MEDS ORDERED: DEXTROSE 50%-WATER - 25 GM/50 ML VIAL IVPUSH ONE (18:03)
[2019-05-31] MEDS ORDERED: INSULIN REGULAR HUMAN 100 UNITS/ML *VIAL SQ ONE (18:03)
[2019-05-31] MEDS ORDERED: SODIUM BICARBONATE 8.4% 50 MEQ/50 ML DISP.SYRIN IVPUSH ONE (18:03)
[2019-05-31] MEDS ORDERED: CALCIUM GLUCONATE 10% - 1,000 MG/10 ML VIAL IVPB ONE (18:19)
[2019-05-31 18:35] LABS: PLATELET ESTIMATE SLT DECREASE
[2019-05-31] MEDS ORDERED: SODIUM ZIRCONIUM CYCLOSILICATE (LOKELMA) 5 GM PACKET ONE (18:46)
[2019-05-31] MEDS ORDERED: CALCIUM GLUCONATE 10% - 1,000 MG/10 ML VIAL ONE (18:46)
[2019-05-31] MEDS: SODIUM ZIRCONIUM CYCLOSILICATE (LOKELMA) 5 GM PACKET PO SCH (19:02)
[2019-05-31] MEDS ORDERED: SODIUM BICARBONATE 8.4% 50 MEQ/50 ML VIAL ONE (19:12)
[2019-05-31] MEDS ORDERED: INSULIN REGULAR HUMAN 100 UNITS/ML *VIAL ONE (19:13)
--- NOTE | 2019-05-31 19:26 | HP ---
CHIEF COMPLAINT: PCP:Dr. Fuentes HISTORY OF PRESENT ILLNESS: 73 year old female with past medical history of hypertension, diabetes mellitus , diastolic congestive heart failure, EF >65%, and COPD who presented from Dr. Fuentes's office with severe SOB. She has had multiple admissions in the last 6 months for acute bronchitis and treated with IV azithromycin, steroids and duonebs. She was found to have significant wheezing with poor air movement in Dr. Fuentes's office with drops in her O2Sat to 90% with ambulation, hacking nonproductive cough, and dyspena on exertion. She followed up with Dr. Baltazar earlier this week and she has been placed on prednisone 10 mg daily. ER course was notable for: (1)COPD Exacerbation, sarted on IV rocephin (2) Hyperkalemia- got IV calcium gluconate, sodium bicarb, D50 , insulin and Lokilma (3) LETTY on CKD (4) Elevated BNP Recent Travel: no PAST MEDICAL HISTORY: Hypertension Diabetes Mellitus CHF COPD PAST SURGICAL HISTORY: no Social History: Smoking:no Alcohol:no Drugs: no Allergies No Known Allergies Allergy (Verified 05/31/19 15:04) HOME MEDICATIONS: Home Medications Medication Instructions Recorded Doxazosin Mesylate 6 mg PO DAILY 05/31/19 Hydralazine HCl 25 mg PO TID 05/31/19 Insulin Aspart [Novolog] 5 unit SQ ASDIR 05/31/19 Insulin Degludec [Tresiba 22 units SQ AM 05/31/19 Flextouch U-200] Ipratropium/Albuterol Sulfate 3 ml IH BID 05/31/19 [Iprat-Albut 0.5-3(2.5) mg/3 ml] Losartan Potassium 50 mg PO DAILY 05/31/19 Nebivolol [Bystolic -] 5 mg PO DAILY 05/31/19 Nifedipine ER [Procardia Xl -] 60 mg PO BID 05/31/19 Prednisone 10 mg PO DAILY 05/31/19 Torsemide 20 mg PO DAILY 05/31/19 Umeclidinium [place] [Incruse 62.5 mcg IH DAILY 05/31/19 Ellipta] REVIEW OF SYSTEMS CONSTITUTIONAL: Absent: fever, chills, diaphoresis, generalized weakness, malaise, loss of appetite, weight change HEENT: Absent: rhinorrhea, nasal congestion, throat pain, throat swelling, difficulty swallowing, mouth swelling, ear pain, eye pain, visual changes CARDIOVASCULAR: Absent: chest pain, syncope, palpitations, irregular heart rate, lightheadedness , peripheral edema RESPIRATORY: Absent: cough, shortness of breath, dyspnea with exertion, orthopnea, wheezing, stridor, hemoptysis GASTROINTESTINAL: Absent: abdominal pain, abdominal distension, nausea, vomiting, diarrhea, constipation, melena, hematochezia GENITOURINARY: Absent: dysuria, frequency, urgency, hesitancy, hematuria, flank pain, genital pain MUSCULOSKELETAL: Absent: myalgia, arthralgia, joint swelling, back pain, neck pain SKIN: Absent: rash, itching, pallor HEMATOLOGIC/IMMUNOLOGIC: Absent: easy bleeding, easy bruising, lymphadenopathy, frequent infections ENDOCRINE: Absent: unexplained weight gain, unexplained weight loss, heat intolerance, cold intolerance NEUROLOGIC: Absent: headache, focal weakness or paresthesias, dizziness, unsteady gait, seizure, mental status changes, bladder or bowel incontinence PSYCHIATRIC: Absent: anxiety, depression, suicidal or homicidal ideation, hallucinations. PHYSICAL EXAMINATION Vital Signs - 24 hr 05/31/19 15:04 Temperature 97.9 F Pulse Rate 62 Respiratory 20 Rate Blood Pressure 151/49 L O2 Sat by Pulse 98 Oximetry (%) GENERAL: awake alert and fully oriented no acute distress HEAD: normal EYES: pupils equal round and reactive to light EARS, NOSE, THROAT: ears normal nares patent oropharynx clear without exudates moist mucous membranes NECK: supple LUNGS: breath sounds diminished and coarse no wheezes or crackles auscultated no accessory muscle use HEART: regular rate and rhythm normal S1 and S2 ABDOMEN: soft nontender not distended normoactive bowel sounds MUSCULOSKELETAL: normal range of motion at all joints UPPER EXTREMITIES: 2+ pulses warm well-perfused no cyanosis LOWER EXTREMITIES: 2+ pulses warm well-perfused no pitting edema NEUROLOGICAL: normal speech no facial droop no grimace PSYCHIATRIC: cooperative good eye contact appropriate mood SKIN: warm dry normal turgor no rashes or lesions noted nail beds and lips pink Laboratory Results - last 24 hr 05/31/19 05/31/19 05/31/19 15:35 15:35 15:35 WBC 9.8 RBC 3.98 Hgb 10.4 L Hct 31.7 L MCV 79.6 L MCH 26.0 MCHC 32.7 RDW 16.0 H D Plt Count 135 MPV 9.8 Neutrophils % No Result Required. Neutrophils % (Manual) 95.0 H* Lymphocytes % No Result Required. Lymphocytes % (Manual) 3.0 L Monocytes % (Manual) 2 L Platelet Estimate Slt decrease Sodium 137 Potassium 5.9 H Chloride 102 Carbon Dioxide 27 Anion Gap 8 BUN 62.0 H Creatinine 2.1 H Est GFR (CKD-EPI)AfAm 26.03 Est GFR (CKD-EPI)NonAf 22.46 Random Glucose 288 H Calcium 8.6 Total Bilirubin 0.4 AST 16 ALT 22 Alkaline Phosphatase 64 B-Natriuretic Peptide 487.2 H Total Protein 5.7 L Albumin 3.3 L 05/31/19 17:27 WBC RBC Hgb Hct MCV MCH MCHC RDW Plt Count MPV Neutrophils % Neutrophils % (Manual) Lymphocytes % Lymphocytes % (Manual) Monocytes % (Manual) Platelet Estimate Sodium Potassium 6.3 H* Chloride Carbon Dioxide Anion Gap BUN Creatinine Est GFR (CKD-EPI)AfAm Est GFR (CKD-EPI)NonAf Random Glucose Calcium Total Bilirubin AST ALT Alkaline Phosphatase B-Natriuretic Peptide Total Protein Albumin ASSESSMENT/PLAN: Mrs. Das is a 73 year old female with past medical history of hypertension, diabetes mellitus, CHF, and COPD who presented from Dr. Fuentes's office with severe SOB with significant wheezing and hypoxia with ambulation. She had multiple recent hospitalziations for acute bronchitis. She was seen by Pulmonary and started on oral prednisone. She is being admitted to telemetry for management of acute on chronic COPD exacerbation, LETTY on CKD and hyperkalemia. 1. Acute on Chronic COPD Exacerbation afebrile, normal WBC, no acute respiratory distress Maintain oxygen saturation >90 Started on IV rocephin 1gm daily as previously was on azithromycin and with continued symptoms Continue with albuterol duonebs q6hr IV methylprednisolone 40mg q8hr Pulmonary consulted - Dr. Cruz 2. LETTY on CKD Creatinine 2.1 today (creatinine range 1.8-2.5) Arb placed on hold IVF at 60cc/hr for hydration Nephrology- Dr. Lopez consulted 3. Hyperkalemia Received Lokelma, calcium gluconate, sodium bicarbonate, insulin and D50 Repeat BMP stat ordered and pending Nephrology consulted Monitor on telemetry for ventricular ectopy 4. Hypertension SBP 150's Continue with hydralazine, torsemide and procardia Losartan placed on hold in setting of LETTY 5. Chronic Diastolic Congestive Heart Failure BNP 487, does not appear to be fluid overloaded on exam Echo 04/2019 EF 65% no significant valvular disease Continue with torsemide 6. NIDDM BGM insulin as per sliding scale ADA Check hgba1c FEN IVF NS at 60cc/hr monitor electrolytes closely with daily BMP's ADA DVT Prophylaxsis heparin 5000 units sq Visit type - Emergency Visit Emergency Visit: Yes Care time: The patient presented to the Emergency Department on the above date and was hospitalized for further evaluation of their emergent condition. - New Patient This patient is new to me today: Yes Date on this admission: 05/31/19 - Critical Care Critical Care patient: No
[2019-05-31] MEDS ORDERED: ALBUTEROL SO4 2.5/IPRATROPIUM 0.5 INH SOL 3 ML VIAL.NEB. NEB SCH (20:00)
[2019-05-31] MEDS ORDERED: ALBUTEROL SO4 0.083% IH SOL 2.5 MG/3 ML VIAL.NEB. NEB SCH (20:00)
[2019-05-31] MEDS ORDERED: methylPREDNISolone NA SUCC 40 MG/1 ML VIAL ONE (20:21)
[2019-05-31] MEDS: methylPREDNISolone NA SUCC 40 MG/1 ML VIAL IVPUSH SCH (20:29)
[2019-05-31] MEDS: SODIUM CHLORIDE 1,000 ML IV SCH (20:40)
[2019-05-31 20:47] LABS: CALCIUM 8.6 mg/dl (8.5-10); POTASSIUM 5.2 mmol/L (3.5-5.1)
[2019-05-31] MEDS: INSULIN SLIDING SCALE (NOVOLOG) 1 VIAL SQ SCH (20:58)
[2019-05-31] MEDS ORDERED: INSULIN (NOVOLOG) ASPART 100 UNITS/ML 10ML VIAL ONE (21:01)
[2019-05-31] MEDS: HEPARIN NA (PORCINE) 5,000 UNITS/ML 1ML VIAL SQ SCH (21:51)
[2019-05-31] MEDS: NIFEdipine E.R 60 MG TABLET PO SCH (21:51)
[2019-05-31] MEDS: hydrALAZINE HCL 25 MG TABLET (FP) PO SCH (21:51)
[2019-06-01] MEDS: methylPREDNISolone NA SUCC 40 MG/1 ML VIAL IVPUSH SCH ×3 (03:49→20:18)
[2019-06-01] MEDS: hydrALAZINE HCL 25 MG TABLET (FP) PO SCH ×3 (06:49→21:44)
[2019-06-01] MEDS: INSULIN SLIDING SCALE (NOVOLOG) 1 VIAL SQ SCH (06:50)
[2019-06-01] MEDS: ALBUTEROL SO4 2.5/IPRATROPIUM 0.5 INH SOL 3 ML VIAL.NEB. NEB SCH ×4 (08:18→20:18)
[2019-06-01] MEDS: HEPARIN NA (PORCINE) 5,000 UNITS/ML 1ML VIAL SQ SCH ×2 (09:19→21:44)
[2019-06-01] MEDS ORDERED: CEFTRIAXONE 1 GM in DEXTROSE 5%-WATER - 50 ML IVPB SCH (10:00)
[2019-06-01] MEDS: DOXAZOSIN MESYLATE 2 MG TABLET PO SCH (10:18)
[2019-06-01] MEDS: NEBIVOLOL 5 MG TABLET (FP) PO SCH (10:18)
[2019-06-01] MEDS: TORSEMIDE 20 MG TABLET (FP) PO SCH (10:18)
[2019-06-01] MEDS: SODIUM ZIRCONIUM CYCLOSILICATE (LOKELMA) 5 GM PACKET PO SCH (10:19)
[2019-06-01] MEDS: NIFEdipine E.R 60 MG TABLET PO SCH ×2 (10:20→21:44)
[2019-06-01] MEDS ORDERED: ALBUTEROL SO4 0.083% IH SOL 2.5 MG/3 ML VIAL.NEB. NEB PRN (15:43)
--- NOTE | 2019-06-01 15:50 | CON.PULM ---
Consult Consult Specialty:: PULM/CCM Referred by:: Hospitalist Reason for Consultation:: SOB - History of Present Illness Chief Complaint: SOB History of Present Illness: 73 F, HTN, DM, hyperlipidemia, COPD, JEANNIE on CPAP (severity and setting is not clear), and CKD. Recent prolonged admission for AE of COPD at [facility]. Patient reports that when she was discharged she was still wheezing although better than on initial presentation. 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 (+) nonproductive cough. No fever of chills. No hemoptysis. CXR: No acute process - History Source History Provided By: Patient Limitations to Obtaining History: No Limitations - Past Medical History Cardio/Vascular: Yes: HTN, Hyperlipdemia Pulmonary: Yes: Bronchitis, COPD, Pneumonia, Sleep Apnea. No: Cancer, O2 Dependent, Previously Intubated, Pulmonary Embolus, Pulmonary Fibrosis Renal/: Yes: Renal Inusuff ...LMP Comment: 73 YEARS OLD ...: No Endocrine: Yes: Diabetes Mellitus - Alcohol/Substance Use Hx Alcohol Use: No - Smoking History Smoking history: Never smoked Have you smoked in the past 12 months: No Aproximately how many cigarettes per day: 0 Home Medications - Allergies Allergies/Adverse Reactions: Allergies Allergy/AdvReac Type Severity Reaction Status Date / Time No Known Allergies Allergy Verified 05/31/19 15:04 - Home Medications Home Medications: Ambulatory Orders Doxazosin Mesylate 6 mg PO DAILY 05/31/19 Hydralazine HCl 25 mg PO TID 05/31/19 Insulin Aspart [Novolog] 5 unit SQ ASDIR 05/31/19 Insulin Degludec [Tresiba Flextouch U-200] 22 units SQ AM 05/31/19 Ipratropium/Albuterol Sulfate [Iprat-Albut 0.5-3(2.5) mg/3 ml] 3 ml IH BID 05/31 Losartan Potassium 50 mg PO DAILY 05/31/19 Nebivolol [Bystolic -] 5 mg PO DAILY 05/31/19 Nifedipine ER [Procardia Xl -] 60 mg PO BID 05/31/19 Prednisone 10 mg PO DAILY 05/31/19 Torsemide 20 mg PO DAILY 05/31/19 Umeclidinium [place] [Incruse Ellipta] 62.5 mcg IH DAILY 05/31/19 Review of Systems - Review of Systems Constitutional: reports: Malaise. denies: Chills, Fever, Night Sweats Eyes: reports: No Symptoms HENT: reports: No Symptoms Neck: reports: No Symptoms Cardiovascular: reports: Edema, Shortness of Breath. denies: Chest Pain, Palpitations Respiratory: reports: Cough, Snoring, SOB, SOB on Exertion, Wheezing. denies: Hemoptysis, Orthopnea, PND Gastrointestinal: reports: No Symptoms Genitourinary: reports: No Symptoms Breasts: reports: No Symptoms Reported Musculoskeletal: reports: No Symptoms Integumentary: reports: No Symptoms Neurological: reports: No Symptoms Endocrine: reports: No Symptoms Hematology/Lymphatic: reports: No Symptoms Psychiatric: reports: No Symptoms Physical Exam Vital Sings: Vital Signs Temperature 98.5 F 06/01/19 14:00 Pulse Rate 68 06/01/19 14:00 Respiratory Rate 18 06/01/19 14:00 Blood Pressure 143/46 L 06/01/19 14:00 O2 Sat by Pulse Oximetry (%) 98 06/01/19 14:00 Constitutional: Yes: No Distress, Calm Eyes: Yes: Conjunctiva Clear, EOM Intact HENT: Yes: Atraumatic, Normocephalic Neck: Yes: Supple, Trachea Midline Cardiovascular: Yes: Regular Rate and Rhythm Respiratory: Yes: Cough, Diminished, On Nasal O2, Rhonchi, SOB, SOB on Exertion , Tachypnea, Wheezes. No: Accessory Muscle Use, Rales, Stridor ...Inspection: Yes: WNL ...Clubbing: No Gastrointestinal: Yes: Normal Bowel Sounds, Soft, Abdomen, Obese Renal/: Yes: WNL Musculoskeletal: Yes: WNL Extremities: Yes: WNL Edema: Yes Peripheral Pulses WNL: Yes Integumentary: Yes: WNL Neurological: Yes: WNL, Alert, Oriented ...Motor Strength: WNL Psychiatric: Yes: WNL, Alert, Oriented Labs: CBC, BMP 05/31/19 15:35 05/31/19 20:25 Imaging - Results Chest X-ray: Report Reviewed, Image Reviewed Problem List - Problems (1) CKD (chronic kidney disease) stage 3, GFR 30-59 ml/min Code(s): N18.3 - CHRONIC KIDNEY DISEASE, STAGE 3 (MODERATE) (2) COPD (chronic obstructive pulmonary disease) Code(s): J44.9 - CHRONIC OBSTRUCTIVE PULMONARY DISEASE, UNSPECIFIED Qualifiers: COPD type: unspecified COPD Qualified Code(s): J44.9 - Chronic obstructive pulmonary disease, unspecified (3) Hyperlipidemia Code(s): E78.5 - HYPERLIPIDEMIA, UNSPECIFIED Qualifiers: Hyperlipidemia type: pure hypercholesterolemia Qualified Code(s): E78.00 - Pure hypercholesterolemia, unspecified; E78.0 - Pure hypercholesterolemia (4) Hypertensive heart disease Code(s): I11.9 - HYPERTENSIVE HEART DISEASE WITHOUT HEART FAILURE Qualifiers: Heart failure presence: without heart failure Qualified Code(s): I11.9 - Hypertensive heart disease without heart failure (5) JEANNIE (obstructive sleep apnea) Code(s): G47.33 - OBSTRUCTIVE SLEEP APNEA (ADULT) (PEDIATRIC) (6) Bronchitis, chronic Code(s): J42 - UNSPECIFIED CHRONIC BRONCHITIS Qualifiers: Chronic bronchitis type: unspecified Qualified Code(s): J42 - Unspecified chronic bronchitis (7) COPD with acute exacerbation Code(s): J44.1 - CHRONIC OBSTRUCTIVE PULMONARY DISEASE W (ACUTE) EXACERBATION (8) SOB (shortness of breath) Code(s): R06.02 - SHORTNESS OF BREATH Assessment/Plan IV Medrol BD TX standing and PRN Would monitor off ABX as CXR reveals no acute process and she recently received a course of ABX No smoking CPAP @ 11 cm ordered: QHS and PRN for increased WOB VTE prophylaxis No smoking counseled Will follow Thank you. Dr Bess
--- NOTE | 2019-06-01 16:23 | PN ---
Progress Note, Physician History of Present Illness: seen and examined at bedside. She endorses dry cough and wheezing. She denies fever chills chest pain. No urinary or GI symptoms. - Current Medication List Current Medications: Active Medications Albuterol Sulfate (Ventolin 0.083% Nebulizer Soln -) 1 amp NEB Q4H PRN PRN Reason: SHORT OF BREATH/WHEEZING Albuterol/Ipratropium (Duoneb -) 1 amp NEB RQID [facility] Last Admin: 06/01/19 12:23 Dose: 1 amp Doxazosin Mesylate (Cardura -) 6 mg PO DAILY [facility] Last Admin: 06/01/19 10:18 Dose: 6 mg Heparin Sodium (Porcine) (Heparin -) 5,000 unit SQ BID [facility] Last Admin: 06/01/19 09:19 Dose: 5,000 unit Hydralazine HCl (Apresoline -) 25 mg PO TID [facility] Last Admin: 06/01/19 06:49 Dose: 25 mg Sodium Chloride (Normal Saline -) 1,000 mls @ 60 mls/hr IV ASDIR [facility] Last Admin: 05/31/19 20:40 Dose: 60 mls/hr Insulin Aspart (Novolog Vial Sliding Scale -) 1 vial SQ BIDAC [facility]; Protocol Last Admin: 06/01/19 06:50 Dose: 4 units Methylprednisolone Sodium Succinate (Solu-Medrol -) 40 mg IVPUSH Q8H [facility] Last Admin: 06/01/19 12:20 Dose: 40 mg Nebivolol (Bystolic -) 5 mg PO DAILY [facility] Last Admin: 06/01/19 10:18 Dose: 5 mg Nifedipine (Procardia Xl -) 60 mg PO BID [facility] Last Admin: 06/01/19 10:20 Dose: 60 mg Sodium Zirconium Cyclosilicate (Lokelma) 10 gm PO DAILY [facility] Last Admin: 06/01/19 10:19 Dose: 10 gm Torsemide (Demadex -) 20 mg PO DAILY [facility] Last Admin: 06/01/19 10:18 Dose: 20 mg - Objective Vital Signs: Vital Signs Temperature 98.5 F 06/01/19 14:00 Pulse Rate 68 06/01/19 14:00 Respiratory Rate 18 06/01/19 14:00 Blood Pressure 143/46 L 06/01/19 14:00 O2 Sat by Pulse Oximetry (%) 98 06/01/19 14:00 Constitutional: Yes: Mild Distress Eyes: Yes: EOM Intact HENT: Yes: Atraumatic Neck: Yes: Supple Cardiovascular: Yes: Regular Rate and Rhythm Respiratory: Yes: Diminished, On Nasal O2, Poor Air Entry, Rhonchi, Wheezes, Other (prolonged expiratory phase) Gastrointestinal: Yes: WNL, Normal Bowel Sounds, Soft Edema: Yes Edema: LLE: 1+, RLE: 1+ Neurological: Yes: Alert, Oriented Psychiatric: Yes: Alert, Oriented Labs: CBC, BMP 05/31/19 15:35 05/31/19 20:25 - ....Imaging X-ray: Report Reviewed, Image Reviewed Impression/Plan Impression/Plan: 73F with past medical history of hypertension, diabetes mellitus, CHF, and COPD who presented from Dr. Fuentes's office with severe SOB with significant wheezing and hypoxia with ambulation. She had multiple recent hospitalizations for respiratory failure from COPD exacerbations and acute bronchitis. acute respiratory failure secondary to Acute on Chronic COPD Exacerbation and possible acute bronchitis afebrile, normal WBC, mild acute respiratory distress Maintain oxygen saturation >90 hold ABx Continue with bronchodilators/nebs IV methylprednisolone 40mg q8hr Pulmonary consult noted and appreciated CKD Creatinine 2.0 today seems to be at her baseline Arb placed on hold-will hold until seen by nephrology IVF at 60cc/hr for hydration Nephrology consult Hyperkalemia inn setting of CKD Received Lokelma, calcium gluconate, sodium bicarbonate, insulin and D50 Repeat BMP shows improved potassium Nephrology consulted Monitor on telemetry for ventricular ectopy-no events on telemetry torsemide should help lower potassium Will get BMP now as it was not done today Hypertension better controlled Continue with hydralazine, torsemide and procardia Losartan placed on hold in setting of hyperkalemia Chronic Diastolic Congestive Heart Failure BNP 487, Echo 04/2019 EF 65% no significant valvular disease Continue with torsemide NIDDM BGM insulin as per sliding scale ADA DVT Prophylaxsis heparin 5000 units sq Visit type - Emergency Visit Emergency Visit: Yes ED Registration Date: 05/31/19 Care time: The patient presented to the Emergency Department on the above date and was hospitalized for further evaluation of their emergent condition. - New Patient This patient is new to me today: Yes Date on this admission: 06/01/19 - Critical Care Critical Care patient: No
[2019-06-01] MEDS: SODIUM CHLORIDE 1,000 ML IV SCH (21:44)
[2019-06-01] MEDS ORDERED: INSULIN (NOVOLOG) ASPART 100 UNITS/ML 10ML VIAL SQ ONE (22:02)
[2019-06-01 22:16] LABS: CALCIUM 8.5 mg/dl (8.5-10); CREATININE 2.3 mg/dl (0.55-1.3); POTASSIUM 4.9 mmol/L (3.5-5.1)
[2019-06-02] MEDS: methylPREDNISolone NA SUCC 40 MG/1 ML VIAL IVPUSH SCH ×2 (03:01→21:03)
[2019-06-02] MEDS: INSULIN SLIDING SCALE (NOVOLOG) 1 VIAL SQ SCH ×3 (06:02→18:43)
[2019-06-02] MEDS: hydrALAZINE HCL 25 MG TABLET (FP) PO SCH ×3 (06:03→21:02)
[2019-06-02] MEDS: ALBUTEROL SO4 2.5/IPRATROPIUM 0.5 INH SOL 3 ML VIAL.NEB. NEB SCH ×4 (08:10→20:59)
[2019-06-02 08:40] LABS: ALBUMIN 2.9 g/dl (3.4-5.0); BILIRUBIN,TOTAL 0.4 mg/dl (0.2-1); CALCIUM 8.5 mg/dl (8.5-10); POTASSIUM 4.6 mmol/L (3.5-5.1); TOT PROT 5.1 g/dl (6.4-8.2)
[2019-06-02 08:43] LABS: BASO % 0.1 % (0-2.0); HEMOGLOBIN 9.3 GM/dl (10.7-15.3); LYMPH % 3.5 % (8-40); MCH 26.8 pg (25.7-33.7); MCHC 33.3 g/dl (32.0-36.0); MEAN CELL VOLUME 80.4 fl (80-96); MEAN PLT VOLUME 10.1 fl (7.5-11.1); MONO % 1.5 % (3.8-10.2); NEUT % 94.9 % (42.8-82.8); PLATELET COUNT 138 K/MM3 (134-434); RBC 3.48 M/mm3 (3.60-5.2); RDW 16.1 % (11.6-15.6); WHITE BLOOD COUNT 13.5 K/mm3 (4.0-10.8)
[2019-06-02] MEDS: TORSEMIDE 20 MG TABLET (FP) PO SCH (09:05)
[2019-06-02] MEDS: NEBIVOLOL 5 MG TABLET (FP) PO SCH (09:05)
[2019-06-02] MEDS: HEPARIN NA (PORCINE) 5,000 UNITS/ML 1ML VIAL SQ SCH ×2 (09:05→21:03)
[2019-06-02] MEDS: NIFEdipine E.R 60 MG TABLET PO SCH ×2 (09:05→21:01)
[2019-06-02] MEDS ORDERED: PT OWN MED DRAWER 7, Y5N ONE (09:07)
[2019-06-02] MEDS: SODIUM ZIRCONIUM CYCLOSILICATE (LOKELMA) 5 GM PACKET PO SCH (09:09)
[2019-06-02] MEDS: DOXAZOSIN MESYLATE 2 MG TABLET PO SCH (09:09)
[2019-06-02] MEDS: INSULIN (LEVEMIR) 100 UNITS/ML UNITS SQ SCH (11:10)
--- NOTE | 2019-06-02 11:11 | PN ---
Progress Note, Physician History of Present Illness: Patient seen and examined at bedside. She endorses dry cough and wheezing. She denies fever chills chest pain. No urinary or GI symptoms. Upon further questioning it seems as though the patient is close to her baseline. She is short of breath and wheezes "almost all the time". Creatinine 2.0 today which is at her baseline. hyperkalemia resolved. - Current Medication List Current Medications: Active Medications Albuterol Sulfate (Ventolin 0.083% Nebulizer Soln -) 1 amp NEB Q4H PRN PRN Reason: SHORT OF BREATH/WHEEZING Albuterol/Ipratropium (Duoneb -) 1 amp NEB RQID [facility] Last Admin: 06/02/19 08:10 Dose: 1 amp Doxazosin Mesylate (Cardura -) 6 mg PO DAILY [facility] Last Admin: 06/02/19 09:09 Dose: 6 mg Heparin Sodium (Porcine) (Heparin -) 5,000 unit SQ BID [facility] Last Admin: 06/02/19 09:05 Dose: 5,000 unit Hydralazine HCl (Apresoline -) 25 mg PO TID [facility] Last Admin: 06/02/19 06:03 Dose: 25 mg Sodium Chloride (Normal Saline -) 1,000 mls @ 60 mls/hr IV ASDIR [facility] Last Admin: 06/01/19 21:44 Dose: Not Given Insulin Aspart (Novolog Vial Sliding Scale -) 1 vial SQ TIDAC [facility]; Protocol Insulin Detemir (Levemir Vial) 20 units SQ 0700 [facility] Methylprednisolone Sodium Succinate (Solu-Medrol -) 40 mg IVPUSH BID [facility] Nebivolol (Bystolic -) 5 mg PO DAILY [facility] Last Admin: 06/02/19 09:05 Dose: 5 mg Nifedipine (Procardia Xl -) 60 mg PO BID [facility] Last Admin: 06/02/19 09:05 Dose: 60 mg Sodium Zirconium Cyclosilicate (Lokelma) 10 gm PO DAILY [facility] Last Admin: 06/02/19 09:09 Dose: 10 gm Torsemide (Demadex -) 20 mg PO DAILY [facility] Last Admin: 06/02/19 09:05 Dose: 20 mg - Objective Vital Signs: Vital Signs Temperature 97.9 F 06/02/19 09:39 Pulse Rate 74 06/02/19 09:39 Respiratory Rate 20 06/02/19 09:39 Blood Pressure 135/43 L 06/02/19 09:39 O2 Sat by Pulse Oximetry (%) 100 06/02/19 09:39 Constitutional: Yes: no distress Eyes: Yes: EOM Intact HENT: Yes: Atraumatic Neck: Yes: Supple Cardiovascular: Yes: Regular Rate and Rhythm Respiratory: Yes: Diminished, Poor Air Entry Right is worse than left, Rhonchi and Wheezing worse on left than right, Other (prolonged expiratory phase) Gastrointestinal: Yes: WNL, Normal Bowel Sounds, Soft Edema: Yes Edema: LLE: trace, RLE: trace Neurological: Yes: Alert, Oriented Psychiatric: Yes: Alert, Oriented Labs: CBC, BMP 06/02/19 06:00 06/02/19 06:00 Impression/Plan Impression/Plan: 73F with past medical history of hypertension, diabetes mellitus, CHF, and COPD who presented from Dr. Fuentes's office with severe SOB with significant wheezing and hypoxia with ambulation. She had multiple recent hospitalizations for respiratory failure from COPD exacerbations and acute bronchitis. acute respiratory failure secondary to Acute on Chronic COPD Exacerbation and possible acute bronchitis afebrile, leukocytosis secondary to medrol mild acute respiratory distress Maintain oxygen saturation >90 hold off ABx Continue with bronchodilators/nebs start to wean IV methylprednisolone from 40mg q8hr to 40mg IV BID Pulmonary consult noted and appreciated CKD Creatinine 2.0 today seems to be at her baseline Arb placed on hold-If she becomes hypertensive will resume losartan Stop IVF Nephrology consult Hyperkalemia in the setting of CKD Received Lokelma, calcium gluconate, sodium bicarbonate, insulin and D50 Repeat BMP last night and this shows hyperkalemia resolved Nephrology consulted Monitor on telemetry for ventricular ectopy-no events on telemetry Hypertension BP is acceptable at this time Continue with hydralazine, torsemide and procardia Hold losartan for now Chronic Diastolic Congestive Heart Failure BNP 487, Echo 04/2019 EF 65% no significant valvular disease Continue with torsemide stop IVF Insulin dependant diabetic on tresiba 22 units every morning will start Levemir 20 units daily BGM ACHS insulin sliding scale TIDAC Diabetic diet needs better control so hopefully starting levemir helps. She may need more because of steroids but her glucose should improve as we wean her off Medrol DVT Prophylaxsis heparin 5000 units sq Visit type - Emergency Visit Emergency Visit: Yes ED Registration Date: 05/31/19 Care time: The patient presented to the Emergency Department on the above date and was hospitalized for further evaluation of their emergent condition. - New Patient This patient is new to me today: No - Critical Care Critical Care patient: No
--- NOTE | 2019-06-02 15:10 | PN ---
Progress Note (short form) - Note Progress Note: Breathing feels a little better today. Ambulating in the hallway. Used CPAP from 730PM to 930PM and then 1030PM to about 630AM. Intake & Output 05/30/19 05/31/19 06/01/19 06/02/19 23:59 23:59 23:59 23:59 Intake Total 1700 360 Balance 1700 360 Weight 160 lb 162 lb 3.2 oz 167 lb Last Vital Signs Temp Pulse Resp BP Pulse Ox 97.9 F 66 19 148/54 L 98 06/02/19 13:54 06/02/19 13:54 06/02/19 13:54 06/02/19 13:54 06/02/19 13:54 Active Medications Albuterol Sulfate (Ventolin 0.083% Nebulizer Soln -) 1 amp NEB Q4H PRN PRN Reason: SHORT OF BREATH/WHEEZING Albuterol/Ipratropium (Duoneb -) 1 amp NEB RQID [facility] Last Admin: 06/02/19 12:10 Dose: 1 amp Doxazosin Mesylate (Cardura -) 6 mg PO DAILY [facility] Last Admin: 06/02/19 09:09 Dose: 6 mg Heparin Sodium (Porcine) (Heparin -) 5,000 unit SQ BID [facility] Last Admin: 06/02/19 09:05 Dose: 5,000 unit Hydralazine HCl (Apresoline -) 25 mg PO TID [facility] Last Admin: 06/02/19 06:03 Dose: 25 mg Sodium Chloride (Normal Saline -) 1,000 mls @ 60 mls/hr IV ASDIR [facility] Last Admin: 06/01/19 21:44 Dose: Not Given Insulin Aspart (Novolog Vial Sliding Scale -) 1 vial SQ TIDAC [facility]; Protocol Last Admin: 06/02/19 11:10 Dose: 8 units Insulin Detemir (Levemir Vial) 20 units SQ 0700 [facility] Last Admin: 06/02/19 11:10 Dose: 20 units Methylprednisolone Sodium Succinate (Solu-Medrol -) 40 mg IVPUSH BID [facility] Nebivolol (Bystolic -) 5 mg PO DAILY [facility] Last Admin: 06/02/19 09:05 Dose: 5 mg Nifedipine (Procardia Xl -) 60 mg PO BID [facility] Last Admin: 06/02/19 09:05 Dose: 60 mg Sodium Zirconium Cyclosilicate (Lokelma) 10 gm PO DAILY [facility] Last Admin: 06/02/19 09:09 Dose: 10 gm Torsemide (Demadex -) 20 mg PO DAILY [facility] Last Admin: 06/02/19 09:05 Dose: 20 mg Constitutional: Yes: No Distress, Calm Eyes: Yes: Conjunctiva Clear, EOM Intact HENT: Yes: Atraumatic, Normocephalic Neck: Yes: Supple, Trachea Midline Cardiovascular: Yes: Regular Rate and Rhythm Respiratory: Yes: Cough, Diminished, On Nasal O2, Rhonchi, SOB on Exertion, Wheezes. No: Accessory Muscle Use, Rales, Stridor ...Inspection: Yes: WNL ...Clubbing: No Gastrointestinal: Yes: Normal Bowel Sounds, Soft, Abdomen, Obese Renal/: Yes: WNL Musculoskeletal: Yes: WNL Extremities: Yes: WNL Edema: Yes Peripheral Pulses WNL: Yes Integumentary: Yes: WNL Neurological: Yes: WNL, Alert, Oriented ...Motor Strength: WNL Psychiatric: Yes: WNL, Alert, Oriented Labs: Laboratory Results - last 24 hr 06/01/19 06/01/19 06/01/19 16:52 20:54 21:55 WBC RBC Hgb Hct MCV MCH MCHC RDW Plt Count MPV Absolute Neuts (auto) Neutrophils % Lymphocytes % Monocytes % Eosinophils % Basophils % Sodium 136 Potassium 4.9 Chloride 103 Carbon Dioxide 25 Anion Gap 8 BUN 67.0 H Creatinine 2.3 H Est GFR (CKD-EPI)AfAm 23.31 Est GFR (CKD-EPI)NonAf 20.12 POC Glucometer 368 374 Random Glucose 372 H Calcium 8.5 Total Bilirubin AST ALT Alkaline Phosphatase Total Protein Albumin 06/02/19 06/02/19 06/02/19 06:00 06:00 06:02 WBC 13.5 H RBC 3.48 L Hgb 9.3 L Hct 28.0 L MCV 80.4 MCH 26.8 MCHC 33.3 RDW 16.1 H Plt Count 138 MPV 10.1 Absolute Neuts (auto) 12.8 Neutrophils % 94.9 H Lymphocytes % 3.5 L Monocytes % 1.5 L Eosinophils % 0.0 Basophils % 0.1 Sodium 140 Potassium 4.6 Chloride 106 Carbon Dioxide 25 Anion Gap 9 BUN 60.0 H Creatinine 2.0 H Est GFR (CKD-EPI)AfAm 27.61 Est GFR (CKD-EPI)NonAf 23.82 POC Glucometer 278 Random Glucose 273 H Calcium 8.5 Total Bilirubin 0.4 AST 13 L ALT 17 Alkaline Phosphatase 60 Total Protein 5.1 L Albumin 2.9 L 06/02/19 11:19 WBC RBC Hgb Hct MCV MCH MCHC RDW Plt Count MPV Absolute Neuts (auto) Neutrophils % Lymphocytes % Monocytes % Eosinophils % Basophils % Sodium Potassium Chloride Carbon Dioxide Anion Gap BUN Creatinine Est GFR (CKD-EPI)AfAm Est GFR (CKD-EPI)NonAf POC Glucometer 382 Random Glucose Calcium Total Bilirubin AST ALT Alkaline Phosphatase Total Protein Albumin Imaging - Results Chest X-ray: Report Reviewed, Image Reviewed Problem List - Problems (1) CKD (chronic kidney disease) stage 3, GFR 30-59 ml/min Code(s): N18.3 - CHRONIC KIDNEY DISEASE, STAGE 3 (MODERATE) (2) COPD (chronic obstructive pulmonary disease) Code(s): J44.9 - CHRONIC OBSTRUCTIVE PULMONARY DISEASE, UNSPECIFIED Qualifiers: COPD type: unspecified COPD Qualified Code(s): J44.9 - Chronic obstructive pulmonary disease, unspecified (3) Hyperlipidemia Code(s): E78.5 - HYPERLIPIDEMIA, UNSPECIFIED Qualifiers: Hyperlipidemia type: pure hypercholesterolemia Qualified Code(s): E78.00 - Pure hypercholesterolemia, unspecified; E78.0 - Pure hypercholesterolemia (4) Hypertensive heart disease Code(s): I11.9 - HYPERTENSIVE HEART DISEASE WITHOUT HEART FAILURE Qualifiers: Heart failure presence: without heart failure Qualified Code(s): I11.9 - Hypertensive heart disease without heart failure (5) JEANNIE (obstructive sleep apnea) Code(s): G47.33 - OBSTRUCTIVE SLEEP APNEA (ADULT) (PEDIATRIC) (6) Bronchitis, chronic Code(s): J42 - UNSPECIFIED CHRONIC BRONCHITIS Qualifiers: Chronic bronchitis type: unspecified Qualified Code(s): J42 - Unspecified chronic bronchitis (7) COPD with acute exacerbation Code(s): J44.1 - CHRONIC OBSTRUCTIVE PULMONARY DISEASE W (ACUTE) EXACERBATION (8) SOB (shortness of breath) Code(s): R06.02 - SHORTNESS OF BREATH Assessment/Plan IV Medrol BD TX standing and PRN Would monitor off ABX as CXR reveals no acute process and she recently received a course of ABX CPAP @ 11 cm ordered: QHS and PRN for increased WOB VTE prophylaxis No smoking counseled Dr Bess Problem List - Problems (1) CKD (chronic kidney disease) stage 3, GFR 30-59 ml/min Code(s): N18.3 - CHRONIC KIDNEY DISEASE, STAGE 3 (MODERATE) (2) COPD (chronic obstructive pulmonary disease) Code(s): J44.9 - CHRONIC OBSTRUCTIVE PULMONARY DISEASE, UNSPECIFIED Qualifiers: COPD type: unspecified COPD Qualified Code(s): J44.9 - Chronic obstructive pulmonary disease, unspecified (3) Hyperlipidemia Code(s): E78.5 - HYPERLIPIDEMIA, UNSPECIFIED Qualifiers: Hyperlipidemia type: pure hypercholesterolemia Qualified Code(s): E78.00 - Pure hypercholesterolemia, unspecified; E78.0 - Pure hypercholesterolemia (4) Hypertensive heart disease Code(s): I11.9 - HYPERTENSIVE HEART DISEASE WITHOUT HEART FAILURE Qualifiers: Heart failure presence: without heart failure Qualified Code(s): I11.9 - Hypertensive heart disease without heart failure (5) JEANNIE (obstructive sleep apnea) Code(s): G47.33 - OBSTRUCTIVE SLEEP APNEA (ADULT) (PEDIATRIC) (6) Bronchitis, chronic Code(s): J42 - UNSPECIFIED CHRONIC BRONCHITIS Qualifiers: Chronic bronchitis type: unspecified Qualified Code(s): J42 - Unspecified chronic bronchitis (7) COPD with acute exacerbation Code(s): J44.1 - CHRONIC OBSTRUCTIVE PULMONARY DISEASE W (ACUTE) EXACERBATION (8) SOB (shortness of breath) Code(s): R06.02 - SHORTNESS OF BREATH
--- NOTE | 2019-06-02 15:35 | CON.NEP ---
Consult Consult Specialty:: Nephrology Reason for Consultation:: ckd - History of Present Illness Chief Complaint: dyspnea History of Present Illness: 73 year old female with past medical history of hypertension, diabetes mellitus , diastolic congestive heart failure, EF >65%, and COPD who presented from Dr. Fuentes's office with severe SOB. She has had multiple admissions in the last 6 months for acute bronchitis and treated with IV azithromycin, steroids and duonebs. She was found to have significant wheezing with poor air movement in Dr. Fuentes's office with drops in her O2Sat to 90% with ambulation, hacking nonproductive cough, and dyspena on exertion. She followed up with Dr. Baltazar earlier this week and she has been placed on prednisone 10 mg daily. She has been told by Dr Fuentes that she has diabetic nephropathy. She has neuropathy and had laser surgery to eyes about 20 years ago. Has been diabetic for 31 years however. Also was told her potassium was high and her meds were adjusted. Very upset that her symptoms dont dolores for long - History Source History Provided By: Patient, Medical Record Limitations to Obtaining History: No Limitations - Past Medical History Cardio/Vascular: Yes: HTN, Hyperlipdemia Pulmonary: Yes: Bronchitis, COPD, Pneumonia, Sleep Apnea. No: Cancer, O2 Dependent, Previously Intubated, Pulmonary Embolus, Pulmonary Fibrosis Renal/: Yes: Renal Inusuff ...LMP Comment: 73 YEARS OLD ...: No Endocrine: Yes: Diabetes Mellitus - Alcohol/Substance Use Hx Alcohol Use: No - Smoking History Smoking history: Never smoked Have you smoked in the past 12 months: No Aproximately how many cigarettes per day: 0 Home Medications - Allergies Allergies/Adverse Reactions: Allergies Allergy/AdvReac Type Severity Reaction Status Date / Time No Known Allergies Allergy Verified 05/31/19 15:04 - Home Medications Home Medications: Ambulatory Orders Doxazosin Mesylate 6 mg PO DAILY 05/31/19 Hydralazine HCl 25 mg PO TID 05/31/19 Insulin Aspart [Novolog] 5 unit SQ ASDIR 05/31/19 Insulin Degludec [Tresiba Flextouch U-200] 22 units SQ AM 05/31/19 Ipratropium/Albuterol Sulfate [Iprat-Albut 0.5-3(2.5) mg/3 ml] 3 ml IH BID 05/31 Losartan Potassium 50 mg PO DAILY 05/31/19 Nebivolol [Bystolic -] 5 mg PO DAILY 05/31/19 Nifedipine ER [Procardia Xl -] 60 mg PO BID 05/31/19 Prednisone 10 mg PO DAILY 05/31/19 Torsemide 20 mg PO DAILY 05/31/19 Umeclidinium [place] [Incruse Ellipta] 62.5 mcg IH DAILY 05/31/19 Review of Systems - Review of Systems Constitutional: reports: No Symptoms Eyes: reports: No Symptoms HENT: reports: No Symptoms Neck: reports: No Symptoms Cardiovascular: reports: Edema Respiratory: reports: Cough, SOB Gastrointestinal: reports: No Symptoms Genitourinary: reports: No Symptoms Breasts: reports: No Symptoms Reported Musculoskeletal: reports: No Symptoms Integumentary: reports: No Symptoms Neurological: reports: No Symptoms Endocrine: reports: No Symptoms Hematology/Lymphatic: reports: No Symptoms Psychiatric: reports: No Symptoms Nephrology Consult - Height Height: 5 ft 3 in - Weight Weight: 167 lb - BMI Body Mass Index (BMI): 29.5 - Lab Results CBC,BMP: CBC, BMP 06/02/19 06:00 06/02/19 06:00 Anion Gap: Anion Gap Anion Gap 9 MMOL/L (8-16) 06/02/19 06:00 - Imaging X-ray: Report Reviewed - Physical Examination Vital Signs: Vital Signs Temperature 97.9 F 06/02/19 13:54 Pulse Rate 66 06/02/19 13:54 Respiratory Rate 19 06/02/19 13:54 Blood Pressure 148/54 L 06/02/19 13:54 O2 Sat by Pulse Oximetry (%) 98 06/02/19 13:54 Constitutional: Yes: Well Nourished, No Distress, Calm Eyes: Yes: Conjunctiva Clear, EOM Intact HENT: Yes: Atraumatic, Normocephalic, Other (stridor) Cardiovascular: Yes: Regular Rate and Rhythm Respiratory: Yes: Regular, Diminished Gastrointestinal: Yes: Normal Bowel Sounds Renal/: Yes: WNL Musculoskeletal: Yes: WNL Extremities: Yes: WNL Edema: LLE: Trace, RLE: Trace Peripheral Pulses WNL: Yes Neurological: Yes: Alert, Oriented Psychiatric: Yes: Alert, Oriented Assessment/Plan IMPRESSION CKD seems stable- probably due to combination of diabetes and hypertension. She has small kidneys which are less likely with diabetes. however. SHe has stridor now and not wheezing does have proteinuria PLAN would continue current management avoid nephrotoxins or acute drops in BP would not do work up since Dr Fuentes already probably did would do CT scan sans contrast of the chest ENT eval of stridor diurese- part of her dyspnea could be fluid overlaod BNP MV
[2019-06-02 15:36] VITALS: BMI 29.5
--- NOTE | 2019-06-03 06:30 | PN ---
Physical Exam: SUBJECTIVE: Patient seen and examined sitting on edge of bed. Conversed ~15 minutes. No difficulty speaking, no accessory muscle use. Coughing which triggered audible inspiratory stridor. OBJECTIVE: Vital Signs Period Temp Pulse Resp BP Sys/Arthur Pulse Ox Last 24 Hr 97.9 F-98.1 F 52-74 17-20 131-148/43-54 98-100 GENERAL: The patient is awake, alert, and fully oriented, in no acute distress. LUNGS: Diminished breath sounds, poor air movement HEART: Regular rate and rhythm, S1, S2 ABDOMEN: Soft, nontender, nondistended EXTREMITIES: 2+ pulses, warm, well-perfused, no edema. NEUROLOGICAL: Cranial nerves II through XII grossly intact. Normal speech SKIN: Warm, dry, normal turgor Laboratory Results - last 24 hr 06/02/19 06/02/19 06/02/19 06:00 06:00 11:19 WBC 13.5 H RBC 3.48 L Hgb 9.3 L Hct 28.0 L MCV 80.4 MCH 26.8 MCHC 33.3 RDW 16.1 H Plt Count 138 MPV 10.1 Absolute Neuts (auto) 12.8 Neutrophils % 94.9 H Lymphocytes % 3.5 L Monocytes % 1.5 L Eosinophils % 0.0 Basophils % 0.1 Sodium 140 Potassium 4.6 Chloride 106 Carbon Dioxide 25 Anion Gap 9 BUN 60.0 H Creatinine 2.0 H Est GFR (CKD-EPI)AfAm 27.61 Est GFR (CKD-EPI)NonAf 23.82 POC Glucometer 382 Random Glucose 273 H Calcium 8.5 Total Bilirubin 0.4 AST 13 L ALT 17 Alkaline Phosphatase 60 Total Protein 5.1 L Albumin 2.9 L 06/02/19 06/02/19 16:24 20:32 WBC RBC Hgb Hct MCV MCH MCHC RDW Plt Count MPV Absolute Neuts (auto) Neutrophils % Lymphocytes % Monocytes % Eosinophils % Basophils % Sodium Potassium Chloride Carbon Dioxide Anion Gap BUN Creatinine Est GFR (CKD-EPI)AfAm Est GFR (CKD-EPI)NonAf POC Glucometer 193 156 Random Glucose Calcium Total Bilirubin AST ALT Alkaline Phosphatase Total Protein Albumin Active Medications Generic Name Dose Route Start Last Admin Trade Name Freq PRN Reason Stop Dose Admin Albuterol Sulfate 1 amp 06/01/19 15:43 Ventolin 0.083% Nebulizer Soln - NEB Q4H PRN SHORT OF BREATH/WHEEZING Albuterol/Ipratropium 1 amp 06/01/19 08:00 06/02/19 20:59 Duoneb - NEB 1 amp RQID [facility] Administration Doxazosin Mesylate 6 mg 06/01/19 10:00 06/02/19 09:09 Cardura - PO 6 mg DAILY [facility] Administration Heparin Sodium (Porcine) 5,000 unit 05/31/19 22:00 06/02/19 21:03 Heparin - SQ 5,000 unit BID [facility] Administration Hydralazine HCl 25 mg 05/31/19 22:00 06/02/19 21:02 Apresoline - PO 25 mg TID [facility] Administration Sodium Chloride 1,000 mls @ 60 mls/hr 05/31/19 20:15 06/01/19 21:44 Normal Saline - IV Not Given ASDIR [facility] Insulin Aspart 1 vial 06/02/19 11:00 06/02/19 18:43 Novolog Vial Sliding Scale - SQ Not Given TIDAC [facility] Protocol Insulin Detemir 20 units 06/02/19 11:00 06/02/19 11:10 Levemir Vial SQ 20 units 0700 [facility] Administration Methylprednisolone Sodium Succinate 40 mg 06/02/19 22:00 06/02/19 21:03 Solu-Medrol - IVPUSH 40 mg BID [facility] Administration Nebivolol 5 mg 06/01/19 10:00 06/02/19 09:05 Bystolic - PO 5 mg DAILY [facility] Administration Nifedipine 60 mg 05/31/19 22:00 06/02/19 21:01 Procardia Xl - PO 60 mg BID [facility] Administration Sodium Zirconium Cyclosilicate 10 gm 05/31/19 18:30 06/02/19 09:09 Lokelma PO 10 gm DAILY [facility] Administration Torsemide 20 mg 06/01/19 10:00 06/02/19 09:05 Demadex - PO 20 mg DAILY [facility] Administration ASSESSMENT/PLAN: 73 year-old female with a PMH significant for HTN, HLD, diastolic dysfunction and pulmonary HTN, COPD not on home O2, recurrent bronchitis, OSAS on CPAP, CKD , and Type II NIDDM. This is fourth hospitalization since early February 2019. Recent prolonged hospital stay at [facility] (05/13/19 - 05/23/19) for COPD exacerbation. Acute on chronic COPD --06/03 CT chest: mild chronic lung disease --sats 99% on room air at rest, 95% on room air with flat surface ambulation --continue IV steroids --duonebs scheduled and PRN --observe off antibiotics Inspiratory stridor --no respiratory distress, no difficulty swallowing or speaking; no hoarseness --discussed with ENT Dr. Daigle, will see patient tomorrow OSAS --CPAP qhs and PRN for increased work of breathing Diastolic dysfunction Pulmonary HTN --06/03 CT chest: small bilateral pleural effusions L>R --05/14/19 Echo: mild cLVH, EF 65%, abnormal relaxation; RV normal; trace MR; mild TR; moderate pulmonary HTN; trace PI --continue torsemide Hypertension --continue doxazosin, hydralazine, nebivolol, nifedipine Hyperlipidemia --not on statin therapy FEN Fluids: PO intake adequate Electrolytes: replete as indicated Nutrition: diabetic, sodium DVT prophylaxis: subq heparin Physical therapy Dispo: continues to require inpatient care. Full code. Visit type - Emergency Visit Emergency Visit: Yes ED Registration Date: 05/31/19 Care time: The patient presented to the Emergency Department on the above date and was hospitalized for further evaluation of their emergent condition. - New Patient This patient is new to me today: Yes Date on this admission: 06/03/19 - Critical Care Critical Care patient: No
[2019-06-03] MEDS: hydrALAZINE HCL 25 MG TABLET (FP) PO SCH ×3 (06:51→21:04)
[2019-06-03] MEDS: INSULIN (LEVEMIR) 100 UNITS/ML UNITS SQ SCH (06:54)
[2019-06-03] MEDS: INSULIN SLIDING SCALE (NOVOLOG) 1 VIAL SQ SCH ×4 (06:55→22:00)
[2019-06-03] MEDS: ALBUTEROL SO4 2.5/IPRATROPIUM 0.5 INH SOL 3 ML VIAL.NEB. NEB SCH ×4 (08:00→19:20)
[2019-06-03] MEDS: DOXAZOSIN MESYLATE 4 MG TABLET PO SCH (10:09)
[2019-06-03] MEDS: TORSEMIDE 20 MG TABLET (FP) PO SCH (10:09)
[2019-06-03] MEDS: NEBIVOLOL 5 MG TABLET (FP) PO SCH (10:09)
[2019-06-03] MEDS: NIFEdipine E.R 60 MG TABLET PO SCH ×2 (10:10→21:04)
[2019-06-03] MEDS: HEPARIN NA (PORCINE) 5,000 UNITS/ML 1ML VIAL SQ SCH ×2 (10:10→21:09)
[2019-06-03] MEDS: methylPREDNISolone NA SUCC 40 MG/1 ML VIAL IVPUSH SCH ×2 (10:12→21:04)
--- NOTE | 2019-06-03 10:28 | EKG ---
Test Reason : Blood Pressure : / mmHG Vent. Rate : 060 BPM Atrial Rate : 060 BPM P-R Int : 144 ms QRS Dur : 070 ms QT Int : 414 ms P-R-T Axes : 044 -06 009 degrees QTc Int : 414 ms NORMAL SINUS RHYTHM NORMAL ECG WHEN COMPARED WITH ECG OF 17-MAY-2019 10:36, NO SIGNIFICANT CHANGE WAS FOUND Confirmed by Rajiv Zeng ([id number]) on 06/03/2019 10:28:11 AM Referred By: MD GUAJARDO Confirmed By:Rajiv Zeng
--- NOTE | 2019-06-03 10:35 | PN ---
Progress Note, Physician History of Present Illness: Pt seen and examined at bedside. SHe is awake and alert. She feels that her wheezing is improving. - Current Medication List Current Medications: Active Medications Albuterol Sulfate (Ventolin 0.083% Nebulizer Soln -) 1 amp NEB Q4H PRN PRN Reason: SHORT OF BREATH/WHEEZING Albuterol/Ipratropium (Duoneb -) 1 amp NEB RQID [facility] Last Admin: 06/03/19 08:00 Dose: 1 amp Doxazosin Mesylate (Cardura -) 6 mg PO DAILY [facility] Heparin Sodium (Porcine) (Heparin -) 5,000 unit SQ BID [facility] Last Admin: 06/02/19 21:03 Dose: 5,000 unit Hydralazine HCl (Apresoline -) 25 mg PO TID [facility] Last Admin: 06/03/19 06:51 Dose: 25 mg Sodium Chloride (Normal Saline -) 1,000 mls @ 60 mls/hr IV ASDIR [facility] Last Admin: 06/01/19 21:44 Dose: Not Given Insulin Aspart (Novolog Vial Sliding Scale -) 1 vial SQ TIDAC [facility]; Protocol Last Admin: 06/03/19 06:55 Dose: 2 units Insulin Detemir (Levemir Vial) 20 units SQ 0700 [facility] Last Admin: 06/03/19 06:54 Dose: 20 units Methylprednisolone Sodium Succinate (Solu-Medrol -) 40 mg IVPUSH BID [facility] Last Admin: 06/02/19 21:03 Dose: 40 mg Nebivolol (Bystolic -) 5 mg PO DAILY [facility] Last Admin: 06/02/19 09:05 Dose: 5 mg Nifedipine (Procardia Xl -) 60 mg PO BID [facility] Last Admin: 06/02/19 21:01 Dose: 60 mg Sodium Zirconium Cyclosilicate (Lokelma) 10 gm PO DAILY [facility] Last Admin: 06/02/19 09:09 Dose: 10 gm Torsemide (Demadex -) 20 mg PO DAILY [facility] Last Admin: 06/02/19 09:05 Dose: 20 mg - Objective Vital Signs: Vital Signs Temperature 98.6 F 06/03/19 06:00 Pulse Rate 72 06/03/19 08:51 Respiratory Rate 19 06/03/19 06:00 Blood Pressure 118/38 L 06/03/19 06:00 O2 Sat by Pulse Oximetry (%) 96 06/03/19 09:00 Constitutional: Yes: Calm Eyes: Yes: Conjunctiva Clear HENT: Yes: Atraumatic Cardiovascular: Yes: S1, S2 Respiratory: Yes: CTA Bilaterally Gastrointestinal: Yes: Soft Genitourinary: Yes: WNL Musculoskeletal: Yes: WNL Edema: LLE: Trace, RLE: Trace Neurological: Yes: Oriented Psychiatric: Yes: Oriented Labs: CBC, BMP 06/02/19 06:00 06/02/19 06:00 Assessment/Plan Current Medications Generic Name Dose Route Start Last Admin Trade Name Freq PRN Reason Stop Dose Admin Albuterol Sulfate 1 amp 06/01/19 15:43 Ventolin 0.083% Nebulizer Soln - NEB Q4H PRN SHORT OF BREATH/WHEEZING Albuterol/Ipratropium 1 amp 06/01/19 08:00 06/03/19 08:00 Duoneb - NEB 1 amp RQID [facility] Administration Doxazosin Mesylate 6 mg 06/03/19 10:00 Cardura - PO DAILY [facility] Heparin Sodium (Porcine) 5,000 unit 05/31/19 22:00 06/02/19 21:03 Heparin - SQ 5,000 unit BID [facility] Administration Hydralazine HCl 25 mg 05/31/19 22:00 06/03/19 06:51 Apresoline - PO 25 mg TID [facility] Administration Sodium Chloride 1,000 mls @ 60 mls/hr 05/31/19 20:15 06/01/19 21:44 Normal Saline - IV Not Given ASDIR [facility] Insulin Aspart 1 vial 06/02/19 11:00 06/03/19 06:55 Novolog Vial Sliding Scale - SQ 2 units TIDAC [facility] Administration Protocol Insulin Detemir 20 units 06/02/19 11:00 06/03/19 06:54 Levemir Vial SQ 20 units 0700 [facility] Administration Methylprednisolone Sodium Succinate 40 mg 06/02/19 22:00 06/02/19 21:03 Solu-Medrol - IVPUSH 40 mg BID [facility] Administration Nebivolol 5 mg 06/01/19 10:00 06/02/19 09:05 Bystolic - PO 5 mg DAILY [facility] Administration Nifedipine 60 mg 05/31/19 22:00 06/02/19 21:01 Procardia Xl - PO 60 mg BID [facility] Administration Sodium Zirconium Cyclosilicate 10 gm 05/31/19 18:30 06/02/19 09:09 Lokelma PO 10 gm DAILY [facility] Administration Torsemide 20 mg 06/01/19 10:00 06/02/19 09:05 Demadex - PO 20 mg DAILY [facility] Administration Impression 1. CKD 2. HTN 3. copd 4. chf 5. DM 6. hyperkalemia Plan - d/c fluids - cont torsemide - potassium improved - can hold lokelma - will need outpt follow up with Dr Gomez
--- NOTE | 2019-06-03 10:58 | PN ---
Progress Note (short form) - Note Progress Note: PULMONARY VSS/AFEBRILE HAS INSPIRATORY STRIDOR Constitutional: Yes: No Distress, Calm Eyes: Yes: Conjunctiva Clear, EOM Intact HENT: Yes: Atraumatic, Normocephalic Neck: Yes: Supple, Trachea Midline Cardiovascular: Yes: Regular Rate and Rhythm Respiratory: Yes: Cough, Diminished, On Nasal O2, Inspiratory stridor noted. ...Inspection: Yes: WNL ...Clubbing: No Gastrointestinal: Yes: Normal Bowel Sounds, Soft, Abdomen, Obese Renal/: Yes: WNL Musculoskeletal: Yes: WNL Extremities: Yes: WNL Edema: Yes Peripheral Pulses WNL: Yes Integumentary: Yes: WNL Neurological: Yes: WNL, Alert, Oriented ...Motor Strength: WNL Psychiatric: Yes: WNL, Alert, Oriented Labs: reviewed Chest X-ray: Report Reviewed, Image Reviewed (1) CKD (chronic kidney disease) stage 3, GFR 30-59 ml/min Code(s): N18.3 - CHRONIC KIDNEY DISEASE, STAGE 3 (MODERATE) (2) COPD (chronic obstructive pulmonary disease) Code(s): J44.9 - CHRONIC OBSTRUCTIVE PULMONARY DISEASE, UNSPECIFIED Qualifiers: COPD type: unspecified COPD Qualified Code(s): J44.9 - Chronic obstructive pulmonary disease, unspecified (3) Hyperlipidemia Code(s): E78.5 - HYPERLIPIDEMIA, UNSPECIFIED Qualifiers: Hyperlipidemia type: pure hypercholesterolemia Qualified Code(s): E78.00 - Pure hypercholesterolemia, unspecified; E78.0 - Pure hypercholesterolemia (4) Hypertensive heart disease Code(s): I11.9 - HYPERTENSIVE HEART DISEASE WITHOUT HEART FAILURE Qualifiers: Heart failure presence: without heart failure Qualified Code(s): I11.9 - Hypertensive heart disease without heart failure (5) JEANNIE (obstructive sleep apnea) Code(s): G47.33 - OBSTRUCTIVE SLEEP APNEA (ADULT) (PEDIATRIC) (6) Bronchitis, chronic Code(s): J42 - UNSPECIFIED CHRONIC BRONCHITIS Qualifiers: Chronic bronchitis type: unspecified Qualified Code(s): J42 - Unspecified chronic bronchitis (7) COPD with acute exacerbation Code(s): J44.1 - CHRONIC OBSTRUCTIVE PULMONARY DISEASE W (ACUTE) EXACERBATION (8) SOB (shortness of breath) Code(s): R06.02 - SHORTNESS OF BREATH IV Medrol to continue BD TX standing and PRN Would monitor off ABX CPAP @ 11 cm ordered: QHS and PRN for increased WOB VTE prophylaxis No smoking counseled Would advise ENT evaluation of stridor Ledy Queen MD
[2019-06-03] MEDS ORDERED: INSULIN (NOVOLOG) ASPART 100 UNITS/ML 10ML VIAL SQ ONE (17:07)
[2019-06-04] MEDS: hydrALAZINE HCL 25 MG TABLET (FP) PO SCH ×3 (05:31→21:21)
[2019-06-04] MEDS: INSULIN SLIDING SCALE (NOVOLOG) 1 VIAL SQ SCH ×4 (06:15→21:24)
[2019-06-04] MEDS: INSULIN (LEVEMIR) 100 UNITS/ML UNITS SQ SCH (06:17)
[2019-06-04 07:56] LABS: ALBUMIN 2.9 g/dl (3.4-5.0); BILIRUBIN,TOTAL 0.5 mg/dl (0.2-1); CALCIUM 8.5 mg/dl (8.5-10); CREATININE 2.1 mg/dl (0.55-1.3); POTASSIUM 4.9 mmol/L (3.5-5.1); TOT PROT 5.1 g/dl (6.4-8.2)
[2019-06-04] MEDS: ALBUTEROL SO4 2.5/IPRATROPIUM 0.5 INH SOL 3 ML VIAL.NEB. NEB SCH ×4 (08:50→21:21)
[2019-06-04] MEDS: DOXAZOSIN MESYLATE 4 MG TABLET PO SCH (10:34)
[2019-06-04] MEDS: HEPARIN NA (PORCINE) 5,000 UNITS/ML 1ML VIAL SQ SCH ×2 (10:34→21:21)
[2019-06-04] MEDS: NEBIVOLOL 5 MG TABLET (FP) PO SCH (10:34)
[2019-06-04] MEDS: NIFEdipine E.R 60 MG TABLET PO SCH ×2 (10:34→21:21)
[2019-06-04] MEDS: TORSEMIDE 20 MG TABLET (FP) PO SCH (10:34)
[2019-06-04] MEDS: methylPREDNISolone NA SUCC 40 MG/1 ML VIAL IVPUSH SCH ×2 (10:34→22:00)
--- NOTE | 2019-06-04 12:33 | PN ---
Physical Exam: SUBJECTIVE: Patient seen and examined sitting on edge of bed. Used CPAP overnight. OBJECTIVE: Vital Signs Period Temp Pulse Resp BP Sys/Arthur Pulse Ox Last 24 Hr 98.1 F-98.7 F 63-69 17-20 129-165/44-52 95-100 GENERAL: The patient is awake, alert, and fully oriented, in no acute distress. LUNGS: Diminished breath sounds; inspiratory stridor; no other appreciable wheezing HEART: Regular rate and rhythm, S1, S2 ABDOMEN: Soft, nontender, nondistended EXTREMITIES: 2+ pulses, warm, well-perfused, no edema. NEUROLOGICAL: Cranial nerves II through XII grossly intact. Normal speech SKIN: Warm, dry, normal turgor Laboratory Results - last 24 hr 06/03/19 06/03/19 06/04/19 16:06 21:03 06:11 Sodium Potassium Chloride Carbon Dioxide Anion Gap BUN Creatinine Est GFR (CKD-EPI)AfAm Est GFR (CKD-EPI)NonAf POC Glucometer 436 304 373 Random Glucose Calcium Total Bilirubin AST ALT Alkaline Phosphatase Total Protein Albumin 06/04/19 06/04/19 06:47 11:32 Sodium 137 Potassium 4.9 Chloride 105 Carbon Dioxide 26 Anion Gap 6 L BUN 59.0 H Creatinine 2.1 H Est GFR (CKD-EPI)AfAm 26.03 Est GFR (CKD-EPI)NonAf 22.46 POC Glucometer 331 Random Glucose 396 H Calcium 8.5 Total Bilirubin 0.5 AST 14 L ALT 21 Alkaline Phosphatase 54 Total Protein 5.1 L Albumin 2.9 L Active Medications Generic Name Dose Route Start Last Admin Trade Name Freq PRN Reason Stop Dose Admin Albuterol Sulfate 1 amp 06/01/19 15:43 06/03/19 11:15 Ventolin 0.083% Nebulizer Soln - NEB 1 amp Q4H PRN Administration SHORT OF BREATH/WHEEZING Albuterol/Ipratropium 1 amp 06/01/19 08:00 06/04/19 08:50 Duoneb - NEB 1 amp RQID GARO Administration Doxazosin Mesylate 6 mg 06/03/19 10:00 06/04/19 10:34 Cardura - PO 6 mg DAILY GARO Administration Heparin Sodium (Porcine) 5,000 unit 05/31/19 22:00 06/04/19 10:34 Heparin - SQ 5,000 unit BID GARO Administration Hydralazine HCl 25 mg 02/14/20 22:00 06/04/19 05:31 Apresoline - PO 25 mg TID GARO Administration Insulin Aspart 1 vial 06/03/19 21:15 06/04/19 11:35 Novolog Vial Sliding Scale - SQ 6 units ACHS GARO Administration Protocol Insulin Detemir 20 units 06/02/19 11:00 06/04/19 06:17 Levemir Vial SQ 20 units 0700 GARO Administration Methylprednisolone Sodium Succinate 40 mg 06/02/19 22:00 06/04/19 10:34 Solu-Medrol - IVPUSH 40 mg BID GARO Administration Nebivolol 5 mg 06/01/19 10:00 06/04/19 10:34 Bystolic - PO 5 mg DAILY GARO Administration Nifedipine 60 mg 05/31/19 22:00 06/04/19 10:34 Procardia Xl - PO 60 mg BID GARO Administration Torsemide 20 mg 06/01/19 10:00 06/04/19 10:34 Demadex - PO 20 mg DAILY GARO Administration ASSESSMENT/PLAN: 73 year-old female with a PMH significant for HTN, HLD, diastolic dysfunction and pulmonary HTN, COPD not on home O2, recurrent bronchitis, OSAS on CPAP, CKD , and Type II NIDDM. This is fourth hospitalization since early February 2019. Recent prolonged hospital stay at [facility] (05/13/19 - 05/23/19) for COPD exacerbation. Acute on chronic COPD --06/03 CT chest: mild chronic lung disease --sats 99% on room air at rest, 95% on room air with flat surface ambulation --continue IV steroids --duonebs scheduled and PRN --observe off antibiotics --pre post in am for discharge evaluation Inspiratory stridor --no respiratory distress, no difficulty swallowing or speaking; no hoarseness --seen and evaluated by ENT Dr. Daigle, pending dictation of note OSAS --CPAP qhs and PRN for increased work of breathing Diastolic dysfunction Pulmonary HTN --06/03 CT chest: small bilateral pleural effusions L>R --05/14/19 Echo: mild cLVH, EF 65%, abnormal relaxation; RV normal; trace MR; mild TR; moderate pulmonary HTN; trace PI --continue torsemide Chronic kidney disease --Cr 2.1 ~ baseline --OK to continue torsemide per renal --outpatient followup with Dr. Jad Fuentes Hypertension --continue doxazosin, hydralazine, nebivolol, nifedipine Hyperlipidemia --not on statin therapy FEN Fluids: PO intake adequate Electrolytes: replete as indicated Nutrition: diabetic, sodium DVT prophylaxis: subq heparin Physical therapy Dispo: continues to require inpatient care. Full code. Visit type - Emergency Visit Emergency Visit: Yes ED Registration Date: 05/31/19 Care time: The patient presented to the Emergency Department on the above date and was hospitalized for further evaluation of their emergent condition. - New Patient This patient is new to me today: No - Critical Care Critical Care patient: No
--- NOTE | 2019-06-04 15:01 | PN ---
Progress Note, Physician History of Present Illness: Pt seen and examined at bedside. She is awake and alert. She complains of wheezing. - Current Medication List Current Medications: Active Medications Albuterol Sulfate (Ventolin 0.083% Nebulizer Soln -) 1 amp NEB Q4H PRN PRN Reason: SHORT OF BREATH/WHEEZING Last Admin: 06/03/19 11:15 Dose: 1 amp Albuterol/Ipratropium (Duoneb -) 1 amp NEB RQID [facility] Last Admin: 06/04/19 12:33 Dose: 1 amp Doxazosin Mesylate (Cardura -) 6 mg PO DAILY [facility] Last Admin: 06/04/19 10:34 Dose: 6 mg Heparin Sodium (Porcine) (Heparin -) 5,000 unit SQ BID [facility] Last Admin: 06/04/19 10:34 Dose: 5,000 unit Hydralazine HCl (Apresoline -) 25 mg PO TID [facility] Last Admin: 06/04/19 14:40 Dose: 25 mg Insulin Aspart (Novolog Vial Sliding Scale -) 1 vial SQ [facility]; Protocol Last Admin: 06/04/19 11:35 Dose: 6 units Insulin Detemir (Levemir Vial) 20 units SQ 0700 [facility] Last Admin: 06/04/19 06:17 Dose: 20 units Methylprednisolone Sodium Succinate (Solu-Medrol -) 40 mg IVPUSH BID [facility] Last Admin: 06/04/19 10:34 Dose: 40 mg Nebivolol (Bystolic -) 5 mg PO DAILY [facility] Last Admin: 06/04/19 10:34 Dose: 5 mg Nifedipine (Procardia Xl -) 60 mg PO BID [facility] Last Admin: 06/04/19 10:34 Dose: 60 mg Torsemide (Demadex -) 20 mg PO DAILY [facility] Last Admin: 06/04/19 10:34 Dose: 20 mg - Objective Vital Signs: Vital Signs Temperature 98.6 F 06/04/19 12:00 Pulse Rate 64 06/04/19 12:00 Respiratory Rate 20 06/04/19 12:00 Blood Pressure 151/54 L 06/04/19 12:00 O2 Sat by Pulse Oximetry (%) 96 06/04/19 09:00 Constitutional: Yes: Calm Eyes: Yes: Conjunctiva Clear HENT: Yes: Atraumatic Cardiovascular: Yes: S1, S2 Respiratory: Yes: Wheezes Gastrointestinal: Yes: Normal Bowel Sounds, Soft Genitourinary: Yes: WNL Musculoskeletal: Yes: WNL Edema: Yes Edema: LLE: Trace, RLE: Trace Neurological: Yes: Oriented Psychiatric: Yes: Oriented Labs: CBC, BMP 06/02/19 06:00 06/04/19 06:47 Assessment/Plan Current Medications Generic Name Dose Route Start Last Admin Trade Name Freq PRN Reason Stop Dose Admin Albuterol Sulfate 1 amp 06/01/19 15:43 06/03/19 11:15 Ventolin 0.083% Nebulizer Soln - NEB 1 amp Q4H PRN Administration SHORT OF BREATH/WHEEZING Albuterol/Ipratropium 1 amp 06/01/19 08:00 06/04/19 12:33 Duoneb - NEB 1 amp RQID GARO Administration Doxazosin Mesylate 6 mg 06/03/19 10:00 06/04/19 10:34 Cardura - PO 6 mg DAILY GARO Administration Heparin Sodium (Porcine) 5,000 unit 05/31/19 22:00 06/04/19 10:34 Heparin - SQ 5,000 unit BID GARO Administration Hydralazine HCl 25 mg 05/31/19 22:00 06/04/19 14:40 Apresoline - PO 25 mg TID GARO Administration Insulin Aspart 1 vial 06/03/19 21:15 06/04/19 11:35 Novolog Vial Sliding Scale - SQ 6 units ACHS GARO Administration Protocol Insulin Detemir 20 units 06/02/19 11:00 06/04/19 06:17 Levemir Vial SQ 20 units 0700 GARO Administration Methylprednisolone Sodium Succinate 40 mg 06/02/19 22:00 06/04/19 10:34 Solu-Medrol - IVPUSH 40 mg BID GARO Administration Nebivolol 5 mg 06/01/19 10:00 06/04/19 10:34 Bystolic - PO 5 mg DAILY GARO Administration Nifedipine 60 mg 05/31/19 22:00 06/04/19 10:34 Procardia Xl - PO 60 mg BID GARO Administration Torsemide 20 mg 06/01/19 10:00 06/04/19 10:34 Demadex - PO 20 mg DAILY GARO Administration Impression 1. CKD 2. HTN 3. copd 4. chf 5. DM 6. hyperkalemia Plan - cont torsemide - monitor potassium - low potassium diet - monitor off of lokelma - will need outpt follow up with Dr Gomez
[2019-06-04] MEDS ORDERED: SENNOSIDES 8.6MG TABLET (FP) PO PRN (16:34)
[2019-06-04] MEDS: POLYETHYLENE GLYCOL 3350 119 GM BTL PO SCH (17:12)
--- NOTE | 2019-06-04 18:25 | PN ---
Progress Note (short form) - Note Progress Note: PULMONARY VSS/AFEBRILE HAS INSPIRATORY STRIDOR PRESENT WAS SEEN BY ENT CONSULT AWAITED Constitutional: Yes: No Distress, Calm Eyes: Yes: Conjunctiva Clear, EOM Intact HENT: Yes: Atraumatic, Normocephalic Neck: Yes: Supple, Trachea Midline Cardiovascular: Yes: Regular Rate and Rhythm Respiratory: Yes: Cough, Diminished, On Nasal O2, Inspiratory stridor noted. ...Inspection: Yes: WNL ...Clubbing: No Gastrointestinal: Yes: Normal Bowel Sounds, Soft, Abdomen, Obese Renal/: Yes: WNL Musculoskeletal: Yes: WNL Extremities: Yes: WNL Edema: Yes Peripheral Pulses WNL: Yes Integumentary: Yes: WNL Neurological: Yes: WNL, Alert, Oriented ...Motor Strength: WNL Psychiatric: Yes: WNL, Alert, Oriented Labs: reviewed Chest X-ray: Report Reviewed, Image Reviewed (1) CKD (chronic kidney disease) stage 3, GFR 30-59 ml/min Code(s): N18.3 - CHRONIC KIDNEY DISEASE, STAGE 3 (MODERATE) (2) COPD (chronic obstructive pulmonary disease) Code(s): J44.9 - CHRONIC OBSTRUCTIVE PULMONARY DISEASE, UNSPECIFIED Qualifiers: COPD type: unspecified COPD Qualified Code(s): J44.9 - Chronic obstructive pulmonary disease, unspecified (3) Hyperlipidemia Code(s): E78.5 - HYPERLIPIDEMIA, UNSPECIFIED Qualifiers: Hyperlipidemia type: pure hypercholesterolemia Qualified Code(s): E78.00 - Pure hypercholesterolemia, unspecified; E78.0 - Pure hypercholesterolemia (4) Hypertensive heart disease Code(s): I11.9 - HYPERTENSIVE HEART DISEASE WITHOUT HEART FAILURE Qualifiers: Heart failure presence: without heart failure Qualified Code(s): I11.9 - Hypertensive heart disease without heart failure (5) JEANNIE (obstructive sleep apnea) Code(s): G47.33 - OBSTRUCTIVE SLEEP APNEA (ADULT) (PEDIATRIC) (6) Bronchitis, chronic Code(s): J42 - UNSPECIFIED CHRONIC BRONCHITIS Qualifiers: Chronic bronchitis type: unspecified Qualified Code(s): J42 - Unspecified chronic bronchitis (7) COPD with acute exacerbation Code(s): J44.1 - CHRONIC OBSTRUCTIVE PULMONARY DISEASE W (ACUTE) EXACERBATION (8) SOB (shortness of breath) Code(s): R06.02 - SHORTNESS OF BREATH IV Medrol to continue BD TX standing and PRN Would monitor off ABX CPAP @ 11 cm ordered: QHS and PRN for increased WOB VTE prophylaxis No smoking counseled ENT evaluation of stridor consult pending Ledy Queen MD
--- NOTE | 2019-06-04 18:47 | CONSULT ---
Consult - text type - Consultation Consultation Note: ENT consult 73-year-old woman with declining respiratory status and noisy breathing. History of COPD, and noted to have stridor on and off, especially after coughing. Physical examination reveals a well-developed, overweight female, sitting comfortably in bed. There is an audible inspiratory wheeze with deep inspiration. The oral cavity and oropharynx are normal except for the presence of a large tongue.the nose demonstrates bilateral inferior turbinate hypertrophy. The nasopharynx and hypopharynx are normal. The endolarynx demonstrates symmetric true vocal cords without evidence of dysfunction or lesions, with a mild amount of edema. Impression: No evident laryngeal lesions. Incidental finding of inferior turbinate hypertrophy. Recommend continuing appropriate pulmonary management, and reconsult if her audible breathing sounds become worse.
[2019-06-05] MEDS: hydrALAZINE HCL 25 MG TABLET (FP) PO SCH (06:52)
[2019-06-05] MEDS: INSULIN (LEVEMIR) 100 UNITS/ML UNITS SQ SCH (06:55)
[2019-06-05] MEDS: INSULIN SLIDING SCALE (NOVOLOG) 1 VIAL SQ SCH ×2 (06:55→12:50)
--- NOTE | 2019-06-05 08:38 | DS ---
Physical Exam: SUBJECTIVE: Patient seen and examined OBJECTIVE: Vital Signs Period Temp Pulse Resp BP Sys/Arthur Pulse Ox Last 24 Hr 98.0 F-98.9 F 62-71 16-20 129-151/40-54 96-100 PHYSICAL EXAM GENERAL: The patient is awake, alert, and fully oriented, in no acute distress. LUNGS: Moving air better, no wheezing appreciated over lung woodruff, mild wheezing over the trachea HEART: Regular rate and rhythm, S1, S2 ABDOMEN: Soft, nontender, nondistended EXTREMITIES: 2+ pulses, warm, well-perfused, no edema. NEUROLOGICAL: Cranial nerves II through XII grossly intact. Normal speech SKIN: Warm, dry, normal turgor LABS Laboratory Results - last 24 hr 06/04/19 06/04/19 06/04/19 11:32 16:33 21:23 POC Glucometer 331 344 371 06/05/19 06:54 POC Glucometer 312 HOSPITAL COURSE: Date of Admission:05/31/19 Date of Discharge: 06/05/19 Pre-Hospital Course 73 year old female with past medical history of hypertension, diabetes mellitus , diastolic congestive heart failure, EF >65%, and COPD who presented from Dr. Fuentes's office with severe SOB. She has had multiple admissions in the last 6 months for acute bronchitis and treated with IV azithromycin, steroids and duonebs. She was found to have significant wheezing with poor air movement in Dr. Fuentes's office with drops in her O2Sat to 90% with ambulation, hacking nonproductive cough, and dyspena on exertion. She followed up with Dr. Baltazar earlier this week and she has been placed on prednisone 10 mg daily. ED Course (1) COPD Exacerbation, sarted on IV rocephin (2) Hyperkalemia- got IV calcium gluconate, sodium bicarb, D50 , insulin and Lokilma (3) LETTY on CKD (4) Elevated BNP Subsequent Hospital Course 73 year-old female with a PMH significant for HTN, HLD, diastolic dysfunction and pulmonary HTN, COPD not on home O2, recurrent bronchitis, OSAS on CPAP, CKD , and Type II NIDDM. This is fourth hospitalization since early February 2019. Recent prolonged hospital stay at [facility] (05/13/19 - 05/23/19) for COPD exacerbation. Acute on chronic COPD --06/03 CT chest: mild chronic lung disease --treated with IV steroids and duonebs, observed off antibiotics --sats 98% on room air at rest, 96% on room air with flat surface ambulation --tracheal wheezing; seen and evaluated by ENT Dr. Daigle, bedside scope, unremarkable study OSAS --CPAP qhs and PRN for increased work of breathing Diastolic dysfunction Pulmonary HTN --06/03 CT chest: small bilateral pleural effusions L>R --05/14/19 Echo: mild cLVH, EF 65%, abnormal relaxation; RV normal; trace MR; mild TR; moderate pulmonary HTN; trace PI --continue torsemide Chronic kidney disease --Cr 2.1 ~ baseline --OK to continue torsemide per renal --outpatient followup with Dr. Jad Fuentes Hypertension --continue doxazosin, hydralazine, nebivolol, nifedipine Hyperlipidemia --not on statin therapy Minutes to complete discharge: 35 Discharge Summary Problems reviewed: Yes Reason For Visit: STAGE 3 CHRONIC KIDNEY DISEASE/HYPERKALEMIA Current Active Problems Hyperkalemia (Acute) CKD (chronic kidney disease) stage 3, GFR 30-59 ml/min (Chronic) COPD (chronic obstructive pulmonary disease) (Chronic) Condition: Stable - Instructions Referrals: Jean Claude Fuentes MD [Primary Care Provider] - - Home Medications Comprehensive Discharge Medication List: Ambulatory Orders Doxazosin Mesylate 6 mg PO DAILY 05/31/19 Hydralazine HCl 25 mg PO TID 05/31/19 Insulin Aspart [Novolog] 5 unit SQ ASDIR 05/31/19 Insulin Degludec [Tresiba Flextouch U-200] 22 units SQ AM 05/31/19 Ipratropium/Albuterol Sulfate [Iprat-Albut 0.5-3(2.5) mg/3 ml] 3 ml IH BID 05/31 Losartan Potassium 50 mg PO DAILY 05/31/19 Nebivolol [Bystolic -] 5 mg PO DAILY 05/31/19 Nifedipine ER [Procardia Xl -] 60 mg PO BID 05/31/19 Prednisone 10 mg PO DAILY 05/31/19 Torsemide 20 mg PO DAILY 05/31/19 Umeclidinium [place] [Incruse Ellipta] 62.5 mcg IH DAILY 05/31/19 This patient is new to me today: No Emergency Visit: Yes ED Registration Date: 05/31/19 Care time: The patient presented to the Emergency Department on the above date and was hospitalized for further evaluation of their emergent condition. Critical Care patient: No - Discharge Referral Referred to [facility] Yes Physician Referral: Jean Claude Baltazar MD (Pulm)
[2019-06-05 09:39] VITALS: BP 136/49; TEMP 98.4
[2019-06-05] MEDS: methylPREDNISolone NA SUCC 40 MG/1 ML VIAL IVPUSH SCH (09:49)
[2019-06-05] MEDS: TORSEMIDE 20 MG TABLET (FP) PO SCH (09:49)
[2019-06-05] MEDS: DOXAZOSIN MESYLATE 4 MG TABLET PO SCH (09:49)
[2019-06-05] MEDS: HEPARIN NA (PORCINE) 5,000 UNITS/ML 1ML VIAL SQ SCH (09:49)
[2019-06-05] MEDS: NIFEdipine E.R 60 MG TABLET PO SCH (09:49)
[2019-06-05] MEDS: NEBIVOLOL 5 MG TABLET (FP) PO SCH (09:49)
[2019-06-05] MEDS: ALBUTEROL SO4 2.5/IPRATROPIUM 0.5 INH SOL 3 ML VIAL.NEB. NEB SCH ×2 (09:55→12:45)
[2019-06-05] MEDS: POLYETHYLENE GLYCOL 3350 119 GM BTL PO SCH (10:15)
[2019-06-05 11:18] VITALS: PULSE 66
--- NOTE | 2019-06-05 12:36 | PN ---
Progress Note, Physician History of Present Illness: Pt seen and examined at bedside. She feels that her breathing is better. - Current Medication List Current Medications: Active Medications Albuterol Sulfate (Ventolin 0.083% Nebulizer Soln -) 1 amp NEB Q4H PRN PRN Reason: SHORT OF BREATH/WHEEZING Last Admin: 06/03/19 11:15 Dose: 1 amp Albuterol/Ipratropium (Duoneb -) 1 amp NEB RQID [facility] Last Admin: 06/05/19 09:55 Dose: 1 amp Doxazosin Mesylate (Cardura -) 6 mg PO DAILY [facility] Last Admin: 06/05/19 09:49 Dose: 6 mg Heparin Sodium (Porcine) (Heparin -) 5,000 unit SQ BID [facility] Last Admin: 06/05/19 09:49 Dose: 5,000 unit Hydralazine HCl (Apresoline -) 25 mg PO TID [facility] Last Admin: 06/05/19 06:52 Dose: 25 mg Insulin Aspart (Novolog Vial Sliding Scale -) 1 vial SQ ACHS [facility]; Protocol Last Admin: 06/05/19 06:55 Dose: 6 units Insulin Detemir (Levemir Vial) 20 units SQ 0700 [facility] Last Admin: 06/05/19 06:55 Dose: 20 units Methylprednisolone Sodium Succinate (Solu-Medrol -) 40 mg IVPUSH BID [facility] Last Admin: 06/05/19 09:49 Dose: 40 mg Nebivolol (Bystolic -) 5 mg PO DAILY [facility] Last Admin: 06/05/19 09:49 Dose: 5 mg Nifedipine (Procardia Xl -) 60 mg PO BID [facility] Last Admin: 06/05/19 09:49 Dose: 60 mg Polyethylene Glycol (Miralax (For Daily Use) -) 17 gm PO DAILY [facility] Last Admin: 06/05/19 10:15 Dose: Not Given Senna (Senna -) 2 tab PO HS PRN PRN Reason: CONSTIPATION Torsemide (Demadex -) 20 mg PO DAILY [facility] Last Admin: 06/05/19 09:49 Dose: 20 mg - Objective Vital Signs: Vital Signs Temperature 98.4 F 06/05/19 09:35 Pulse Rate 66 06/05/19 10:58 Respiratory Rate 19 06/05/19 09:35 Blood Pressure 136/49 L 06/05/19 09:35 O2 Sat by Pulse Oximetry (%) 98 06/05/19 10:58 Constitutional: Yes: Calm Eyes: Yes: Conjunctiva Clear HENT: Yes: Atraumatic Neck: Yes: Supple Cardiovascular: Yes: S1, S2 Respiratory: Yes: On Nasal O2 Gastrointestinal: Yes: Soft Genitourinary: Yes: WNL Musculoskeletal: Yes: WNL Edema: Yes Edema: LLE: Trace, RLE: Trace Neurological: Yes: Oriented Psychiatric: Yes: Oriented Labs: CBC, BMP 06/02/19 06:00 06/04/19 06:47 Assessment/Plan Current Medications Generic Name Dose Route Start Last Admin Trade Name Freq PRN Reason Stop Dose Admin Albuterol Sulfate 1 amp 06/01/19 15:43 06/03/19 11:15 Ventolin 0.083% Nebulizer Soln - NEB 1 amp Q4H PRN Administration SHORT OF BREATH/WHEEZING Albuterol/Ipratropium 1 amp 06/01/19 08:00 06/05/19 09:55 Duoneb - NEB 1 amp RQID GARO Administration Doxazosin Mesylate 6 mg 06/03/19 10:00 06/05/19 09:49 Cardura - PO 6 mg DAILY GARO Administration Heparin Sodium (Porcine) 5,000 unit 05/31/19 22:00 06/05/19 09:49 Heparin - SQ 5,000 unit BID GARO Administration Hydralazine HCl 25 mg 05/31/19 22:00 06/05/19 06:52 Apresoline - PO 25 mg TID GARO Administration Insulin Aspart 1 vial 06/03/19 21:15 06/05/19 06:55 Novolog Vial Sliding Scale - SQ 6 units ACHS GARO Administration Protocol Insulin Detemir 20 units 06/02/19 11:00 06/05/19 06:55 Levemir Vial SQ 20 units 0700 GARO Administration Methylprednisolone Sodium Succinate 40 mg 06/02/19 22:00 06/05/19 09:49 Solu-Medrol - IVPUSH 40 mg BID GARO Administration Nebivolol 5 mg 06/01/19 10:00 06/05/19 09:49 Bystolic - PO 5 mg DAILY GARO Administration Nifedipine 60 mg 05/31/19 22:00 06/05/19 09:49 Procardia Xl - PO 60 mg BID GARO Administration Polyethylene Glycol 17 gm 06/04/19 16:45 06/05/19 10:15 Miralax (For Daily Use) - PO Not Given DAILY GARO Senna 2 tab 06/04/19 16:34 Senna - PO HS PRN CONSTIPATION Torsemide 20 mg 06/01/19 10:00 06/05/19 09:49 Demadex - PO 20 mg DAILY G[facility]O Administration Impression 1. CKD 2. HTN 3. copd 4. chf 5. DM 6. hyperkalemia Plan - cont diuretics - low potassium diet - will need to follow with Dr Gomez - renal function had been stable - steroids with taper
== END 2019-06-05 13:45 | disposition home or self-care (01) | DRG 191 ==
LOC: FER 15:02 → FM/S 18:06
PROVIDERS: ADMIT Internal Medicine; ATTEND Nurse Practitioner Acute Care
DX: J44.1 Chronic obstructive pulmonary disease with (acute) exacerbation (principal); I50.32 Chronic diastolic (congestive) heart failure; N17.9 Acute kidney failure, unspecified; I13.0 Hypertensive heart and chronic kidney disease with heart failure and stage 1 through stage 4 chronic kidney disease, or unspecified chronic kidney disease; E87.5 Hyperkalemia; N18.3 Chronic kidney disease, stage 3 (moderate); I27.20 Pulmonary hypertension, unspecified; G47.33 Obstructive sleep apnea (adult) (pediatric); E11.40 Type 2 diabetes mellitus with diabetic neuropathy, unspecified; E78.5 Hyperlipidemia, unspecified; D72.829 Elevated white blood cell count, unspecified
CPT/HCPCS: 36415; 71045-TC-FY; 71250-TC; 80048; 80053; 82962; 83880; 84132; 85025; 93005; 94640; 94660; 99285-25; J1100; J1644; J7030

== ENCOUNTER 2020-05-14 13:35 | Inpatient (IN) | payer OTHER ==
[2020-05-14] MEDS ORDERED: ALBUTEROL SO4 2.5/IPRATROPIUM 0.5 INH SOL 3 ML VIAL.NEB. NEB ONE ×3 (13:58→19:58)
[2020-05-14] MEDS ORDERED: methylPREDNISolone NA SUCC 125 MG/2 ML VIAL ONE (13:59)
[2020-05-14] MEDS ORDERED: methylPREDNISolone NA SUCC 125 MG/2 ML VIAL IVPUSH ONE (13:59)
[2020-05-14 14:46] LABS: BASO % 0.3 % (0-2.0); EOS % 0.7 % (0-4.5); HEMATOCRIT 25.7 % (32.4-45.2); HEMOGLOBIN 8.4 GM/dL (10.7-15.3); LYMPH % 8.5 % (8-40); MCH 25.9 pg (25.7-33.7); MCHC 32.7 g/dl (32.0-36.0); MEAN CELL VOLUME 79.4 fl (80-96); MEAN PLT VOLUME 7.8 fl (7.5-11.1); MONO % 5.9 % (3.8-10.2); NEUT % 84.6 % (42.8-82.8); PLATELET COUNT 264 K/MM3 (134-434); RBC 3.24 M/mm3 (3.60-5.2); RDW 22.1 % (11.6-15.6); WHITE BLOOD COUNT 9.9 K/mm3 (4.0-10.0)
[2020-05-14 14:52] LABS: INR 1.29 (0.83-1.09); PROTHROMBIN TIME (PATIENT) 15.8 SEC (9.7-13.0)
[2020-05-14 14:55] LABS: ACTIVATED PTT 30.6 SECONDS (25.2-36.5)
[2020-05-14 15:11] LABS: POTASSIUM 5.3 mmol/L (3.5-5.1)
[2020-05-14 15:14] LABS: ALBUMIN 2.7 g/dl (3.4-5.0); BLOOD UREA NITROGEN 48.6 mg/dL (7-18); CALCIUM 8.4 mg/dL (8.5-10.1)
[2020-05-14] MEDS ORDERED: NITROGLYCERIN SUBLINGUAL 1/150 0.4 MG TAB SL ONE (15:18)
[2020-05-14 15:19] LABS: BILIRUBIN,TOTAL 0.4 mg/dL (0.2-1); TOT PROT 5.9 g/dl (6.4-8.2)
[2020-05-14 15:22] LABS: N-TERMINAL BNP 5508.1 pg/ml (5-450)
[2020-05-14] MEDS ORDERED: NITROGLYCERIN SUBLINGUAL 1/150 0.4 MG TAB ONE (15:23)
[2020-05-14] MEDS ORDERED: NITROGLYCERIN 2% OINTMENT - 1GM PACKET TD ONE ×3 (15:25→15:30)
[2020-05-14] MEDS ORDERED: NITROGLYCERIN 50MG/D5W 250ML 50 MG/250 ML ML IVPB SCH (15:30)
[2020-05-14] MEDS ORDERED: FUROSEMIDE 40 MG/4 ML INJECTABLE VIAL IVPUSH ONE (15:42)
[2020-05-14] MEDS ORDERED: FUROSEMIDE 40 MG/4 ML INJECTABLE VIAL ONE (16:01)
[2020-05-14] MEDS ORDERED: CEFTRIAXONE 1 GM/50 ML BAG ONE (16:56)
[2020-05-14] MEDS: CEFTRIAXONE 1 GM in DEXTROSE 5%-WATER - 50 ML IVPB SCH (17:53)
[2020-05-14 18:15] LABS: ANISOCYTOSIS 3+; MACROCYTOSIS 1+; OVALOCYTE 1+; PLATELET ESTIMATE NORMAL; TEAR DROP CELLS 1+
[2020-05-14] MEDS ORDERED: hydrALAZINE HCL 25 MG TABLET (FP) ONE ×2 (19:58→22:08)
[2020-05-14] MEDS ORDERED: methylPREDNISolone NA SUCC 40 MG/1 ML VIAL ONE (19:59)
[2020-05-14] MEDS ORDERED: NIFEdipine E.R. 30 MG TABLET ONE (19:59)
[2020-05-14] MEDS: ALBUTEROL SO4 2.5/IPRATROPIUM 0.5 INH SOL 3 ML VIAL.NEB. NEB SCH (20:05)
[2020-05-14] MEDS: hydrALAZINE HCL 25 MG TABLET (FP) PO SCH ×2 (20:05→22:19)
[2020-05-14] MEDS: NIFEdipine E.R 60 MG TABLET PO SCH ×2 (20:06→22:19)
[2020-05-14] MEDS: methylPREDNISolone NA SUCC 40 MG/1 ML VIAL IVPUSH SCH (20:10)
[2020-05-14] MEDS ORDERED: APIXABAN 2.5 MG TABLET PO SCH (22:00)
[2020-05-14] MEDS ORDERED: APIXABAN 5 MG TABLET ONE (22:08)
[2020-05-14] MEDS ORDERED: GABAPENTIN 100 MG CAPSULE ONE (22:09)
[2020-05-14] MEDS: APIXABAN 5 MG TABLET PO SCH (22:19)
[2020-05-14] MEDS: GABAPENTIN 300 MG CAPSULE PO SCH (22:19)
[2020-05-15] MEDS ORDERED: methylPREDNISolone NA SUCC 40 MG/1 ML VIAL ONE ×2 (05:08→09:08)
[2020-05-15] MEDS ORDERED: FUROSEMIDE 40 MG/4 ML INJECTABLE VIAL ONE ×2 (05:08→14:20)
[2020-05-15] MEDS ORDERED: hydrALAZINE HCL 25 MG TABLET (FP) ONE ×2 (05:08→14:19)
[2020-05-15] MEDS: FUROSEMIDE 40 MG/4 ML INJECTABLE VIAL IVPUSH SCH ×2 (05:45→14:29)
[2020-05-15] MEDS: methylPREDNISolone NA SUCC 40 MG/1 ML VIAL IVPUSH SCH (05:45)
[2020-05-15] MEDS: hydrALAZINE HCL 25 MG TABLET (FP) PO SCH ×3 (05:45→21:32)
[2020-05-15] MEDS: ALBUTEROL SO4 2.5/IPRATROPIUM 0.5 INH SOL 3 ML VIAL.NEB. NEB SCH ×2 (09:00→20:10)
[2020-05-15] MEDS ORDERED: ALBUTEROL SO4 2.5/IPRATROPIUM 0.5 INH SOL 3 ML VIAL.NEB. NEB ONE (09:06)
[2020-05-15] MEDS ORDERED: NIFEdipine E.R. 30 MG TABLET ONE (09:07)
[2020-05-15] MEDS ORDERED: APIXABAN 5 MG TABLET ONE (09:07)
[2020-05-15] MEDS ORDERED: FOLIC ACID 1 MG TABLET (FP) ONE (09:07)
[2020-05-15] MEDS ORDERED: GABAPENTIN 100 MG CAPSULE ONE (09:07)
[2020-05-15] MEDS ORDERED: CEFTRIAXONE 1 GM/50 ML BAG ONE (09:08)
[2020-05-15] MEDS: GABAPENTIN 300 MG CAPSULE PO SCH ×2 (09:30→21:32)
[2020-05-15] MEDS: NIFEdipine E.R 60 MG TABLET PO SCH ×2 (09:30→21:32)
[2020-05-15] MEDS: FOLIC ACID 1 MG TABLET (FP) PO SCH (09:30)
[2020-05-15] MEDS: APIXABAN 5 MG TABLET PO SCH ×2 (09:30→21:32)
[2020-05-15] MEDS ORDERED: ASPIRIN COATED 81 MG TABLET.EC PO SCH (10:00)
[2020-05-15] MEDS ORDERED: LOSARTAN POTASSIUM 50 MG TABLET PO SCH (10:00)
[2020-05-15] MEDS: CEFTRIAXONE 1 GM in DEXTROSE 5%-WATER - 50 ML IVPB SCH (10:31)
[2020-05-15] MEDS: NEBIVOLOL 5 MG TABLET (FP) PO SCH (11:00)
[2020-05-15] MEDS: DOXAZOSIN MESYLATE 2 MG TABLET PO SCH (11:01)
[2020-05-15 11:57] LABS: BASO % 0.1 % (0-2.0); HEMATOCRIT 25.8 % (32.4-45.2); HEMOGLOBIN 8.3 GM/dL (10.7-15.3); LYMPH % 3.8 % (8-40); MCH 25.7 pg (25.7-33.7); MCHC 32.2 g/dl (32.0-36.0); MEAN CELL VOLUME 79.8 fl (80-96); MEAN PLT VOLUME 8.3 fl (7.5-11.1); MONO % 2.6 % (3.8-10.2); NEUT % 93.5 % (42.8-82.8); PLATELET COUNT 268 K/MM3 (134-434); RBC 3.24 M/mm3 (3.60-5.2); RDW 22.4 % (11.6-15.6); WHITE BLOOD COUNT 11.7 K/mm3 (4.0-10.0)
[2020-05-15 13:14] LABS: ANISOCYTOSIS 0; MACROCYTOSIS 0; PLATELET ESTIMATE NORMAL
[2020-05-15] MEDS ORDERED: SODIUM ZIRCONIUM CYCLOSILICATE (LOKELMA) 5 GM PACKET PO ONE (13:31)
[2020-05-15 14:36] LABS: ALBUMIN 2.7 g/dl (3.4-5.0); BLOOD UREA NITROGEN 58.6 mg/dL (7-18); CALCIUM 8.4 mg/dL (8.5-10.1)
[2020-05-15 14:38] LABS: MAGNESIUM 2.5 mg/dL (1.8-2.4)
[2020-05-15 14:39] LABS: PHOSPHOROUS 4.2 mg/dL (2.5-4.9)
[2020-05-15 14:41] LABS: BILIRUBIN,TOTAL 0.2 mg/dL (0.2-1); CREATININE 2.2 mg/dL (0.55-1.3)
[2020-05-15] MEDS ORDERED: INSULIN (NOVOLOG) ASPART 100 UNITS/ML 10ML VIAL SQ ONE ×2 (15:03→19:30)
[2020-05-15] MEDS: INSULIN REGULAR HUMAN 100 UNITS/ML *VIAL SQ ONE ×2 (15:11→15:12)
[2020-05-15] MEDS: INSULIN SLIDING SCALE (NOVOLOG) 1 VIAL SQ SCH (16:46)
[2020-05-15] MEDS ORDERED: INSULIN (NOVOLOG) ASPART 100 UNITS/ML 10ML VIAL ONE (20:21)
[2020-05-15] MEDS: INSULIN (LEVEMIR) 100 UNITS/ML UNITS SQ SCH (21:32)
[2020-05-16] MEDS: FUROSEMIDE 40 MG/4 ML INJECTABLE VIAL IVPUSH SCH ×2 (06:18→13:35)
[2020-05-16] MEDS: INSULIN SLIDING SCALE (NOVOLOG) 1 VIAL SQ SCH ×3 (06:18→16:55)
[2020-05-16] MEDS: hydrALAZINE HCL 25 MG TABLET (FP) PO SCH ×3 (06:18→21:40)
[2020-05-16 08:35] LABS: BASO % 0.3 % (0-2.0); EOS % 0.2 % (0-4.5); HEMATOCRIT 23.1 % (32.4-45.2); HEMOGLOBIN 7.5 GM/dL (10.7-15.3); LYMPH % 6.3 % (8-40); MCH 25.6 pg (25.7-33.7); MCHC 32.5 g/dl (32.0-36.0); MEAN PLT VOLUME 8.5 fl (7.5-11.1); MONO % 6.7 % (3.8-10.2); NEUT % 86.5 % (42.8-82.8); PLATELET COUNT 224 K/MM3 (134-434); RBC 2.92 M/mm3 (3.60-5.2); RDW 22.8 % (11.6-15.6); WHITE BLOOD COUNT 12.5 K/mm3 (4.0-10.0)
[2020-05-16 08:36] LABS: POTASSIUM 4.8 mmol/L (3.5-5.1)
[2020-05-16 08:39] LABS: ALBUMIN 2.5 g/dl (3.4-5.0); BLOOD UREA NITROGEN 65.7 mg/dL (7-18)
[2020-05-16 08:41] LABS: CALCIUM 8.5 mg/dL (8.5-10.1)
[2020-05-16 08:42] LABS: CREATININE 2.3 mg/dL (0.55-1.3)
[2020-05-16 08:43] LABS: BILIRUBIN,TOTAL 0.3 mg/dL (0.2-1)
[2020-05-16 08:44] LABS: TOT PROT 5.4 g/dl (6.4-8.2)
[2020-05-16] MEDS: ALBUTEROL SO4 2.5/IPRATROPIUM 0.5 INH SOL 3 ML VIAL.NEB. NEB SCH ×4 (08:55→20:05)
[2020-05-16] MEDS ORDERED: PT OWN MED DRAWER 7, Y5N ONE (09:38)
[2020-05-16] MEDS: DOXAZOSIN MESYLATE 2 MG TABLET PO SCH (09:45)
[2020-05-16] MEDS: FOLIC ACID 1 MG TABLET (FP) PO SCH (09:46)
[2020-05-16] MEDS: GABAPENTIN 300 MG CAPSULE PO SCH ×2 (09:46→21:39)
[2020-05-16] MEDS: APIXABAN 5 MG TABLET PO SCH ×2 (09:46→21:39)
[2020-05-16] MEDS: IRON POLYSACCHARIDES 150 MG CAPSULE PO SCH (09:46)
[2020-05-16] MEDS: NEBIVOLOL 5 MG TABLET (FP) PO SCH (09:46)
[2020-05-16] MEDS: NIFEdipine E.R 60 MG TABLET PO SCH ×2 (09:46→21:39)
[2020-05-16] MEDS ORDERED: FUROSEMIDE 40 MG/4 ML INJECTABLE VIAL IVPUSH ONE (10:55)
[2020-05-16] MEDS ORDERED: INSULIN (NOVOLOG) ASPART 100 UNITS/ML 10ML VIAL ONE (11:34)
[2020-05-16] MEDS: MAG HYDROX/AL HYDROX/SIMETH 30 ML UNIT-DOSE CUP PO PRN (17:33)
[2020-05-16] MEDS ORDERED: IRON SUCROSE INJECTION 200 MG in SODIUM CHLORIDE 90 ML IVPB ONE (19:00)
[2020-05-16] MEDS ORDERED: PANTOPRAZOLE SODIUM 40 MG VIAL ONE (21:21)
[2020-05-16] MEDS ORDERED: SODIUM CHLORIDE 100 ML IVPB ONE (21:22)
[2020-05-16] MEDS: ATORVASTATIN CA 40 MG TABLET (FP) PO SCH (21:39)
[2020-05-16] MEDS: INSULIN (LEVEMIR) 100 UNITS/ML UNITS SQ SCH (21:39)
[2020-05-16] MEDS: PANTOPRAZOLE SODIUM 40 MG in SODIUM CHLORIDE 100 ML IVPB SCH (21:41)
[2020-05-17] MEDS: FUROSEMIDE 40 MG/4 ML INJECTABLE VIAL IVPUSH SCH ×2 (06:12→14:17)
[2020-05-17] MEDS: hydrALAZINE HCL 25 MG TABLET (FP) PO SCH ×3 (06:13→21:58)
[2020-05-17] MEDS: INSULIN SLIDING SCALE (NOVOLOG) 1 VIAL SQ SCH ×3 (06:14→15:29)
[2020-05-17] MEDS: ALBUTEROL SO4 2.5/IPRATROPIUM 0.5 INH SOL 3 ML VIAL.NEB. NEB SCH ×4 (07:58→20:50)
[2020-05-17 08:41] LABS: BASO % 0.3 % (0-2.0); EOS % 3.1 % (0-4.5); HEMATOCRIT 23.3 % (32.4-45.2); HEMOGLOBIN 7.7 GM/dL (10.7-15.3); LYMPH % 10.3 % (8-40); MCH 26.1 pg (25.7-33.7); MCHC 33.1 g/dl (32.0-36.0); MEAN CELL VOLUME 78.9 fl (80-96); MEAN PLT VOLUME 8.6 fl (7.5-11.1); MONO % 6.7 % (3.8-10.2); NEUT % 79.6 % (42.8-82.8); PLATELET COUNT 236 K/MM3 (134-434); RBC 2.96 M/mm3 (3.60-5.2); RDW 22.3 % (11.6-15.6); WHITE BLOOD COUNT 10.9 K/mm3 (4.0-10.0)
[2020-05-17 09:02] LABS: POTASSIUM 4.7 mmol/L (3.5-5.1)
[2020-05-17 09:10] LABS: ALBUMIN 2.5 g/dl (3.4-5.0); BLOOD UREA NITROGEN 70.4 mg/dL (7-18); CALCIUM 8.3 mg/dL (8.5-10.1); MAGNESIUM 2.7 mg/dL (1.8-2.4)
[2020-05-17 09:14] LABS: CREATININE 2.4 mg/dL (0.55-1.3); PHOSPHOROUS 4.5 mg/dL (2.5-4.9)
[2020-05-17 09:15] LABS: BILIRUBIN,TOTAL 0.3 mg/dL (0.2-1); TOT PROT 5.4 g/dl (6.4-8.2)
[2020-05-17] MEDS: GABAPENTIN 300 MG CAPSULE PO SCH ×2 (12:40→21:58)
[2020-05-17] MEDS: IRON POLYSACCHARIDES 150 MG CAPSULE PO SCH ×2 (12:40→12:41)
[2020-05-17] MEDS: APIXABAN 5 MG TABLET PO SCH ×2 (12:40→21:58)
[2020-05-17] MEDS: NIFEdipine E.R 60 MG TABLET PO SCH ×2 (12:40→21:59)
[2020-05-17] MEDS: FOLIC ACID 1 MG TABLET (FP) PO SCH (12:40)
[2020-05-17] MEDS: NEBIVOLOL 5 MG TABLET (FP) PO SCH (12:41)
[2020-05-17] MEDS: DOXAZOSIN MESYLATE 2 MG TABLET PO SCH (12:41)
[2020-05-17] MEDS ORDERED: SODIUM CHLORIDE 100 ML IVPB ONE ×3 (14:15→22:17)
[2020-05-17] MEDS ORDERED: PANTOPRAZOLE SODIUM 40 MG VIAL ONE ×3 (14:15→22:16)
[2020-05-17] MEDS: PANTOPRAZOLE SODIUM 40 MG in SODIUM CHLORIDE 100 ML IVPB SCH ×2 (14:17→21:59)
[2020-05-17] MEDS: methylPREDNISolone NA SUCC 40 MG/1 ML VIAL IVPUSH SCH ×3 (14:17→21:59)
[2020-05-17] MEDS: INSULIN (LEVEMIR) 100 UNITS/ML UNITS SQ SCH (21:59)
[2020-05-18] MEDS: methylPREDNISolone NA SUCC 40 MG/1 ML VIAL IVPUSH SCH ×4 (02:38→21:49)
[2020-05-18] MEDS: hydrALAZINE HCL 25 MG TABLET (FP) PO SCH ×3 (05:56→21:51)
[2020-05-18] MEDS: FUROSEMIDE 40 MG/4 ML INJECTABLE VIAL IVPUSH SCH (05:56)
[2020-05-18] MEDS: INSULIN SLIDING SCALE (NOVOLOG) 1 VIAL SQ SCH ×3 (06:54→15:41)
[2020-05-18] MEDS: ALBUTEROL SO4 2.5/IPRATROPIUM 0.5 INH SOL 3 ML VIAL.NEB. NEB SCH ×4 (08:37→20:42)
[2020-05-18] MEDS ORDERED: PT OWN MED DRAWER 7, Y5N ONE ×2 (09:19→11:38)
[2020-05-18] MEDS: PANTOPRAZOLE 40 MG TABLET PO SCH (09:52)
[2020-05-18] MEDS: GABAPENTIN 300 MG CAPSULE PO SCH ×2 (09:53→21:50)
[2020-05-18] MEDS: APIXABAN 5 MG TABLET PO SCH ×2 (09:53→21:50)
[2020-05-18] MEDS: IRON POLYSACCHARIDES 150 MG CAPSULE PO SCH (09:53)
[2020-05-18] MEDS: NEBIVOLOL 5 MG TABLET (FP) PO SCH (09:53)
[2020-05-18] MEDS: DOXAZOSIN MESYLATE 2 MG TABLET PO SCH (09:53)
[2020-05-18] MEDS: FOLIC ACID 1 MG TABLET (FP) PO SCH (09:53)
[2020-05-18] MEDS: NIFEdipine E.R 60 MG TABLET PO SCH ×2 (09:54→21:50)
[2020-05-18] MEDS ORDERED: IRON SUCROSE INJECTION 300 MG in SODIUM CHLORIDE 235 ML IVPB ONE (13:55)
[2020-05-18 14:05] LABS: HEMOGLOBIN 7.4 GM/dL (10.7-15.3); MCH 25.7 pg (25.7-33.7); MCHC 32.4 g/dl (32.0-36.0); MEAN CELL VOLUME 79.4 fl (80-96); MEAN PLT VOLUME 8.9 fl (7.5-11.1); MONO % 1.6 % (3.8-10.2); NEUT % 96.4 % (42.8-82.8); PLATELET COUNT 207 K/MM3 (134-434); RBC 2.89 M/mm3 (3.60-5.2); RDW 22.4 % (11.6-15.6); WHITE BLOOD COUNT 10.7 K/mm3 (4.0-10.0)
[2020-05-18 14:24] LABS: POTASSIUM 5.3 mmol/L (3.5-5.1)
[2020-05-18 14:25] LABS: ALBUMIN 2.5 g/dl (3.4-5.0); CALCIUM 8.6 mg/dL (8.5-10.1)
[2020-05-18 14:27] LABS: MAGNESIUM 2.7 mg/dL (1.8-2.4)
[2020-05-18 14:30] LABS: CREATININE 2.6 mg/dL (0.55-1.3); PHOSPHOROUS 3.9 mg/dL (2.5-4.9)
[2020-05-18 14:31] LABS: BILIRUBIN,TOTAL 0.2 mg/dL (0.2-1); TOT PROT 5.4 g/dl (6.4-8.2)
[2020-05-18 15:23] LABS: ANISOCYTOSIS 1+; MACROCYTOSIS 0; OVALOCYTE 1+; PLATELET ESTIMATE NORMAL
[2020-05-18] MEDS ORDERED: INSULIN (NOVOLOG) ASPART 100 UNITS/ML 10ML VIAL ONE (21:31)
[2020-05-18] MEDS: INSULIN (LEVEMIR) 100 UNITS/ML UNITS SQ SCH (21:49)
[2020-05-18] MEDS: ATORVASTATIN CA 40 MG TABLET (FP) PO SCH (21:51)
[2020-05-19] MEDS: methylPREDNISolone NA SUCC 40 MG/1 ML VIAL IVPUSH SCH ×3 (02:42→17:28)
[2020-05-19] MEDS: hydrALAZINE HCL 25 MG TABLET (FP) PO SCH ×3 (05:57→22:36)
[2020-05-19] MEDS: FUROSEMIDE 40 MG/4 ML INJECTABLE VIAL IVPUSH SCH ×2 (05:57→14:45)
[2020-05-19] MEDS: INSULIN SLIDING SCALE (NOVOLOG) 1 VIAL SQ SCH ×3 (06:06→17:21)
[2020-05-19] MEDS: ALBUTEROL SO4 2.5/IPRATROPIUM 0.5 INH SOL 3 ML VIAL.NEB. NEB SCH ×4 (08:35→20:20)
[2020-05-19] MEDS: DOXAZOSIN MESYLATE 2 MG TABLET PO SCH (10:41)
[2020-05-19] MEDS: FOLIC ACID 1 MG TABLET (FP) PO SCH (10:41)
[2020-05-19] MEDS: APIXABAN 5 MG TABLET PO SCH ×2 (10:41→22:36)
[2020-05-19] MEDS: GABAPENTIN 300 MG CAPSULE PO SCH ×2 (10:41→22:36)
[2020-05-19] MEDS: NIFEdipine E.R 60 MG TABLET PO SCH (10:41)
[2020-05-19] MEDS: PANTOPRAZOLE 40 MG TABLET PO SCH (10:41)
[2020-05-19] MEDS: IRON POLYSACCHARIDES 150 MG CAPSULE PO SCH (10:41)
[2020-05-19] MEDS: NEBIVOLOL 5 MG TABLET (FP) PO SCH (10:41)
[2020-05-19] MEDS ORDERED: INSULIN (LEVEMIR) 100 UNITS/ML UNITS SQ ONE (12:58)
[2020-05-19] MEDS ORDERED: METOLAZONE 2.5 MG TABLET (FP) PO ONE (14:28)
[2020-05-19] MEDS: sitaGLIPtin PHOSPHATE 50 MG TABLET PO SCH (15:26)
[2020-05-19] MEDS: INSULIN (LEVEMIR) 100 UNITS/ML UNITS SQ SCH (22:37)
[2020-05-20] MEDS: methylPREDNISolone NA SUCC 40 MG/1 ML VIAL IVPUSH SCH ×3 (02:30→17:39)
[2020-05-20] MEDS: hydrALAZINE HCL 25 MG TABLET (FP) PO SCH ×3 (06:26→21:18)
[2020-05-20] MEDS: sitaGLIPtin PHOSPHATE 50 MG TABLET PO SCH (06:26)
[2020-05-20] MEDS: FUROSEMIDE 40 MG/4 ML INJECTABLE VIAL IVPUSH SCH (06:26)
[2020-05-20] MEDS: INSULIN SLIDING SCALE (NOVOLOG) 1 VIAL SQ SCH ×3 (06:27→16:59)
[2020-05-20] MEDS ORDERED: INSULIN (NOVOLOG) ASPART 100 UNITS/ML 10ML VIAL ONE (06:56)
[2020-05-20] MEDS: ALBUTEROL SO4 2.5/IPRATROPIUM 0.5 INH SOL 3 ML VIAL.NEB. NEB SCH ×4 (08:00→20:10)
[2020-05-20 09:28] LABS: BASO % 0.1 % (0-2.0); HEMATOCRIT 24.7 % (32.4-45.2); HEMOGLOBIN 7.8 GM/dL (10.7-15.3); LYMPH % 2.2 % (8-40); MCH 25.4 pg (25.7-33.7); MCHC 31.5 g/dl (32.0-36.0); MEAN CELL VOLUME 80.5 fl (80-96); MEAN PLT VOLUME 9.2 fl (7.5-11.1); MONO % 3.9 % (3.8-10.2); NEUT % 93.8 % (42.8-82.8); PLATELET COUNT 185 K/MM3 (134-434); RBC 3.07 M/mm3 (3.60-5.2); RDW 22.6 % (11.6-15.6); WHITE BLOOD COUNT 12.4 K/mm3 (4.0-10.0)
[2020-05-20 09:38] LABS: POTASSIUM 4.9 mmol/L (3.5-5.1)
[2020-05-20 09:44] LABS: CALCIUM 8.7 mg/dL (8.5-10.1)
[2020-05-20 09:45] LABS: ALBUMIN 2.9 g/dl (3.4-5.0); BLOOD UREA NITROGEN 99.3 mg/dL (7-18)
[2020-05-20 09:48] LABS: CREATININE 3.1 mg/dL (0.55-1.3)
[2020-05-20 09:49] LABS: BILIRUBIN,TOTAL 0.2 mg/dL (0.2-1)
[2020-05-20] MEDS ORDERED: PT OWN MED DRAWER 7, Y5N ONE (10:59)
[2020-05-20] MEDS: APIXABAN 5 MG TABLET PO SCH ×2 (11:00→21:17)
[2020-05-20] MEDS: FOLIC ACID 1 MG TABLET (FP) PO SCH (11:00)
[2020-05-20] MEDS: GABAPENTIN 300 MG CAPSULE PO SCH ×2 (11:01→21:17)
[2020-05-20] MEDS: PANTOPRAZOLE 40 MG TABLET PO SCH (11:01)
[2020-05-20] MEDS: IRON POLYSACCHARIDES 150 MG CAPSULE PO SCH (11:01)
[2020-05-20] MEDS: NIFEdipine E.R 60 MG TABLET PO SCH (11:01)
[2020-05-20] MEDS: DOXAZOSIN MESYLATE 2 MG TABLET PO SCH (11:03)
[2020-05-20] MEDS: NEBIVOLOL 5 MG TABLET (FP) PO SCH (11:03)
[2020-05-20 12:14] LABS: ANISOCYTOSIS 2+; MACROCYTOSIS 0; OVALOCYTE 1+; PLATELET ESTIMATE NORMAL; TARGET CELLS 1+
[2020-05-20] MEDS: INSULIN (LEVEMIR) 100 UNITS/ML UNITS SQ SCH (21:18)
[2020-05-20] MEDS: ATORVASTATIN CA 40 MG TABLET (FP) PO SCH (21:20)
[2020-05-21] MEDS: methylPREDNISolone NA SUCC 40 MG/1 ML VIAL IVPUSH SCH ×2 (02:26→09:46)
[2020-05-21] MEDS ORDERED: INSULIN (NOVOLOG) ASPART 100 UNITS/ML 10ML VIAL ONE ×2 (06:22→11:47)
[2020-05-21] MEDS: INSULIN SLIDING SCALE (NOVOLOG) 1 VIAL SQ SCH ×3 (06:23→16:43)
[2020-05-21] MEDS: hydrALAZINE HCL 25 MG TABLET (FP) PO SCH ×3 (06:24→22:51)
[2020-05-21] MEDS: sitaGLIPtin PHOSPHATE 50 MG TABLET PO SCH (06:24)
[2020-05-21] MEDS: ALBUTEROL SO4 2.5/IPRATROPIUM 0.5 INH SOL 3 ML VIAL.NEB. NEB SCH ×4 (07:35→20:52)
[2020-05-21] MEDS ORDERED: PT OWN MED DRAWER 7, Y5N ONE ×2 (09:35→21:26)
[2020-05-21] MEDS: PANTOPRAZOLE 40 MG TABLET PO SCH (09:38)
[2020-05-21] MEDS: GABAPENTIN 300 MG CAPSULE PO SCH ×2 (09:38→22:51)
[2020-05-21] MEDS: FOLIC ACID 1 MG TABLET (FP) PO SCH (09:38)
[2020-05-21] MEDS: NIFEdipine E.R 60 MG TABLET PO SCH (09:38)
[2020-05-21] MEDS: IRON POLYSACCHARIDES 150 MG CAPSULE PO SCH (09:38)
[2020-05-21] MEDS: APIXABAN 5 MG TABLET PO SCH ×2 (09:38→22:51)
[2020-05-21] MEDS: NEBIVOLOL 5 MG TABLET (FP) PO SCH ×2 (09:39→22:51)
[2020-05-21] MEDS: DOXAZOSIN MESYLATE 2 MG TABLET PO SCH (09:39)
[2020-05-21] MEDS ORDERED: FUROSEMIDE 40 MG/4 ML INJECTABLE VIAL IVPUSH SCH (10:00)
[2020-05-21 10:10] LABS: BASO % 0.2 % (0-2.0); HEMATOCRIT 24.6 % (32.4-45.2); HEMOGLOBIN 7.8 GM/dL (10.7-15.3); MCH 25.4 pg (25.7-33.7); MCHC 31.6 g/dl (32.0-36.0); MEAN CELL VOLUME 80.5 fl (80-96); MEAN PLT VOLUME 9.3 fl (7.5-11.1); MONO % 5.4 % (3.8-10.2); NEUT % 91.4 % (42.8-82.8); PLATELET COUNT 183 K/MM3 (134-434); RBC 3.06 M/mm3 (3.60-5.2); RDW 22.4 % (11.6-15.6); WHITE BLOOD COUNT 12.6 K/mm3 (4.0-10.0)
[2020-05-21 10:32] LABS: CALCIUM 8.7 mg/dL (8.5-10.1)
[2020-05-21 10:33] LABS: ALBUMIN 2.8 g/dl (3.4-5.0)
[2020-05-21 10:37] LABS: BILIRUBIN,TOTAL 0.3 mg/dL (0.2-1); TOT PROT 5.8 g/dl (6.4-8.2)
[2020-05-21 10:40] LABS: BLOOD UREA NITROGEN 100.2 mg/dL (7-18); POTASSIUM 5.2 mmol/L (3.5-5.1)
[2020-05-21 11:25] LABS: EPI CELLS 4 /uL (0-25.1); HYALINE CASTS 0 /uL (0-3.1); URINE APPEARANCE CLEAR; URINE BACTERIA 1503 /uL (0-1359); URINE BILIRUBIN NEGATIVE (NEGATIVE); URINE COLOR YELLOW; URINE GLUCOSE (UA) NEGATIVE (NEGATIVE); URINE KETONE NEGATIVE (NEGATIVE); URINE LEUK ESTERASE TRACE (NEGATIVE); URINE NITRITE NEGATIVE (NEGATIVE); URINE PROTEIN TRACE (NEGATIVE); URINE RBC 5 /uL (0-23.9); URINE UROBILINOGEN 0.2 mg/dL (0.2-1.0); URINE WBC 4 /uL (0-25.8)
[2020-05-21] MEDS: predniSONE 20 MG TABLET (UD) PO SCH (11:48)
[2020-05-21 12:06] LABS: ANISOCYTOSIS 1+; MACROCYTOSIS 0; PLATELET ESTIMATE NORMAL; TARGET CELLS 1+
[2020-05-21] MEDS: FUROSEMIDE 40 MG/4 ML INJECTABLE VIAL IVPUSH SCH (16:50)
[2020-05-21] MEDS: INSULIN (LEVEMIR) 100 UNITS/ML UNITS SQ SCH (23:02)
[2020-05-22] MEDS: FUROSEMIDE 40 MG/4 ML INJECTABLE VIAL IVPUSH SCH ×2 (06:39→15:28)
[2020-05-22] MEDS: INSULIN SLIDING SCALE (NOVOLOG) 1 VIAL SQ SCH ×3 (06:39→17:06)
[2020-05-22] MEDS: sitaGLIPtin PHOSPHATE 50 MG TABLET PO SCH (06:39)
[2020-05-22] MEDS: hydrALAZINE HCL 25 MG TABLET (FP) PO SCH ×3 (06:39→21:11)
[2020-05-22] MEDS: ALBUTEROL SO4 2.5/IPRATROPIUM 0.5 INH SOL 3 ML VIAL.NEB. NEB SCH ×4 (08:10→20:50)
[2020-05-22 10:14] LABS: POTASSIUM 4.6 mmol/L (3.5-5.1)
[2020-05-22] MEDS ORDERED: PT OWN MED DRAWER 7, Y5N ONE ×2 (10:15→20:59)
[2020-05-22 10:16] LABS: ALBUMIN 2.8 g/dl (3.4-5.0); BLOOD UREA NITROGEN 100.2 mg/dL (7-18)
[2020-05-22 10:18] LABS: BASO % 0.1 % (0-2.0); EOS % 0.2 % (0-4.5); HEMATOCRIT 24.3 % (32.4-45.2); HEMOGLOBIN 7.7 GM/dL (10.7-15.3); LYMPH % 5.3 % (8-40); MCH 25.5 pg (25.7-33.7); MCHC 31.6 g/dl (32.0-36.0); MEAN CELL VOLUME 80.6 fl (80-96); MEAN PLT VOLUME 9.8 fl (7.5-11.1); MONO % 8.1 % (3.8-10.2); NEUT % 86.3 % (42.8-82.8); PLATELET COUNT 172 K/MM3 (134-434); RBC 3.01 M/mm3 (3.60-5.2); RDW 22.1 % (11.6-15.6); WHITE BLOOD COUNT 12.5 K/mm3 (4.0-10.0)
[2020-05-22] MEDS: NIFEdipine E.R 60 MG TABLET PO SCH (10:21)
[2020-05-22] MEDS: GABAPENTIN 300 MG CAPSULE PO SCH ×2 (10:21→21:11)
[2020-05-22] MEDS: PANTOPRAZOLE 40 MG TABLET PO SCH (10:21)
[2020-05-22] MEDS: FOLIC ACID 1 MG TABLET (FP) PO SCH (10:21)
[2020-05-22] MEDS: predniSONE 20 MG TABLET (UD) PO SCH (10:21)
[2020-05-22 10:22] LABS: BILIRUBIN,TOTAL 0.4 mg/dL (0.2-1); CREATININE 3.1 mg/dL (0.55-1.3)
[2020-05-22] MEDS: DOXAZOSIN MESYLATE 2 MG TABLET PO SCH (10:22)
[2020-05-22] MEDS: NEBIVOLOL 5 MG TABLET (FP) PO SCH ×2 (10:22→21:11)
[2020-05-22] MEDS: APIXABAN 5 MG TABLET PO SCH ×2 (10:22→21:11)
[2020-05-22] MEDS: IRON POLYSACCHARIDES 150 MG CAPSULE PO SCH (10:22)
[2020-05-22 10:23] LABS: TOT PROT 5.6 g/dl (6.4-8.2)
[2020-05-22 11:09] LABS: ANISOCYTOSIS 0; MACROCYTOSIS 0; PLATELET ESTIMATE NORMAL; TEAR DROP CELLS 1+
[2020-05-22] MEDS ORDERED: IRON SUCROSE INJECTION 200 MG in SODIUM CHLORIDE 90 ML IVPB ONE (11:15)
[2020-05-22] MEDS: ATORVASTATIN CA 40 MG TABLET (FP) PO SCH (21:11)
[2020-05-22] MEDS: INSULIN (LEVEMIR) 100 UNITS/ML UNITS SQ SCH (21:51)
[2020-05-23] MEDS: sitaGLIPtin PHOSPHATE 50 MG TABLET PO SCH (06:12)
[2020-05-23] MEDS: FUROSEMIDE 40 MG/4 ML INJECTABLE VIAL IVPUSH SCH ×2 (06:12→13:43)
[2020-05-23] MEDS: hydrALAZINE HCL 25 MG TABLET (FP) PO SCH ×3 (06:12→23:09)
[2020-05-23] MEDS: INSULIN SLIDING SCALE (NOVOLOG) 1 VIAL SQ SCH ×3 (06:19→17:07)
[2020-05-23] MEDS ORDERED: INSULIN (LEVEMIR) 100 UNITS/ML UNITS SQ ONE (06:55)
[2020-05-23] MEDS: ALBUTEROL SO4 2.5/IPRATROPIUM 0.5 INH SOL 3 ML VIAL.NEB. NEB SCH ×4 (08:20→20:35)
[2020-05-23] MEDS ORDERED: PT OWN MED DRAWER 7, Y5N ONE ×2 (09:16→23:04)
[2020-05-23] MEDS: predniSONE 20 MG TABLET (UD) PO SCH (09:17)
[2020-05-23] MEDS: PANTOPRAZOLE 40 MG TABLET PO SCH (09:18)
[2020-05-23] MEDS: FOLIC ACID 1 MG TABLET (FP) PO SCH (09:18)
[2020-05-23] MEDS: APIXABAN 5 MG TABLET PO SCH ×2 (09:18→23:09)
[2020-05-23] MEDS: GABAPENTIN 300 MG CAPSULE PO SCH ×2 (09:18→23:09)
[2020-05-23] MEDS: IRON POLYSACCHARIDES 150 MG CAPSULE PO SCH (09:18)
[2020-05-23] MEDS: NIFEdipine E.R 60 MG TABLET PO SCH (09:18)
[2020-05-23] MEDS: NEBIVOLOL 5 MG TABLET (FP) PO SCH ×2 (09:19→23:09)
[2020-05-23] MEDS ORDERED: amLODIPine BESYLATE 5 MG TABLET (FP) PO ONE (09:30)
[2020-05-23] MEDS ORDERED: amLODIPine BESYLATE 5 MG TABLET (FP) PO SCH (10:00)
[2020-05-23] MEDS: DOXAZOSIN MESYLATE 2 MG TABLET PO SCH (12:01)
[2020-05-23 12:27] LABS: BASO % 0.1 % (0-2.0); EOS % 1.1 % (0-4.5); HEMATOCRIT 23.7 % (32.4-45.2); HEMOGLOBIN 7.6 GM/dL (10.7-15.3); LYMPH % 4.6 % (8-40); MCH 25.6 pg (25.7-33.7); MCHC 31.9 g/dl (32.0-36.0); MEAN CELL VOLUME 80.3 fl (80-96); MEAN PLT VOLUME 9.4 fl (7.5-11.1); MONO % 6.6 % (3.8-10.2); NEUT % 87.6 % (42.8-82.8); PLATELET COUNT 169 K/MM3 (134-434); RBC 2.95 M/mm3 (3.60-5.2); RDW 22.1 % (11.6-15.6); WHITE BLOOD COUNT 11.7 K/mm3 (4.0-10.0)
[2020-05-23 12:33] LABS: POTASSIUM 4.7 mmol/L (3.5-5.1)
[2020-05-23 12:35] LABS: CALCIUM 8.6 mg/dL (8.5-10.1)
[2020-05-23 12:36] LABS: ALBUMIN 2.6 g/dl (3.4-5.0); BLOOD UREA NITROGEN 97.9 mg/dL (7-18)
[2020-05-23 12:39] LABS: CREATININE 2.9 mg/dL (0.55-1.3)
[2020-05-23 12:41] LABS: BILIRUBIN,TOTAL 0.3 mg/dL (0.2-1); TOT PROT 5.3 g/dl (6.4-8.2)
[2020-05-23] MEDS: INSULIN (LEVEMIR) 100 UNITS/ML UNITS SQ SCH (23:09)
[2020-05-24] MEDS: hydrALAZINE HCL 25 MG TABLET (FP) PO SCH ×3 (05:44→22:36)
[2020-05-24] MEDS: FUROSEMIDE 40 MG/4 ML INJECTABLE VIAL IVPUSH SCH ×2 (05:45→14:05)
[2020-05-24] MEDS: INSULIN SLIDING SCALE (NOVOLOG) 1 VIAL SQ SCH ×3 (06:10→16:52)
[2020-05-24] MEDS: sitaGLIPtin PHOSPHATE 50 MG TABLET PO SCH (06:10)
[2020-05-24] MEDS: ALBUTEROL SO4 2.5/IPRATROPIUM 0.5 INH SOL 3 ML VIAL.NEB. NEB SCH ×2 (07:35→11:02)
[2020-05-24 09:25] LABS: BASO % 0.3 % (0-2.0); EOS % 1.1 % (0-4.5); HEMATOCRIT 24.6 % (32.4-45.2); HEMOGLOBIN 7.9 GM/dL (10.7-15.3); MCH 25.7 pg (25.7-33.7); MCHC 32.2 g/dl (32.0-36.0); MEAN PLT VOLUME 9.7 fl (7.5-11.1); MONO % 5.7 % (3.8-10.2); NEUT % 86.9 % (42.8-82.8); PLATELET COUNT 158 K/MM3 (134-434); RBC 3.08 M/mm3 (3.60-5.2); RDW 21.6 % (11.6-15.6); WHITE BLOOD COUNT 12.1 K/mm3 (4.0-10.0)
[2020-05-24 09:33] LABS: POTASSIUM 4.2 mmol/L (3.5-5.1)
[2020-05-24 09:38] LABS: ALBUMIN 2.8 g/dl (3.4-5.0)
[2020-05-24 09:39] LABS: BLOOD UREA NITROGEN 100.4 mg/dL (7-18)
[2020-05-24] MEDS: PANTOPRAZOLE 40 MG TABLET PO SCH (09:40)
[2020-05-24] MEDS: GABAPENTIN 300 MG CAPSULE PO SCH ×2 (09:40→22:36)
[2020-05-24] MEDS: predniSONE 20 MG TABLET (UD) PO SCH (09:40)
[2020-05-24] MEDS: NIFEdipine E.R 60 MG TABLET PO SCH (09:40)
[2020-05-24] MEDS: IRON POLYSACCHARIDES 150 MG CAPSULE PO SCH (09:40)
[2020-05-24] MEDS: APIXABAN 5 MG TABLET PO SCH ×2 (09:40→22:36)
[2020-05-24] MEDS: FOLIC ACID 1 MG TABLET (FP) PO SCH (09:40)
[2020-05-24] MEDS: NEBIVOLOL 5 MG TABLET (FP) PO SCH ×2 (09:41→22:54)
[2020-05-24 09:42] LABS: CREATININE 2.8 mg/dL (0.55-1.3)
[2020-05-24] MEDS: DOXAZOSIN MESYLATE 2 MG TABLET PO SCH (09:42)
[2020-05-24 09:43] LABS: BILIRUBIN,TOTAL 0.4 mg/dL (0.2-1); TOT PROT 5.7 g/dl (6.4-8.2)
[2020-05-24] MEDS: ACETAMINOPHEN 325 MG TABLET (FP) PO PRN (09:44)
[2020-05-24] MEDS ORDERED: INSULIN (NOVOLOG) ASPART 100 UNITS/ML 10ML VIAL ONE (16:51)
[2020-05-24] MEDS: ATORVASTATIN CA 40 MG TABLET (FP) PO SCH (22:36)
[2020-05-24] MEDS: INSULIN (LEVEMIR) 100 UNITS/ML UNITS SQ SCH (22:36)
[2020-05-24] MEDS ORDERED: PT OWN MED DRAWER 7, Y5N ONE (22:43)
[2020-05-25] MEDS ORDERED: INSULIN (NOVOLOG) ASPART 100 UNITS/ML 10ML VIAL ONE (06:34)
[2020-05-25] MEDS: sitaGLIPtin PHOSPHATE 50 MG TABLET PO SCH (06:41)
[2020-05-25] MEDS: hydrALAZINE HCL 25 MG TABLET (FP) PO SCH ×3 (06:41→21:54)
[2020-05-25] MEDS: INSULIN SLIDING SCALE (NOVOLOG) 1 VIAL SQ SCH ×3 (06:42→17:36)
[2020-05-25] MEDS: FUROSEMIDE 40 MG/4 ML INJECTABLE VIAL IVPUSH SCH ×2 (06:42→14:45)
[2020-05-25] MEDS ORDERED: PT OWN MED DRAWER 7, Y5N ONE ×2 (10:05→21:09)
[2020-05-25] MEDS: DOXAZOSIN MESYLATE 2 MG TABLET PO SCH (10:16)
[2020-05-25] MEDS: predniSONE 20 MG TABLET (UD) PO SCH (10:17)
[2020-05-25] MEDS: FOLIC ACID 1 MG TABLET (FP) PO SCH (10:17)
[2020-05-25] MEDS: APIXABAN 5 MG TABLET PO SCH ×2 (10:17→21:54)
[2020-05-25] MEDS: NEBIVOLOL 5 MG TABLET (FP) PO SCH ×2 (10:17→21:54)
[2020-05-25] MEDS: IRON POLYSACCHARIDES 150 MG CAPSULE PO SCH (10:17)
[2020-05-25] MEDS: PANTOPRAZOLE 40 MG TABLET PO SCH (10:17)
[2020-05-25] MEDS: GABAPENTIN 300 MG CAPSULE PO SCH ×2 (10:17→21:54)
[2020-05-25] MEDS: NIFEdipine E.R 60 MG TABLET PO SCH (10:18)
[2020-05-25] MEDS ORDERED: ALBUTEROL SO4 2.5/IPRATROPIUM 0.5 INH SOL 3 ML VIAL.NEB. NEB PRN (12:58)
[2020-05-25] MEDS: ALBUTEROL SO4 2.5/IPRATROPIUM 0.5 INH SOL 3 ML VIAL.NEB. NEB SCH ×2 (15:38→21:00)
[2020-05-25 16:31] LABS: BASO % 0.2 % (0-2.0); EOS % 0.3 % (0-4.5); HEMATOCRIT 23.4 % (32.4-45.2); HEMOGLOBIN 7.3 GM/dL (10.7-15.3); LYMPH % 2.2 % (8-40); MCH 25.1 pg (25.7-33.7); MCHC 31.1 g/dl (32.0-36.0); MEAN CELL VOLUME 80.8 fl (80-96); MEAN PLT VOLUME 9.6 fl (7.5-11.1); MONO % 1.7 % (3.8-10.2); NEUT % 95.6 % (42.8-82.8); PLATELET COUNT 132 K/MM3 (134-434); RDW 21.7 % (11.6-15.6); WHITE BLOOD COUNT 13.4 K/mm3 (4.0-10.0)
[2020-05-25 17:13] LABS: POTASSIUM 4.8 mmol/L (3.5-5.1)
[2020-05-25 17:15] LABS: CALCIUM 8.8 mg/dL (8.5-10.1)
[2020-05-25 17:16] LABS: ALBUMIN 2.7 g/dl (3.4-5.0)
[2020-05-25 17:19] LABS: ANISOCYTOSIS 2+; CREATININE 2.9 mg/dL (0.55-1.3); MACROCYTOSIS 1+; OVALOCYTE 1+; PLATELET ESTIMATE DECREASED; TARGET CELLS 2+
[2020-05-25 17:21] LABS: BILIRUBIN,TOTAL 0.3 mg/dL (0.2-1); TOT PROT 5.3 g/dl (6.4-8.2)
[2020-05-25] MEDS: BUDESONIDE 0.25 MG/2ML INH SUSP VIAL NEB SCH (21:00)
[2020-05-25] MEDS: INSULIN (LEVEMIR) 100 UNITS/ML UNITS SQ SCH (22:09)
[2020-05-26 05:50] LABS: ALLENS TEST POSITIVE; ARTERIAL BLD GAS O2 SATURATION 90.5 mmHg (95-98); ARTERIAL BLOOD GAS BASE EXCESS 7.3 mmol/L (-2-2); ARTERIAL BLOOD GAS PO2 58.2 mmHg (80-100); ARTERIAL BLOOD GAS pH 7.427 (7.350-7.450)
[2020-05-26] MEDS: FUROSEMIDE 40 MG/4 ML INJECTABLE VIAL IVPUSH SCH ×2 (06:16→13:36)
[2020-05-26] MEDS: hydrALAZINE HCL 25 MG TABLET (FP) PO SCH ×3 (06:16→21:46)
[2020-05-26] MEDS: INSULIN (LEVEMIR) 100 UNITS/ML UNITS SQ SCH ×2 (06:19→22:22)
[2020-05-26] MEDS: sitaGLIPtin PHOSPHATE 50 MG TABLET PO SCH (06:19)
[2020-05-26] MEDS: INSULIN SLIDING SCALE (NOVOLOG) 1 VIAL SQ SCH ×3 (06:33→16:21)
[2020-05-26] MEDS: ALBUTEROL SO4 2.5/IPRATROPIUM 0.5 INH SOL 3 ML VIAL.NEB. NEB SCH ×4 (07:35→20:50)
[2020-05-26] MEDS: BUDESONIDE 0.25 MG/2ML INH SUSP VIAL NEB SCH ×2 (07:35→20:50)
[2020-05-26 09:28] LABS: BASO % 0.2 % (0-2.0); HEMATOCRIT 23.1 % (32.4-45.2); HEMOGLOBIN 7.4 GM/dL (10.7-15.3); LYMPH % 7.7 % (8-40); MCH 25.6 pg (25.7-33.7); MCHC 32.1 g/dl (32.0-36.0); MEAN CELL VOLUME 79.8 fl (80-96); MONO % 4.3 % (3.8-10.2); NEUT % 86.8 % (42.8-82.8); PLATELET COUNT 141 K/MM3 (134-434); RBC 2.89 M/mm3 (3.60-5.2); RDW 21.8 % (11.6-15.6)
[2020-05-26 09:46] LABS: POTASSIUM 4.2 mmol/L (3.5-5.1)
[2020-05-26] MEDS ORDERED: PT OWN MED DRAWER 7, Y5N ONE ×2 (09:49→21:48)
[2020-05-26] MEDS: ACETAMINOPHEN 325 MG TABLET (FP) PO PRN (09:51)
[2020-05-26] MEDS: IRON POLYSACCHARIDES 150 MG CAPSULE PO SCH (09:51)
[2020-05-26] MEDS: NIFEdipine E.R 60 MG TABLET PO SCH (09:51)
[2020-05-26] MEDS: BACITRACIN 15 GM TUBE TOPICAL OINTMENT TP SCH ×2 (09:51→21:47)
[2020-05-26] MEDS: NEBIVOLOL 5 MG TABLET (FP) PO SCH ×2 (09:52→22:23)
[2020-05-26] MEDS: predniSONE 20 MG TABLET (UD) PO SCH (09:52)
[2020-05-26] MEDS: DOXAZOSIN MESYLATE 2 MG TABLET PO SCH (09:52)
[2020-05-26] MEDS: GABAPENTIN 300 MG CAPSULE PO SCH ×2 (09:53→21:46)
[2020-05-26] MEDS: PANTOPRAZOLE 40 MG TABLET PO SCH (09:53)
[2020-05-26] MEDS: FOLIC ACID 1 MG TABLET (FP) PO SCH (09:53)
[2020-05-26] MEDS: APIXABAN 5 MG TABLET PO SCH ×2 (09:53→21:46)
[2020-05-26 10:13] LABS: ALBUMIN 2.7 g/dl (3.4-5.0); BLOOD UREA NITROGEN 103.5 mg/dL (7-18); CALCIUM 8.8 mg/dL (8.5-10.1)
[2020-05-26 10:14] LABS: BILIRUBIN,TOTAL 0.4 mg/dL (0.2-1)
[2020-05-26 10:17] LABS: CREATININE 2.7 mg/dL (0.55-1.3)
[2020-05-26 10:19] LABS: TOT PROT 5.4 g/dl (6.4-8.2)
[2020-05-26 15:00] VITALS: BMI 36.6
[2020-05-26] MEDS: ATORVASTATIN CA 40 MG TABLET (FP) PO SCH (21:46)
[2020-05-27] MEDS: FUROSEMIDE 40 MG/4 ML INJECTABLE VIAL IVPUSH SCH ×2 (05:46→15:30)
[2020-05-27] MEDS: hydrALAZINE HCL 25 MG TABLET (FP) PO SCH ×3 (05:47→21:54)
[2020-05-27] MEDS: sitaGLIPtin PHOSPHATE 50 MG TABLET PO SCH (06:00)
[2020-05-27] MEDS: INSULIN SLIDING SCALE (NOVOLOG) 1 VIAL SQ SCH ×3 (06:00→16:49)
[2020-05-27] MEDS: INSULIN (LEVEMIR) 100 UNITS/ML UNITS SQ SCH ×2 (06:00→21:55)
[2020-05-27] MEDS ORDERED: INSULIN (LEVEMIR) 100 UNITS/ML UNITS SQ ONE (07:00)
[2020-05-27] MEDS ORDERED: PT OWN MED DRAWER 7, Y5N ONE ×3 (07:01→21:50)
[2020-05-27] MEDS: ALBUTEROL SO4 2.5/IPRATROPIUM 0.5 INH SOL 3 ML VIAL.NEB. NEB SCH ×4 (08:31→20:17)
[2020-05-27] MEDS: BUDESONIDE 0.25 MG/2ML INH SUSP VIAL NEB SCH ×2 (08:31→20:18)
[2020-05-27 09:51] LABS: POTASSIUM 4.1 mmol/L (3.5-5.1)
[2020-05-27 09:53] LABS: ALBUMIN 2.9 g/dl (3.4-5.0); BLOOD UREA NITROGEN 101.8 mg/dL (7-18); CALCIUM 9.2 mg/dL (8.5-10.1)
[2020-05-27 09:57] LABS: CREATININE 2.7 mg/dL (0.55-1.3)
[2020-05-27 09:58] LABS: BILIRUBIN,TOTAL 0.6 mg/dL (0.2-1); TOT PROT 5.6 g/dl (6.4-8.2)
[2020-05-27] MEDS: APIXABAN 5 MG TABLET PO SCH ×2 (10:25→21:55)
[2020-05-27] MEDS: FOLIC ACID 1 MG TABLET (FP) PO SCH (10:25)
[2020-05-27] MEDS: predniSONE 20 MG TABLET (UD) PO SCH (10:25)
[2020-05-27] MEDS: IRON POLYSACCHARIDES 150 MG CAPSULE PO SCH (10:25)
[2020-05-27] MEDS: PANTOPRAZOLE 40 MG TABLET PO SCH (10:25)
[2020-05-27] MEDS: GABAPENTIN 300 MG CAPSULE PO SCH ×2 (10:25→21:54)
[2020-05-27] MEDS: NIFEdipine E.R 60 MG TABLET PO SCH (10:26)
[2020-05-27] MEDS: BACITRACIN 15 GM TUBE TOPICAL OINTMENT TP SCH ×2 (10:28→21:55)
[2020-05-27 11:05] LABS: BASO % 0.2 % (0-2.0); EOS % 1.6 % (0-4.5); HEMATOCRIT 23.5 % (32.4-45.2); HEMOGLOBIN 7.6 GM/dL (10.7-15.3); LYMPH % 8.2 % (8-40); MCHC 32.5 g/dl (32.0-36.0); MEAN PLT VOLUME 9.6 fl (7.5-11.1); MONO % 5.7 % (3.8-10.2); NEUT % 84.3 % (42.8-82.8); PLATELET COUNT 130 K/MM3 (134-434); RBC 2.94 M/mm3 (3.60-5.2); RDW 22.5 % (11.6-15.6); WHITE BLOOD COUNT 12.8 K/mm3 (4.0-10.0)
[2020-05-27] MEDS: NEBIVOLOL 5 MG TABLET (FP) PO SCH ×2 (12:03→21:55)
[2020-05-27] MEDS: DOXAZOSIN MESYLATE 2 MG TABLET PO SCH (12:04)
[2020-05-27] MEDS ORDERED: INSULIN (NOVOLOG) ASPART 100 UNITS/ML 10ML VIAL ONE (16:52)
[2020-05-28] MEDS: hydrALAZINE HCL 25 MG TABLET (FP) PO SCH ×3 (06:16→22:02)
[2020-05-28] MEDS: INSULIN (LEVEMIR) 100 UNITS/ML UNITS SQ SCH ×3 (06:16→22:04)
[2020-05-28] MEDS: FUROSEMIDE 40 MG/4 ML INJECTABLE VIAL IVPUSH SCH ×2 (06:16→14:33)
[2020-05-28] MEDS: sitaGLIPtin PHOSPHATE 50 MG TABLET PO SCH (06:16)
[2020-05-28] MEDS: INSULIN SLIDING SCALE (NOVOLOG) 1 VIAL SQ SCH ×3 (06:17→16:36)
[2020-05-28] MEDS ORDERED: INSULIN (LEVEMIR) 100 UNITS/ML UNITS SQ ONE (06:59)
[2020-05-28] MEDS: ALBUTEROL SO4 2.5/IPRATROPIUM 0.5 INH SOL 3 ML VIAL.NEB. NEB SCH ×4 (07:30→21:00)
[2020-05-28] MEDS: BUDESONIDE 0.25 MG/2ML INH SUSP VIAL NEB SCH ×2 (07:30→21:00)
[2020-05-28 09:13] LABS: BASO % 0.2 % (0-2.0); HEMOGLOBIN 7.6 GM/dL (10.7-15.3); LYMPH % 8.2 % (8-40); MCH 26.3 pg (25.7-33.7); MCHC 32.9 g/dl (32.0-36.0); MEAN PLT VOLUME 9.6 fl (7.5-11.1); MONO % 5.6 % (3.8-10.2); PLATELET COUNT 117 K/MM3 (134-434); RBC 2.87 M/mm3 (3.60-5.2); RDW 21.9 % (11.6-15.6); WHITE BLOOD COUNT 12.1 K/mm3 (4.0-10.0)
[2020-05-28 09:29] LABS: POTASSIUM 4.2 mmol/L (3.5-5.1)
[2020-05-28 09:49] LABS: CALCIUM 8.8 mg/dL (8.5-10.1)
[2020-05-28 09:50] LABS: ALBUMIN 2.8 g/dl (3.4-5.0)
[2020-05-28 09:52] LABS: BLOOD UREA NITROGEN 97.9 mg/dL (7-18)
[2020-05-28 09:53] LABS: CREATININE 2.8 mg/dL (0.55-1.3)
[2020-05-28 09:55] LABS: TOT PROT 5.7 g/dl (6.4-8.2)
[2020-05-28 09:57] LABS: BILIRUBIN,TOTAL 0.4 mg/dL (0.2-1)
[2020-05-28] MEDS: APIXABAN 5 MG TABLET PO SCH ×2 (11:13→22:02)
[2020-05-28] MEDS: GABAPENTIN 300 MG CAPSULE PO SCH ×2 (11:13→22:02)
[2020-05-28] MEDS: predniSONE 20 MG TABLET (UD) PO SCH (11:13)
[2020-05-28] MEDS: NIFEdipine E.R 60 MG TABLET PO SCH (11:13)
[2020-05-28] MEDS: FOLIC ACID 1 MG TABLET (FP) PO SCH (11:13)
[2020-05-28] MEDS: PANTOPRAZOLE 40 MG TABLET PO SCH (11:13)
[2020-05-28] MEDS: IRON POLYSACCHARIDES 150 MG CAPSULE PO SCH (11:13)
[2020-05-28] MEDS: MAG HYDROX/AL HYDROX/SIMETH 30 ML UNIT-DOSE CUP PO PRN (11:14)
[2020-05-28] MEDS: BACITRACIN 15 GM TUBE TOPICAL OINTMENT TP SCH ×2 (11:25→22:02)
[2020-05-28] MEDS ORDERED: PT OWN MED DRAWER 7, Y5N ONE ×2 (11:27→21:31)
[2020-05-28] MEDS: DOXAZOSIN MESYLATE 2 MG TABLET PO SCH (11:28)
[2020-05-28] MEDS: NEBIVOLOL 5 MG TABLET (FP) PO SCH ×2 (11:29→22:02)
[2020-05-28] MEDS ORDERED: predniSONE 40 MG, predniSONE 10 MG PO SCH (12:00)
[2020-05-28] MEDS: ATORVASTATIN CA 40 MG TABLET (FP) PO SCH (22:02)
[2020-05-29] MEDS: sitaGLIPtin PHOSPHATE 50 MG TABLET PO SCH (06:46)
[2020-05-29] MEDS: hydrALAZINE HCL 25 MG TABLET (FP) PO SCH (06:46)
[2020-05-29] MEDS: INSULIN SLIDING SCALE (NOVOLOG) 1 VIAL SQ SCH ×2 (06:47→11:57)
[2020-05-29] MEDS: FUROSEMIDE 40 MG/4 ML INJECTABLE VIAL IVPUSH SCH (06:47)
[2020-05-29] MEDS: INSULIN (LEVEMIR) 100 UNITS/ML UNITS SQ SCH (06:47)
[2020-05-29] MEDS: BUDESONIDE 0.25 MG/2ML INH SUSP VIAL NEB SCH ×2 (08:00→08:07)
[2020-05-29] MEDS: ALBUTEROL SO4 2.5/IPRATROPIUM 0.5 INH SOL 3 ML VIAL.NEB. NEB SCH ×3 (08:07→16:05)
[2020-05-29 09:10] LABS: BASO % 0.3 % (0-2.0); EOS % 0.8 % (0-4.5); HEMATOCRIT 22.3 % (32.4-45.2); HEMOGLOBIN 7.2 GM/dL (10.7-15.3); LYMPH % 7.5 % (8-40); MCHC 32.4 g/dl (32.0-36.0); MEAN CELL VOLUME 80.4 fl (80-96); MEAN PLT VOLUME 10.4 fl (7.5-11.1); MONO % 5.5 % (3.8-10.2); NEUT % 85.9 % (42.8-82.8); PLATELET COUNT 116 K/MM3 (134-434); RBC 2.78 M/mm3 (3.60-5.2); RDW 21.7 % (11.6-15.6); WHITE BLOOD COUNT 11.6 K/mm3 (4.0-10.0)
[2020-05-29] MEDS ORDERED: predniSONE 20 MG TABLET (UD) ONE (09:28)
[2020-05-29] MEDS ORDERED: predniSONE 10 MG TABLET (UD) ONE (09:28)
[2020-05-29] MEDS ORDERED: PT OWN MED DRAWER 7, Y5N ONE (09:29)
[2020-05-29] MEDS: GABAPENTIN 300 MG CAPSULE PO SCH (09:36)
[2020-05-29] MEDS: PANTOPRAZOLE 40 MG TABLET PO SCH (09:36)
[2020-05-29] MEDS: FOLIC ACID 1 MG TABLET (FP) PO SCH (09:37)
[2020-05-29] MEDS: IRON POLYSACCHARIDES 150 MG CAPSULE PO SCH (09:38)
[2020-05-29] MEDS: APIXABAN 5 MG TABLET PO SCH (09:38)
[2020-05-29] MEDS: NIFEdipine E.R 60 MG TABLET PO SCH (09:38)
[2020-05-29] MEDS: NEBIVOLOL 5 MG TABLET (FP) PO SCH (09:39)
[2020-05-29 09:40] LABS: POTASSIUM 4.7 mmol/L (3.5-5.1)
[2020-05-29] MEDS: DOXAZOSIN MESYLATE 2 MG TABLET PO SCH (09:40)
[2020-05-29] MEDS: BACITRACIN 15 GM TUBE TOPICAL OINTMENT TP SCH (09:41)
[2020-05-29 09:57] LABS: CALCIUM 8.8 mg/dL (8.5-10.1)
[2020-05-29 09:58] LABS: ALBUMIN 2.7 g/dl (3.4-5.0); BLOOD UREA NITROGEN 103.1 mg/dL (7-18)
[2020-05-29] MEDS ORDERED: predniSONE 40 MG, predniSONE 10 MG PO SCH (10:00)
[2020-05-29] MEDS ORDERED: predniSONE 20 MG TABLET (UD) PO SCH (10:00)
[2020-05-29 10:01] LABS: CREATININE 2.8 mg/dL (0.55-1.3)
[2020-05-29 10:02] LABS: ANISOCYTOSIS 0; MACROCYTOSIS 0; OVALOCYTE 1+; PLATELET ESTIMATE DECREASED
[2020-05-29 10:03] LABS: BILIRUBIN,TOTAL 0.4 mg/dL (0.2-1); TOT PROT 5.6 g/dl (6.4-8.2)
[2020-05-29 14:04] VITALS: BP 113/58; PULSE 57; TEMP 98
[2020-05-30] MEDS ORDERED: TORSEMIDE 20 MG TABLET (FP) PO SCH (10:00)
== END 2020-05-29 17:39 | DRG 291 ==
LOC: JER 13:35 → JERBED 15:58 → J6S 05-15 15:59
PROVIDERS: ADMIT Family Medicine; ATTEND Family Medicine
DX: I13.0 Hypertensive heart and chronic kidney disease with heart failure and stage 1 through stage 4 chronic kidney disease, or unspecified chronic kidney disease (principal); I50.33 Acute on chronic diastolic (congestive) heart failure; N17.9 Acute kidney failure, unspecified; I82.612 Acute embolism and thrombosis of superficial veins of left upper extremity; E78.5 Hyperlipidemia, unspecified; G47.33 Obstructive sleep apnea (adult) (pediatric); J44.9 Chronic obstructive pulmonary disease, unspecified; E66.9 Obesity, unspecified; Z68.37 Body mass index [BMI] 37.0-37.9, adult; E87.5 Hyperkalemia; I25.119 Atherosclerotic heart disease of native coronary artery with unspecified angina pectoris; D64.9 Anemia, unspecified; I27.20 Pulmonary hypertension, unspecified; I16.0 Hypertensive urgency; D50.0 Iron deficiency anemia secondary to blood loss (chronic); E11.22 Type 2 diabetes mellitus with diabetic chronic kidney disease; N18.30 Chronic kidney disease, stage 3 unspecified; Z86.718 Personal history of other venous thrombosis and embolism
CPT/HCPCS: 36415; 36600; 71045-TC-FY; 71250-TC; 80053; 80061; 81003; 82550; 82565; 82607; 82728; 82803; 82962; 83036; 83540; 83550; 83615; 83721; 83735; 83880; 84100; 84156; 84443; 84484; 85025; 85610; 85730; 86140; 86900; 93005; 93010; 93971; 94640; 94660; 97116-GP; 97162-GP; 99285-25; C9803; J1756; U0003